=== PATIENT | female | born 1935 | race Caucasian/White ===

== ENCOUNTER 2017-07-23 15:52 | Outpatient (CLI) | payer MEDICARE, BC ==
--- NOTE | 2017-07-23 16:27 | XR ---
EXAMINATION TYPE: XR chest 2V DATE OF EXAM: 07/23/2017 COMPARISON: NONE HISTORY: Fever and cough TECHNIQUE: Frontal and lateral views of the chest are obtained. FINDINGS: The patient is rotated. Surgical clips are present in the right upper quadrant. Anterior w edge compression deformities present in the midthoracic spine with resulting kyphosis. There is no fo gaston air space opacity, pleural effusion, or pneumothorax seen. There are prominent lung volumes. The cardiac silhouette size is within normal limits. Bone mineralization is decreased. IMPRESSION: No acute cardiopulmonary process. Osteopenia, anterior wedge compression fractures, ifeanyi elate for COPD.
== END 2017-07-23 16:30 | disposition home or self-care (01) ==
LOC: PEDOP 15:52
PROVIDERS: ATTEND Physician Assistant
DX: B34.9 Viral infection, unspecified (principal)
CPT/HCPCS: 87502; 71046; G0463; 99212

== ENCOUNTER 2017-10-09 17:31 | Observation (INO) | payer MEDICARE, BC ==
--- NOTE | 2017-10-09 17:52 | ED ---
General Adult HPI - General Chief complaint: Chest Pain Stated complaint: CHest Pressure, Ligh headed Time Seen by Provider: 10/09/17 17:41 Source: patient, RN notes reviewed, old records reviewed Mode of arrival: wheelchair Limitations: no limitations - History of Present Illness Initial comments: This is an 82-year-old female to the ER for evaluation of chest pain patient has history of high blood pressure high cholesterol. No recent travel history no sick contacts no fevers, positive shortness of breath or cough or congestion. Symptoms began while patient was doing a workout which she normally does every other day this morning. No recent cardiac evaluation - Related Data Home Medications Medication Instructions Recorded Confirmed Valsartan/Hydrochlorothiazide 1 tab PO DAILY 04/05/16 10/09/17 [Valsartan-Hctz 320-25 mg Tab] amLODIPine BESYLATE [Norvasc] 5 mg PO DAILY 04/05/16 10/09/17 Vitamin C/Biotin [Hair, Skin and 1 tab PO DAILY 10/09/17 10/09/17 Nails] Allergies Allergy/AdvReac Type Severity Reaction Status Date / Time alcohol Allergy Unknown Verified 10/09/17 18:03 [From Bactine (with alcohol)] benzalkonium chloride Allergy Unknown Verified 10/09/17 18:03 [From Bactine (with alcohol)] codeine Allergy Unknown Verified 10/09/17 18:03 lidocaine Allergy Unknown Verified 10/09/17 18:03 [From Bactine (with alcohol)] metronidazole [From Flagyl] Allergy Unknown Verified 10/09/17 18:03 sulfamethoxazole Allergy Unknown Verified 10/09/17 18:03 [From Bactrim] trimethoprim [From Bactrim] Allergy Unknown Verified 10/09/17 18:03 Review of Systems ROS Statement: Those systems with pertinent positive or pertinent negative responses have been documented in the HPI. ROS Other: All systems not noted in ROS Statement are negative. Past Medical History Past Medical History: GERD/Reflux, Hypertension Additional Past Medical History / Comment(s): 2009 acute diverticulitis and Uti with sepsis, past back pain, current UTI-was on ABX-was told it was the wrong ABX but pt states new ABX script never called into her pharmacy. History of Any Multi-Drug Resistant Organisms: C-DIFF Date of last positivie culture/infection: 2005 MDRO Source:: stool Past Surgical History: Cholecystectomy, Hysterectomy, Tonsillectomy Additional Past Surgical History / Comment(s): colonoscopy Past Anesthesia/Blood Transfusion Reactions: Motion Sickness Past Psychological History: No Psychological Hx Reported Smoking Status: Never smoker Past Alcohol Use History: Occasional Past Drug Use History: None Reported - Past Family History Father Family Medical History: Hypertension Additional Family Medical History / Comment(s): Father at the age of 63 yrs. He was an alcoholic and a smoker. Mother Family Medical History: Hypertension Additional Family Medical History / Comment(s): Mother at the age of 88yrs. General Exam Limitations: no limitations General appearance: alert, in no apparent distress Head exam: Present: atraumatic, normocephalic, normal inspection Eye exam: Present: normal appearance, PERRL, EOMI. Absent: scleral icterus, conjunctival injection, periorbital swelling ENT exam: Present: normal exam, mucous membranes moist Neck exam: Present: normal inspection. Absent: tenderness, meningismus, lymphadenopathy Respiratory exam: Present: normal lung sounds bilaterally. Absent: respiratory distress, wheezes, rales, rhonchi, stridor Cardiovascular Exam: Present: regular rate, normal rhythm, normal heart sounds. Absent: systolic murmur, diastolic murmur, rubs, gallop, clicks GI/Abdominal exam: Present: soft, normal bowel sounds. Absent: distended, tenderness, guarding, rebound, rigid Extremities exam: Present: normal inspection, full ROM, normal capillary refill. Absent: tenderness, pedal edema, joint swelling, calf tenderness Back exam: Present: normal inspection Neurological exam: Present: alert, oriented X3, CN II-XII intact Psychiatric exam: Present: normal affect, normal mood Skin exam: Present: warm, dry, intact, normal color. Absent: rash Course Vital Signs 10/09/17 17:35 Temperature 98.0 F Pulse Rate 80 Respiratory 18 Rate Blood Pressure 180/77 O2 Sat by Pulse 97 Oximetry EKG Findings - EKG Comments: EKG Findings:: EKG shows normal sinus rhythm rate of 75, TX 182, QRS 106, QTc 462 Medical Decision Making - Medical Decision Making 82 female the ER history of high blood pressure history of high cholesterol coming in with chest pain chest pain left-sided rating to jaw. Sent in by family doctor, patient be admitted for cardiac observation, EKG troponin currently negative - Lab Data Result diagrams: 10/09/17 17:54 10/09/17 17:54 Lab Results 10/09/17 10/09/17 10/09/17 Range/Units 17:54 17:54 17:54 WBC 9.5 (3.8-10.6) k/uL RBC 4.28 (3.80-5.40) m/uL Hgb 12.8 (11.4-16.0) gm/dL Hct 38.1 (34.0-46.0) % MCV 88.9 (80.0-100.0) fL MCH 29.9 (25.0-35.0) pg MCHC 33.6 (31.0-37.0) g/dL RDW 13.1 (11.5-15.5) % Plt Count 322 (150-450) k/uL Neutrophils % 64 % Lymphocytes % 24 % Monocytes % 7 % Eosinophils % 3 % Basophils % 1 % Neutrophils # 6.1 (1.3-7.7) k/uL Lymphocytes # 2.3 (1.0-4.8) k/uL Monocytes # 0.7 (0-1.0) k/uL Eosinophils # 0.2 (0-0.7) k/uL Basophils # 0.1 (0-0.2) k/uL PT (9.0-12.0) sec INR (<1.2) APTT (22.0-30.0) sec Sodium 141 (137-145) mmol/L Potassium 4.2 (3.5-5.1) mmol/L Chloride 102 (98-107) mmol/L Carbon Dioxide 26 (22-30) mmol/L Anion Gap 13 mmol/L BUN 22 H (7-17) mg/dL Creatinine 0.86 (0.52-1.04) mg/dL Est GFR (CKD-EPI)AfAm 74 (>60 ml/min/1.73 sqM) Est GFR (CKD-EPI)NonAf 64 (>60 ml/min/1.73 sqM) Glucose 102 H (74-99) mg/dL Calcium 9.3 (8.4-10.2) mg/dL Magnesium 1.8 (1.6-2.3) mg/dL Total Bilirubin 0.3 (0.2-1.3) mg/dL AST 23 (14-36) U/L ALT 24 (9-52) U/L Alkaline Phosphatase 56 (38-126) U/L Total Creatine Kinase 76 (30-135) U/L Total Protein 6.8 (6.3-8.2) g/dL Albumin 4.1 (3.5-5.0) g/dL 10/09/17 Range/Units 17:54 WBC (3.8-10.6) k/uL RBC (3.80-5.40) m/uL Hgb (11.4-16.0) gm/dL Hct (34.0-46.0) % MCV (80.0-100.0) fL MCH (25.0-35.0) pg MCHC (31.0-37.0) g/dL RDW (11.5-15.5) % Plt Count (150-450) k/uL Neutrophils % % Lymphocytes % % Monocytes % % Eosinophils % % Basophils % % Neutrophils # (1.3-7.7) k/uL Lymphocytes # (1.0-4.8) k/uL Monocytes # (0-1.0) k/uL Eosinophils # (0-0.7) k/uL Basophils # (0-0.2) k/uL PT 9.7 (9.0-12.0) sec INR 1.0 (<1.2) APTT 22.7 (22.0-30.0) sec Sodium (137-145) mmol/L Potassium (3.5-5.1) mmol/L Chloride (98-107) mmol/L Carbon Dioxide (22-30) mmol/L Anion Gap mmol/L BUN (7-17) mg/dL Creatinine (0.52-1.04) mg/dL Est GFR (CKD-EPI)AfAm (>60 ml/min/1.73 sqM) Est GFR (CKD-EPI)NonAf (>60 ml/min/1.73 sqM) Glucose (74-99) mg/dL Calcium (8.4-10.2) mg/dL Magnesium (1.6-2.3) mg/dL Total Bilirubin (0.2-1.3) mg/dL AST (14-36) U/L ALT (9-52) U/L Alkaline Phosphatase (38-126) U/L Total Creatine Kinase (30-135) U/L Total Protein (6.3-8.2) g/dL Albumin (3.5-5.0) g/dL - Radiology Data Radiology results: report reviewed (Chest x-rays negative for acute disease), image reviewed Critical Care Time Critical Care Time: Yes Total Critical Care Time: 31 Disposition Clinical Impression: Dizziness, Hypertension, Hyperlipidemia, Chest pain Disposition: ADMITTED IP TO THIS [facility] Condition: Undetermined Instructions: Chest Pain (ED) Is patient prescribed a controlled substance at d/c from ED?: No Referrals: Oli Glover MD [Primary Care Provider] - 1-2 days
[2017-10-09 18:08] LABS: Basophils # (A) 0.1 k/uL (0-0.2); Basophils % (A) 1 %; Eosinophils # (A) 0.2 k/uL (0-0.7); Eosinophils % (A) 3 %; HCT 38.1 % (34.0-46.0); HGB 12.8 gm/dL (11.4-16.0); Lymphocytes # (A) 2.3 k/uL (1.0-4.8); Lymphocytes % (A) 24 %; MCH 29.9 pg (25.0-35.0); MCHC 33.6 g/dL (31.0-37.0); MCV 88.9 fL (80.0-100.0); Mean Platelet Volume 7.3; Monocytes # (A) 0.7 k/uL (0-1.0); Monocytes % (A) 7 %; Neutrophils # (A) 6.1 k/uL (1.3-7.7); Neutrophils % (A) 64 %; Platelet Count 322 k/uL (150-450); RBC 4.28 m/uL (3.80-5.40); RDW 13.1 % (11.5-15.5); WBC 9.5 k/uL (3.8-10.6)
[2017-10-09 18:13] LABS: Partial Thromboplastin Time 22.7 sec (22.0-30.0); Prothrombin Time 9.7 sec (9.0-12.0)
[2017-10-09 18:14] LABS: Albumin 4.1 g/dL (3.5-5.0); Calcium 9.3 mg/dL (8.4-10.2); Magnesium 1.8 mg/dL (1.6-2.3); Potassium 4.2 mmol/L (3.5-5.1); Total Bilirubin 0.3 mg/dL (0.2-1.3); Total Protein 6.8 g/dL (6.3-8.2)
[2017-10-09 18:28] LABS: Creatine Kinase 76 U/L (30-135)
--- NOTE | 2017-10-09 18:35 | XR ---
EXAMINATION TYPE: XR chest 2V DATE OF EXAM: 10/09/2017 COMPARISON: 07/23/2017 HISTORY: Chest pain TECHNIQUE: Frontal and lateral views of the chest are obtained. FINDINGS: There is no heart failure nor confluent pneumonic infiltrate. Thoracic aorta is atheromato us. Heart size is normal. There is no pleural effusion. There is slight anterior wedging of 2 or 3 mi d thoracic vertebra with mild kyphosis. IMPRESSION: No active cardiopulmonary disease. Normal heart. Old mild thoracic compression fractures .
[2017-10-09 18:41] LABS: Creatine Kinase MB 0.7 ng/mL (0.0-2.4); Troponin I <0.012 ng/mL (0.000-0.034)
[2017-10-09] MEDS ORDERED: HEPARIN SODIUM,PORCINE 5,000 UNIT/ML 1 ML VIAL IV ONE (18:41)
[2017-10-09] MEDS ORDERED: NITROGLYCERIN SL TABS 0.4 MG TAB SUBLINGUAL PRN (18:41)
[2017-10-09] MEDS ORDERED: ASPIRIN 81 MG PO STA (18:41)
[2017-10-09] MEDS ORDERED: HEPARIN SODIUM,PORCINE 5,000 UNIT/ML 1 ML VIAL IV PRN (18:41)
[2017-10-09] MEDS ORDERED: HEPARIN SODIUM,PORCINE/D5W PMX 25,000 UNIT in DEXTROSE/WATER 1 500ML.BAG IV SCH (18:45)
[2017-10-09 19:34] VITALS: RESP 16
[2017-10-09] MEDS ORDERED: METOPROLOL TARTRATE 25 MG TAB PO SCH (21:00)
[2017-10-10 01:36] LABS: Creatine Kinase 61 U/L (30-135)
[2017-10-10 01:50] LABS: Creatine Kinase MB 0.7 ng/mL (0.0-2.4); Troponin I <0.012 ng/mL (0.000-0.034)
--- NOTE | 2017-10-10 05:58 | HP ---
HISTORY AND PHYSICAL DATE OF SERVICE: 10/09/2017 CHIEF COMPLAINT: Chest pain. HISTORY OF PRESENT ILLNESS: This 82-year-old woman with a past medical history of multiple medical problems including GERD, hypertension, history of diverticulitis, being followed by Dr. Oli Glover in the outpatient setting was admitted with chest pain. The patient apparently working near a pool and the patient felt chest pressure in the anterior part of the chest. Patient had a brief period without any symptoms. Patient came to [facility] and admitted for further evaluation and treatment. The patient follows with Dr. Oli Glover in the outpatient setting. The patient apparently had a stress test in [place] about 10 years ago, which was negative. The results are not available. PAST MEDICAL HISTORY: GERD, hypertension, diverticulitis, UTI, sepsis. MEDICATIONS: Medications prior to admission include home medications are: 1. Norvasc 5 mg p.o. daily. 2. Vitamin C biotin 1 tablet p.o. daily. 3. Valsartan hydrochlorothiazide 320/25 p.o. daily. ALLERGIES: Allergies are BENZALKONIUM, CODEINE, LIDOCAINE, FLAGYL, BACTRIM. FAMILY HISTORY: History of hypertension in the family. SOCIAL HISTORY: No history of smoking, occasional alcohol intake. REVIEW OF SYSTEMS: ENT: No diminished vision and diminished hearing. CARDIOVASCULAR SYSTEM: As mentioned earlier. RESPIRATORY SYSTEM: As mentioned earlier. GI: No nausea. : No dysuria. NERVOUS SYSTEM: No numbness or weakness. ALLERGY/IMMUNOLOGY: No asthma or hayfever. MUSCULOSKELETAL: As mentioned earlier. HEMATOLOGY/ONCOLOGY: No history of anemia. ENDOCRINE: No history of diabetes mellitus or hypothyroidism. CONSTITUTIONAL: As mentioned earlier. DERMATOLOGY: Negative. RHEUMATOLOGY: Negative. PSYCHIATRY: As mentioned earlier. PHYSICAL EXAMINATION: The patient is alert and oriented x3. Pulse is 72, blood pressure 149/66, respirations 16, temperature 98.1, pulse ox 100% on 2 L HEENT: Conjunctivae normal. NECK: No jugular venous distention. CARDIOVASCULAR: S1 and S2 muffled. RESPIRATORY: Breath sounds diminished at the bases. No rhonchi, no crackles. ABDOMEN: Soft, nontender. No mass palpable. LEGS: No edema, no swelling. NERVOUS SYSTEM: Higher function as mentioned earlier. Moves all 4 limbs. No focal motor or sensory deficits. LYMPHATICS: No lymphadenopathy of the neck, axillae or groin. SKIN: No ulcer, rash or bleeding. JOINTS: No active deforming arthropathy. LABS: CBC within normal. Troponins are normal. Otherwise, chest x-ray shows no active cardiopulmonary lesion. EKG showed left anterior hemiblock. ASSESSMENT: 1. Chest pain for evaluation of possible coronary disease. 2. 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 3. Hypertension. 4. History of gastroesophageal reflux disease. 5. History of diverticulitis. RECOMMENDATION AND DISCUSSION: In this 82-year-old woman who presented with multiple medical issues, will monitor the patient closely. Continue the current medications, continue symptomatic treatment. Rule out myocardial infarction. protocol. Resume the home medications. Cardiology consultation, possible stress test. Guarded prognosis because of multiple complex medical issues. Further recommendations to follow. MMODL / IJN: [id number] / MTDD
[2017-10-10 08:24] LABS: Mean Platelet Volume 7.2; Platelet Count 296 k/uL (150-450)
[2017-10-10 08:33] LABS: Cholesterol 166 mg/dL (<200); HDL Cholesterol 44 mg/dL (40-60); LDL Cholesterol,Calculated 99 mg/dL (0-99); Triglycerides 116 mg/dL (<150)
[2017-10-10] MEDS ORDERED: AMINOPHYLLINE 500 MG/20 ML VIAL IV PRN (08:40)
[2017-10-10] MEDS ORDERED: REGADENOSON 0.4 MG/5 ML SYRINGE IV ONE (08:40)
[2017-10-10 08:50] LABS: Creatine Kinase 55 U/L (30-135)
[2017-10-10] MEDS ORDERED: VALSARTAN 160 MG TAB PO SCH (09:00)
[2017-10-10] MEDS ORDERED: ASPIRIN 325 MG TAB PO SCH (09:00)
[2017-10-10] MEDS ORDERED: HYDROCHLOROTHIAZIDE 25 MG TAB PO SCH (09:00)
[2017-10-10] MEDS ORDERED: NON-FORMULARY DRUG (Valsartan/Hydrochlorothiazide [Valsartan-Hctz 320-25 Mg Tab] 1 TAB) PO SCH (09:00)
[2017-10-10] MEDS ORDERED: ASPIRIN 81 MG PO SCH (09:00)
[2017-10-10] MEDS ORDERED: amLODIPine 5 MG TAB PO SCH (09:00)
[2017-10-10 09:02] LABS: Creatine Kinase MB 0.7 ng/mL (0.0-2.4); Troponin I <0.012 ng/mL (0.000-0.034)
--- NOTE | 2017-10-10 10:40 | ECHOF ---
Referral Reason:cp MEASUREMENTS -------- HEIGHT: 157.5 cm WEIGHT: 95.7 kg BP: IVSd: 1.5 cm (0.6 - 1.1) LVIDd: 4.2 cm (3.9 - 5.3) LVPWd: 1.5 cm (0.6 - 1.1) IVSs: 1.6 cm LVIDs: 3.8 cm LVPWs: 1.3 cm LA Diam: 4.3 cm (2.7 - 3.8) Ao Diam: 2.9 cm (2.0 - 3.7) AV Cusp: 1.7 cm (1.5 - 2.6) LA Diam: 4.9 cm (2.7 - 3.8) EPSS: 0.2 cm MV E Nasir: 0.27 m/s MV DecT: 281 ms MV A Nasir: 0.72 m/s MV E/A Ratio: 0.38 RAP: 5.00 mmHg RVSP: 21.16 mmHg MV EF SLOPE: 46.18 mm/s (70 - 150) MV EXCURSION: 1.16 cm (> 18.000) FINDINGS -------- Sinus rhythm. This was a technically adequate study. The left ventricular size is normal. There is moderate concentric left ventricular hypertrophy. O verall left ventricular systolic function is low-normal with, an EF between 50 - 55 %. The right ventricle is normal in size. The left atrium is mildly dilated. The right atrial size is normal. The aortic valve is trileaflet, and appears structurally normal. No aortic stenosis or regurgitation. Mild mitral regurgitation is present. No regurgitation noted There is no evidence of pulmonary hypertension. The right ventricular syst olic pressure, as measured by Doppler, is 21.16mmHg. There is no pulmonic regurgitation present. The aortic root size is normal. Echo free space indicative of a pericardial fat pad. CONCLUSIONS -------- 1. Sinus rhythm. 2. The left ventricular size is normal. 3. There is moderate concentric left ventricular hypertrophy. 4. Overall left ventricular systolic function is low-normal with, an EF between 50 - 55 %. 5. The right ventricle is normal in size. 6. The left atrium is mildly dilated. 7. The right atrial size is normal. 8. The aortic valve is trileaflet, and appears structurally normal. No aortic stenosis or regurgitati on. 9. Mild mitral regurgitation is present. 10. No regurgitation noted 11. There is no evidence of pulmonary hypertension. 12. The right ventricular systolic pressure, as measured by Doppler, is 21.16mmHg. 13. There is no pulmonic regurgitation present. 14. Echo free space indicative of a pericardial fat pad. ECONOMICS DEPARTMENT CHAIR: Olimpia Menjivar RDCS
--- NOTE | 2017-10-10 11:29 | EST ---
EXERCISE STRESS DATE OF SERVICE: 10/10/2017 AGE: 82 SEX: Female HT: 62" WT: 211 pounds PROTOCOL: Lexiscan Cardiolite STAGE: DURATION OF EXERCISE: HEART RATE REST: 76 BLOOD PRESSURE REST: 112/71 MAXIMUM HEART RATE ACHIEVED: 88 MAXIMUM BLOOD PRESSURE: 185/76 85% MPHR: 118 100% MPHR: 139 METS: INDICATION OF THE STUDY: Chest pain. CLINICAL INFORMATION: STRESS DATA: Pretesting physical examination showed a heart rate of 76, pressure 112/71 mmHg. Baseline EKG showed sinus mechanism. A 0.4 mg of Lexiscan was given over 15 seconds per protocol. The max heart rate was 88 beats per minute and maximum pressure was 185/76 mmHg. Clinically the patient did not have any symptoms of chest pain or discomfort and the EKG did not show any significant ST or T-wave abnormalities consistent with ischemia. CONCLUSION: 1. Nondiagnostic electrocardiogram stress testing in response to Lexiscan. 2. Please follow up on the Cardiolite portion on separate report from radiology department. MMODL / IJN: [id number] /
[2017-10-10] MEDS: ATORVASTATIN 80 MG TAB PO SCH ×2 (12:02→12:07)
--- NOTE | 2017-10-10 12:20 | P.CRDCN ---
History of Present Illness Consult date: 10/10/17 History of present illness: Mrs. Maldonado is a pleasant 82-year-old female past medical history significant for hypertension and gastroesophageal reflux disease. She denies history of coronary artery disease and has never seen a director of sports medicine for any reason. We have been asked to see her in consultation for chest pain. She states yesterday in the afternoon while at rest she developed a heavy sensation across her chest in the upper region from shoulder to shoulder. She has mild shortness of breath, dizziness and nausea. She had planted some garsia the day before and thought maybe she had pulled a muscle. However, the heaviness persisted so she went in to see her PCP and was sent here for evaluation. Since arriving in the hospital she has had no further symptoms of chest pain, shortness of breath, dizziness or nausea. She denies radiation of the pain to the back, neck, jaw or arm. She denies associated palpitations, vomiting or diaphoresis. No specific aggravating or alleviating factors. EKG sinus mechanism with poor R-wave progression, no acute ST or T-wave abnormalities noted. Chest xray negative for an acute cardiopulmonary process. Laboratory data reviewed, hgb 12.8, plt 296, sodium 141, potassium 4.2, magnesium 1.8, creatinine 0.86, cardiac enzymes negative x3, LDL 99, HDL 44. Current cardiac medications include amlodipine 5 mg daily and valsartan/hctz 320 /25 mg daily. She also takes vitamin C supplementation. Most recent echocardiogram from 2014 reveals preserved LV systolic function with EF 55%. Review of Systems At the time of my exam: CONSTITUTIONAL: Denies fever. Denies chills. EYES: Denies blurred vision. Denies vision changes. Denies eye pain. EARS, NOSE, MOUTH & THROAT: Denies headache. Denies sore throat. Denies ear pain. CARDIOVASCULAR: Denies chest pain. Denies shortness of breath. Denies orthopnea. Denies PND. Denies palpitations. RESPIRATORY: Denies cough. GASTROINTESTINAL: Denies abdominal pain. Denies diarrhea. Denies constipation. Denies nausea. Denies vomiting. MUSCULOSKELETAL: Denies myalgias. INTEGUMENTARY: Denies pruitis. Denies rash. NEUROLOGIC: Denies numbness. Denies tingling. Denies weakness. PSYCHIATRIC: Denies anxiety. Denies depression. ENDOCRINE: Denies fatigue. Denies weight change. Denies polydipsia. Denies polyurina. GENITOURINARY: Denies burning, hematuria or urgency with micturation. HEMATOLOGIC: Denies history of anemia. Denies bleeding. Past Medical History Past Medical History: GERD/Reflux, Hypertension Additional Past Medical History / Comment(s): 2009 acute diverticulitis and Uti with sepsis, past back pain, c-diff 2016, "told she has an anuerysm " History of Any Multi-Drug Resistant Organisms: None Reported Date of last positivie culture/infection: 2005 MDRO Source:: stool Past Surgical History: Cholecystectomy, Hysterectomy, Tonsillectomy Additional Past Surgical History / Comment(s): colonoscopy, eye sx(tear ducts) Past Anesthesia/Blood Transfusion Reactions: Motion Sickness Additional Past Anesthesia/Blood Transfusion Reaction / Comment(s): clausterphobia Smoking Status: Never smoker - Past Family History Father Family Medical History: Hypertension Additional Family Medical History / Comment(s): Father at the age of 63 yrs. He was an alcoholic and a smoker. Mother Family Medical History: Hypertension Additional Family Medical History / Comment(s): Mother at the age of 88yrs. Medications and Allergies Home Medications Medication Instructions Recorded Confirmed Type Valsartan/Hydrochlorothiazide 1 tab PO DAILY 04/05/16 10/09/17 History [Valsartan-Hctz 320-25 mg Tab] amLODIPine BESYLATE [Norvasc] 5 mg PO DAILY 04/05/16 10/09/17 History Vitamin C/Biotin [Hair, Skin and 1 tab PO DAILY 10/09/17 10/09/17 History Nails] Allergies Allergy/AdvReac Type Severity Reaction Status Date / Time benzalkonium chloride Allergy Unknown Verified 10/09/17 18:03 [From Bactine (with alcohol)] codeine Allergy Unknown Verified 10/09/17 18:03 lidocaine Allergy Unknown Verified 10/09/17 18:03 [From Bactine (with alcohol)] metronidazole [From Flagyl] Allergy Unknown Verified 10/09/17 18:03 sulfamethoxazole Allergy Unknown Verified 10/09/17 18:03 [From Bactrim] trimethoprim [From Bactrim] Allergy Unknown Verified 10/09/17 18:03 Physical Exam Vitals: Vital Signs Temp Pulse Pulse Resp BP BP Pulse Ox 10/10/17 07:39 97.9 F 67 16 120/57 93 L 10/10/17 03:51 63 16 10/10/17 03:40 98.0 F 64 16 140/70 94 L 10/09/17 23:42 61 16 10/09/17 23:37 98.7 F 64 16 95/51 98 10/09/17 20:00 76 16 10/09/17 19:33 98.1 F 72 16 149/66 100 10/09/17 19:12 97.8 F 69 18 143/68 99 10/09/17 18:57 74 147/66 95 10/09/17 17:35 98.0 F 80 18 180/77 97 Intake and Output 10/09/17 10/10/17 10/10/17 22:59 06:59 14:59 Intake Total 134.325 Balance 134.325 Intake: Intake, IV Titration 134.325 Amount Heparin Sodium,Porcine/ 134.325 D5w Pmx 25,000 unit In Dextrose/Water 1 500ml. bag @ 10.4 UNITS/KG/HR 19 .9 mls/hr IV .Q24H [facility] Rx #:[id number] Other: Voiding Method Toilet Toilet # Voids 3 # Bowel Movements 1 Weight 95.708 kg Blood pressure 120/57 with heart rate 67 afebrile maintaining oxygen saturation on room air GENERAL: This is a 82-year-old female in no apparent distress at the time of my examination. Obese. HEENT: Head is atraumatic, normocephalic. Pupils are equal, round. Sclerae anicteric. Conjunctivae are clear. Mucous membranes of the mouth are moist. Neck is supple. There is no jugular venous distention. No carotid bruit is heard. LUNGS: Clear to auscultation no wheezes, rales or rhonchi. No chest wall tenderness is noted on palpation or with deep breathing. HEART: Regular rate and rhythm without murmurs, rubs or gallops. S1 and S2 heard. ABDOMEN: Soft, nontender. Bowel sounds are heard. No organomegaly noted. EXTREMITIES: No evidence of peripheral edema and no calf tenderness noted. VASCULAR: Radial and dorsalis pedis pulses palpated, no evidence of clubbing. NEUROLOGIC: Patient is awake, alert and oriented x3. Results 10/10/17 08:04 10/09/17 17:54 Cardiac Enzymes 10/09/17 10/09/17 10/10/17 Range/Units 17:54 17:54 00:26 AST 23 (14-36) U/L CK-MB (CK-2) 0.7 0.7 (0.0-2.4) ng/mL Troponin I <0.012 <0.012 (0.000-0.034) ng/mL Coagulation 18 10/10/17 Range/Units 17:54 00:26 PT 9.7 (9.0-12.0) sec APTT 22.7 42.8 H (22.0-30.0) sec CBC 10/09/17 Range/Units 17:54 WBC 9.5 (3.8-10.6) k/uL RBC 4.28 (3.80-5.40) m/uL Hgb 12.8 (11.4-16.0) gm/dL Hct 38.1 (34.0-46.0) % Plt Count 322 (150-450) k/uL Comprehensive Metabolic Panel 10/09/17 Range/Units 17:54 Sodium 141 (137-145) mmol/L Potassium 4.2 (3.5-5.1) mmol/L Chloride 102 (98-107) mmol/L Carbon Dioxide 26 (22-30) mmol/L BUN 22 H (7-17) mg/dL Creatinine 0.86 (0.52-1.04) mg/dL Glucose 102 H (74-99) mg/dL Calcium 9.3 (8.4-10.2) mg/dL AST 23 (14-36) U/L ALT 24 (9-52) U/L Alkaline Phosphatase 56 (38-126) U/L Total Protein 6.8 (6.3-8.2) g/dL Albumin 4.1 (3.5-5.0) g/dL Current Medications Generic Name Dose Route Start Last Admin Trade Name Freq PRN Reason Stop Dose Admin Aspirin 81 mg 10/10/17 09:00 Aspirin PO DAILY [facility] Atorvastatin Calcium 80 mg 10/10/17 09:00 Lipitor PO DAILY [facility] Heparin Sodium (Porcine) 0 unit 10/09/17 18:41 Heparin IV Q6HR PRN Low PTT Protocol Heparin Sodium/Dextrose 25,000 500 mls @ 19.9 mls/hr 10/09/17 18:45 10/10/17 01:44 unit/ IV Solution IV 12.06 units/kg/hr .Q24H [facility] 23.1 mls/hr Protocol Titration 10.4 UNITS/KG/HR Nitroglycerin 0.4 mg 10/09/17 18:41 Nitrostat SUBLINGUAL Q5M PRN Chest Pain Intake and Output 10/09/17 10/10/17 10/10/17 22:59 06:59 14:59 Intake Total 134.325 Balance 134.325 Intake: Intake, IV Titration 134.325 Amount Heparin Sodium,Porcine/ 134.325 D5w Pmx 25,000 unit In Dextrose/Water 1 500ml. bag @ 10.4 UNITS/KG/HR 19 .9 mls/hr IV .Q24H [facility] Rx #:[id number] Other: Voiding Method Toilet Toilet # Voids 3 # Bowel Movements 1 Weight 95.708 kg 10/09/17 17:54 10/09/17 17:54 Assessment and Plan Assessment: ASSESSMENT 1. Chest pain, atypical. An acute coronary event has been ruled out. 2. Hypertension 3. Gastroesophageal reflux disease 4. Obesity PLAN Obtain 2-D echocardiogram and Doppler study to assess cardiac structure and function. Perform Lexiscan stress test with sestamibi reversible cardiac ischemia. Resume all medications amlodipine 5 mg daily, valsartan/HCTZ 320/25 mg daily. Further recommendations to follow based upon clinical diagnostic test findings. If stress test is normal she is stable from a cardiac perspective. Follow-up with Dr. Chen in 2 weeks. Thank you kindly for this consultation. Nurse Practitioner note has been reviewed, I agree with a documented findings and plan of care. Patient was seen and examined.
--- NOTE | 2017-10-10 12:23 | NM ---
EXAMINATION TYPE: NM stress lexiscan cardiolite DATE OF EXAM: 10/10/2017 COMPARISON: NONE HISTORY: Chest pain TECHNIQUE: After the intravenous administration of 9.8 mCi Tc 99m Sestamibi - Cardiolite resting SPE CT images acquired 45 minutes post injection. The patient received 0.4mg Lexiscan, 25.8 mCi Tc 99m Sestamibi - Stress images obtained [address] injection FINDINGS: Review of stress and rest SPECT images demonstrates no distinct perfusion abnormality. Gated analysi s shows small focal fixed defect involving the apex of the myocardium. An estimated left ventricular ejection fraction of 69 %. IMPRESSION: No scintigraphic evidence for reversible ischemia.
[2017-10-10 12:39] VITALS: BP 142/63; PULSE 79; TEMP 98.1
--- NOTE | 2017-10-10 23:20 | DS ---
DISCHARGE SUMMARY DATE OF SERVICE: 10/10/2017 FINAL DIAGNOSES: 1. Chest pain, possibly gastroesophageal reflux disease. Negative stress test. 2. 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 3. Hypertension. 4. History of gastroesophageal reflux disease. 5. History of diverticulitis. DISCHARGE DISPOSITION: The patient will be discharged in stable condition with guarded prognosis. Cardiology cleared the patient for discharge. HISTORY OF PRESENT ILLNESS: This 82-year-old woman with a past medical history of multiple medical problems was admitted with chest pain. Lexiscan stress test was negative. Cardiology recommend the patient be discharged. On exam, vital signs are stable. CARDIOVASCULAR SYSTEM: S1, S2 muffled. ABDOMEN: Soft. NERVOUS SYSTEM: No focal deficit. DISCHARGE ADVICE AND MEDICATIONS: 1. Diet is cardiac. 2. Activity limited until followup. 3. Follow up with Dr. Oli Glover in 1-2 days. 4. Follow up with Dr. Chen as advised. 5. Norvasc 5 mg p.o. daily. 6. Valsartan hydrochlorothiazide 1 tablet p.o. daily. 7. Vitamin C daily p.o. Once again, the patient will be discharged in a stable condition with guarded prognosis. MMODL / IJN: [id number] /
== END 2017-10-10 13:36 | disposition home or self-care (01) ==
LOC: EC 17:31 → 3OBS 18:42
PROVIDERS: ADMIT Hospitalist; ATTEND Hospitalist
DX: R07.89 Other chest pain (principal); R06.02 Shortness of breath; R42 Dizziness and giddiness; R11.0 Nausea; I10 Essential (primary) hypertension; E78.5 Hyperlipidemia, unspecified; K21.9 Gastro-esophageal reflux disease without esophagitis; E66.9 Obesity, unspecified; Z68.38 Body mass index [BMI] 38.0-38.9, adult; K57.92 Diverticulitis of intestine, part unspecified, without perforation or abscess without bleeding; Z87.440 Personal history of urinary (tract) infections; Z79.899 Other long term (current) drug therapy; Z88.1 Allergy status to other antibiotic agents; Z88.5 Allergy status to narcotic agent; Z88.2 Allergy status to sulfonamides; Z88.8 Allergy status to other drugs, medicaments and biological substances; Z91.048 Other nonmedicinal substance allergy status; Z81.1 Family history of alcohol abuse and dependence; Z81.2 Family history of tobacco abuse and dependence; Z16.35 Resistance to multiple antimicrobial drugs
CPT/HCPCS: 96376 ×2; 96365 ×2; 99291 ×2; 93005 ×2; 96366 ×2; 36415; 93017; 93306; 80061; 80053; 82550 ×2; 82553 ×2; 83735; 84484 ×2; 85025; 85049; 85610; 85730 ×2; 87324; 71046; 78452; G0378 ×2; A9500; J1644 ×2; J2785

== ENCOUNTER 2018-12-30 08:00 | Emergency (ER) | payer MEDICARE, BC ==
[2018-12-30] MEDS ORDERED: ASPIRIN 81 MG PO STA (08:22)
[2018-12-30] MEDS ORDERED: NITROGLYCERIN OINT 1 INCH/GM PACKET TOPICAL STA (08:22)
--- NOTE | 2018-12-30 08:25 | ED ---
General Adult HPI - General Stated complaint: Chest pain Time Seen by Provider: 12/30/18 08:14 Source: patient, RN notes reviewed Limitations: no limitations - History of Present Illness Initial comments: Patient is a pleasant 83-year-old female presenting to the emergency Department with complaints of chest discomfort. Onset of symptoms was this morning prior to arrival. Symptoms lasted around a half an hour and have resolved. Discomfort is described as an ache across her chest. There was some radiation towards the back as well. No associated dyspnea, nausea, or diaphoresis. No history of similar symptoms previously. - Related Data Home Medications Medication Instructions Recorded Confirmed Valsartan/Hydrochlorothiazide 1 tab PO DAILY 04/05/16 12/30/18 [Valsartan-Hctz 320-25 mg Tab] Cranberry Fruit Extract [Cranberry] 500 mg PO DAILY 12/30/18 12/30/18 Naproxen Sodium [Aleve] 220 mg PO Q12HR PRN 12/30/18 12/30/18 Ranitidine HCl [Zantac] 75 mg PO HS PRN 12/30/18 12/30/18 Allergies Allergy/AdvReac Type Severity Reaction Status Date / Time benzalkonium chloride Allergy Unknown Verified 12/30/18 08:27 [From Bactine (with alcohol)] codeine Allergy Unknown Verified 12/30/18 08:27 lidocaine Allergy Unknown Verified 12/30/18 08:27 [From Bactine (with alcohol)] metronidazole [From Flagyl] Allergy Unknown Verified 12/30/18 08:27 sulfamethoxazole Allergy Unknown Verified 12/30/18 08:27 [From Bactrim] trimethoprim [From Bactrim] Allergy Unknown Verified 12/30/18 08:27 Review of Systems ROS Statement: Those systems with pertinent positive or pertinent negative responses have been documented in the HPI. ROS Other: All systems not noted in ROS Statement are negative. Constitutional: Denies: fever Eyes: Denies: eye pain ENT: Denies: ear pain Respiratory: Denies: cough, dyspnea Cardiovascular: Reports: chest pain Endocrine: Denies: fatigue Gastrointestinal: Denies: abdominal pain Genitourinary: Denies: dysuria Musculoskeletal: Denies: back pain Skin: Denies: rash Neurological: Denies: weakness Past Medical History Past Medical History: GERD/Reflux, Hypertension Additional Past Medical History / Comment(s): 2009 acute diverticulitis and Uti with sepsis, past back pain, c-diff 2016, "told she has an anuerysm " History of Any Multi-Drug Resistant Organisms: None Reported Date of last positivie culture/infection: 2005 MDRO Source:: stool Past Surgical History: Cholecystectomy, Hysterectomy, Tonsillectomy Additional Past Surgical History / Comment(s): colonoscopy, eye sx(tear ducts) Past Anesthesia/Blood Transfusion Reactions: Motion Sickness Additional Past Anesthesia/Blood Transfusion Reaction / Comment(s): clausterphobia Smoking Status: Never smoker - Past Family History Father Family Medical History: Hypertension Additional Family Medical History / Comment(s): Father at the age of 63 yrs. He was an alcoholic and a smoker. Mother Family Medical History: Hypertension Additional Family Medical History / Comment(s): Mother at the age of 88yrs. General Exam General appearance: alert, in no apparent distress Head exam: Present: atraumatic Eye exam: Present: normal appearance, PERRL ENT exam: Present: normal oropharynx Neck exam: Present: normal inspection Respiratory exam: Present: normal lung sounds bilaterally. Absent: chest wall tenderness Cardiovascular Exam: Present: regular rate, normal rhythm Expanded Peripheral pulses: 2+: Radial (R), Radial (L), Dorsalis Pedis (R), Dorsalis Pedis (L) GI/Abdominal exam: Present: soft. Absent: distended, tenderness Extremities exam: Present: normal inspection. Absent: pedal edema, calf tenderness Neurological exam: Present: alert Psychiatric exam: Present: normal affect, normal mood Skin exam: Present: normal color Course Vital Signs 12/30/18 08:43 Temperature 98.4 F Pulse Rate 66 Respiratory 16 Rate Blood Pressure 128/72 O2 Sat by Pulse 96 Oximetry EKG Findings - EKG Comments: EKG Findings:: Normal sinus rhythm 70. OH 190. QRS 114. QT 410. QTc 422. Right superior axis. Normal QRS. No acute ST change. Medical Decision Making - Medical Decision Making Patient reevaluated and resting comfortably in bed. Patient updated on results and plan. Case discussed in detail with practitioner Amairani, covering with Dr. Glover, who will admit. Cardiology will be placed on consult. - Lab Data Result diagrams: 12/30/18 08:30 12/30/18 08:30 Lab Results 12/30/18 12/30/18 12/30/18 Range/Units 08:30 08:30 08:30 WBC 7.9 (3.8-10.6) k/uL RBC 4.13 (3.80-5.40) m/uL Hgb 12.6 (11.4-16.0) gm/dL Hct 38.4 (34.0-46.0) % MCV 93.0 (80.0-100.0) fL MCH 30.6 (25.0-35.0) pg MCHC 32.9 (31.0-37.0) g/dL RDW 14.3 (11.5-15.5) % Plt Count 280 (150-450) k/uL Neutrophils % 58 % Lymphocytes % 28 % Monocytes % 8 % Eosinophils % 3 % Basophils % 1 % Neutrophils # 4.6 (1.3-7.7) k/uL Lymphocytes # 2.2 (1.0-4.8) k/uL Monocytes # 0.6 (0-1.0) k/uL Eosinophils # 0.2 (0-0.7) k/uL Basophils # 0.1 (0-0.2) k/uL PT 9.8 (9.0-12.0) sec INR 0.9 (<1.2) APTT 23.2 (22.0-30.0) sec D-Dimer 1.30 H (<0.60) mg/L FEU Sodium 139 (137-145) mmol/L Potassium 4.0 (3.5-5.1) mmol/L Chloride 102 (98-107) mmol/L Carbon Dioxide 28 (22-30) mmol/L Anion Gap 9 mmol/L BUN 23 H (7-17) mg/dL Creatinine 1.08 H (0.52-1.04) mg/dL Est GFR (CKD-EPI)AfAm 55 (>60 ml/min/1.73 sqM) Est GFR (CKD-EPI)NonAf 48 (>60 ml/min/1.73 sqM) Glucose 104 H (74-99) mg/dL Calcium 9.2 (8.4-10.2) mg/dL Magnesium 1.7 (1.6-2.3) mg/dL Total Bilirubin 0.5 (0.2-1.3) mg/dL AST 17 (14-36) U/L ALT 18 (9-52) U/L Alkaline Phosphatase 53 (38-126) U/L Troponin I (0.000-0.034) ng/mL Total Protein 6.7 (6.3-8.2) g/dL Albumin 3.8 (3.5-5.0) g/dL 12/30/ Range/Units 08:30 WBC (3.8-10.6) k/uL RBC (3.80-5.40) m/uL Hgb (11.4-16.0) gm/dL Hct (34.0-46.0) % MCV (80.0-100.0) fL MCH (25.0-35.0) pg MCHC (31.0-37.0) g/dL RDW (11.5-15.5) % Plt Count (150-450) k/uL Neutrophils % % Lymphocytes % % Monocytes % % Eosinophils % % Basophils % % Neutrophils # (1.3-7.7) k/uL Lymphocytes # (1.0-4.8) k/uL Monocytes # (0-1.0) k/uL Eosinophils # (0-0.7) k/uL Basophils # (0-0.2) k/uL PT (9.0-12.0) sec INR (<1.2) APTT (22.0-30.0) sec D-Dimer (<0.60) mg/L FEU Sodium (137-145) mmol/L Potassium (3.5-5.1) mmol/L Chloride (98-107) mmol/L Carbon Dioxide (22-30) mmol/L Anion Gap mmol/L BUN (7-17) mg/dL Creatinine (0.52-1.04) mg/dL Est GFR (CKD-EPI)AfAm (>60 ml/min/1.73 sqM) Est GFR (CKD-EPI)NonAf (>60 ml/min/1.73 sqM) Glucose (74-99) mg/dL Calcium (8.4-10.2) mg/dL Magnesium (1.6-2.3) mg/dL Total Bilirubin (0.2-1.3) mg/dL AST (14-36) U/L ALT (9-52) U/L Alkaline Phosphatase (38-126) U/L Troponin I <0.012 (0.000-0.034) ng/mL Total Protein (6.3-8.2) g/dL Albumin (3.5-5.0) g/dL - Radiology Data Radiology results: report reviewed (Computed tomography scan of the chest is negative for pulmonary embolism. There is cardiomegaly and mild pericardial effusion.) Disposition Clinical Impression: Chest pain Disposition: ADMITTED IP TO THIS HOSP Is patient prescribed a controlled substance at d/c from ED?: No Referrals: Oli Glover MD [Primary Care Provider] - 1-2 days Decision Time: 10:29
[2018-12-30 08:43] LABS: Basophils # (A) 0.1 k/uL (0-0.2); Basophils % (A) 1 %; Eosinophils # (A) 0.2 k/uL (0-0.7); Eosinophils % (A) 3 %; HCT 38.4 % (34.0-46.0); HGB 12.6 gm/dL (11.4-16.0); Lymphocytes # (A) 2.2 k/uL (1.0-4.8); Lymphocytes % (A) 28 %; MCH 30.6 pg (25.0-35.0); MCHC 32.9 g/dL (31.0-37.0); Mean Platelet Volume 7.2; Monocytes # (A) 0.6 k/uL (0-1.0); Monocytes % (A) 8 %; Neutrophils # (A) 4.6 k/uL (1.3-7.7); Neutrophils % (A) 58 %; Platelet Count 280 k/uL (150-450); RBC 4.13 m/uL (3.80-5.40); RDW 14.3 % (11.5-15.5); WBC 7.9 k/uL (3.8-10.6)
[2018-12-30 08:49] VITALS: PULSE 66
[2018-12-30 08:55] LABS: Albumin 3.8 g/dL (3.5-5.0); Calcium 9.2 mg/dL (8.4-10.2); Magnesium 1.7 mg/dL (1.6-2.3); Total Bilirubin 0.5 mg/dL (0.2-1.3); Total Protein 6.7 g/dL (6.3-8.2)
[2018-12-30 09:01] LABS: INR 0.9 (<1.2); Partial Thromboplastin Time 23.2 sec (22.0-30.0); Prothrombin Time 9.8 sec (9.0-12.0)
[2018-12-30 09:14] LABS: D-Dimer 1.3 mg/L FEU (<0.60)
--- NOTE | 2018-12-30 09:54 | CT ---
EXAMINATION TYPE: CT angio chest DATE OF EXAM: 12/30/2018 COMPARISON: None HISTORY: Chest pain for 1/2 hour, Possible PE CT DLP: 425.2 mGycm Automated exposure control for dose reduction was used. CONTRAST: CTA scan of the thorax is performed without and with IV Contrast, patient injected with 80 ml mL of I sovue 370, pulmonary embolism protocol. MIP images are created and reviewed. 3D reconstructed image s are created on an independent workstation and reviewed. FINDINGS: LUNGS: The lungs are grossly clear, there is no concerning parenchymal mass or nodule identified. T here is no pleural effusion or pneumothorax seen. The tracheobronchial tree is patent. AORTA: No additional significant abnormality is seen. MEDIASTINUM: There is satisfactory enhancement of the pulmonary artery and its branches, there is no CT evidence for pulmonary embolism. There are no greater than 1 cm hilar or mediastinal lymph nodes. There is a small pericardial effusion. Heart is enlarged. Pulmonary artery appears prominent, correl ate for possible pulmonary artery hypertension OTHER: Thyroid gland appears prominently. There is a hiatal hernia present. Wedge compression fractures in the lower thoracic spine causes an underlying kyphosis, flowing anteri or osteophytes with relative preservation of the disc spaces may be indicative of diffuse idiopathic skeletal hyperostosis. IMPRESSION: NO EVIDENT PULMONARY EMBOLISM. Cardiomegaly. Small pericardial effusion. Hiatal hernia. Correlate for possible pulmonary artery hypertension.
[2018-12-30] MEDS ORDERED: NITROGLYCERIN SL TABS 0.4 MG TAB SUBLINGUAL PRN (10:29)
[2018-12-30] MEDS ORDERED: FAMOTIDINE 20 MG TAB PO PRN (12:06)
--- NOTE | 2018-12-30 12:09 | P.HPIM ---
History of Present Illness 83-year-old female presented emergency room with complaints of chest pain that radiated to back pain. Patient states she was shopping. Patient denies previous chest pain. Patient does have history of GERD and hypertension. Patie nt denies of radiation to neck or arm denies nausea denies diaphoresis Review of Systems Cardiovascular: Reports chest pain Past Medical History Past Medical History: GERD/Reflux, Hypertension Additional Past Medical History / Comment(s): 2009 acute diverticulitis and Uti with sepsis, past back pain, c-diff 2016, "told she has an anuerysm " History of Any Multi-Drug Resistant Organisms: None Reported Date of last positivie culture/infection: 2005 MDRO Source:: stool Past Surgical History: Cholecystectomy, Hysterectomy, Tonsillectomy Additional Past Surgical History / Comment(s): colonoscopy, eye sx(tear ducts) Past Anesthesia/Blood Transfusion Reactions: Motion Sickness Additional Past Anesthesia/Blood Transfusion Reaction / Comment(s): clausterphobia Smoking Status: Never smoker - Past Family History Father Family Medical History: Hypertension Additional Family Medical History / Comment(s): Father at the age of 63 yrs. He was an alcoholic and a smoker. Mother Family Medical History: Hypertension Additional Family Medical History / Comment(s): Mother at the age of 88yrs. Medications and Allergies Home Medications Medication Instructions Recorded Confirmed Type Valsartan/Hydrochlorothiazide 1 tab PO DAILY 04/05/16 12/30/18 History [Valsartan-Hctz 320-25 mg Tab] Cranberry Fruit Extract [Cranberry] 500 mg PO DAILY 12/30/18 12/30/18 History Naproxen Sodium [Aleve] 220 mg PO Q12HR PRN 12/30/18 12/30/18 History Ranitidine HCl [Zantac] 75 mg PO HS PRN 12/30/18 12/30/18 History Allergies Allergy/AdvReac Type Severity Reaction Status Date / Time benzalkonium chloride Allergy Unknown Verified 12/30/18 08:27 [From Bactine (with alcohol)] codeine Allergy Unknown Verified 12/30/18 08:27 lidocaine Allergy Unknown Verified 12/30/18 08:27 [From Bactine (with alcohol)] metronidazole [From Flagyl] Allergy Unknown Verified 12/30/18 08:27 sulfamethoxazole Allergy Unknown Verified 12/30/18 08:27 [From Bactrim] trimethoprim [From Bactrim] Allergy Unknown Verified 12/30/18 08:27 Physical Exam Vitals: Vital Signs Temp Pulse Resp BP Pulse Ox 12/30/18 08:43 98.4 F 66 16 128/72 96 Intake and Output 12/29/18 12/30/18 12/30/18 22:59 06:59 14:59 Other: Weight 90.718 kg - Constitutional General appearance: mild distress, obese - EENT Eyes: PERRLA Ears: bilateral: normal - Neck Neck: normal ROM - Respiratory Respiratory: negative: CTA - Cardiovascular Rhythm: regular - Gastrointestinal General gastrointestinal: soft - Integumentary Integumentary: normal - Neurologic Neurologic: CNII-XII intact - Psychiatric Psychiatric: A&O x's 3, appropriate affect, intact judgment & insight Results CBC & Chem 7: 12/30/18 08:30 12/30/18 08:30 Labs: Abnormal Lab Results - Last 24 Hours (Table) 12/30/18 12/30/18 Range/Units 08:30 08:30 D-Dimer 1.30 H (<0.60) mg/L FEU BUN 23 H (7-17) mg/dL Creatinine 1.08 H (0.52-1.04) mg/dL Glucose 104 H (74-99) mg/dL CT scan - chest: report reviewed Assessment and Plan Plan: Assessment Chest pain troponin negative 1 EKG sinus rhythm History of GERD History of hypertension Plan Cardiology consultation
[2018-12-30 15:29] VITALS: BP 132/56; RESP 20; TEMP 98.3
[2018-12-30] MEDS ORDERED: NITROGLYCERIN OINT 1 INCH/GM PACKET TOPICAL SCH (18:00)
[2018-12-31] MEDS ORDERED: VALSARTAN 160 MG TAB PO SCH (09:00)
[2018-12-31] MEDS ORDERED: ASPIRIN 325 MG TAB PO SCH (09:00)
[2018-12-31] MEDS ORDERED: HYDROCHLOROTHIAZIDE 25 MG TAB PO SCH (09:00)
== END 2018-12-30 15:20 | disposition left against medical advice (07) ==
LOC: EC 08:00 → UNDOADMOB 10:30 → 1SOBS 10:30 → EC 15:20
DX: R07.89 Other chest pain (principal); K21.9 Gastro-esophageal reflux disease without esophagitis; I10 Essential (primary) hypertension; Z79.899 Other long term (current) drug therapy; Z88.5 Allergy status to narcotic agent; Z88.8 Allergy status to other drugs, medicaments and biological substances; Z88.1 Allergy status to other antibiotic agents; Z88.2 Allergy status to sulfonamides; Z88.4 Allergy status to anesthetic agent
CPT/HCPCS: 99285; 36415; 93005; 85379; 80053; 83735; 84484; 85025; 85610; 85730; 71275; Q9967

== ENCOUNTER → 2019-03-02 | Outpatient (CLI) | payer MEDICARE, BC ==
--- NOTE | 2019-03-02 15:27 | XR ---
EXAMINATION TYPE: XR knee complete bilateral DATE OF EXAM: 03/02/2019 COMPARISON: NONE HISTORY: Pain TECHNIQUE: Four views are submitted. FINDINGS: The bilateral knee demonstrates hypertrophic spurring and severe narrowing of the medial compartment of the knee joint and patellofemoral joint most typical of osteoarthritis. No acute fracture or dislo cation. No erosive change. No dislocation. IMPRESSION: 1. Severe bilateral osteoarthritis.
== END | disposition home or self-care (01) ==
LOC: RADXRMAIN 14:42
PROVIDERS: ATTEND Midwife
DX: M17.0 Bilateral primary osteoarthritis of knee (principal)

== ENCOUNTER 2019-11-26 12:30 | Emergency (ER) | payer MEDICARE, BC ==
[2019-11-26 12:45] VITALS: TEMP 98.7
--- NOTE | 2019-11-26 13:28 | ED ---
General Adult HPI - General Chief complaint: Dizziness Stated complaint: Dizzy-sent by PCP Time Seen by Provider: 11/26/19 12:49 Source: patient Mode of arrival: wheelchair Limitations: no limitations - History of Present Illness Initial comments: Dictation was produced using [employer] dictation software. please excuse any grammatical, word or spelling errors. This patient was cared for during a federal and state declared state of emergency secondary to Covid 19 Chief Complaint: 84-year-old presents with dizziness and hypertension History of Present Illness: Patient is 84-year-old female she was told to come to the emergency department by her primary care physician. For the last 2-3 days patient has been feeling dizziness. She has been feeling dizzy especially when she walks. She spoke with her son about her symptoms. Her son suggested that it could be her blood pressure. She checked her blood pressure with her sons automated cuff showing extremely high blood pressures. She went to the store and had her blood pressure check and was extremely high. She went to her primary care physician's office and had her blood pressure checked there. She had 2 readings one measuring over 200 systolic and the other measuring 160 systolic. Patient has a history of hypertension. She states that she does not feel as if the room spinning. She just reports that she feels dizzy. She does have a history of vertigo. Denies any numbness or tingling to the extremities. No confusion. Patient does not report feeling like she stumbles to one side versus the other. The ROS documented in this emergency department record has been reviewed and confirmed by me. Those systems with pertinent positive or negative responses have been documented in the HPI. All other systems are other negative and/or noncontributory. PHYSICAL EXAM: General Impression: Alert and oriented x3, not in acute distress HEENT: Normocephalic atraumatic, extra-ocular movements intact, pupils equal and reactive to light bilaterally, mucous membranes moist. Cardiovascular: Heart regular rate and rhythm Chest: Able to complete full sentences, no retractions, no tachypnea Abdomen: abdomen soft, non-tender, non-distended, no organomegaly Musculoskeletal: Pulses present and equal in all extremities, no peripheral edema Motor: no focal deficits noted Neurological: CN II-XII grossly intact, no focal motor or sensory deficits noted Skin: Intact with no visualized rashes Psych: Normal affect and mood ED course: 84-year-old female presents with dizziness and hypertension. Blood pressure on arrival was 205/87, rest of vital signs within acceptable limits. Patient's medications were reviewed. Laboratory evaluation obtained. CBC, coag panel, metabolic panel is unremarkable. Urinalysis shows 66 white blood cells. Clinical presentation con sistent with urinary tract infection. Discussed patient that dizziness and elevated blood pressures concerning for strokelike symptoms. She does not want a CT. Discussed patient that we cannot complete her medical evaluation without imaging studies of the brain given that she has elevated blood pressure and neurologic symptoms. Patient adamantly refuses. She states she wants to be discharged. . Patient currently does take a combo medication for her blood pressure. Patient signing out AGAINST MEDICAL ADVICE. Patient 1 g ceftriaxone. She is also given prescription for urinary tract infection. She is advised to follow-up with her PCP for outpatient management of her blood pressure. Return Prevacid discussed. She is told to seek medical attention with worsening symptoms. Risk and benefits of various options were discussed patient. She still continues to be discharge. EKG interpretation: Ventricular rate 73, normal sinus rhythm, WA interval 92, QRS 104, QTC 447. No WA prolongation, no QTC prolongation, no ST or T-wave changes noted. EKG compared to 12/30/2018 showing no changes. Overall, this EKG is unremarkable - Related Data Home Medications Medication Instructions Recorded Confirmed Valsartan/Hydrochlorothiazide 1 tab PO DAILY 04/05/16 12/30/18 [Valsartan-Hctz 320-25 mg Tab] Cranberry Fruit Extract [Cranberry] 500 mg PO DAILY 12/30/18 12/30/18 Naproxen Sodium [Aleve] 220 mg PO Q12HR PRN 12/30/18 12/30/18 Ranitidine HCl [Zantac] 75 mg PO HS PRN 12/30/18 12/30/18 Previous Rx's Medication Instructions Recorded Cephalexin [Keflex] 500 mg PO Q6HR 5 Days #20 cap 11/26/19 Allergies Allergy/AdvReac Type Severity Reaction Status Date / Time benzalkonium chloride Allergy Unknown Verified 11/26/19 12:45 [From Bactine (with alcohol)] codeine Allergy Unknown Verified 11/26/19 12:45 lidocaine Allergy Unknown Verified 11/26/19 12:45 [From Bactine (with alcohol)] metronidazole [From Flagyl] Allergy Unknown Verified 11/26/19 12:45 sulfamethoxazole Allergy Unknown Verified 11/26/19 12:45 [From Bactrim] trimethoprim [From Bactrim] Allergy Unknown Verified 11/26/19 12:45 Review of Systems ROS Statement: Those systems with pertinent positive or pertinent negative responses have been documented in the HPI. ROS Other: All systems not noted in ROS Statement are negative. Past Medical History Past Medical History: GERD/Reflux, Hypertension Additional Past Medical History / Comment(s): 2009 acute diverticulitis and Uti with sepsis, past back pain, c-diff 2016, rt side brain anuerysm History of Any Multi-Drug Resistant Organisms: None Reported Date of last positivie culture/infection: 2005 MDRO Source:: stool Past Surgical History: Cholecystectomy, Hysterectomy, Tonsillectomy Additional Past Surgical History / Comment(s): colonoscopy, eye sx(tear ducts) Past Anesthesia/Blood Transfusion Reactions: Motion Sickness Additional Past Anesthesia/Blood Transfusion Reaction / Comment(s): eddie sterphobia Past Psychological History: No Psychological Hx Reported Smoking Status: Never smoker Past Alcohol Use History: Occasional Past Drug Use History: None Reported - Past Family History Father Family Medical History: Hypertension Additional Family Medical History / Comment(s): Father at the age of 63 yrs. He was an alcoholic and a smoker. Mother Family Medical History: Hypertension Additional Family Medical History / Comment(s): Mother at the age of 88yrs. General Exam Limitations: no limitations Course Vital Signs 11/26/19 11/26/19 12:40 13:22 Temperature 98.7 F Pulse Rate 70 75 Respiratory 18 16 Rate Blood Pressure 205/87 203/91 O2 Sat by Pulse 99 98 Oximetry Medical Decision Making - Lab Data Result diagrams: 11/26/19 13:53 11/26/19 13:53 Lab Results 11/26/19 11/26/19 11/26/19 Range/Units 13:53 13:53 13:53 WBC 9.4 (3.8-10.6) k/uL RBC 4.48 (3.80-5.40) m/uL Hgb 13.1 (11.4-16.0) gm/dL Hct 40.4 (34.0-46.0) % MCV 90.2 (80.0-100.0) fL MCH 29.3 (25.0-35.0) pg MCHC 32.5 (31.0-37.0) g/dL RDW 12.9 (11.5-15.5) % Plt Count 266 (150-450) k/uL Neutrophils % 65 % Lymphocytes % 24 % Monocytes % 7 % Eosinophils % 2 % Basophils % 0 % Neutrophils # 6.1 (1.3-7.7) k/uL Lymphocytes # 2.3 (1.0-4.8) k/uL Monocytes # 0.7 (0-1.0) k/uL Eosinophils # 0.1 (0-0.7) k/uL Basophils # 0.0 (0-0.2) k/uL PT 9.6 (9.0-12.0) sec INR 0.9 (<1.2) APTT 22.4 (22.0-30.0) sec Sodium 132 L (137-145) mmol/L Potassium 4.4 (3.5-5.1) mmol/L Chloride 96 L (98-107) mmol/L Carbon Dioxide 27 (22-30) mmol/L Anion Gap 9 mmol/L BUN 18 H (7-17) mg/dL Creatinine 0.87 (0.52-1.04) mg/dL Est GFR (CKD-EPI)AfAm 71 (>60 ml/min/1.73 sqM) Est GFR (CKD-EPI)NonAf 62 (>60 ml/min/1.73 sqM) Glucose 99 (74-99) mg/dL Calcium 9.2 (8.4-10.2) mg/dL Urine Color Urine Appearance (Clear) Urine pH (5.0-8.0) Ur Specific [place] (1.001-1.035) Urine Protein (Negative) Urine Glucose (UA) (Negative) Urine Ketones (Negative) Urine Blood (Negative) Urine Nitrite (Negative) Urine Bilirubin (Negative) Urine Urobilinogen (<2.0) mg/dL Ur Leukocyte Esterase (Negative) Urine RBC (0-5) /hpf Urine WBC (0-5) /hpf Urine WBC Clumps (None) /hpf Urine Bacteria (None) /hpf Urine Mucus (None) /hpf 11/26/19 Range/Units 14:17 WBC (3.8-10.6) k/uL RBC (3.80-5.40) m/uL Hgb (11.4-16.0) gm/dL Hct (34.0-46.0) % MCV (80.0-100.0) fL MCH (25.0-35.0) pg MCHC (31.0-37.0) g/dL RDW (11.5-15.5) % Plt Count (150-450) k/uL Neutrophils % % Lymphocytes % % Monocytes % % Eosinophils % % Basophils % % Neutrophils # (1.3-7.7) k/uL Lymphocytes # (1.0-4.8) k/uL Monocytes # (0-1.0) k/uL Eosinophils # (0-0.7) k/uL Basophils # (0-0.2) k/uL PT (9.0-12.0) sec INR (<1.2) APTT (22.0-30.0) sec Sodium (137-145) mmol/L Potassium (3.5-5.1) mmol/L Chloride (98-107) mmol/L Carbon Dioxide (22-30) mmol/L Anion Gap mmol/L BUN (7-17) mg/dL Creatinine (0.52-1.04) mg/dL Est GFR (CKD-EPI)AfAm (>60 ml/min/1.73 sqM) Est GFR (CKD-EPI)NonAf (>60 ml/min/1.73 sqM) Glucose (74-99) mg/dL Calcium (8.4-10.2) mg/dL Urine Color Light Yellow Urine Appearance Clear (Clear) Urine pH 5.0 (5.0-8.0) Ur Specific [place] 1.011 (1.001-1.035) Urine Protein Negative (Negative) Urine Glucose (UA) Negative (Negative) Urine Ketones Negative (Negative) Urine Blood Negative (Negative) Urine Nitrite Negative (Negative) Urine Bilirubin Negative (Negative) Urine Urobilinogen <2.0 (<2.0) mg/dL Ur Leukocyte Esterase Large H (Negative) Urine RBC 2 (0-5) /hpf Urine WBC 66 H (0-5) /hpf Urine WBC Clumps Few H (None) /hpf Urine Bacteria Rare H (None) /hpf Urine Mucus Rare H (None) /hpf Disposition Clinical Impression: UTI (urinary tract infection), Dizziness Disposition: Left Against Medical Advice Condition: Fair Instructions (If sedation given, give patient instructions): Dizziness (ED), Urinary Tract Infection in Women (ED) Prescriptions: Cephalexin [Keflex] 500 mg PO Q6HR 5 Days #20 cap Is patient prescribed a controlled substance at d/c from ED?: No Referrals: Oli Glover MD [Primary Care Provider] - 1-2 days Time of Disposition: 14:52
[2019-11-26 14:10] LABS: Basophils % (A) 0 %; Eosinophils # (A) 0.1 k/uL (0-0.7); Eosinophils % (A) 2 %; HCT 40.4 % (34.0-46.0); HGB 13.1 gm/dL (11.4-16.0); Lymphocytes # (A) 2.3 k/uL (1.0-4.8); Lymphocytes % (A) 24 %; MCH 29.3 pg (25.0-35.0); MCHC 32.5 g/dL (31.0-37.0); MCV 90.2 fL (80.0-100.0); Mean Platelet Volume 7.4; Monocytes # (A) 0.7 k/uL (0-1.0); Monocytes % (A) 7 %; Neutrophils # (A) 6.1 k/uL (1.3-7.7); Neutrophils % (A) 65 %; Platelet Count 266 k/uL (150-450); RBC 4.48 m/uL (3.80-5.40); RDW 12.9 % (11.5-15.5); WBC 9.4 k/uL (3.8-10.6)
[2019-11-26 14:17] LABS: Calcium 9.2 mg/dL (8.4-10.2); Potassium 4.4 mmol/L (3.5-5.1)
[2019-11-26 14:34] LABS: Appearance,Urine Clear (Clear); Bacteria,Urine Rare /hpf; Bilirubin,Urine Negative (Negative); Blood,Urine Negative (Negative); Color,Urine Light Yellow; Glucose,Urine (UA) Negative (Negative); Ketones,Urine Negative (Negative); Leukocyte Esterase,Urine Large (Negative); Mucus,Urine Rare /hpf; Nitrite,Urine Negative (Negative); Protein,Urine Negative (Negative); RBC,Urine 2 /hpf (0-5); Specific Gravity,Urine 1.011 (1.001-1.035); Urobilinogen,Urine <2.0 mg/dL (<2.0); WBC,Urine 66 /hpf (0-5)
[2019-11-26 14:41] LABS: INR 0.9 (<1.2); Partial Thromboplastin Time 22.4 sec (22.0-30.0); Prothrombin Time 9.6 sec (9.0-12.0)
[2019-11-26] MEDS ORDERED: LABETALOL 5 MG/ML VIAL MDV IVP STA (14:45)
[2019-11-26] MEDS ORDERED: cefTRIAXone IN SWFI 1,000 MG/10 ML SYRINGE IVP STA (14:45)
[2019-11-26 15:12] VITALS: BP 199/88; PULSE 72; RESP 18
== END 2019-11-26 15:22 | disposition left against medical advice (07) ==
LOC: EC 12:30
DX: R42 Dizziness and giddiness (principal); N39.0 Urinary tract infection, site not specified; I10 Essential (primary) hypertension; K21.9 Gastro-esophageal reflux disease without esophagitis; R29.90 Unspecified symptoms and signs involving the nervous system; Z79.899 Other long term (current) drug therapy; Z88.8 Allergy status to other drugs, medicaments and biological substances; Z88.5 Allergy status to narcotic agent; Z88.4 Allergy status to anesthetic agent; Z88.1 Allergy status to other antibiotic agents; Z88.2 Allergy status to sulfonamides; Z53.29 Procedure and treatment not carried out because of patient's decision for other reasons
CPT/HCPCS: 36415; 93005; 80048; 84484; 85025; 85610; 85730; 81001; 87086; 99284; 96374; 96375; J0696

== ENCOUNTER 2019-11-28 15:06 | Inpatient (IN) | payer MEDICARE, BC ==
[2019-11-28] MEDS ORDERED: ONDANSETRON 4 MG/2 ML VIAL IVP STA (15:49)
[2019-11-28] MEDS ORDERED: SODIUM CHLORIDE 0.9% 1,000 ML IV STA (15:49)
[2019-11-28] MEDS ORDERED: MECLIZINE 12.5 MG TAB PO STA (15:49)
--- NOTE | 2019-11-28 15:52 | ED ---
General Adult HPI - General Chief complaint: Nausea/Vomiting/Diarrhea Stated complaint: Med Reaction Time Seen by Provider: 11/28/19 15:30 Source: patient, RN notes reviewed, old records reviewed Mode of arrival: ambulatory Limitations: no limitations - History of Present Illness Initial comments: Patient is a pleasant 84-year-old female presenting to the emergency Department with not feeling well. Patient states she feels a little bit lightheaded and nauseated. Patient states symptoms started this morning. Patient did have similar symptoms in other day when she came here and was diagnosed with urinary tract infection. Patient states she has had similar symptoms multiple times previously every several times that she gets antibiotics. No confusion. No isolated area of weakness. No vomiting. No abdominal pain. Patient did have hematuria several days ago however none since that time. - Related Data Home Medications Medication Instructions Recorded Confirmed Cranberry Fruit Extract [Cranberry] 1,000 mg PO DAILY 12/30/18 11/26/19 Aspirin EC [Ecotrin Low Dose] 81 mg PO DAILY PRN 11/26/19 11/26/19 Losartan/Hydrochlorothiazide 1 tab PO DAILY 11/26/19 11/26/19 [Losartan-Hctz 100-25 mg Tab] Lamont-3 Fatty Acids [Lamont-3] 1,000 mg PO DAILY 11/26/19 11/26/19 Vitamin C/Biotin [Hair, Skin and 1 tab PO DAILY 11/26/19 11/26/19 Nails] Previous Rx's Medication Instructions Recorded Cephalexin [Keflex] 500 mg PO Q6HR 5 Days #20 cap 11/26/19 Allergies Allergy/AdvReac Type Severity Reaction Status Date / Time benzalkonium chloride Allergy Unknown Verified 11/28/19 15:33 [From Bactine (with alcohol)] cephalexin [From Keflex] Allergy Nausea & Verified 11/28/19 15:33 Vomiting codeine Allergy Unknown Verified 11/28/19 15:33 lidocaine Allergy Unknown Verified 11/28/19 15:33 [From Bactine (with alcohol)] metronidazole [From Flagyl] Allergy Unknown Verified 11/28/19 15:33 sulfamethoxazole Allergy Unknown Verified 11/28/19 15:33 [From Bactrim] trimethoprim [From Bactrim] Allergy Unknown Verified 11/28/19 15:33 Review of Systems ROS Statement: Those systems with pertinent positive or pertinent negative responses have been documented in the HPI. ROS Other: All systems not noted in ROS Statement are negative. Constitutional: Denies: fever Eyes: Denies: eye pain ENT: Denies: ear pain Respiratory: Denies: cough, dyspnea Cardiovascular: Denies: chest pain Gastrointestinal: Reports: nausea. Denies: abdominal pain, vomiting Genitourinary: Reports: as per HPI Musculoskeletal: Denies: back pain Skin: Denies: rash Neurological: Denies: confusion Past Medical History Past Medical History: CVA/TIA, GERD/Reflux, Hypertension Additional Past Medical History / Comment(s): past back pain, c-diff 2016, rt side brain anuerysm History of Any Multi-Drug Resistant Organisms: C-DIFF Date of last positivie culture/infection: 2005 MDRO Source:: stool Past Surgical History: Cholecystectomy, Hysterectomy, Tonsillectomy Additional Past Surgical History / Comment(s): colonoscopy, eye sx(tear ducts) Past Anesthesia/Blood Transfusion Reactions: Motion Sickness Additional Past Anesthesia/Blood Transfusion Reaction / Comment(s): clausterphobia Past Psychological History: No Psychological Hx Reported Smoking Status: Never smoker Past Alcohol Use History: Occasional Past Drug Use History: None Reported - Past Family History Father Family Medical History: Hypertension Additional Family Medical History / Comment(s): Father at the age of 63 yrs. He was an alcoholic and a smoker. Mother Family Medical History: Hypertension Additional Family Medical History / Comment(s): Mother at the age of 88yrs. General Exam Limitations: no limitations General appearance: alert, in no apparent distress Head exam: Present: normocephalic Eye exam: Present: normal appearance, PERRL, EOMI. Absent: nystagmus Neck exam: Present: normal inspection Respiratory exam: Present: normal lung sounds bilaterally Cardiovascular Exam: Present: regular rate, normal rhythm GI/Abdominal exam: Present: soft. Absent: tenderness Extremities exam: Present: normal inspection Neurological exam: Present: alert, CN II-XII intact. Absent: motor sensory deficit Expanded Neurological exam: Present: protecting the airway Speech: Present: fluid speech Cranial nerves: EOM's Intact: Normal Motor strength exam: RUE: 5, LUE: 5, RLE: 5, LLE: 5 Eye Response: (4) open spontaneously Motor Response: (6) obeys commands Verbal Response: (5) oriented Psychiatric exam: Present: normal affect, normal mood Skin exam: Present: normal color Course Vital Signs 11/28/19 15:25 Temperature 98.2 F Pulse Rate 70 Respiratory 18 Rate Blood Pressure 185/86 O2 Sat by Pulse 98 Oximetry Medical Decision Making - Medical Decision Making Patient reevaluated and resting comfortably at bedside. Patient questioned regarding fluid intake and states she has been drinking quite a bit of water over the past few days, much more than a gallon per day. Case was discussed in detail with Dr. johnson, who will admit covering for Dr. Glover. He did request discussing case with nephrology. Case was also discussed with Dr. Ramirez who recommends IV fluid at 75 mL per hour and recheck in the morning. - Lab Data Result diagrams: 11/28/19 16:03 11/28/19 15:58 Lab Results 11/28/19 11/28/19 11/28/19 Range/Units 15:58 16:03 16:17 WBC 10.0 (3.8-10.6) k/uL RBC 4.26 (3.80-5.40) m/uL Hgb 13.2 (11.4-16.0) gm/dL Hct 37.8 (34.0-46.0) % MCV 88.8 (80.0-100.0) fL MCH 31.0 (25.0-35.0) pg MCHC 34.8 (31.0-37.0) g/dL RDW 12.7 (11.5-15.5) % Plt Count 269 (150-450) k/uL Neutrophils % 69 % Lymphocytes % 20 % Monocytes % 7 % Eosinophils % 2 % Basophils % 0 % Neutrophils # 6.9 (1.3-7.7) k/uL Lymphocytes # 2.0 (1.0-4.8) k/uL Monocytes # 0.7 (0-1.0) k/uL Eosinophils # 0.2 (0-0.7) k/uL Basophils # 0.0 (0-0.2) k/uL Sodium 122 L (137-145) mmol/L Potassium 4.5 (3.5-5.1) mmol/L Chloride 87 L (98-107) mmol/L Carbon Dioxide 24 (22-30) mmol/L Anion Gap 11 mmol/L BUN 17 (7-17) mg/dL Creatinine 0.75 (0.52-1.04) mg/dL Est GFR (CKD-EPI)AfAm 85 (>60 ml/min/1.73 sqM) Est GFR (CKD-EPI)NonAf 74 (>60 ml/min/1.73 sqM) Glucose 106 H (74-99) mg/dL Calcium 9.1 (8.4-10.2) mg/dL Total Bilirubin 0.7 (0.2-1.3) mg/dL AST 26 (14-36) U/L ALT 16 (4-34) U/L Alkaline Phosphatase 59 (38-126) U/L Total Protein 7.0 (6.3-8.2) g/dL Albumin 3.9 (3.5-5.0) g/dL Urine Color Light Yellow Urine Appearance Turbid H (Clear) Urine pH 5.5 (5.0-8.0) Ur Specific [place] 1.011 (1.001-1.035) Urine Protein Trace H (Negative) Urine Glucose (UA) Negative (Negative) Urine Ketones Negative (Negative) Urine Blood Moderate H (Negative) Urine Nitrite Negative (Negative) Urine Bilirubin Negative (Negative) Urine Urobilinogen <2.0 (<2.0) mg/dL Ur Leukocyte Esterase Large H (Negative) Urine RBC 12 H (0-5) /hpf Urine WBC >182 H (0-5) /hpf Urine WBC Clumps Many H (None) /hpf Ur Squamous Epith Cells 4 (0-4) /hpf Urine Bacteria Occasional H (None) /hpf Urine Mucus Rare H (None) /hpf Disposition Clinical Impression: Hyponatremia, Urinary tract infection Disposition: ADMITTED IP TO THIS HOSP Is patient prescribed a controlled substance at d/c from ED?: No Referrals: Oli Glover MD [Primary Care Provider] - 1-2 days Decision Time: 17:26
[2019-11-28 16:11] LABS: Basophils % (A) 0 %; Eosinophils # (A) 0.2 k/uL (0-0.7); Eosinophils % (A) 2 %; HCT 37.8 % (34.0-46.0); HGB 13.2 gm/dL (11.4-16.0); Lymphocytes % (A) 20 %; MCHC 34.8 g/dL (31.0-37.0); MCV 88.8 fL (80.0-100.0); Mean Platelet Volume 7.1; Monocytes # (A) 0.7 k/uL (0-1.0); Monocytes % (A) 7 %; Neutrophils # (A) 6.9 k/uL (1.3-7.7); Neutrophils % (A) 69 %; Platelet Count 269 k/uL (150-450); RBC 4.26 m/uL (3.80-5.40); RDW 12.7 % (11.5-15.5)
[2019-11-28 16:22] LABS: Albumin 3.9 g/dL (3.5-5.0); Calcium 9.1 mg/dL (8.4-10.2); Potassium 4.5 mmol/L (3.5-5.1); Total Bilirubin 0.7 mg/dL (0.2-1.3)
[2019-11-28 16:49] LABS: Appearance,Urine Turbid (Clear); Bacteria,Urine Occasional /hpf; Bilirubin,Urine Negative (Negative); Blood,Urine Moderate (Negative); Color,Urine Light Yellow; Glucose,Urine (UA) Negative (Negative); Ketones,Urine Negative (Negative); Leukocyte Esterase,Urine Large (Negative); Mucus,Urine Rare /hpf; Nitrite,Urine Negative (Negative); PH, Urine 5.5 (5.0-8.0); Protein,Urine Trace (Negative); RBC,Urine 12 /hpf (0-5); Specific Gravity,Urine 1.011 (1.001-1.035); Squamous Epithelial Cell,Urine 4 /hpf (0-4); Urobilinogen,Urine <2.0 mg/dL (<2.0); WBC,Urine >182 /hpf (0-5)
[2019-11-28] MEDS ORDERED: NALOXONE 0.4 MG/ML 1 ML VIAL IV PRN (17:26)
[2019-11-28] MEDS ORDERED: LEVOFLOXACIN 500MG-D5W PMX 500 MG in DEXTROSE/WATER 1 100ML.BAG IVPB SCH (17:30)
[2019-11-28] MEDS ORDERED: hydrALAZINE HCL 25 MG TAB PO PRN (19:16)
[2019-11-28] MEDS ORDERED: ALPRAZolam 0.25 MG TAB PO PRN (20:13)
[2019-11-28] MEDS ORDERED: HYDROCHLOROTHIAZIDE 25 MG TAB PO SCH (20:15)
[2019-11-28] MEDS: PANTOPRAZOLE 40 MG/10 ML VIAL IVP SCH (22:03)
[2019-11-28] MEDS: ACETAMINOPHEN TAB 500 MG TAB PO PRN (22:09)
[2019-11-28] MEDS: HEPARIN SODIUM,PORCINE 5,000 UNIT/ML 1 ML VIAL SQ SCH (22:12)
--- NOTE | 2019-11-28 22:17 | HP ---
HISTORY AND PHYSICAL DATE OF SERVICE: 11/28/2019 CHIEF COMPLAINT: Nausea, vomiting and weakness. HISTORY OF PRESENT ILLNESS: This 84-year-old woman with a past medical history of multiple medical history including CVA, TIA, GERD, hypertension, back pain, history of C diff, history of cholecystectomy and hysterectomy, being followed by Dr. Oli Glover in the outpatient setting has apparently had recent episodes of UTI. The patient came to the ER and was given ciprofloxacin. Because the patient was unable to take the antibiotics and the patient was complaining of nausea, vomiting the patient came to came back to [facility] and was admitted for further evaluation and treatment. Sodium was found to be 122. There is no history of fever, rigors. No history of headache, loss of consciousness, seizures. PAST MEDICAL HISTORY: History of CVA, TIA, GERD, hypertension, history of back pain. HOME MEDICATIONS: 1. Nystatin topically b.i.d. p.r.n. 2. Ceftin 250 mg p.o. b.i.d. 3. Vitamin C. 4. Losartan. 5. Cranberry. 6. Aspirin. FAMILY HISTORY: History of hypertension. SOCIAL HISTORY: No history of smoking. Occasional alcohol intake. REVIEW OF SYSTEMS: ENT No history of diminished hearing or vision. CARDIOVASCULAR No angina or palpitations. RESPIRATORY No cough, no hemoptysis. GI No nausea, vomiting, or diarrhea. As mentioned earlier. NERVOUS No numbness or weakness. ALLERGY/IMMUNOLOGY No asthma or hayfever. MUSCULOSKELETAL As mentioned earlier. HEMATOLOGY/ONCOLOGY Negative. ENDOCRINE No history of diabetes or hypothyroidism. CONSTITUTIONAL As mentioned earlier. DERMATOLOGY Negative. RHEUMATOLOGY Negative, PSYCHIATRY As mentioned earlier. PHYSICAL EXAMINATION: Alert and oriented x3. Pulse 70, blood pressure 158/86, respiration 18, temperature 98.2, pulse ox 98% on room air. HEENT: Conjunctivae normal. Oral mucosa moist. NECK: No jugular venous distention. No lymph node enlargement. CARDIOVASCULAR: S1, S2, muffled. No S3, no S4, RESPIRATORY: Diminished breath sounds at the bases. No rhonchi, no crackles. ABDOMEN: Soft, nontender. No mass palpable. LEGS: No edema, no swelling. NERVOUS SYSTEM: Higher functions mentioned earlier. Moves all four limbs. No focal motor or sensory deficits. LYMPHATICS: No lymph node in neck or axilla. SKIN: No rash. JOINTS: No active deforming arthropathy. LABS: WBC 10, hemoglobin 13, sodium 122. UA noted. ASSESSMENT: 1. Acute urinary tract infection, for evaluation with failure of outpatient treatment. 2. Nausea and vomiting, acute gastritis. 3. Hyponatremia, severe. 4. Hypochloremia. 5. History of cerebrovascular accident, transient ischemic attack. 6. Gastroesophageal reflux disease. 7. Hypertension, accelerated and hypertensive urgency. 8. History of back pain. 9. History of Clostridium difficile. 10.History of right-sided brain aneurysm. 11.History of cholecystectomy. 12.History hysterectomy. 13.Obesity with body mass of 39.7. RECOMMENDATIONS AND DISCUSSION: In this 84-year-old woman who presented with multiple complex medical issues, we will monitor the patient closely. We will initiate broad-spectrum IV antibiotics. Otherwise, we will obtain cultures, urine culture and guarded prognosis because of multiple complex medical issues. Will resume the home medications as well. Further recommendations to follow. MMODL / IJN: [id number] /
[2019-11-28] MEDS: LOSARTAN 50 MG TAB PO SCH (22:20)
[2019-11-29] MEDS: ACETAMINOPHEN TAB 500 MG TAB PO PRN ×2 (04:32→23:14)
[2019-11-29 07:21] LABS: Calcium 8.6 mg/dL (8.4-10.2); Potassium 4.4 mmol/L (3.5-5.1)
[2019-11-29 07:32] LABS: Basophils % (A) 0 %; Eosinophils # (A) 0.2 k/uL (0-0.7); Eosinophils % (A) 2 %; HCT 34.9 % (34.0-46.0); HGB 12.1 gm/dL (11.4-16.0); Lymphocytes # (A) 1.8 k/uL (1.0-4.8); Lymphocytes % (A) 26 %; MCH 31.2 pg (25.0-35.0); MCHC 34.7 g/dL (31.0-37.0); MCV 89.9 fL (80.0-100.0); Mean Platelet Volume 6.9; Monocytes # (A) 0.5 k/uL (0-1.0); Monocytes % (A) 8 %; Neutrophils # (A) 4.1 k/uL (1.3-7.7); Neutrophils % (A) 61 %; Platelet Count 247 k/uL (150-450); RBC 3.88 m/uL (3.80-5.40); RDW 12.9 % (11.5-15.5); WBC 6.7 k/uL (3.8-10.6)
--- NOTE | 2019-11-29 08:30 | P.NPCON ---
History of Present Illness - Reason for Consult hyponatremia - History of Present Illness Reason for admission: Hyponatremia History of present illness: Patient is a 84-year-old female seen in renal consultation for hyponatremia. Patient presented to the hospital due to not feeling well. She felt lighth eaded. Patient was also seen in the ER 2 days prior to this admission for UTI. She was having similar complaints at that time. She denies any vomiting. No chest shortness of breath. No fever or chills. No cough. Denies any hematuria or dysuria. Patient's sodium levels 122 and she was started on normal saline at 75 mL an hour. It is up to 124 this morning. Patient states she's been drinki ng over a gallon of water the last couple of days to keep herself hydrated. No history of malignancy. Additionally she was taking hydrochlorothiazide as part of her blood pressure regimen outpatient. Hemodynamically stable. No edema. No history of diabetes. UA suggestive of UTI. She is maintained on antibiotics. Urine culture pending. Vital signs are stable. General: The patient appeared well nourished and normally developed. HEENT: Head exam is unremarkable. Neck is without jugular venous distension. LUNGS: Lungs are clear to auscultation and percussion. Breath sounds decreased. HEART: Rate and Rhythm are regular. ABDOMEN: Soft, nontender. EXTREMITITES: No clubbing, cyanosis, or edema. Past Medical History Past Medical History: CVA/TIA, GERD/Reflux, Hypertension Additional Past Medical History / Comment(s): past back pain, c-diff 2016, rt side brain anuerysm (TIA) History of Any Multi-Drug Resistant Organisms: C-DIFF Date of last positivie culture/infection: 2005 MDRO Source:: stool Past Surgical History: Cholecystectomy, Hysterectomy, Tonsillectomy Additional Past Surgical History / Comment(s): colonoscopy, eye sx(tear ducts) Past Anesthesia/Blood Transfusion Reactions: Motion Sickness Additional Past Anesthesia/Blood Transfusion Reaction / Comment(s): claustrophobia Past Psychological History: No Psychological Hx Reported Additional Psychological History / Comment(s): Pt resides with her spouse. She is independent. She uses no device and she drives. Smoking Status: Never smoker Past Alcohol Use History: Occasional Past Drug Use History: None Reported - Past Family History Father Family Medical History: Hypertension Additional Family Medical History / Comment(s): Father at the age of 63 yrs. He was an alcoholic and a smoker. Mother Family Medical History: Hypertension Additional Family Medical History / Comment(s): Mother at the age of 88yrs. Medications and Allergies Home Medications Medication Instructions Recorded Confirmed Type Cranberry Fruit Extract [Cranberry] 1,000 mg PO DAILY 12/30/18 11/28/19 History Aspirin EC [Ecotrin Low Dose] 81 mg PO DAILY PRN 11/26/19 11/28/19 History Losartan/Hydrochlorothiazide 1 tab PO DAILY 11/26/19 11/28/19 History [Losartan-Hctz 100-25 mg Tab] [place]-3 Fatty Acids [[place]-3] 1,000 mg PO DAILY 11/26/19 11/28/19 History Vitamin C/Biotin [Hair, Skin and 1 tab PO DAILY 11/26/19 11/28/19 History Nails] Cefuroxime [Ceftin] 250 mg PO BID 11/28/19 11/28/19 History Nystatin 100,000Unit/gm Cream 1 applic TOPICAL BID PRN 11/28/19 11/28/19 History [Mycostatin Cream] Allergies Allergy/AdvReac Type Severity Reaction Status Date / Time benzalkonium chloride Allergy Unknown Verified 11/28/19 17:50 [From Bactine (with alcohol)] cephalexin [From Keflex] Allergy Nausea & Verified 11/28/19 17:50 Vomiting codeine Allergy Unknown Verified 11/28/19 17:50 lidocaine Allergy Unknown Verified 11/28/19 17:50 [From Bactine (with alcohol)] metronidazole [From Flagyl] Allergy Unknown Verified 11/28/19 17:50 sulfamethoxazole Allergy Unknown Verified 11/28/19 17:50 [From Bactrim] trimethoprim [From Bactrim] Allergy Unknown Verified 11/28/19 17:50 Physical Exam Vitals: Vital Signs Temp Pulse Pulse Resp BP BP Pulse Ox 11/29/19 05:00 97.9 F 62 18 130/74 97 11/29/19 00:00 71 11/28/19 22:20 71 115/65 11/28/19 21:00 97.9 F 84 20 175/75 96 11/28/19 19:06 78 18 177/86 97 11/28/19 15:25 98.2 F 70 18 185/86 98 Intake and Output 11/28/19 11/29/19 11/29/19 22:59 06:59 14:59 Intake Total 300 250 Balance 300 250 Intake: Oral 300 250 Other: Voiding Method Toilet # Voids 1 2 Weight 98.43 kg Results - Lab Results Most recent lab results Calcium 8.6 mg/dL (8.4-10.2) 11/29/19 06:48 11/29/19 06:48 11/29/19 06:48 Assessment and Plan Plan: Assessment: 1. Hyponatremia secondary to excess fluid intake further worsened with the use of thiazide diuretic. Also component of hypovolemia. Sodium level 122 admission and is 124 today. 2. UTI maintained on antibiotics. 3. Benign hypertension. Controlled. Plan: Maintain normal saline. Check urine sodium and osmolality. Check TSH. Discontinue hydrochlorothiazide. Encouraged oral intake, particularly protein. 1200 mL fluid restriction. Repeat sodium level this evening. Thank you for the consultation. I will continue to follow the patient with you during her hospital stay.
[2019-11-29] MEDS: PANTOPRAZOLE 40 MG/10 ML VIAL IVP SCH ×2 (08:33→20:17)
[2019-11-29] MEDS: LOSARTAN 50 MG TAB PO SCH (08:33)
[2019-11-29] MEDS: HEPARIN SODIUM,PORCINE 5,000 UNIT/ML 1 ML VIAL SQ SCH ×2 (08:33→20:19)
[2019-11-29] MEDS: SODIUM CHLORIDE 0.9% 1,000 ML IV SCH (08:33)
[2019-11-29] MEDS ORDERED: LEVOFLOXACIN 250MG-D5W PMX 250 MG in DEXTROSE/WATER 1 50ML.BAG IVPB SCH (17:30)
--- NOTE | 2019-11-30 03:36 | PN ---
PROGRESS NOTE DATE OF SERVICE: 11/29/2019 This 84-year-old woman was admitted with nausea, vomiting, and weakness is being closely monitored. No chest pain. No palpitations. No fever. The patient had features of acute UTI and acute gastritis. PHYSICAL EXAMINATION: On exam, alert and oriented x3. Pulse 66, blood pressure 120/72, respiration 18, temperature 97.9, pulse ox 97% on room air. HEENT: Conjunctivae normal. NECK: No jugular venous distention. CARDIOVASCULAR: S1, S2 muffled. RESPIRATORY: Breath sounds diminished at the bases. No rhonchi, no crackles. ABDOMEN: Soft, obese, nontender. No mass palpable. LEGS: No edema, no swelling. NERVOUS SYSTEM: No focal deficits. LABS: Sodium 124. UA noted. The cultures are negative so far. ASSESSMENT: 1. Acute urinary tract infection for evaluation with failure of outpatient treatment. 2. Nausea and vomiting and acute gastritis. 3. Hyponatremia, severe, possibly hypovolemic. 4. Hypochloremia. 5. History of cerebrovascular accident, transient ischemic attack. 6. Gastroesophageal reflux disease. 7. Hypertension, accelerated and hypertensive urgency. 8. History of back pain. 9. History of Clostridium difficile. 10.History of right-sided brain aneurysm. 11.History of cholecystectomy. 12.History of hysterectomy. 13.Obesity with body mass index of 39.7. RECOMMENDATIONS AND DISCUSSION: Recommend to continue current medications, continue monitoring with symptomatic treatment. Otherwise closely follow with Dr. Ramirez. Continue with IV antibiotics. Await the final culture reports. Otherwise further recommendations to follow. Dr. Ramirez possibility of hyponatremia because of excess fluid intake and as well as thiazide diuretics and further recommendations to follow. MMODL / IJN: [id number] / GARRETT
[2019-11-30] MEDS: SODIUM CHLORIDE 0.9% 1,000 ML IV SCH (06:17)
[2019-11-30 06:47] LABS: Basophils % (A) 1 %; Eosinophils # (A) 0.1 k/uL (0-0.7); Eosinophils % (A) 2 %; HCT 37.6 % (34.0-46.0); HGB 12.5 gm/dL (11.4-16.0); Lymphocytes # (A) 1.9 k/uL (1.0-4.8); Lymphocytes % (A) 26 %; MCH 30.4 pg (25.0-35.0); MCHC 33.1 g/dL (31.0-37.0); MCV 91.9 fL (80.0-100.0); Mean Platelet Volume 7.1; Monocytes # (A) 0.5 k/uL (0-1.0); Monocytes % (A) 7 %; Neutrophils # (A) 4.5 k/uL (1.3-7.7); Neutrophils % (A) 62 %; Platelet Count 258 k/uL (150-450); WBC 7.3 k/uL (3.8-10.6)
[2019-11-30 06:57] LABS: Calcium 8.7 mg/dL (8.4-10.2); Magnesium 1.6 mg/dL (1.6-2.3); Potassium 4.6 mmol/L (3.5-5.1)
[2019-11-30 08:22] LABS: T4, Free (Free Thyroxine) 1.14 ng/dL (0.78-2.19)
[2019-11-30] MEDS: HEPARIN SODIUM,PORCINE 5,000 UNIT/ML 1 ML VIAL SQ SCH ×2 (08:40→20:10)
[2019-11-30] MEDS: PANTOPRAZOLE 40 MG/10 ML VIAL IVP SCH (08:40)
[2019-11-30] MEDS: LOSARTAN 50 MG TAB PO SCH (08:41)
[2019-11-30] MEDS ORDERED: TEMAZEPAM 15 MG CAP PO PRN (11:00)
--- NOTE | 2019-11-30 16:40 | PN ---
PROGRESS NOTE Patient is seen for followup for hyponatremia. Her serum sodium has improved to 127 today from 124 yesterday. It was 122 on initial admission. Patient is currently maintained on normal saline. She denies any nausea, vomiting, abdominal pain or diarrhea. Patient states she is eating fairly well. PHYSICAL EXAMINATION: On examination today, blood pressure was 126/74, heart rate 66 per minute. Patient is afebrile. EXAMINATION OF THE HEART: S1 and S2. EXAMINATION OF LUNGS: Bilateral breath sounds are heard. ABDOMEN: Soft, non-tender. Examination of lower extremities shows no significant edema. TOLL SERVICE OBSERVER exam is grossly intact. LABS: Labs show sodium 127, potassium 4.6, chloride 95, BUN 21, creatinine 0.86. ASSESSMENT: 1. Hyponatremia; appears to be hypovolemic and improving with normal saline, although TSH level was also elevated. 2. Hypertension, maintained on Cozaar. 3. Urine culture positive for group D Enterococcus. Not sure if this is an actual pathogen at this point. Her WBCs on the UA were more than 182. Patient is maintained on antibiotics. PLAN: Patient is encouraged to increase oral intake. She is currently off of saline. We will repeat labs in a.m. Possible discharge soon. Adjust the Synthroid. Continue to maintain patient off of thiazide diuretics. MMODL / IJN: [id number] /
[2019-11-30] MEDS ORDERED: LEVOFLOXACIN 250 MG TAB PO SCH (17:00)
[2019-11-30] MEDS: PANTOPRAZOLE 40 MG TABLET PO SCH (20:10)
[2019-12-01 01:24] VITALS: PULSE 72
[2019-12-01 05:52] VITALS: BP 139/74; RESP 16; TEMP 98.2
[2019-12-01] MEDS: PANTOPRAZOLE 40 MG TABLET PO SCH (08:30)
[2019-12-01] MEDS: HEPARIN SODIUM,PORCINE 5,000 UNIT/ML 1 ML VIAL SQ SCH (08:30)
[2019-12-01] MEDS: LOSARTAN 50 MG TAB PO SCH (08:30)
[2019-12-01 08:39] LABS: Basophils % (A) 1 %; Eosinophils # (A) 0.1 k/uL (0-0.7); Eosinophils % (A) 2 %; HCT 35.7 % (34.0-46.0); HGB 11.9 gm/dL (11.4-16.0); Lymphocytes # (A) 1.8 k/uL (1.0-4.8); Lymphocytes % (A) 28 %; MCH 30.4 pg (25.0-35.0); MCHC 33.5 g/dL (31.0-37.0); MCV 90.8 fL (80.0-100.0); Mean Platelet Volume 6.9; Monocytes # (A) 0.5 k/uL (0-1.0); Monocytes % (A) 8 %; Neutrophils % (A) 59 %; Platelet Count 264 k/uL (150-450); RBC 3.93 m/uL (3.80-5.40); RDW 13.1 % (11.5-15.5); WBC 6.7 k/uL (3.8-10.6)
--- NOTE | 2019-12-01 08:46 | P.PN ---
Subjective Progress Note Date: 11/30/19 Principal diagnosis: This is an 84-year-old female who was recently admitted with nausea, vomiting, weakness and is being closely monitored. Patient also displaying with acute fea tures of a urinary tract infection. Patient was initiated on IV Levaquin. Urine cultures finalizing showing Enterococcus faecalis which is sensitive to Levaquin. Will transition to oral antibiotics. Nephrology also following her hyponatremia and sodium today is 127. TSH was also found to be slightly elevated at 6.640 although free T4 is normal at 1.14. Will repeat a.m. labs to monitor kidney functions closely. Review of systems: Constitutional: No report of fatigue, fevers, or chills Cardiovascular: No reports of chest pain or palpitations Respiratory: No reports of shortness of breath or cough GI: Reports intermittent nausea, no reports of vomiting : No reports of dysuria or retention Neurovascular: No reports of weakness or numbness Active Medications Acetaminophen (Tylenol Tab) 500 mg PO Q6HR PRN PRN Reason: Fever and/ or Pain Last Admin: 11/29/19 23:14 Dose: 500 mg Documented by: Alprazolam (Xanax) 0.25 mg PO TID PRN PRN Reason: Anxiety Heparin Sodium (Porcine) (Heparin) 5,000 unit SQ Q12HR [facility] Last Admin: 12/01/19 08:30 Dose: 5,000 unit Documented by: Hydralazine HCl (Apresoline) 25 mg PO TID PRN PRN Reason: Blood Pressure - High Last Admin: 11/28/19 20:50 Dose: 25 mg Documented by: Levofloxacin (Levaquin) 250 mg PO 1700 [facility] Last Admin: 11/30/19 16:36 Dose: 250 mg Documented by: Losartan Potassium (Cozaar) 100 mg PO DAILY [facility] Last Admin: 12/01/19 08:30 Dose: 100 mg Documented by: Naloxone HCl (Narcan) 0.2 mg IV Q2M PRN PRN Reason: Opioid Reversal Pantoprazole Sodium (Protonix) 40 mg PO BID [facility] Last Admin: 12/01/19 08:30 Dose: 40 mg Documented by: Temazepam (Restoril) 15 mg PO HS PRN PRN Reason: Insomnia Objective - Vital Signs Vital signs: Vital Signs Temp 98.5 F 11/30/19 11:24 Pulse 66 11/30/19 11:24 Resp 18 11/30/19 11:24 BP 126/74 11/30/19 11:24 Pulse Ox 96 11/30/19 11:24 Intake & Output 11/29/19 11/30/19 11/30/19 18:59 06:59 18:59 Intake Total 450 1150 Balance 450 1150 Intake: Intake, IV Titration 300 50 Amount Levofloxacin 250Mg-D5w 50 50 Pmx 250 mg In Dextrose/ Water 1 50ml.bag @ 50 mls /hr IVPB Q24H [facility]USAN Rx#: [id number] Sodium Chloride 0.9% 1, 250 0 000 ml @ 50 mls/hr IV . Q20H SUSAN Rx#:[id number] Oral 150 1100 Other: Voiding Method Toilet Toilet Toilet # Voids 2 0 4 # Bowel Movements 0 - Exam Gen: This is a 84-year-old female sitting up in the chair, awake, alert and oriented 3, well-developed, well-nourished. Obese. Temp is 97.6F, pulse is 79, respirations are 16, blood pressure is 115/68, oxygen saturation is 99% on room air. HEENT: Head is atraumatic, normocephalic. Pupils equal, round. Sclerae is anicteric. NECK: Supple. No JVD. No lymphadenopathy. No thyromegaly. LUNGS: Breath sounds diminished at the bases with no wheezing or rhonchi noted. No intercostal retractions. HEART: S1, S2 are muffled ABDOMEN: Soft. Obese. Bowel sounds are present. No masses. No tenderness. EXTREMITIES: No pedal edema. No calf tenderness. NEUROLOGICAL: Patient is awake, alert and oriented x3. Cranial nerves 2 through 12 are grossly intact. - Labs CBC & Chem 7: 11/30/19 06:08 11/30/19 06:08 Labs: Abnormal Lab Results - Last 24 Hours (Table) 11/29/19 11/30/19 Range/Units 17:43 06:08 Sodium 124 L 127 L (137-145) mmol/L Chloride 95 L (98-107) mmol/L BUN 21 H (7-17) mg/dL Glucose 107 H (74-99) mg/dL TSH 6.640 H (0.465-4.680) mIU/L Microbiology - Last 24 Hours (Table) 11/28/19 21:06 Blood Culture - Preliminary Blood No Growth after 24 hours 11/28/19 16:17 Urine Culture - Preliminary Urine,Voided Group D Enterococcus Assessment and Plan Assessment: Acute urinary tract infection with culture showing enterococcus facaelis with failure of outpatient treatment Nausea and vomiting and acute gastritis Hyponatremia, severe, possibly hypovolemic Hypochloremia History of cerebrovascular accident, TIA Gastroesophageal reflux disease History of back pain Hypertension, accelerated and hypertensive urgency History of clostridium difficile History of right-sided brain aneurysm History of cholecystectomy History of hysterectomy Obesity with a body mass index of 39.7 Recommendations and discussion: Recommend to continue current medications, management, and symptomatic treatment. Patient was on IV Levaquin and will transition to oral Levaquin as patient states she feels she is having intermittent nausea when antibiotics are infusing. Urine culture finalized showing enterococcus facvickiis is sensitive to Levaquin. Sodium also continues to be low at 127 and will repeat a.m. labs. IV fluids have been discontinued and patient instructed to limit fluid intake. Further recommendations to follow. Will discharge in 24-48 hours.
[2019-12-01 08:47] LABS: Calcium 8.9 mg/dL (8.4-10.2); Potassium 4.5 mmol/L (3.5-5.1)
--- NOTE | 2019-12-01 14:40 | PN ---
PROGRESS NOTE The patient is seen for followup for hyponatremia. Her serum sodium level has improved. It is up to 131 this morning. Patient wants to go home. On examination today, blood pressure is 139/74, heart rate 72 per minute. She is afebrile. Examination of the heart S1, S2. Examination of the lungs, decreased breath sounds at bases. Abdomen is soft, nontender. Examination of lower extremities shows edema trace bilaterally. TAXATION AGENT exam grossly intact. Labs show sodium 131, potassium 4.5, chloride 96, BUN 21, creatinine 0.92. ASSESSMENT: 1. Hyponatremia which is hypovolemic, now improved with saline. 2. Hypertension, maintained on Cozaar. PLAN: Patient can be discharged from nephrology standpoint. She is advised to maintain adequate oral protein intake and avoid excessive amounts of free water. Repeat labs as outpatient in 4-5 days time. SANDYL / LIZBETH: [id number] /
--- NOTE | 2019-12-02 16:05 | P.DS ---
Providers Date of admission: 11/28/19 17:28 Expected date of discharge: 12/01/19 Attending physician: Todd Martinez MD Consults: 11/28/19 17:27 Consult Physician Urgent Consulting Provider: Ilan Ramirez Consult Reason/Comments: hyponatremia Do you want consulting provider notified?: Already Contacted Primary care physician: Oli Glover Hospital Course: Final diagnosis Acute urinary tract infection with culture showing enterococcus facaelis with failure of outpatient treatment Nausea and vomiting and acute gastritis Hyponatremia, severe, possibly hypovolemic Hypochloremia History of cerebrovascular accident, TIA Gastroesophageal reflux disease History of back pain Hypertension, accelerated and hypertensive urgency History of clostridium difficile History of right-sided brain aneurysm History of cholecystectomy History of hysterectomy Obesity with a body mass index of 39.7 Discharge disposition Patient is being discharged in a stable condition with guarded prognosis to home. Patient will follow-up with Dr. Glover upon discharge. Patient will will continue on a short course of oral antibiotics in the form of Levaquin 250 mg daily for next 3 days to complete the course. Total time taken is 35 minutes. History of present illness This is an 84-year-old female who was recently admitted with nausea, vomiting, weakness, and possible urinary tract infection and was being closely monitored. Patient was initiated on IV Levaquin and urine cultures finalized showing enterococcus faecilis which is sensitive to Levaquin. Patient was also found to be hyponatremic. Repeat sodium today is 131. Patient instructed to follow-up with primary care provider upon discharge in the monitor oral intake of fluids. During hospitalization TSH was elevated at 6.640 although free T4 was normal at 1.14. Patient states she feels much better and would like to go home. Currently no reports of chest pain, shortness of breath, or palpitations. Patient is afebrile. No reports of nausea or vomiting and patient is tolerating diet. Guarded prognosis. On exam vital signs are stable. Temp is 98.2F, pulse is 72, respirations are 16, blood pressure is 139/74, oxygen saturation is 96% on room air. Cardio S1, S2 are muffled. Respiratory shows diminished breath sounds at the bases with no wheezing or rhonchi noted. Abdomen is soft and nontender. Nervous system shows no focal deficits. Please refer to medication reconciliation sheet for a list of medications. Patient Condition at Discharge: Good Plan - Discharge Summary New Discharge Prescriptions: New Losartan [Cozaar] 100 mg PO DAILY 30 Days #60 tab Levofloxacin [Levaquin] 250 mg PO 1700 3 Days #3 tab Pantoprazole [Protonix] 40 mg PO DAILY 30 Days #30 tablet.dr Continue Cranberry Fruit Extract [Cranberry] 1,000 mg PO DAILY Vitamin C/Biotin [Hair, Skin and Nails] 1 tab PO DAILY Aspirin EC [Ecotrin Low Dose] 81 mg PO DAILY PRN PRN Reason: Pain [place]-3 Fatty Acids [[place]-3] 1,000 mg PO DAILY Nystatin 100,000Unit/gm Cream [Mycostatin Cream] 1 applic TOPICAL BID PRN PRN Reason: Rash Discontinued Losartan/Hydrochlorothiazide [Losartan-Hctz 100-25 mg Tab] 1 tab PO DAILY Cefuroxime [Ceftin] 250 mg PO BID Discharge Medication List Cranberry Fruit Extract [Cranberry] 1,000 mg PO DAILY 12/30/18 [History] Aspirin EC [Ecotrin Low Dose] 81 mg PO DAILY PRN 11/26/19 [History] [place]-3 Fatty Acids [[place]-3] 1,000 mg PO DAILY 11/26/19 [History] Vitamin C/Biotin [Hair, Skin and Nails] 1 tab PO DAILY 11/26/19 [History] Nystatin 100,000Unit/gm Cream [Mycostatin Cream] 1 applic TOPICAL BID PRN 11/28/19 [History] Levofloxacin [Levaquin] 250 mg PO 1700 3 Days #3 tab 12/01/19 [Rx] Losartan [Cozaar] 100 mg PO DAILY 30 Days #60 tab 12/01/19 [Rx] Pantoprazole [Protonix] 40 mg PO DAILY 30 Days #30 tablet. 12/01/19 [Rx] Follow up Appointment(s)/Referral(s): Oli Glover MD [Primary Care Provider] - 12/04/19 4:10 pm Ambulatory/Diagnostic Orders: Basic Metabolic Panel [LAB.AMB] Time Frame: 2 Days, Location: None Selected Patient Instructions/Handouts: Urinary Tract Infection in Women (DC), Hyponatremia (DC) Activity/Diet/Wound Care/Special Instructions: Activity Limited until follow-up Continue current diet Repeat labs in 2-3 days Monitor oral intake of water Follow-up with primary care provider upon discharge Discharge Disposition: HOME SELF-CARE
== END 2019-12-01 14:45 | disposition home or self-care (01) | DRG 690 ==
LOC: EC 15:06 → 5NMEDONC 17:28
PROVIDERS: ADMIT Internal Medicine; ATTEND Internal Medicine
DX: N39.0 Urinary tract infection, site not specified (principal); E87.1 Hypo-osmolality and hyponatremia; I67.1 Cerebral aneurysm, nonruptured; E87.8 Other disorders of electrolyte and fluid balance, not elsewhere classified; E66.9 Obesity, unspecified; E86.1 Hypovolemia; F40.240 Claustrophobia; I10 Essential (primary) hypertension; I16.0 Hypertensive urgency; K21.9 Gastro-esophageal reflux disease without esophagitis; K29.00 Acute gastritis without bleeding; B95.2 Enterococcus as the cause of diseases classified elsewhere; Z11.59 Encounter for screening for other viral diseases; T50.2X5A Adverse effect of carbonic-anhydrase inhibitors, benzothiadiazides and other diuretics, initial encounter; Z68.39 Body mass index [BMI] 39.0-39.9, adult; Z79.82 Long term (current) use of aspirin; Z79.899 Other long term (current) drug therapy; Z88.1 Allergy status to other antibiotic agents; Z88.5 Allergy status to narcotic agent; Z88.2 Allergy status to sulfonamides; Z88.8 Allergy status to other drugs, medicaments and biological substances; Z90.710 Acquired absence of both cervix and uterus; Z90.49 Acquired absence of other specified parts of digestive tract; Z86.73 Personal history of transient ischemic attack (TIA), and cerebral infarction without residual deficits; Z87.440 Personal history of urinary (tract) infections; Z86.19 Personal history of other infectious and parasitic diseases; Z82.49 Family history of ischemic heart disease and other diseases of the circulatory system
CPT/HCPCS: 36415; 80048; 80053; 81001; 83735; 83935; 84295; 84300; 84439; 84443; 84484; 85025; 85610; 85730; 87040; 87077; 87086; 87186; 93005; 96361; 96365; 96374; 96375; 99284; 99285

== ENCOUNTER → 2020-05-11 | Outpatient (CLI) | payer MEDICARE, BC ==
--- NOTE | 2020-05-11 15:29 | US ---
EXAMINATION TYPE: US kidneys/renal and bladder DATE OF EXAM: 05/11/2020 COMPARISON: NONE CLINICAL HISTORY: N39.0 urinary tract infection. UTI, hematuria EXAM MEASUREMENTS: Right Kidney: 8.4 x 4.4 x 5.1 cm Left Kidney: 9.4 x 5.1 x 5.2 cm Difficult and limited study due to patient body habitus Right Kidney: no hydronephrosis or masses seen Left Kidney: no hydronephrosis or masses seen Bladder: not fully distended, appears wnl as seen Bilateral Jets seen: no There is no evidence for hydronephrosis at this point in time. No nephrolithiasis is seen. No shakira s are identified. Cortical medullary differentiation is maintained IMPRESSION: No hydronephrosis.
== END | disposition home or self-care (01) ==
LOC: RADUSWWP 14:44
PROVIDERS: ATTEND Family Medicine
DX: N39.0 Urinary tract infection, site not specified (principal)
CPT/HCPCS: 76770

== ENCOUNTER → 2020-06-08 | Outpatient (CLI) | payer MEDICARE, BC ==
[2020-06-08 12:11] LABS: Basophils # (A) 0.1 k/uL (0-0.2); Basophils % (A) 1 %; Eosinophils # (A) 0.1 k/uL (0-0.7); Eosinophils % (A) 1 %; HCT 38.3 % (34.0-46.0); HGB 13.2 gm/dL (11.4-16.0); Lymphocytes # (A) 1.7 k/uL (1.0-4.8); Lymphocytes % (A) 17 %; MCH 31.5 pg (25.0-35.0); MCHC 34.5 g/dL (31.0-37.0); MCV 91.2 fL (80.0-100.0); Mean Platelet Volume 6.8; Monocytes # (A) 0.8 k/uL (0-1.0); Monocytes % (A) 8 %; Neutrophils # (A) 7.1 k/uL (1.3-7.7); Neutrophils % (A) 72 %; Platelet Count 340 k/uL (150-450); RDW 12.8 % (11.5-15.5); WBC 9.9 k/uL (3.8-10.6)
[2020-06-08 12:21] LABS: Albumin 4.1 g/dL (3.5-5.0); Calcium 9.4 mg/dL (8.4-10.2); Magnesium 1.8 mg/dL (1.6-2.3); Phosphorus 3.5 mg/dL (2.5-4.5); Potassium 4.5 mmol/L (3.5-5.1); Total Bilirubin 0.5 mg/dL (0.2-1.3); Total Protein 7.2 g/dL (6.3-8.2)
--- NOTE | 2020-06-08 14:42 | CT ---
EXAMINATION TYPE: CT angio head neck DATE OF EXAM: 06/08/2020 HISTORY: dizziness, high blood pressure COMPARISON: 04/05/2016 CT DLP: 1391.1 mGycm. Automated Exposure Control for Dose Reduction was Utilized. TECHNIQUE: CTA scan of the neck is performed with IV Contrast, patient injected with 65 mL of Isovue 370, axial images are obtained, coronal and sagittal reformatted images are reviewed. Three-D recons tructed images are created on an independent workstation and reviewed. FINDINGS: Mild generalized degenerative change. Tiny hypodensity near the heart head of the caudate n ucleus suggestive of remote lacunar infarct. Faint low-attenuation the white matter is nonspecific bu t most typical remote white matter ischemia. Carotid bifurcations appear to be widely patent bilaterally. Brachiocephalic artery, bilateral common carotid artery and bilateral subclavian arteries appear to be patent bilaterally. 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 This may represent bilobed aneurysm measuring approximately 1 cm or 2 small contiguous aneurysms. This may be slightly increased in size from the prior exam but overa ll is similar in appearance.. Report called to the referring clinician by telephone 1430 p.m. on 2020. Hypertrophic degenerative change of the spine. IMPRESSION: 1. 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 It measures approximately 10 mm on today's exam. Retrospectively the aneurysm measures 9.7 mm on the prior MRA [place].
== END | disposition home or self-care (01) ==
LOC: RADCTMAIN 11:03
PROVIDERS: ATTEND Family Medicine
DX: I67.1 Cerebral aneurysm, nonruptured (principal); I10 Essential (primary) hypertension
CPT/HCPCS: 80053; 83735; 84100; 85025; 70496; 70498; 36415; Q9967

== ENCOUNTER 2020-06-16 17:51 | Emergency (ER) | payer MEDICARE, BC ==
[2020-06-16] MEDS ORDERED: SODIUM CHLORIDE 0.9% 500 ML 500 ML IV STA (19:29)
--- NOTE | 2020-06-16 20:20 | ED ---
General Adult HPI - General Chief complaint: Recheck/Abnormal Lab/Rx Stated complaint: Nausea Time Seen by Provider: 06/16/20 19:03 Source: patient Mode of arrival: wheelchair Limitations: no limitations - History of Present Illness Initial comments: 84 year-old female patient presents to the emergency department today for evaluation of not feeling well. Patient states that she has been feeling unwell since starting a new blood pressure medication. States that she is having bilateral arm pain intermittently that worsens when she becomes upset. This has been going on for the last year. She has discussed this with her primary care physician. Denies any chest pain or upper back pain. She is also reporting shortness of breath for the last year. Denies any cough or congestion. Denies leg swelling. Denies any abnormal weight gain. She uses one pillow at night. She denies any recent fever or chills. States that she has had a urinary tract infection that was treated successfully. She states her biggest concern is that she has been unable to sleep and it is making her feel unwell. Patient denies any recent rash, cough, abdominal pain, nausea, vomiting, diarrhea, constipation, back pain, numbness, tingling, dizziness, weakness, hematuria, dysuria, urinary urgency, urinary frequency, headache, visual changes, or any other complaints. - Related Data Home Medications Medication Instructions Recorded Confirmed Dalton-3 Fatty Acids [Dalton-3] 1,000 mg PO DAILY 11/26/19 06/16/20 Vitamin C/Biotin [Hair, Skin and 1 tab PO DAILY 11/26/19 06/16/20 Nails] Nystatin 100,000Unit/gm Cream 1 applic TOPICAL BID PRN 11/28/19 06/16/20 [Mycostatin Cream] Lisinopril [Zestril] 10 mg PO DAILY 06/16/20 06/16/20 Multivitamins, Thera [Multivitamin 1 tab PO DAILY 06/16/20 06/16/20 (formulary)] Nystatin 100,000 Unit/gm Powd 1 applic TOPICAL BID PRN 06/16/20 06/16/20 [Mycostatin Powder] Previous Rx's Medication Instructions Recorded Nitrofurantoin Monohyd/M-Cryst 100 mg PO Q12HR #14 cap 06/16/20 [Macrobid] Allergies Allergy/AdvReac Type Severity Reaction Status Date / Time benzalkonium chloride Allergy Unknown Verified 06/16/20 23:36 [From Bactine (with alcohol)] cephalexin [From Keflex] Allergy Nausea & Verified 06/16/20 23:36 Vomiting codeine Allergy Unknown Verified 06/16/20 23:36 lidocaine Allergy Unknown Verified 06/16/20 23:36 [From Bactine (with alcohol)] metronidazole [From Flagyl] Allergy Unknown Verified 06/16/20 23:36 sulfamethoxazole Allergy Unknown Verified 06/16/20 23:36 [From Bactrim] trimethoprim [From Bactrim] Allergy Unknown Verified 06/16/20 23:36 Review of Systems ROS Statement: Those systems with pertinent positive or pertinent negative responses have been documented in the HPI. ROS Other: All systems not noted in ROS Statement are negative. Past Medical History Past Medical History: CVA/TIA, GERD/Reflux, Hypertension Additional Past Medical History / Comment(s): past back pain, c-diff 2015, rt side brain anuerysm (TIA) History of Any Multi-Drug Resistant Organisms: C-DIFF Date of last positivie culture/infection: 2005 MDRO Source:: stool Past Surgical History: Cholecystectomy, Hysterectomy, Tonsillectomy Additional Past Surgical History / Comment(s): colonoscopy, eye sx(tear ducts) Past Anesthesia/Blood Transfusion Reactions: Motion Sickness Additional Past Anesthesia/Blood Transfusion Reaction / Comment(s): claustrophobia Past Psychological History: No Psychological Hx Reported Smoking Status: Never smoker Past Alcohol Use History: Occasional Past Drug Use History: None Reported - Past Family History Father Family Medical History: Hypertension Additional Family Medical History / Comment(s): Father at the age of 63 yrs. He was an alcoholic and a smoker. Mother Family Medical History: Hypertension Additional Family Medical History / Comment(s): Mother at the age of 88yrs. General Exam Limitations: no limitations General appearance: alert, in no apparent distress, other (This is a well- developed, well-nourished adult female patient in no acute distress. Vital signs upon presentation are temperature 99.4F, pulse 91, respirations 17, blood pressure 190/82, pulse ox 96% on room air.) Eye exam: Present: normal appearance, PERRL, EOMI. Absent: scleral icterus, conjunctival injection, periorbital swelling ENT exam: Present: normal exam, normal oropharynx, mucous membranes moist Respiratory exam: Present: normal lung sounds bilaterally. Absent: respiratory distress, wheezes, rales, rhonchi, stridor Cardiovascular Exam: Present: regular rate, normal rhythm, normal heart sounds. Absent: systolic murmur, diastolic murmur, rubs, gallop, clicks GI/Abdominal exam: Present: soft, normal bowel sounds. Absent: distended, tenderness, guarding, rebound, rigid Neurological exam: Present: alert, oriented X3, CN II-XII intact Psychiatric exam: Present: normal affect, normal mood Skin exam: Present: warm, dry, intact, normal color. Absent: rash Course Vital Signs 06/16/20 06/16/20 06/16/20 18:22 21:05 22:43 Temperature 99.4 F 98.2 F Pulse Rate 91 78 76 Respiratory 17 18 18 Rate Blood Pressure 190/82 174/83 168/83 O2 Sat by Pulse 96 96 98 Oximetry 06/17/20 00:25 Temperature 98.0 F Pulse Rate 74 Respiratory 18 Rate Blood Pressure 158/87 O2 Sat by Pulse 97 Oximetry EKG Findings - EKG Comments: EKG Findings:: EKG obtained at 2003 shows normal sinus rhythm with a left anterior fascicular block. Ventricular rate is 82, WA interval 176, QRS duration 100, QT 376, QTc 439. No evidence of ST elevation or depression. Medical Decision Making - Medical Decision Making 84-year-old female patient presents to the emergency department today for evaluation of "not feeling well". Patient states she is having discharge issues with her blood pressure and started feeling worse when she started taking her new blood pressure medication. She did report that she has tried four blood pressure medications and they all make her feel ill. She reports symptoms of arm pain and shortness of breath that have been going on for the last year. She states her most concerning symptom is that she is unable to sleep at night and it is making her feel fatigued and "sick". Physical examination was unremarkable. Labs unremarkable. Chest xray negative. There was evidence for a UTI. BPs were moderately elevated while here. I did discuss findings with the patient. We will try benadryl at night to help her sleep. She is instructed to follow up with the pcp for further evaluation as soon as possible. Return parameters are discussed in detail. She verbalizes understanding and agrees with this plan. - Lab Data Result diagrams: 06/16/20 20:45 06/16/20 20:45 Lab Results 06/16/20 06/16/20 06/16/20 Range/Units 20:45 20:45 20:45 WBC 10.8 H (3.8-10.6) k/uL RBC 4.07 (3.80-5.40) m/uL Hgb 12.3 (11.4-16.0) gm/dL Hct 37.0 (34.0-46.0) % MCV 90.8 (80.0-100.0) fL MCH 30.2 (25.0-35.0) pg MCHC 33.3 (31.0-37.0) g/dL RDW 13.2 (11.5-15.5) % Plt Count 348 (150-450) k/uL MPV 7.1 Neutrophils % 69 % Lymphocytes % 19 % Monocytes % 8 % Eosinophils % 2 % Basophils % 1 % Neutrophils # 7.5 (1.3-7.7) k/uL Lymphocytes # 2.1 (1.0-4.8) k/uL Monocytes # 0.8 (0-1.0) k/uL Eosinophils # 0.2 (0-0.7) k/uL Basophils # 0.1 (0-0.2) k/uL PT 10.1 (9.0-12.0) sec INR 0.9 (<1.2) APTT 22.2 (22.0-30.0) sec Sodium 133 L (137-145) mmol/L Potassium 4.5 (3.5-5.1) mmol/L Chloride 102 (98-107) mmol/L Carbon Dioxide 25 (22-30) mmol/L Anion Gap 6 mmol/L BUN 20 H (7-17) mg/dL Creatinine 0.80 (0.52-1.04) mg/dL Est GFR (CKD-EPI)AfAm 79 (>60 ml/min/1.73 sqM) Est GFR (CKD-EPI)NonAf 69 (>60 ml/min/1.73 sqM) Glucose 97 (74-99) mg/dL Calcium 9.4 (8.4-10.2) mg/dL Magnesium 1.6 (1.6-2.3) mg/dL Total Bilirubin 0.4 (0.2-1.3) mg/dL AST 26 (14-36) U/L ALT 17 (4-34) U/L Alkaline Phosphatase 47 (38-126) U/L Troponin I (0.000-0.034) ng/mL Total Protein 6.8 (6.3-8.2) g/dL Albumin 3.8 (3.5-5.0) g/dL Lipase 212 (23-300) U/L Urine Color Urine Appearance (Clear) Urine pH (5.0-8.0) Ur Specific [place] (1.001-1.035) Urine Protein (Negative) Urine Glucose (UA) (Negative) Urine Ketones (Negative) Urine Blood (Negative) Urine Nitrite (Negative) Urine Bilirubin (Negative) Urine Urobilinogen (<2.0) mg/dL Ur Leukocyte Esterase (Negative) Urine RBC (0-5) /hpf Urine WBC (0-5) /hpf Ur Squamous Epith Cells (0-4) /hpf 06/16/20 06/16/20 Range/Units 20:45 22:06 WBC (3.8-10.6) k/uL RBC (3.80-5.40) m/uL Hgb (11.4-16.0) gm/dL Hct (34.0-46.0) % MCV (80.0-100.0) fL MCH (25.0-35.0) pg MCHC (31.0-37.0) g/dL RDW (11.5-15.5) % Plt Count (150-450) k/uL MPV Neutrophils % % Lymphocytes % % Monocytes % % Eosinophils % % Basophils % % Neutrophils # (1.3-7.7) k/uL Lymphocytes # (1.0-4.8) k/uL Monocytes # (0-1.0) k/uL Eosinophils # (0-0.7) k/uL Basophils # (0-0.2) k/uL PT (9.0-12.0) sec INR (<1.2) APTT (22.0-30.0) sec Sodium (137-145) mmol/L Potassium (3.5-5.1) mmol/L Chloride (98-107) mmol/L Carbon Dioxide (22-30) mmol/L Anion Gap mmol/L BUN (7-17) mg/dL Creatinine (0.52-1.04) mg/dL Est GFR (CKD-EPI)AfAm (>60 ml/min/1.73 sqM) Est GFR (CKD-EPI)NonAf (>60 ml/min/1.73 sqM) Glucose (74-99) mg/dL Calcium (8.4-10.2) mg/dL Magnesium (1.6-2.3) mg/dL Total Bilirubin (0.2-1.3) mg/dL AST (14-36) U/L ALT (4-34) U/L Alkaline Phosphatase (38-126) U/L Troponin I <0.012 (0.000-0.034) ng/mL Total Protein (6.3-8.2) g/dL Albumin (3.5-5.0) g/dL Lipase (23-300) U/L Urine Color Light Yellow Urine Appearance Clear (Clear) Urine pH 5.5 (5.0-8.0) Ur Specific [place] 1.010 (1.001-1.035) Urine Protein Negative (Negative) Urine Glucose (UA) Negative (Negative) Urine Ketones Negative (Negative) Urine Blood Small H (Negative) Urine Nitrite Negative (Negative) Urine Bilirubin Negative (Negative) Urine Urobilinogen <2.0 (<2.0) mg/dL Ur Leukocyte Esterase Large H (Negative) Urine RBC 2 (0-5) /hpf Urine WBC 24 H (0-5) /hpf Ur Squamous Epith Cells <1 (0-4) /hpf - Radiology Data Radiology results: report reviewed, image reviewed Two-view x-ray of the chest is obtained. Report was reviewed in its entirety. Impression by Dr. Saeed shows no acute cardio pulmonary process. Cardiomegaly. Disposition Clinical Impression: Insomnia, Hypertension, Urinary tract infection Disposition: HOME SELF-CARE Condition: Good Instructions (If sedation given, give patient instructions): Urinary Tract Infection in Women (ED), Hypertension (ED), Insomnia (ED) Additional Instructions: Follow with her primary care physician for recheck tomorrow. Take medications as directed. Return to the emergency department for any new, worsening, or concerning symptoms. Prescriptions: Nitrofurantoin Monohyd/M-Cryst [Macrobid] 100 mg PO Q12HR #14 cap Is patient prescribed a controlled substance at d/c from ED?: No Referrals: Oli Glover MD [Primary Care Provider] - 1-2 days Time of Disposition: 23:41
--- NOTE | 2020-06-16 20:45 | XR ---
EXAMINATION TYPE: XR chest 2V DATE OF EXAM: 06/16/2020 COMPARISON: 10/09/2017. HISTORY: Chest pain. TECHNIQUE: Frontal and lateral views of the chest are obtained. FINDINGS: There is no focal air space opacity, pleural effusion, or pneumothorax seen. The cardiac silhouette size is enlarged. The osseous structures are intact. IMPRESSION: No acute cardiopulmonary process. Cardiomegaly.
[2020-06-16 20:52] LABS: Basophils # (A) 0.1 k/uL (0-0.2); Basophils % (A) 1 %; Eosinophils # (A) 0.2 k/uL (0-0.7); Eosinophils % (A) 2 %; HGB 12.3 gm/dL (11.4-16.0); Lymphocytes # (A) 2.1 k/uL (1.0-4.8); Lymphocytes % (A) 19 %; MCH 30.2 pg (25.0-35.0); MCHC 33.3 g/dL (31.0-37.0); MCV 90.8 fL (80.0-100.0); Mean Platelet Volume 7.1; Monocytes # (A) 0.8 k/uL (0-1.0); Monocytes % (A) 8 %; Neutrophils # (A) 7.5 k/uL (1.3-7.7); Neutrophils % (A) 69 %; Platelet Count 348 k/uL (150-450); RBC 4.07 m/uL (3.80-5.40); RDW 13.2 % (11.5-15.5); WBC 10.8 k/uL (3.8-10.6)
[2020-06-16 21:08] VITALS: RESP 18
[2020-06-16 21:14] LABS: Albumin 3.8 g/dL (3.5-5.0); Calcium 9.4 mg/dL (8.4-10.2); Magnesium 1.6 mg/dL (1.6-2.3); Potassium 4.5 mmol/L (3.5-5.1); Total Bilirubin 0.4 mg/dL (0.2-1.3); Total Protein 6.8 g/dL (6.3-8.2)
[2020-06-16 21:21] LABS: INR 0.9 (<1.2); Prothrombin Time 10.1 sec (9.0-12.0)
[2020-06-16 21:22] LABS: Partial Thromboplastin Time 22.2 sec (22.0-30.0)
[2020-06-16 22:18] LABS: Appearance,Urine Clear (Clear); Bilirubin,Urine Negative (Negative); Blood,Urine Small (Negative); Color,Urine Light Yellow; Glucose,Urine (UA) Negative (Negative); Ketones,Urine Negative (Negative); Leukocyte Esterase,Urine Large (Negative); Nitrite,Urine Negative (Negative); PH, Urine 5.5 (5.0-8.0); Protein,Urine Negative (Negative); RBC,Urine 2 /hpf (0-5); Squamous Epithelial Cell,Urine <1 /hpf (0-4); Urobilinogen,Urine <2.0 mg/dL (<2.0); WBC,Urine 24 /hpf (0-5)
[2020-06-16] MEDS ORDERED: NITROFURANTOIN MONOHYD/M-CRYST 100 MG CAP PO STA (23:41)
[2020-06-16] MEDS ORDERED: diphenhydrAMINE 50 MG CAP PO STA (23:41)
[2020-06-17 00:27] VITALS: BP 158/87; PULSE 74; TEMP 98
== END 2020-06-17 00:27 | disposition home or self-care (01) ==
LOC: EC 17:51
DX: I10 Essential (primary) hypertension (principal); N39.0 Urinary tract infection, site not specified; G47.00 Insomnia, unspecified; K21.9 Gastro-esophageal reflux disease without esophagitis; Z79.899 Other long term (current) drug therapy; Z88.1 Allergy status to other antibiotic agents; Z88.2 Allergy status to sulfonamides; Z88.5 Allergy status to narcotic agent; Z88.8 Allergy status to other drugs, medicaments and biological substances; Z90.49 Acquired absence of other specified parts of digestive tract; Z90.710 Acquired absence of both cervix and uterus; Z86.73 Personal history of transient ischemic attack (TIA), and cerebral infarction without residual deficits
CPT/HCPCS: 36415; 71046; 80053; 81001; 83690; 83735; 84484; 85025; 85610; 85730; 87086; 93005; 96360; 96361; 99284

== ENCOUNTER 2020-06-22 15:50 | Inpatient (IN) | payer MEDICARE, BC ==
[2020-06-22] MEDS ORDERED: SODIUM CHLORIDE 0.9% 500 ML 500 ML IV STA (16:17)
[2020-06-22 16:30] LABS: Basophils % (A) 0 %; Eosinophils # (A) 0.1 k/uL (0-0.7); Eosinophils % (A) 1 %; HCT 38.5 % (34.0-46.0); HGB 12.9 gm/dL (11.4-16.0); Lymphocytes # (A) 1.7 k/uL (1.0-4.8); Lymphocytes % (A) 13 %; MCH 29.9 pg (25.0-35.0); MCHC 33.4 g/dL (31.0-37.0); MCV 89.3 fL (80.0-100.0); Monocytes # (A) 0.8 k/uL (0-1.0); Monocytes % (A) 7 %; Neutrophils % (A) 77 %; Platelet Count 339 k/uL (150-450); RBC 4.31 m/uL (3.80-5.40); RDW 13.4 % (11.5-15.5); WBC 12.9 k/uL (3.8-10.6)
[2020-06-22 16:42] LABS: Calcium 9.3 mg/dL (8.4-10.2); Magnesium 1.5 mg/dL (1.6-2.3); Total Bilirubin 0.5 mg/dL (0.2-1.3)
[2020-06-22 16:54] LABS: INR 0.9 (<1.2); Prothrombin Time 10.2 sec (9.0-12.0)
--- NOTE | 2020-06-22 16:56 | XR ---
EXAMINATION TYPE: XR chest 2V DATE OF EXAM: 06/22/2020 COMPARISON: 06/16/2020 HISTORY: Hypertension. Chest pain. TECHNIQUE: FINDINGS: There is no heart failure nor confluent pneumonic infiltrate. Costophrenic angles are fairl y clear. There are no hilar masses. Thoracic aorta is atheromatous. There are chest leads. There is m ild thoracic kyphosis and anterior wedging of mid thoracic vertebra up to 50%. IMPRESSION: Mild cardiomegaly. No acute lung disease. No change compared to old exam.
[2020-06-22 17:00] LABS: Appearance,Urine Cloudy (Clear); Bacteria,Urine Rare /hpf; Bilirubin,Urine Negative (Negative); Blood,Urine Small (Negative); Budding Yeast,Urine Occasional /hpf; Color,Urine Yellow; Glucose,Urine (UA) Negative (Negative); Ketones,Urine Negative (Negative); Leukocyte Esterase,Urine Large (Negative); Nitrite,Urine Negative (Negative); Protein,Urine Negative (Negative); RBC,Urine 5 /hpf (0-5); Specific Gravity,Urine 1.013 (1.001-1.035); Urobilinogen,Urine <2.0 mg/dL (<2.0); WBC,Urine 156 /hpf (0-5)
--- NOTE | 2020-06-22 17:04 | ED ---
General Adult HPI - General Chief complaint: Recheck/Abnormal Lab/Rx Stated complaint: Weakness Time Seen by Provider: 06/22/20 15:50 Source: patient, RN notes reviewed, old records reviewed Mode of arrival: wheelchair Limitations: no limitations - History of Present Illness Initial comments: This is an 84-year-old female who was sent in by her primary medical care doctor because it stress test was done today and it showed some areas of global ischemi a. Patient states she short of breath but she has not had any chest pain per patient denies any palpation. Patient denies any fever chills or cough. Patient denies any abdominal pain patient denies any nausea vomiting she states she has had some diarrhea per patient denies headache patient denies any syncopal episode. Patient states she does have episodes of vertigo she had one this morning but it was nothing abnormal for her. Patient states she does overall feel extremely fatigued as well. Care doctor called ahead and did want the patient admitted. - Related Data Home Medications Medication Instructions Recorded Confirmed Nystatin 100,000Unit/gm Cream 1 applic TOPICAL BID PRN 11/28/19 06/22/20 [Mycostatin Cream] Nystatin 100,000 Unit/gm Powd 1 applic TOPICAL BID PRN 06/16/20 06/22/20 [Mycostatin Powder] Losartan/Hydrochlorothiazide 1 tab PO DAILY 06/22/20 06/22/20 [Hyzaar 100-25 Tablet] Nebivolol HCl [Bystolic] 10 mg PO DAILY 06/22/20 06/22/20 Allergies Allergy/AdvReac Type Severity Reaction Status Date / Time benzalkonium chloride Allergy Unknown Verified 06/22/20 18:04 [From Bactine (with alcohol)] cephalexin [From Keflex] Allergy Nausea & Verified 06/22/20 18:04 Vomiting codeine Allergy Unknown Verified 06/22/20 18:04 lidocaine Allergy Unknown Verified 06/22/20 18:04 [From Bactine (with alcohol)] metronidazole [From Flagyl] Allergy Unknown Verified 06/22/20 18:04 sulfamethoxazole Allergy Unknown Verified 06/22/20 18:04 [From Bactrim] trimethoprim [From Bactrim] Allergy Unknown Verified 06/22/20 18:04 amlodipine AdvReac Nausea & Verified 06/22/20 18:04 Vomiting chlorthalidone AdvReac Nausea & Verified 06/22/20 18:04 Vomiting lisinopril AdvReac Nausea & Verified 06/22/20 18:04 Vomiting Review of Systems ROS Statement: Those systems with pertinent positive or pertinent negative responses have been documented in the HPI. ROS Other: All systems not noted in ROS Statement are negative. Past Medical History Past Medical History: CVA/TIA, GERD/Reflux, Hypertension Additional Past Medical History / Comment(s): past back pain, c-diff 2016, rt side brain anuerysm (TIA) History of Any Multi-Drug Resistant Organisms: C-DIFF Date of last positivie culture/infection: 2005 MDRO Source:: stool Past Surgical History: Cholecystectomy, Hysterectomy, Tonsillectomy Additional Past Surgical History / Comment(s): colonoscopy, eye sx(tear ducts) Past Anesthesia/Blood Transfusion Reactions: Motion Sickness Additional Past Anesthesia/Blood Transfusion Reaction / Comment(s): claustrophobia Past Psychological History: No Psychological Hx Reported Smoking Status: Never smoker Past Alcohol Use History: Occasional Past Drug Use History: None Reported - Past Family History Father Family Medical History: Hypertension Additional Family Medical History / Comment(s): Father at the age of 63 yrs. He was an alcoholic and a smoker. Mother Family Medical History: Hypertension Additional Family Medical History / Comment(s): Mother at the age of 88yrs. General Exam - General Exam Comments Initial Comments: GENERAL: Patient is well-developed and well-nourished. Patient is nontoxic and well-hy drated and is in mild distress. ENT: Neck is soft and supple. No significant lymphadenopathy is noted. Oropharynx is clear. Moist mucous membranes. Neck has full range of motion without eliciting any pain. EYES: The sclera were anicteric and conjunctiva were pink and moist. Extraocular move ments were intact and pupils were equal round and reactive to light. Eyelids were unremarkable. PULMONARY: Unlabored respirations. Good breath sounds bilaterally. No audible rales rhonchi or wheezing was noted. CARDIOVASCULAR: There is a regular rate and rhythm without any murmurs gallops or rubs. ABDOMEN: Soft and nontender with normal bowel sounds. SKIN: Skin is clear with no lesions or rashes and otherwise unremarkable. NEUROLOGIC: Patient is alert and oriented x3. Cranial nerves II through XII are grossly intact. Motor and sensory are also intact. Normal speech, volume and content. Symmetrical smile. MUSCULOSKELETAL: Normal extremities with adequate strength and full range of motion. No lower extremity swelling or edema. No calf tenderness. LYMPHATICS: No significant lymphadenopathy is noted PSYCHIATRIC: Normal psychiatric evaluation. Limitations: no limitations Course Vital Signs 06/22/20 15:51 Temperature 97.6 F Pulse Rate 66 Respiratory 18 Rate Blood Pressure 154/65 O2 Sat by Pulse 97 Oximetry Medical Decision Making - Medical Decision Making EKG shows normal sinus rhythm at 65 bpm MI interval 192 QRS is 104 QT interval is 408 QTC is 424. Patient's EKG shows no ST segment elevation or depression. - Lab Data Result diagrams: 06/22/20 16:22 06/22/20 16:22 Lab Results 06/22/20 06/22/20 06/22/20 Range/Units 16:17 16:22 16:22 WBC 12.9 H (3.8-10.6) k/uL RBC 4.31 (3.80-5.40) m/uL Hgb 12.9 (11.4-16.0) gm/dL Hct 38.5 (34.0-46.0) % MCV 89.3 (80.0-100.0) fL MCH 29.9 (25.0-35.0) pg MCHC 33.4 (31.0-37.0) g/dL RDW 13.4 (11.5-15.5) % Plt Count 339 (150-450) k/uL MPV 7.0 Neutrophils % 77 % Lymphocytes % 13 % Monocytes % 7 % Eosinophils % 1 % Basophils % 0 % Neutrophils # 10.0 H (1.3-7.7) k/uL Lymphocytes # 1.7 (1.0-4.8) k/uL Monocytes # 0.8 (0-1.0) k/uL Eosinophils # 0.1 (0-0.7) k/uL Basophils # 0.0 (0-0.2) k/uL PT 10.2 (9.0-12.0) sec INR 0.9 (<1.2) APTT 21.6 L (22.0-30.0) sec Sodium (137-145) mmol/L Potassium (3.5-5.1) mmol/L Chloride (98-107) mmol/L Carbon Dioxide (22-30) mmol/L Anion Gap mmol/L BUN (7-17) mg/dL Creatinine (0.52-1.04) mg/dL Est GFR (CKD-EPI)AfAm (>60 ml/min/1.73 sqM) Est GFR (CKD-EPI)NonAf (>60 ml/min/1.73 sqM) Glucose (74-99) mg/dL Plasma Lactic Acid Ryan (0.7-2.0) mmol/L Calcium (8.4-10.2) mg/dL Magnesium (1.6-2.3) mg/dL Total Bilirubin (0.2-1.3) mg/dL AST (14-36) U/L ALT (4-34) U/L Alkaline Phosphatase (38-126) U/L Troponin I (0.000-0.034) ng/mL NT-Pro-B Natriuret Pep pg/mL Total Protein (6.3-8.2) g/dL Albumin (3.5-5.0) g/dL TSH (0.465-4.680) mIU/L Urine Color Yellow Urine Appearance Cloudy H (Clear) Urine pH 7.0 (5.0-8.0) Ur Specific [place] 1.013 (1.001-1.035) Urine Protein Negative (Negative) Urine Glucose (UA) Negative (Negative) Urine Ketones Negative (Negative) Urine Blood Small H (Negative) Urine Nitrite Negative (Negative) Urine Bilirubin Negative (Negative) Urine Urobilinogen <2.0 (<2.0) mg/dL Ur Leukocyte Esterase Large H (Negative) Urine RBC 5 (0-5) /hpf Urine WBC 156 H (0-5) /hpf Urine WBC Clumps Few H (None) /hpf Urine Bacteria Rare H (None) /hpf Urine Yeast (Budding) Occasional H (None) /hpf 06/22/20 06/22/20 06/22/20 Range/Units 16:22 16:22 16:22 WBC (3.8-10.6) k/uL RBC (3.80-5.40) m/uL Hgb (11.4-16.0) gm/dL Hct (34.0-46.0) % MCV (80.0-100.0) fL MCH (25.0-35.0) pg MCHC (31.0-37.0) g/dL RDW (11.5-15.5) % Plt Count (150-450) k/uL MPV Neutrophils % % Lymphocytes % % Monocytes % % Eosinophils % % Basophils % % Neutrophils # (1.3-7.7) k/uL Lymphocytes # (1.0-4.8) k/uL Monocytes # (0-1.0) k/uL Eosinophils # (0-0.7) k/uL Basophils # (0-0.2) k/uL PT (9.0-12.0) sec INR (<1.2) APTT (22.0-30.0) sec Sodium 127 L (137-145) mmol/L Potassium 4.0 (3.5-5.1) mmol/L Chloride 94 L (98-107) mmol/L Carbon Dioxide 25 (22-30) mmol/L Anion Gap 8 mmol/L BUN 20 H (7-17) mg/dL Creatinine 0.91 (0.52-1.04) mg/dL Est GFR (CKD-EPI)AfAm 67 (>60 ml/min/1.73 sqM) Est GFR (CKD-EPI)NonAf 59 (>60 ml/min/1.73 sqM) Glucose 106 H (74-99) mg/dL Plasma Lactic Acid Ryan 1.4 (0.7-2.0) mmol/L Calcium 9.3 (8.4-10.2) mg/dL Magnesium 1.5 L (1.6-2.3) mg/dL Total Bilirubin 0.5 (0.2-1.3) mg/dL AST 26 (14-36) U/L ALT 20 (4-34) U/L Alkaline Phosphatase 50 (38-126) U/L Troponin I <0.012 (0.000-0.034) ng/mL NT-Pro-B Natriuret Pep pg/mL Total Protein 7.0 (6.3-8.2) g/dL Albumin 4.0 (3.5-5.0) g/dL TSH 4.260 (0.465-4.680) mIU/L Urine Color Urine Appearance (Clear) Urine pH (5.0-8.0) Ur Specific [place] (1.001-1.035) Urine Protein (Negative) Urine Glucose (UA) (Negative) Urine Ketones (Negative) Urine Blood (Negative) Urine Nitrite (Negative) Urine Bilirubin (Negative) Urine Urobilinogen (<2.0) mg/dL Ur Leukocyte Esterase (Negative) Urine RBC (0-5) /hpf Urine WBC (0-5) /hpf Urine WBC Clumps (None) /hpf Urine Bacteria (None) /hpf Urine Yeast (Budding) (None) /hpf 06/22/20 Range/Units 16:22 WBC (3.8-10.6) k/uL RBC (3.80-5.40) m/uL Hgb (11.4-16.0) gm/dL Hct (34.0-46.0) % MCV (80.0-100.0) fL MCH (25.0-35.0) pg MCHC (31.0-37.0) g/dL RDW (11.5-15.5) % Plt Count (150-450) k/uL MPV Neutrophils % % Lymphocytes % % Monocytes % % Eosinophils % % Basophils % % Neutrophils # (1.3-7.7) k/uL Lymphocytes # (1.0-4.8) k/uL Monocytes # (0-1.0) k/uL Eosinophils # (0-0.7) k/uL Basophils # (0-0.2) k/uL PT (9.0-12.0) sec INR (<1.2) APTT (22.0-30.0) sec Sodium (137-145) mmol/L Potassium (3.5-5.1) mmol/L Chloride (98-107) mmol/L Carbon Dioxide (22-30) mmol/L Anion Gap mmol/L BUN (7-17) mg/dL Creatinine (0.52-1.04) mg/dL Est GFR (CKD-EPI)AfAm (>60 ml/min/1.73 sqM) Est GFR (CKD-EPI)NonAf (>60 ml/min/1.73 sqM) Glucose (74-99) mg/dL Plasma Lactic Acid Ryan (0.7-2.0) mmol/L Calcium (8.4-10.2) mg/dL Magnesium (1.6-2.3) mg/dL Total Bilirubin (0.2-1.3) mg/dL AST (14-36) U/L ALT (4-34) U/L Alkaline Phosphatase (38-126) U/L Troponin I (0.000-0.034) ng/mL NT-Pro-B Natriuret Pep 903 pg/mL Total Protein (6.3-8.2) g/dL Albumin (3.5-5.0) g/dL TSH (0.465-4.680) mIU/L Urine Color Urine Appearance (Clear) Urine pH (5.0-8.0) Ur Specific [place] (1.001-1.035) Urine Protein (Negative) Urine Glucose (UA) (Negative) Urine Ketones (Negative) Urine Blood (Negative) Urine Nitrite (Negative) Urine Bilirubin (Negative) Urine Urobilinogen (<2.0) mg/dL Ur Leukocyte Esterase (Negative) Urine RBC (0-5) /hpf Urine WBC (0-5) /hpf Urine WBC Clumps (None) /hpf Urine Bacteria (None) /hpf Urine Yeast (Budding) (None) /hpf Disposition Clinical Impression: Abnormal stress test, Urinary tract infection, Hyponatremia Disposition: ADMITTED IP TO THIS HOSP Referrals: Oli Glover MD [Primary Care Provider] - 1-2 days Time of Disposition: 18:24
[2020-06-22 17:24] LABS: Partial Thromboplastin Time 21.6 sec (22.0-30.0)
[2020-06-22] MEDS ORDERED: LEVOFLOXACIN 750MG-D5W PMX 750 MG in DEXTROSE/WATER 1 150ML.BAG IVPB STA (17:38)
[2020-06-22] MEDS ORDERED: NITROGLYCERIN SL TABS 0.4 MG TAB SUBLINGUAL PRN (18:25)
[2020-06-22] MEDS ORDERED: SODIUM CHLORIDE 0.9% 1,000 ML IV STA (18:29)
[2020-06-22 19:09] LABS: Glucose,Whole Blood 123 mg/dL (75-99)
[2020-06-22] MEDS ORDERED: NYSTATIN 100,000 UNIT/GM POWD 15 GM TOPICAL PRN (19:19)
[2020-06-22] MEDS ORDERED: NYSTATIN 100,000UNIT/GM CREAM 30 GM TUBE TOPICAL PRN (19:19)
[2020-06-22 20:52] LABS: Glucose,Whole Blood 118 mg/dL (75-99)
--- NOTE | 2020-06-22 21:49 | P.HPIM ---
History of Present Illness H&P Date: 06/22/20 Chief Complaint: Dizziness/near syncopal episodes 84-year-old female had outpatient stress test and echocardiogram performed today, stress test indicated global ischemia, echocardiogram ejection fraction greater than 55% patient had diagnostic testing done outpatient due to repeated episodes of dizziness, near syncopal episodes, and uneasy feeling. Patient was sent to the emergency department for further diagnostic workup and admissionpatient found to have hyponatremia, and possible urinary tract infectionculture to followpatient started on levofloxacin 750 mg IV. Outpatient patient had a CT angiogram of head and neck performed due to history of prior aneurysm increasing in sizeneurology consulted. Patient having difficulty maintaining blood pressure of 140/90tried multiple medications outpatientattempting to use losartan/hydrochlorothiazide 100 mg/25 mgdiscontinued hydrochlorothiazide due to hyponatremia. Continuing bystolic 10 mg by mouth. Consulted cardiology regarding abnormal stress tests with episodes of dizziness/and near syncopal episodes. Patient denies chest pain, palpitations, or nausea at this time. Review of Systems Constitutional: Reports fatigue, Reports weakness Eyes: bilateral as per HPI Ears: bilateral: decreased hearing Cardiovascular: Reports decreased exercise tolerance, Reports dyspnea on exert ion, Reports high blood pressure Genitourinary: Reports dysuria, Reports urinary frequency Musculoskeletal: Reports muscle weakness Integumentary: Reports dryness Neurological: Reports balance difficulties, Reports hearing difficulties, Reports lack of coordination, Reports weakness Psychiatric: Reports anxiety Past Medical History Past Medical History: CVA/TIA, GERD/Reflux, Hypertension Additional Past Medical History / Comment(s): past back pain, c-diff 2016, rt side brain anuerysm (TIA) History of Any Multi-Drug Resistant Organisms: C-DIFF Date of last positivie culture/infection: 2005 MDRO Source:: stool Past Surgical History: Cholecystectomy, Hysterectomy, Tonsillectomy Additional Past Surgical History / Comment(s): colonoscopy, eye sx(tear ducts) Past Anesthesia/Blood Transfusion Reactions: Motion Sickness Additional Past Anesthesia/Blood Transfusion Reaction / Comment(s): claustrophobia Past Psychological History: No Psychological Hx Reported Smoking Status: Never smoker Past Alcohol Use History: Occasional Past Drug Use History: None Reported - Past Family History Father Family Medical History: Hypertension Additional Family Medical History / Comment(s): Father at the age of 63 yrs. He was an alcoholic and a smoker. Mother Family Medical History: Hypertension Additional Family Medical History / Comment(s): Mother at the age of 88yrs. Medications and Allergies Home Medications Medication Instructions Recorded Confirmed Type Nystatin 100,000Unit/gm Cream 1 applic TOPICAL BID PRN 11/28/19 06/22/20 History [Mycostatin Cream] Nystatin 100,000 Unit/gm Powd 1 applic TOPICAL BID PRN 06/16/20 06/22/20 History [Mycostatin Powder] Losartan/Hydrochlorothiazide 1 tab PO DAILY 06/22/20 06/22/20 History [Hyzaar 100-25 Tablet] Nebivolol HCl [Bystolic] 10 mg PO DAILY 06/22/20 06/22/20 History Allergies Allergy/AdvReac Type Severity Reaction Status Date / Time benzalkonium chloride Allergy Unknown Verified 06/22/20 18:04 [From Bactine (with alcohol)] cephalexin [From Keflex] Allergy Nausea & Verified 06/22/20 18:04 Vomiting codeine Allergy Unknown Verified 06/22/20 18:04 lidocaine Allergy Unknown Verified 06/22/20 18:04 [From Bactine (with alcohol)] metronidazole [From Flagyl] Allergy Unknown Verified 06/22/20 18:04 sulfamethoxazole Allergy Unknown Verified 06/22/20 18:04 [From Bactrim] trimethoprim [From Bactrim] Allergy Unknown Verified 06/22/20 18:04 amlodipine AdvReac Nausea & Verified 06/22/20 18:04 Vomiting chlorthalidone AdvReac Nausea & Verified 06/22/20 18:04 Vomiting levofloxacin [From Levaquin] AdvReac Nausea & Verified 06/22/20 20:10 Vomiting lisinopril AdvReac Nausea & Verified 06/22/20 18:04 Vomiting Physical Exam Vitals: Vital Signs Temp Pulse Resp BP Pulse Ox 06/22/20 19:09 63 18 155/83 98 06/22/20 15:51 97.6 F 66 18 154/65 97 Intake and Output 06/22/20 06/22/20 06/22/20 06:59 14:59 22:59 Other: Weight 104.326 kg - Constitutional General appearance: mild distress - EENT Eyes: EOMI, PERRLA ENT: hard of hearing Ears: bilateral: normal - Neck Thyroid: bilateral: normal size - Respiratory Respiratory: bilateral: CTA (Lung smith) - Cardiovascular Normal sinus rhythm Heart rate: 67 Rhythm: regular dorsalis pedis Peripheral Pulses: bilateral: Normal radial pulse Peripheral Pulses: bilateral: Normal - Gastrointestinal General gastrointestinal: normal bowel sounds - Integumentary Integumentary: decreased turgor - Neurologic Neurologic: CNII-XII intact - Musculoskeletal Musculoskeletal: generalized weakness - Psychiatric Psychiatric: A&O x's 3, appropriate affect, intact judgment & insight Results CBC & Chem 7: 06/22/20 16:22 06/22/20 16:22 Labs: Abnormal Lab Results - Last 24 Hours (Table) 06/22/20 06/22/20 06/22/20 Range/Units 16:17 16:22 16:22 WBC 12.9 H (3.8-10.6) k/uL Neutrophils # 10.0 H (1.3-7.7) k/uL APTT 21.6 L (22.0-30.0) sec Sodium (137-145) mmol/L Chloride (98-107) mmol/L BUN (7-17) mg/dL Glucose (74-99) mg/dL POC Glucose (mg/dL) (75-99) mg/dL Magnesium (1.6-2.3) mg/dL Urine Appearance Cloudy H (Clear) Urine Blood Small H (Negative) Ur Leukocyte Esterase Large H (Negative) Urine WBC 156 H (0-5) /hpf Urine WBC Clumps Few H (None) /hpf Urine Bacteria Rare H (None) /hpf Urine Yeast (Budding) Occasional H (None) /hpf 06/22/20 06/22/20 06/22/20 Range/Units 16:22 19:08 20:50 WBC (3.8-10.6) k/uL Neutrophils # (1.3-7.7) k/uL APTT (22.0-30.0) sec Sodium 127 L (137-145) mmol/L Chloride 94 L (98-107) mmol/L BUN 20 H (7-17) mg/dL Glucose 106 H (74-99) mg/dL POC Glucose (mg/dL) 123 H 118 H (75-99) mg/dL Magnesium 1.5 L (1.6-2.3) mg/dL Urine Appearance (Clear) Urine Blood (Negative) Ur Leukocyte Esterase (Negative) Urine WBC (0-5) /hpf Urine WBC Clumps (None) /hpf Urine Bacteria (None) /hpf Urine Yeast (Budding) (None) /hpf Chest x-ray: report reviewed Thrombosis Risk Factor Assmnt - DVT/VTE Prophylaxis DVT/VTE Prophylaxis: Mechanical Prophylaxis ordered - Choose All That Apply Each Factor Represents 1 point: Obesity (BMI >25) Each Risk Factor Represents 3 Points: Age 75 years or older Thrombosis Risk Factor Assessment Total Risk Factor Score: 4 Thrombosis Risk Factor Assessment Level: Moderate Risk Assessment and Plan Assessment: Generalized weakness Hyponatremiadiscontinued and hydrochlorothiazide, normal saline 75 ML's an hour Abnormal stress testsglobal ischemiaconsulted cardiology for recommendations and treatment plan Urinary tract infection/versus cystitiscontinue broad-spectrum IV antibiotics Hypertension History of CVA/TIA History of GERD Plan: Abnormal stress testconsultation with cardiology for commendations and treatment plan Hyponatremiadiscontinue hydrochlorothiazidegentle hydration Urinary tract infection/cystitisbroad-spectrum IV antibioticsawaiting urinary culture Hypertensioncontinue home medicationsconsultation with cardiology for recommendation and treatment plan Cerebral aneurysmconsult to neurologyfor recommendations and treatment planattempting patient to follow-upoutpatient with neurosurgeon Continue to monitor labs/vital signs Continue medical management Time with Patient: Greater than 30
[2020-06-22] MEDS ORDERED: ACETAMINOPHEN TAB 500 MG TAB PO PRN (22:14)
[2020-06-22] MEDS: TEMAZEPAM 7.5 MG CAP PO PRN (23:05)
[2020-06-23 05:52] LABS: Glucose,Whole Blood 113 mg/dL (75-99)
[2020-06-23 07:31] LABS: Albumin 3.4 g/dL (3.5-5.0); Calcium 8.7 mg/dL (8.4-10.2); Magnesium 1.6 mg/dL (1.6-2.3); Total Bilirubin 0.5 mg/dL (0.2-1.3); Total Protein 6.2 g/dL (6.3-8.2)
[2020-06-23 07:46] LABS: Basophils % (A) 0 %; Eosinophils # (A) 0.1 k/uL (0-0.7); Eosinophils % (A) 2 %; HCT 36.1 % (34.0-46.0); HGB 12.1 gm/dL (11.4-16.0); Lymphocytes # (A) 1.7 k/uL (1.0-4.8); Lymphocytes % (A) 20 %; MCH 30.1 pg (25.0-35.0); MCHC 33.5 g/dL (31.0-37.0); Mean Platelet Volume 8.2; Monocytes # (A) 0.8 k/uL (0-1.0); Monocytes % (A) 9 %; Neutrophils # (A) 5.6 k/uL (1.3-7.7); Neutrophils % (A) 67 %; Platelet Count 308 k/uL (150-450); RBC 4.01 m/uL (3.80-5.40); RDW 13.4 % (11.5-15.5); WBC 8.4 k/uL (3.8-10.6)
[2020-06-23] MEDS ORDERED: LOSARTAN 50 MG TAB PO SCH (09:00)
[2020-06-23] MEDS ORDERED: NEBIVOLOL 5 MG TAB PO SCH (09:00)
[2020-06-23] MEDS ORDERED: LOSARTAN-HCTZ 50-12.5 MG 1 EACH TAB PO SCH (09:00)
[2020-06-23] MEDS ORDERED: DOBUTamine DRIP for NUC MED 500 MG in DEXTROSE/WATER 1 250ML.BAG IV PRN (10:00)
--- NOTE | 2020-06-23 11:51 | P.CRDCN ---
History of Present Illness Consult date: 06/23/20 History of present illness: CHIEF COMPLAINT: Abnormal stress test HISTORY OF PRESENT ILLNESS: This is a 84-year-old female with a past medical history significant for hypertension, GERD, and TIA. Patient does not follow with a life sciences instructor. We have been asked to see the patient in consultation for abnormal stress test. Patient examined this morning at bedside. Patient states she has been short of breath since May 2020. She states her shortness of breath is mostly with exertion. She states she is able to lie flat without feeling dyspneic. She denies any shortness of breath at rest. She also reports feeling dizzy for the past month. 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 Patient also had an echocardiogram completed revealing ejection fraction 55-60% and trace to mild mitral regurgitation. Patient denies having any chest pain or pressure. She currently denies any dizziness or lightheadedness. She denies any shortness of breath at the time of examination. Patient was prescribed hydrochlorothiazide on an outpatient basis. This has since been discontinued secondary to hyponatremia. DIAGNOSTICS: EKG reveals sinus mechanism. Heart rate 65. Chest xray mild cardiomegaly. No acute lung disease. Laboratory data: WBC 8.4. Hemoglobin 12.1. Platelet count 308. Sodium 128. Potassium 4.0. BUN 20. Creatinine 0.87. Troponin negative 3. Current home cardiac medications include Nebivolol 10 mg daily and losartan/hydrochlorothiazide 100-25mg daily REVIEW OF SYSTEMS: At the time of my exam: CONSTITUTIONAL: Denies fever or chills. HEENT: Denies blurred vision, vision changes, or eye pain. Denies hemoptysis CARDIOVASCULAR: Denies chest pain, orthopnea, PND or palpitations RESPIRATORY: No shortness of breath. GASTROINTESTINAL: Denies abdominal pain. Denies nausea or vomiting. HEMATOLOGIC: Denies bleeding disorders. GENITOURINARY: Denies any blood in urine. SKIN: Denies pruitis. Denies rash. PHYSICAL EXAM: VITAL SIGNS: Reviewed. GENERAL: Well-developed in no acute distress. HEENT: Head is normocephalic. Pupils are equal, round. Sclerae anicteric. Mucous membranes of the mouth are moist. Neck supple. No JVD or thyromegaly LUNGS: Respirations even and unlabored. Lungs diminished bilaterally. HEART: Regular rate and rhythm. S1 and S2 heard. ABDOMEN: Soft. Nondistended. Nontender. EXTREMITIES: Normal range of motion. No clubbing or cyanosis. Peripheral pulses intact. No lower extremity edema NEUROLOGIC: Awake and alert. Oriented x 3. 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 If dobutamine stress test is abnormal, patient will require cardiac catheterization Further recommendations pending patient's course Nurse practitioner note has been reviewed by physician. Signing provider agrees with the documented findings, assessment, and plan of care. Past Medical History Past Medical History: CVA/TIA, GERD/Reflux, Hypertension Additional Past Medical History / Comment(s): past back pain, c-diff 2015, rt side brain anuerysm (TIA) History of Any Multi-Drug Resistant Organisms: C-DIFF Date of last positivie culture/infection: 2005 MDRO Source:: stool Past Surgical History: Cholecystectomy, Hysterectomy, Tonsillectomy Additional Past Surgical History / Comment(s): colonoscopy, eye sx(tear ducts) Past Anesthesia/Blood Transfusion Reactions: Motion Sickness Additional Past Anesthesia/Blood Transfusion Reaction / Comment(s): claustrophobia Past Psychological History: No Psychological Hx Reported Smoking Status: Never smoker Past Alcohol Use History: Occasional Past Drug Use History: None Reported - Past Family History Father Family Medical History: Hypertension Additional Family Medical History / Comment(s): Father at the age of 63 yrs. He was an alcoholic and a smoker. Mother Family Medical History: Hypertension Additional Family Medical History / Comment(s): Mother at the age of 88yrs. Medications and Allergies Home Medications Medication Instructions Recorded Confirmed Type Nystatin 100,000Unit/gm Cream 1 applic TOPICAL BID PRN 11/28/19 06/22/20 History [Mycostatin Cream] Nystatin 100,000 Unit/gm Powd 1 applic TOPICAL BID PRN 06/16/20 06/22/20 History [Mycostatin Powder] Losartan/Hydrochlorothiazide 1 tab PO DAILY 06/22/20 06/22/20 History [Hyzaar 100-25 Tablet] Nebivolol HCl [Bystolic] 10 mg PO DAILY 06/22/20 06/22/20 History Allergies Allergy/AdvReac Type Severity Reaction Status Date / Time benzalkonium chloride Allergy Unknown Verified 06/22/20 18:04 [From Bactine (with alcohol)] cephalexin [From Keflex] Allergy Nausea & Verified 06/22/20 18:04 Vomiting codeine Allergy Unknown Verified 06/22/20 18:04 lidocaine Allergy Unknown Verified 06/22/20 18:04 [From Bactine (with alcohol)] metronidazole [From Flagyl] Allergy Unknown Verified 06/22/20 18:04 sulfamethoxazole Allergy Unknown Verified 06/22/20 18:04 [From Bactrim] trimethoprim [From Bactrim] Allergy Unknown Verified 06/22/20 18:04 amlodipine AdvReac Nausea & Verified 06/22/20 18:04 Vomiting chlorthalidone AdvReac Nausea & Verified 06/22/20 18:04 Vomiting levofloxacin [From Levaquin] AdvReac Nausea & Verified 06/22/20 20:10 Vomiting lisinopril AdvReac Nausea & Verified 06/22/20 18:04 Vomiting Physical Exam Vitals: Vital Signs Temp Pulse Pulse Resp BP BP Pulse Ox 06/23/20 08:00 97.7 F 62 20 130/68 98 06/23/20 04:00 98 F 70 18 124/68 95 06/23/20 02:00 62 20 06/23/20 00:00 62 20 120/60 95 06/22/20 20:00 67 18 06/22/20 19:09 63 18 155/83 98 06/22/20 19:02 98.7 F 67 18 118/59 93 L 06/22/20 15:51 97.6 F 66 18 154/65 97 Intake and Output 06/22/20 06/23/20 06/23/20 22:59 06:59 14:59 Intake Total 240 Balance 240 Intake: Oral 240 Other: # Voids 1 1 # Bowel Movements 1 Weight 104.326 kg 95.5 kg 95.5 kg Results 06/23/20 06:26 06/23/20 06:26 Cardiac Enzymes 06/22/20 06/22/20 06/22/20 Range/Units 16:22 16:22 19:30 AST 26 (14-36) U/L Troponin I <0.012 <0.012 (0.000-0.034) ng/mL 06/22/20 06/23/20 Range/Units 22:22 06:26 AST 22 (14-36) U/L Troponin I <0.012 (0.000-0.034) ng/mL Coagulation 06/22/20 Range/Units 16:22 PT 10.2 (9.0-12.0) sec APTT 21.6 L (22.0-30.0) sec Lipids 06/23/20 Range/Units 06:26 Triglycerides 141 (<150) mg/dL Cholesterol 145 (<200) mg/dL HDL Cholesterol 41 (40-60) mg/dL CBC 06/22/20 06/23/20 Range/Units 16:22 06:26 WBC 12.9 H 8.4 (3.8-10.6) k/uL RBC 4.31 4.01 (3.80-5.40) m/uL Hgb 12.9 12.1 (11.4-16.0) gm/dL Hct 38.5 36.1 (34.0-46.0) % Plt Count 339 308 (150-450) k/uL Comprehensive Metabolic Panel 06/22/20 06/23/20 Range/Units 16:22 06:26 Sodium 127 L 128 L (137-145) mmol/L Potassium 4.0 4.0 (3.5-5.1) mmol/L Chloride 94 L 96 L (98-107) mmol/L Carbon Dioxide 25 25 (22-30) mmol/L BUN 20 H 20 H (7-17) mg/dL Creatinine 0.91 0.87 (0.52-1.04) mg/dL Glucose 106 H 107 H (74-99) mg/dL Calcium 9.3 8.7 (8.4-10.2) mg/dL AST 26 22 (14-36) U/L ALT 20 17 (4-34) U/L Alkaline Phosphatase 50 47 (38-126) U/L Total Protein 7.0 6.2 L (6.3-8.2) g/dL Albumin 4.0 3.4 L (3.5-5.0) g/dL Current Medications Generic Name Dose Route Start Last Admin Trade Name Freq PRN Reason Stop Dose Admin Acetaminophen 500 mg 06/22/20 22:14 Acetaminophen Tab 500 Mg Tab PO Q4HR PRN Fever and/ or Pain Levofloxacin 750 mg/ IV 150 mls @ 100 mls/hr 06/24/20 18:00 Solution IVPB Q48H SUSAN Losartan Potassium 100 mg 06/23/20 09:00 06/23/20 08:38 Losartan 50 Mg Tab PO 100 mg DAILY SUSAN Administration Nebivolol 10 mg 06/23/20 09:00 06/23/20 08:38 Nebivolol 5 Mg Tab PO Not Given DAILY SUSAN Nitroglycerin 0.4 mg 06/22/20 18:25 Nitroglycerin Sl Tabs 0.4 Mg Tab SUBLINGUAL Q5M PRN Chest Pain Nystatin 1 applic 06/22/20 19:19 Nystatin 100,000 Unit/Gm Powd 15 Gm TOPICAL BID PRN Rash Nystatin 1 applic 06/22/20 19:19 Nystatin 100,000unit/Gm Cream 30 Gm Tube TOPICAL BID PRN Rash Temazepam 7.5 mg 06/22/20 22:30 06/22/20 23:05 Temazepam 7.5 Mg Cap PO 7.5 mg HS PRN Administration Insomnia Intake and Output 06/22/20 06/23/20 06/23/20 22:59 06:59 14:59 Intake Total 240 Balance 240 Intake: Oral 240 Other: # Voids 1 1 # Bowel Movements 1 Weight 104.326 kg 95.5 kg 95.5 kg Patient Weight 06/24/20 06:59 Weight 95.5 kg 06/23/20 06:26 06/23/20 06:26
--- NOTE | 2020-06-23 12:24 | P.CNNES ---
History of Present Illness Consult date: 06/23/20 Requesting physician: David Holland Reason for Consult: dizziness with history of aneurysm History of Present Illness: This is an 84-year-old woman with history of right MCA aneurysm, hypertension, chronic back pain who was sent to her primary care doctor to the emergency department on 06/22/2020 because the stress test that showed global ischemia. Patient denies of any chest pain. She has a chronic vertigo and has not worsened per ED note. According to patient he denies of any dizziness and she said she get somewhat jittery with blood pressure medication. She said that she had this right MCA aneurysm for at least 6 years and has not followed up with anybody and I could not get a good explanation but she stated that that she is about to see somebody this coming up Saturday and it's a tele-visit and it's with neurosurgery. She denies off any headaches, any focal weakness, numbness, any visual disturbance, any hearing loss, any ringing in the ears. She denies that getting her words out or difficulty swallowing. Of note the patient had: CTA of the head and neck on 06/08/2020 and was performed for dizziness reported as there is bilateral right MCA trifurcation aneurysm slightly increased in size from the prior exam. It measures approximately 10 mm on today's exam. Retrospectively the aneurysm measured 9.7 mm on the prior MCA [place] (Prior CTA is 04/05/2016). During this hospital visit the patient the workup consisted of: Initial vital signs blood pressure 154/65, heart rate of 66, rest. 18, temperature of 97.6 Fahrenheit oral and the pulse ox of 97% at room air. EKG is reported as normal sinus rhythm. Left anterior fascicular block. Minimal voltage criteria for left ventricular hypertrophy may be normal variant. Abnormal EKG. She'll sodium level on presentation is 127 and the repeat it was 128. Upon reviewing the patient's record is seems that the patient has hyponatremia and it ranges between the got as low as 122 and the a got as high as 135 and the last 1 year. TSH is 4.260 (normal). Review of Systems Review of system: The 12 point system was reviewed and apparent positive and negative per HPI. Past Medical History Past Medical History: CVA/TIA, GERD/Reflux, Hypertension Additional Past Medical History / Comment(s): past back pain, c-diff 2016, rt side brain anuerysm (TIA) History of Any Multi-Drug Resistant Organisms: C-DIFF Date of last positivie culture/infection: 2005 MDRO Source:: stool Past Surgical History: Cholecystectomy, Hysterectomy, Tonsillectomy Additional Past Surgical History / Comment(s): colonoscopy, eye sx(tear ducts) Past Anesthesia/Blood Transfusion Reactions: Motion Sickness Additional Past Anesthesia/Blood Transfusion Reaction / Comment(s): claustrophobia Past Psychological History: No Psychological Hx Reported Smoking Status: Never smoker Past Alcohol Use History: Occasional Past Drug Use History: None Reported - Past Family History Father Family Medical History: Hypertension Additional Family Medical History / Comment(s): Father at the age of 63 y rs. He was an alcoholic and a smoker. Mother Family Medical History: Hypertension Additional Family Medical History / Comment(s): Mother at the age of 88yrs. Medications and Allergies Home Medications Medication Instructions Recorded Confirmed Type Nystatin 100,000Unit/gm Cream 1 applic TOPICAL BID PRN 11/28/19 06/22/20 History [Mycostatin Cream] Nystatin 100,000 Unit/gm Powd 1 applic TOPICAL BID PRN 06/16/20 06/22/20 History [Mycostatin Powder] Losartan/Hydrochlorothiazide 1 tab PO DAILY 06/22/20 06/22/20 History [Hyzaar 100-25 Tablet] Nebivolol HCl [Bystolic] 10 mg PO DAILY 06/22/20 06/22/20 History Allergies Allergy/AdvReac Type Severity Reaction Status Date / Time benzalkonium chloride Allergy Unknown Verified 06/22/20 18:04 [From Bactine (with alcohol)] cephalexin [From Keflex] Allergy Nausea & Verified 06/22/20 18:04 Vomiting codeine Allergy Unknown Verified 06/22/20 18:04 lidocaine Allergy Unknown Verified 06/22/20 18:04 [From Bactine (with alcohol)] metronidazole [From Flagyl] Allergy Unknown Verified 06/22/20 18:04 sulfamethoxazole Allergy Unknown Verified 06/22/20 18:04 [From Bactrim] trimethoprim [From Bactrim] Allergy Unknown Verified 06/22/20 18:04 amlodipine AdvReac Nausea & Verified 06/22/20 18:04 Vomiting chlorthalidone AdvReac Nausea & Verified 06/22/20 18:04 Vomiting levofloxacin [From Levaquin] AdvReac Nausea & Verified 06/22/20 20:10 Vomiting lisinopril AdvReac Nausea & Verified 06/22/20 18:04 Vomiting Physical Examination - Vital Signs Vital Signs: Vital Signs Temp Pulse Pulse Resp BP BP Pulse Ox 06/23/20 04:00 98 F 70 18 124/68 95 06/23/20 02:00 62 20 06/23/20 00:00 62 20 120/60 95 06/22/20 20:00 67 18 06/22/20 19:09 63 18 155/83 98 06/22/20 19:02 98.7 F 67 18 118/59 93 L 06/22/20 15:51 97.6 F 66 18 154/65 97 Intake and Output 06/22/20 06/23/20 06/23/20 22:59 06:59 14:59 Intake Total 240 Balance 240 Intake: Oral 240 Other: # Voids 1 1 # Bowel Movements 1 Weight 104.326 kg 95.5 kg GENERAL: The patient is lying in bed and is not in acute distress. CHEST: The heart rate is regular rate rhythm. No murmurs to auscultation. LUNG: Clear to auscultation bilaterally no wheezing noted throughout. Not labored breathing. ABDOMEN/GI: Bowel sounds present in all 4 quadrants. No tenderness to palpation throughout. NEUROLOGICAL: Higher mental function: The patient is awake, alert, oriented to self, place and time. Patient is following commands. No aphasia and no neglect. Cranial nerves: The pupils are round, equal and reactive to light and accommodation. Visual smith are full to confrontation throughout. Extraocular movement is intact no nystagmus is noted. Facial sensation is normal to touch throughout. The facial strength is normal throughout. Hearing is normal bilaterally to hand rub. Tongue is midline and moved [id number] without any difficulty. No dysarthria is noted. Shoulder shrug is normal bilaterally. Motor: The strength is 5 over 5 throughout. Normal tone and bulk. Cerebellum: Normal finger to nose heel to chin bilaterally. Sensation: Sensation is normal to touch throughout. Reflexes (right/left): 2+ throughout. Plantars are downgoing bilaterally. Results Coagulation study: The PT is 10.2, INR is 0.9 and a PTT is 21.6. Lipid panel triglycerides 141, cholesterol is 145, LDL 76 and HDL 41 Urine analysis the urine appears cloudy, urine leukocyte esterase was large and white blood cell is 156, urine the white blood cell comp is few and urine bacteria is rare. - Laboratory Findings CBC and BMP: 06/23/20 06:26 06/23/20 06:26 Abnormal Lab Findings: Abnormal Labs 06/22/20 06/22/20 06/22/20 16:17 16:22 16:22 WBC 12.9 H Neutrophils # 10.0 H APTT 21.6 L Sodium Chloride BUN Glucose POC Glucose (mg/dL) Magnesium Total Protein Albumin Urine Appearance Cloudy H Urine Blood Small H Ur Leukocyte Esterase Large H Urine WBC 156 H Urine WBC Clumps Few H Urine Bacteria Rare H Urine Yeast (Budding) Occasional H 06/22/20 06/22/20 06/22/20 16:22 19:08 20:50 WBC Neutrophils # APTT Sodium 127 L Chloride 94 L BUN 20 H Glucose 106 H POC Glucose (mg/dL) 123 H 118 H Magnesium 1.5 L Total Protein Albumin Urine Appearance Urine Blood Ur Leukocyte Esterase Urine WBC Urine WBC Clumps Urine Bacteria Urine Yeast (Budding) 06/23/20 06/23/20 05:50 06:26 WBC Neutrophils # APTT Sodium 128 L Chloride 96 L BUN 20 H Glucose 107 H POC Glucose (mg/dL) 113 H Magnesium Total Protein 6.2 L Albumin 3.4 L Urine Appearance Urine Blood Ur Leukocyte Esterase Urine WBC Urine WBC Clumps Urine Bacteria Urine Yeast (Budding) Assessment and Plan Assessment: This is an 84-year-old woman who was sent to her primary care doctor to the emergency department on 06/22/2020 because the stress test that showed global is chemia. Chronic right MCA brain aneurysm that increased slightly in size on the CTA of 06/08/2020 compared to the 2016 CTA (according to patient had it for at least 6 years) Chronic vertigo --Denies any dizziness recently Chronic mild to moderate hyponatremia (likely due to medication use on [place] chlorthiazide) Hypertension Chronic back pain Plan: The patient has a an aneurysm which is chronic but increased in size on the most recent image in the 06/08/2020 compared to the 2016. The patient then needs to have that this be evaluated by endovascular team and possibly consider transferring the patient to the clinical hospital. I spoke with the primary team regarding my concern of the enlarged aneurysm and I notified him that I would like to transfer the patient to a different facility. They stated that they've been trying to schedule the patient to see a neurosurgeon. Patient refused to be transferred to a different facility and she stated that she would like to follow-up with her tele-visit with neurosurgery team this coming-up saturday. I told her of my concern of aneurysm rupturing but she refused to be transferred. Please keep the systolic blood pressure normotensive and avoid hypertension episodes because of aneurysm. We'll defer the management to the primary team as well as the cardiology team. Cardiology is consulted and we'll defer the cardiac management to them Guard the rest of the medical management will defer the management to the primary team. The plan is discussed with the patient's nurse. Thank you for the consultation. Froilan Santos MD Neuro-Hospitalist Time with Patient: Greater than 30
--- NOTE | 2020-06-23 13:21 | ECHOS ---
STRESS ECHOCARDIOGRAM DOBUTAMINE STRESS ECHO LUMASON: 3 vial INDICATIONS: Abnormal stress test MEDICATIONS: BASELINE HEART RATE: 71 BASELINE BLOOD PRESSURE: 148/68 MAXIMUM HEART RATE: 119 MAXIMUM BLOOD PRESSURE: 136/45 85% MPHR: 116 100% MPHR: 137 METS: MAXIMUM STAGE REACHED: TOTAL EXERCISE TIME: CLINICAL INFORMATION: Baseline rhythm is sinus mechanism, rate of 71, borderline intraventricular conduction delay, poor R progression. Baseline blood pressure 148/68 mmHg. Patient received infusion of dobutamine. Peak rate 119 beats per minute which is equal to 87% maximum predicted heart rate. Blood pressure 136/45 mmHg. Electrocardiograph monitoring revealed rare PVCs. There was no evidence of diagnostic ischemic ST deviation. Baseline echocardiogram revealed normal wall motion. At peak infusion, there was normal wall motion augmentation with no hypokinesis or dyskinesis. CONCLUSION: 1. Normal electrocardiographic response to dobutamine infusion with occasional PVCs. 2. Normal stress echocardiogram with no evidence of stress-induced ischemia. MMODL / IJN: [id number] /
--- NOTE | 2020-06-23 15:34 | P.TRANS ---
Providers Date of admission: 06/22/20 18:29 Attending physician: Oli Glover Consults: 06/22/20 18:25 Consult Physician Urgent Consulting Provider: [facility] Consult Reason/Comments: Abnormal stress test Do you want consulting provider notified?: Yes 06/22/20 20:34 Consult Physician Routine Consulting Provider: Froilan Santos Consult Reason/Comments: Aneurysm with dizziness. Do you want consulting provider notified?: Yes, Notify in am Primary care physician: Oli Glover Hospital Course: 84-year-old female was sent to the emergency department due to abnormal Jennifer scan stress tests, CTA head and neck increase in size of right MCA aneurysm with associated symptoms of dizziness, two episodes of syncope, and intermittent vertigo. Patient found to have mild hyponatremia discontinue hydrochlorothiazide. Blood pressure management with will Cozaar, and BYSOTLIC. Patient found also have acute on chronic urinary track infection Levaquin 750 IV piggyback Q 48 hours- pending cultures. Due to the increase in size of right MCA aneurysm with associated symptoms patient necessitates higher level of care for management of aneurysm. Continue consultation with cardiology at [facility] due to global ischemia noted on Jennifer scan stress test. Assessment: Right MCA aneurysm increasing in size from 8 mm to 10 mm hypertension controlled with antihypertensives dyspnea continue cardiology consult at [facility] abnormal stress tests Jnenifer scan continue cardiology consult at [facility] hyponatremia stop hydrochlorothiazide gentle hydration urinary tract infection continue broad-spectrum antibiotics pending cultures and sensitivity Gerd/reflux history of CVA/TIA full code Health Concerns: Memory impairment Pertinent Studies: Dobutamine stress echo Procedures: None noted Patient Condition at Discharge: Fair Plan - Transfer Summary Transfer Medications: Active Medications Generic Name Dose Route Start Last Admin Trade Name Freq PRN Reason Stop Dose Admin Acetaminophen 500 mg 06/22/20 22:14 Acetaminophen Tab 500 Mg Tab PO Q4HR PRN Fever and/ or Pain Levofloxacin 750 mg/ IV 150 mls @ 100 mls/hr 06/24/20 18:00 Solution IVPB Q48H SUSAN Losartan Potassium 100 mg 06/23/20 09:00 06/23/20 08:38 Losartan 50 Mg Tab PO 100 mg DAILY SUSAN Administration Nebivolol 10 mg 06/23/20 09:00 06/23/20 08:38 Nebivolol 5 Mg Tab PO Not Given DAILY SUSAN Nitroglycerin 0.4 mg 06/22/20 18:25 Nitroglycerin Sl Tabs 0.4 Mg Tab SUBLINGUAL Q5M PRN Chest Pain Nystatin 1 applic 06/22/20 19:19 Nystatin 100,000 Unit/Gm Powd 15 Gm TOPICAL BID PRN Rash Nystatin 1 applic 06/22/20 19:19 Nystatin 100,000unit/Gm Cream 30 Gm Tube TOPICAL BID PRN Rash Temazepam 7.5 mg 06/22/20 22:30 06/22/20 23:05 Temazepam 7.5 Mg Cap PO 7.5 mg HS PRN Administration Insomnia Follow up Appointment(s)/Referral(s): Oli Glover MD [Primary Care Provider] - 1-2 days - Out of Hospital Transfer - Req. Specs Out of Hospital Transfer - Requested Specifics: Telemetry Unit ([facility])
[2020-06-23] MEDS: TEMAZEPAM 7.5 MG CAP PO PRN (21:34)
[2020-06-23 21:49] VITALS: BP 138/74; PULSE 78; RESP 16; TEMP 98.4
[2020-06-24] MEDS ORDERED: LEVOFLOXACIN 750MG-D5W PMX 750 MG in DEXTROSE/WATER 1 150ML.BAG IVPB SCH (18:00)
== END 2020-06-23 23:26 | disposition short-term general hospital (02) | DRG 92 ==
LOC: EC 15:50 → 3SCARD 18:29
PROVIDERS: ADMIT Family Medicine; ATTEND Family Medicine
DX: I67.1 Cerebral aneurysm, nonruptured (principal); N39.0 Urinary tract infection, site not specified; E87.1 Hypo-osmolality and hyponatremia; I10 Essential (primary) hypertension; K21.9 Gastro-esophageal reflux disease without esophagitis; I44.4 Left anterior fascicular block; G89.29 Other chronic pain; M54.9 Dorsalgia, unspecified; R42 Dizziness and giddiness; R41.3 Other amnesia; F40.240 Claustrophobia; I25.89 Other forms of chronic ischemic heart disease; I25.2 Old myocardial infarction; Z79.899 Other long term (current) drug therapy; Z90.49 Acquired absence of other specified parts of digestive tract; Z90.710 Acquired absence of both cervix and uterus; Z86.73 Personal history of transient ischemic attack (TIA), and cerebral infarction without residual deficits; Z98.890 Other specified postprocedural states; Z86.79 Personal history of other diseases of the circulatory system; Z88.1 Allergy status to other antibiotic agents; Z88.5 Allergy status to narcotic agent; Z88.2 Allergy status to sulfonamides; Z88.8 Allergy status to other drugs, medicaments and biological substances; Z81.1 Family history of alcohol abuse and dependence; Z82.49 Family history of ischemic heart disease and other diseases of the circulatory system
CPT/HCPCS: 36415; 71046; 78452; 80053; 80061; 81001; 83605; 83735; 83880; 84443; 84484; 85025; 85610; 85730; 87086; 93005; 93017; 93306; 93351; 96365; 99285

== ENCOUNTER → 2020-06-22 | Outpatient (CLI) | payer MEDICARE, BC ==
[~2020-06-22] MED LIST: REGADENOSON 0.4 MG/5 ML SYRINGE IV PRN
--- NOTE | 2020-06-22 10:57 | ECHOF ---
Referral Reason:I10 hypertention MEASUREMENTS -------- HEIGHT: 157.5 cm WEIGHT: 92.1 kg BP: RVIDd: 3.1 cm (< 3.3) IVSd: 1.5 cm (0.6 - 1.1) LVIDd: 3.7 cm (3.9 - 5.3) LVPWd: 1.5 cm (0.6 - 1.1) IVSs: 1.9 cm LVIDs: 2.5 cm LVPWs: 1.6 cm LA Diam: 3.7 cm (2.7 - 3.8) LAESV Index (A-L): 25.75 ml/m Ao Diam: 2.8 cm (2.0 - 3.7) AV Cusp: 2.1 cm (1.5 - 2.6) MV EXCURSION: 11.453 mm (> 18.000) MV EF SLOPE: 15 mm/s (70 - 150) EPSS: 0.7 cm MV E Nasir: 0.67 m/s MV DecT: 294 ms MV A Nasir: 1.08 m/s MV E/A Ratio: 0.62 FINDINGS -------- Sinus rhythm. This was a technically adequate study. The left ventricular size is normal. There is moderate concentric left ventricular hypertrophy. O verall left ventricular systolic function is normal with, an EF between 55 - 60 %. The right ventricle is normal in size. Normal LA size by volume 22+/-6 ml/m2. The right atrial size is normal. Interatrial and interventricular septum intact. There is mild aortic valve sclerosis. Mild mitral annular calcification present. There is trace to mild mitral regurgitation. The tricuspid valve appears structurally normal. No regurgitation noted There is no pulmonic regurgitation present. The aortic root size is normal. Normal inferior vena cava with normal inspiratory collapse consistent with estimated right atrial pre ssure of 5 mmHg. There is no pericardial effusion. CONCLUSIONS -------- 1. There is moderate concentric left ventricular hypertrophy. 2. Overall left ventricular systolic function is normal with, an EF between 55 - 60 %. 3. Normal LA size by volume 22+/-6 ml/m2. 4. There is mild aortic valve sclerosis. 5. Mild mitral annular calcification present. 6. There is trace to mild mitral regurgitation. 7. There is no pericardial effusion. HEATING AND [employer] CONDITIONING MECHANIC: Helen Lo RDCS
--- NOTE | 2020-06-22 12:27 | EST ---
EXERCISE STRESS AGE: 84 SEX: Female HT: 63" WT: 203 pounds PROTOCOL: Lexiscan Cardiolite STAGE: DURATION OF EXERCISE: HEART RATE REST: 60 BLOOD PRESSURE REST: 155/80 MAXIMUM HEART RATE ACHIEVED: 73 MAXIMUM BLOOD PRESSURE: 155/80 85% MPHR: 116 100% MPHR: 137 METS: INDICATIONS: Dyspnea. CLINICAL INFORMATION: Baseline rhythm is sinus mechanism, rate of 60, left axis deviation, poor R progression, borderline first-degree AV block. Baseline blood pressure 155/80 mmHg. Patient received injection of Lexiscan. Electrocardiograph monitoring revealed no evidence of diagnostic ischemic ST deviation. Cardiolite was injected per protocol. CONCLUSION: 1. Nondiagnostic electrocardiograph stress testing. 2. Occasional PVCs. 3. Nuclear images will be reported separately. MMODL / IJN: [id number] /
--- NOTE | 2020-06-22 14:57 | NM ---
"EXAMINATION TYPE: NM stress lexiscan cardiolite DATE OF EXAM: 06/22/2020 COMPARISON: Previous myocardial SPECT 10/10/2017 HISTORY: Dyspnea, R06.09 TECHNIQUE: After the intravenous administration of 9.68 mCi Tc 99m Sestamibi - Cardiolite resting SP ECT images acquired 45 minutes post injection. The patient received 0.4mg Lexiscan, 23.9 mCi Tc 99m Sestamibi - Stress images obtained [address] injection FINDINGS: Review of stress and rest SPECT images demonstrates decreased uptake at the cardiac apex on stress an d rest images, there is decreased uptake along the lateral apical region radiograph stress images hermes n on rest images towards the inferior aspect of the apex. Gated analysis shows normal wall motion wi th an estimated left ventricular ejection fraction of 53 %. 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 A Yellow level critical message alert has been initiated for Oli Glover MD via the [employer] 36 0 | Critical Results System on 06/22/2020 2:54 PM. This message alert has been sent to Oli Glover MD via the preferences provided by the clinician for the receipt of Radiology Critical Findings. [facility], [place] [id number]."
== END | disposition home or self-care (01) ==
LOC: RADNMMAIN 07:26
PROVIDERS: ATTEND Family Medicine
DX: I08.0 Rheumatic disorders of both mitral and aortic valves (principal); R06.09 Other forms of dyspnea
CPT/HCPCS: 93017; 93306; 78452; A9500; J2785

== ENCOUNTER 2020-07-11 10:58 | Inpatient (IN) | payer MEDICARE, BC ==
[2020-07-11] MEDS ORDERED: RX INFO: IV CONTRAST WAS GIVEN 1 EACH MISC MISCELLANE PRN (11:56)
[2020-07-11 12:12] LABS: Basophils % (A) 0 %; Eosinophils # (A) 0.1 k/uL (0-0.7); Eosinophils % (A) 1 %; HCT 36.9 % (34.0-46.0); HGB 12.9 gm/dL (11.4-16.0); Lymphocytes # (A) 1.4 k/uL (1.0-4.8); Lymphocytes % (A) 13 %; MCH 31.3 pg (25.0-35.0); MCHC 34.9 g/dL (31.0-37.0); MCV 89.5 fL (80.0-100.0); Mean Platelet Volume 6.7; Monocytes # (A) 0.7 k/uL (0-1.0); Monocytes % (A) 7 %; Neutrophils # (A) 8.3 k/uL (1.3-7.7); Neutrophils % (A) 78 %; Platelet Count 332 k/uL (150-450); RBC 4.13 m/uL (3.80-5.40); RDW 12.9 % (11.5-15.5); WBC 10.7 k/uL (3.8-10.6)
[2020-07-11 12:22] LABS: Calcium 9.1 mg/dL (8.4-10.2)
[2020-07-11 12:23] LABS: Potassium 4.1 mmol/L (3.5-5.1)
[2020-07-11] MEDS ORDERED: ONDANSETRON 4 MG/2 ML VIAL IVP STA (12:30)
--- NOTE | 2020-07-11 12:42 | ED ---
General Adult HPI - General Source: patient, family, RN notes reviewed Mode of arrival: wheelchair Limitations: no limitations <Yobany Denny - Last Filed: 07/11/20 14:06> <Tj Burden - Last Filed: 07/11/20 14:56> - General Chief complaint: Headache Stated complaint: headaches since brain surgery 07/01 Time Seen by Provider: 07/11/20 11:29 - History of Present Illness Initial comments: Patient's an 84-year-old female status post endovascular coiling of brain aneurysm 9 Days, presents to the ER with chief complaint of headache. Patient states had a headache since procedure. Patient states that does come and go. Patient does admit that she followed the family doctor's office today was directed here to the emergency room for further evaluation. Patient denies any other complaints or symptoms currently. (Yobany Denny) - Related Data Home Medications Medication Instructions Recorded Confirmed Losartan/Hydrochlorothiazide 1 tab PO DAILY 06/22/20 07/11/20 [Hyzaar 100-25 Tablet] Acetaminophen Tab [Tylenol] 325 mg PO Q4H PRN 07/11/20 07/11/20 Aspirin 81 mg PO DAILY 07/11/20 07/11/20 Ticagrelor [Brilinta] 90 mg PO BID 07/11/20 07/11/20 atenoloL [Tenormin] 25 mg PO DAILY 07/11/20 07/11/20 Allergies Allergy/AdvReac Type Severity Reaction Status Date / Time benzalkonium chloride Allergy Unknown Verified 07/11/20 12:22 [From Bactine (with alcohol)] codeine Allergy Unknown Verified 07/11/20 12:22 lidocaine Allergy Unknown Verified 07/11/20 12:22 [From Bactine (with alcohol)] metronidazole [From Flagyl] Allergy Unknown Verified 07/11/20 12:22 sulfamethoxazole Allergy Unknown Verified 07/11/20 12:22 [From Bactrim] trimethoprim [From Bactrim] Allergy Unknown Verified 07/11/20 12:22 amlodipine AdvReac Nausea & Verified 07/11/20 12:22 Vomiting cephalexin [From Keflex] AdvReac Nausea & Verified 07/11/20 12:22 Vomiting chlorthalidone AdvReac Nausea & Verified 07/11/20 12:22 Vomiting Iodinated Contrast Media AdvReac Nausea & Verified 07/11/20 13:42 Vomiting levofloxacin [From Levaquin] AdvReac Nausea & Verified 07/11/20 12:22 Vomiting lisinopril AdvReac Nausea & Verified 07/11/20 12:22 Vomiting Review of Systems ROS Other: All systems not noted in ROS Statement are negative. <DennyYobany - Last Filed: 07/11/20 14:06> ROS Other: All systems not noted in ROS Statement are negative. <Tj Burden - Last Filed: 07/11/20 14:56> ROS Statement: Those systems with pertinent positive or pertinent negative responses have been documented in the HPI. Past Medical History Past Medical History: CVA/TIA, GERD/Reflux, Hypertension Additional Past Medical History / Comment(s): past back pain, c-diff 2015, rt side brain anuerysm (TIA) History of Any Multi-Drug Resistant Organisms: C-DIFF Date of last positivie culture/infection: 2005 MDRO Source:: stool Past Surgical History: Cholecystectomy, Hysterectomy, Tonsillectomy Additional Past Surgical History / Comment(s): colonoscopy, eye sx(tear ducts) brain surgery aneursym repair Past Anesthesia/Blood Transfusion Reactions: Motion Sickness Additional Past Anesthesia/Blood Transfusion Reaction / Comment(s): claustrophobia Past Psychological History: No Psychological Hx Reported Smoking Status: Never smoker Past Alcohol Use History: Occasional Past Drug Use History: None Reported - Past Family History Father Family Medical History: Hypertension Additional Family Medical History / Comment(s): Father at the age of 63 yrs. He was an alcoholic and a smoker. Mother Family Medical History: Hypertension Additional Family Medical History / Comment(s): Mother at the age of 88yrs. <Yobany Denny - Last Filed: 07/11/20 14:06> General Exam Limitations: no limitations <Yobany Denny - Last Filed: 07/11/20 14:06> - General Exam Comments Initial Comments: General: The patient is awake and alert, in no distress, and does not appear acutely ill. Eye: Pupils are equal, round and reactive to light, extra-ocular movements are intact. No nystagmus. There is normal conjunctiva bilaterally. No signs of icterus. Ears, nose, mouth and throat: There are moist mucous membranes and no oral lesions. Neck: The neck is supple. Cardiovascular: There is a regular rate and rhythm. No murmur, rub or gallop is appreciated. Respiratory: Lungs are clear to auscultation, respirations are non-labored, breath sounds are equal. No wheezes, stridor, rales, or rhonchi. Musculoskeletal: Normal ROM, no tenderness. Strength 5/5. Sensation intact. Neurological: A&O x 3. CN II-XII intact, There are no obvious motor or sensory deficits. Coordination appears grossly intact. Speech is normal. Skin: Skin is warm and dry and no rashes or lesions are noted. Psychiatric: Cooperative, appropriate mood & affect, normal judgment. (Yobany Denny) Course Vital Signs 07/11/20 11:10 Temperature 98.0 F Pulse Rate 58 L Respiratory 18 Rate Blood Pressure 168/78 O2 Sat by Pulse 99 Oximetry Medical Decision Making - Lab Data Result diagrams: 07/11/20 12:04 07/11/20 12:04 <Yobany Denny - Last Filed: 07/11/20 14:06> - Lab Data Result diagrams: 07/11/20 12:04 07/11/20 12:04 - Radiology Data Radiology results: image reviewed (Computed tomography scan of the brain without contrast shows atrophy and chronic small vessel changes without acute process. With contrast shows no enhancing lesions. CT angios shows no sizable aneurysm or vascular malformation.) <Tj Burden - Last Filed: 07/11/20 14:56> - Medical Decision Making 1405: Case discussed and signed out to attending physician Dr. Burden. (Yobany Denny) Patient reevaluated and reexamined by myself, Dr. Burden. Patient resting comfortably iIn chair at bedside. Patient and family updated on results and plan. Case was discussed with practitioner David, covering for Dr. Glover, who will admit. I do agree with PA findings. This includes diagnostic inte rpretation and treatment plan. (Tj Burden) - Lab Data Lab Results 07/11/20 07/11/20 07/11/20 Range/Units 12:04 12:04 12:04 WBC 10.7 H (3.8-10.6) k/uL RBC 4.13 (3.80-5.40) m/uL Hgb 12.9 (11.4-16.0) gm/dL Hct 36.9 (34.0-46.0) % MCV 89.5 (80.0-100.0) fL MCH 31.3 (25.0-35.0) pg MCHC 34.9 (31.0-37.0) g/dL RDW 12.9 (11.5-15.5) % Plt Count 332 (150-450) k/uL MPV 6.7 Neutrophils % 78 % Lymphocytes % 13 % Monocytes % 7 % Eosinophils % 1 % Basophils % 0 % Neutrophils # 8.3 H (1.3-7.7) k/uL Lymphocytes # 1.4 (1.0-4.8) k/uL Monocytes # 0.7 (0-1.0) k/uL Eosinophils # 0.1 (0-0.7) k/uL Basophils # 0.0 (0-0.2) k/uL PT 10.1 (9.0-12.0) sec INR 0.9 (<1.2) APTT 20.7 L (22.0-30.0) sec Sodium 123 L (137-145) mmol/L Potassium 4.1 (3.5-5.1) mmol/L Chloride 88 L (98-107) mmol/L Carbon Dioxide 23 (22-30) mmol/L Anion Gap 12 mmol/L BUN 26 H (7-17) mg/dL Creatinine 0.90 (0.52-1.04) mg/dL Est GFR (CKD-EPI)AfAm 69 (>60 ml/min/1.73 sqM) Est GFR (CKD-EPI)NonAf 60 (>60 ml/min/1.73 sqM) Glucose 115 H (74-99) mg/dL Calcium 9.1 (8.4-10.2) mg/dL Disposition <Yobany Denny - Last Filed: 07/11/20 14:06> Is patient prescribed a controlled substance at d/c from ED?: No Decision Time: 14:56 <Tj Burden - Last Filed: 07/11/20 14:56> Clinical Impression: Hyponatremia, Cephalgia Disposition: ADMITTED IP TO THIS HOSP Referrals: Oli Glover MD [Primary Care Provider] - 1-2 days
[2020-07-11 12:48] LABS: INR 0.9 (<1.2); Prothrombin Time 10.1 sec (9.0-12.0)
[2020-07-11] MEDS ORDERED: FAMOTIDINE 20 MG/2 ML VIAL IV STA (12:50)
[2020-07-11] MEDS ORDERED: methylPREDNISolone SOD SUCCI 125 MG/2 ML VIAL IV STA (12:50)
[2020-07-11] MEDS ORDERED: diphenhydrAMINE 50 MG/ML 1 ML VIAL IVP STA (12:50)
[2020-07-11 12:58] LABS: Partial Thromboplastin Time 20.7 sec (22.0-30.0)
--- NOTE | 2020-07-11 14:05 | CT ---
EXAMINATION TYPE: CT brain w con DATE OF EXAM: 07/11/2020 COMPARISON: 04/15/2016 HISTORY: Headache, post surgery (07/01) CT DLP: 1072 mGycm Automated exposure control for dose reduction was used. CONTRAST: CT scan of the head is performed with IV Contrast, patient injected with mL of Isovue 370. FINDINGS: There is no abnormal enhancing mass or midline shift identified. The ventricles and sulci are within normal limits in size. The globes are intact and the visualized sinuses are clear. IMPRESSION: No enhancing lesions seen.
--- NOTE | 2020-07-11 14:06 | CT ---
EXAMINATION TYPE: CT brain wo con DATE OF EXAM: 07/11/2020 COMPARISON: 04/05/2016. HISTORY: Headache, post surgery (07/01) CT DLP: 1143.[address] of the brain was performed. The ventricles, basal cisterns and sulci overlying the cerebral convexities demonstrate mild enlargem ent. There is no evidence for intracranial hemorrhage or sulcal effacement. There is decreased attenuation about the periventricular white matter and deep white matter of both c erebral hemispheres, compatible with chronic small vessel ischemia. Differential diagnosis does inclu de demyelination. No mass effects are seen.No midline shift. Osseous calvarium is intact. If symptoms persist consider MRI. IMPRESSION: 1. Age related atrophic and chronic small vessel ischemic change without acute intracranial process s een at this time.
--- NOTE | 2020-07-11 14:09 | CT ---
EXAMINATION TYPE: CT angio COW [place] DATE OF EXAM: 07/11/2020 COMPARISON: HISTORY: Headache, post surgery (07/01) CT DLP: 1096.8 mGycm CONTRAST: CTA [place] with 3-D reconstruction is performed and with IV Contrast, patient injected with 100 ml mL of Isovue 370. Contrast CTA of the [place] was performed 3-D reconstruction imaging obtained at a separate workstation. Vertebrobasilar system as well as intracranial portions of the internal carotid arterie s and their major tributaries are patent. I do not see evidence for sizable aneurysm or vascular mal formation. Please note MRI provides greater sensitivity and specificity. Visualized brain appears g rossly unremarkable. IMPRESSION: No evidence for sizable aneurysm or vascular malformation.
[2020-07-11] MEDS ORDERED: SODIUM CHLORIDE 0.9% 1,000 ML IV STA (14:56)
[2020-07-11] MEDS ORDERED: ACETAMINOPHEN TAB 325 MG TAB PO PRN (14:57)
[2020-07-11] MEDS ORDERED: traMADol 50 MG TAB PO PRN (14:57)
[2020-07-11] MEDS ORDERED: NALOXONE 0.4 MG/ML 1 ML VIAL IV PRN (14:57)
[2020-07-11] MEDS: TICAGRELOR 90 MG TAB PO SCH ×2 (21:48→23:00)
[2020-07-11] MEDS: ALPRAZolam 0.25 MG TAB PO PRN (23:30)
[2020-07-12 04:44] LABS: ALT 15 U/L (4-34); AST 18 U/L (14-36); African American GFR (CKD) 67 (>60 ml/min/1.73 sqM); Albumin 3.4 g/dL (3.5-5.0); Albumin/Globulin Ratio 1.3; Alkaline Phosphatase 53 U/L (38-126); Anion Gap 8 mmol/L; Blood Urea Nitrogen 27 mg/dL (7-17); Calcium 8.7 mg/dL (8.4-10.2); Carbon Dioxide 24 mmol/L (22-30); Chloride 93 mmol/L (98-107); Globulin 2.7 g/dL; Glucose 159 mg/dL (74-99); Magnesium 1.7 mg/dL (1.6-2.3); Non-African American GFR(CKD) 58 (>60 ml/min/1.73 sqM); Potassium 4.3 mmol/L (3.5-5.1); Sodium 125 mmol/L (137-145); Total Bilirubin 0.4 mg/dL (0.2-1.3); Total Protein 6.1 g/dL (6.3-8.2)
[2020-07-12] MEDS: atenoloL 25 MG TAB PO SCH (05:13)
[2020-07-12] MEDS: ASPIRIN 81 MG PO SCH (08:07)
[2020-07-12] MEDS: LOSARTAN 50 MG TAB PO SCH (08:08)
[2020-07-12] MEDS: TICAGRELOR 90 MG TAB PO SCH ×2 (08:09→20:51)
--- NOTE | 2020-07-12 08:18 | P.HPIM ---
History of Present Illness H&P Date: 07/12/20 Chief Complaint: Cephalgia/dizziness 84-year-old female, presented to the emergency room with the complaint of cephalgia with associated dizziness with ambulation. Patient recently underwent endovascular coiling of a brain aneurysm 10 days ago. Patient had extensive diagnostic workup during emergency room visit, revealing hyponatremia, CT of the brain with and without contrast no changes from previous studies post endovascular coiling of brain aneurysm. Patient mentioned to the hospital for IV hydration and monitoring of electrolytes. During evaluation this a.m. patient complaint of intermittent headache, and mild dizziness with ambulation. Patient in no acute signs of distress Review of Systems Constitutional: Reports weakness Cardiovascular: Reports high blood pressure Musculoskeletal: Reports muscle weakness (Generalized) Neurological: Reports headaches, Reports weakness Psychiatric: Reports anxiety Past Medical History Past Medical History: CVA/TIA, GERD/Reflux, Hypertension Additional Past Medical History / Comment(s): past back pain, c-diff 2016, rt side brain anuerysm (TIA) History of Any Multi-Drug Resistant Organisms: C-DIFF Date of last positivie culture/infection: 2005 MDRO Source:: stool Past Surgical History: Cholecystectomy, Hysterectomy, Tonsillectomy Additional Past Surgical History / Comment(s): colonoscopy, eye sx(tear ducts) brain surgery aneursym repair Past Anesthesia/Blood Transfusion Reactions: Motion Sickness Additional Past Anesthesia/Blood Transfusion Reaction / Comment(s): claustrophobia Past Psychological History: No Psychological Hx Reported Additional Psychological History / Comment(s): Pt resides with her spouse. She is independent. uses a walker at home. Smoking Status: Never smoker Past Alcohol Use History: Occasional Past Drug Use History: None Reported - Past Family History Father Family Medical History: Hypertension Additional Family Medical History / Comment(s): Father at the age of 63 yrs. He was an alcoholic and a smoker. Mother Family Medical History: Hypertension Additional Family Medical History / Comment(s): Mother at the age of 88yrs. Medications and Allergies Home Medications and Allergies Comment(s): Medications and ALLERGIES reviewed Home Medications Medication Instructions Recorded Confirmed Type Losartan/Hydrochlorothiazide 1 tab PO DAILY 06/22/20 07/11/20 History [Hyzaar 100-25 Tablet] Acetaminophen Tab [Tylenol] 325 mg PO Q4H PRN 07/11/20 07/11/20 History Aspirin 81 mg PO DAILY 07/11/20 07/11/20 History Ticagrelor [Brilinta] 90 mg PO BID 07/11/20 07/11/20 History atenoloL [Tenormin] 25 mg PO DAILY 07/11/20 07/11/20 History Allergies Allergy/AdvReac Type Severity Reaction Status Date / Time benzalkonium chloride Allergy Unknown Verified 07/11/20 12:22 [From Bactine (with alcohol)] codeine Allergy Unknown Verified 07/11/20 12:22 lidocaine Allergy Unknown Verified 07/11/20 12:22 [From Bactine (with alcohol)] metronidazole [From Flagyl] Allergy Unknown Verified 07/11/20 12:22 sulfamethoxazole Allergy Unknown Verified 07/11/20 12:22 [From Bactrim] trimethoprim [From Bactrim] Allergy Unknown Verified 07/11/20 12:22 amlodipine AdvReac Nausea & Verified 07/11/20 12:22 Vomiting cephalexin [From Keflex] AdvReac Nausea & Verified 07/11/20 12:22 Vomiting chlorthalidone AdvReac Nausea & Verified 07/11/20 12:22 Vomiting Iodinated Contrast Media AdvReac Nausea & Verified 07/11/20 13:42 Vomiting levofloxacin [From Levaquin] AdvReac Nausea & Verified 07/11/20 12:22 Vomiting lisinopril AdvReac Nausea & Verified 07/11/20 12:22 Vomiting Physical Exam Vitals: Vital Signs Temp Pulse Pulse Resp BP BP Pulse Ox 07/12/20 04:26 97.5 F L 72 16 160/72 95 07/11/20 21:00 98.3 F 66 18 112/55 100 07/11/20 20:00 18 07/11/20 17:25 98.0 F 63 18 150/63 98 07/11/20 17:10 97.3 F L 72 18 145/88 98 07/11/20 15:45 97.9 F 62 16 159/68 99 07/11/20 11:10 98.0 F 58 L 18 168/78 99 Intake and Output 07/11/20 07/12/20 07/12/20 22:59 06:59 14:59 Intake Total 75 Balance 75 Intake: Intake, IV Titration 75 Amount Sodium Chloride 0.9% 1, 75 000 ml @ 75 mls/hr IV . [id number] STA Rx#:[id number] Other: # Voids 0 2 # Bowel Movements 0 Weight 90.718 kg - Constitutional General appearance: cooperative - EENT Eyes: EOMI, PERRLA Ears: bilateral: normal - Neck Neck: lymphadenopathy Carotids: bilateral: upstroke normal - Respiratory Respiratory: bilateral: CTA - Cardiovascular Heart rate: 64 Rhythm: regular Heart sounds: normal: S1, S2 dorsalis pedis Peripheral Pulses: bilateral: Normal radial pulse Peripheral Pulses: bilateral: Normal - Gastrointestinal General gastrointestinal: normal bowel sounds - Integumentary Integumentary: decreased turgor - Neurologic Neurologic: CNII-XII intact - Musculoskeletal Musculoskeletal: generalized weakness - Psychiatric Psychiatric: A&O x's 3, appropriate affect, intact judgment & insight Results CBC & Chem 7: 07/11/20 12:04 07/12/20 04:16 Labs: Abnormal Lab Results - Last 24 Hours (Table) 07/11/20 07/11/20 07/11/20 Range/Units 12:04 12:04 12:04 WBC 10.7 H (3.8-10.6) k/uL Neutrophils # 8.3 H (1.3-7.7) k/uL APTT 20.7 L (22.0-30.0) sec Sodium 123 L (137-145) mmol/L Chloride 88 L (98-107) mmol/L BUN 26 H (7-17) mg/dL Glucose 115 H (74-99) mg/dL Osmolality (280-301) mosm/kg Total Protein (6.3-8.2) g/dL Albumin (3.5-5.0) g/dL 07/11/20 07/12/20 Range/Units 20:34 04:16 WBC (3.8-10.6) k/uL Neutrophils # (1.3-7.7) k/uL APTT (22.0-30.0) sec Sodium 125 L (137-145) mmol/L Chloride 93 L (98-107) mmol/L BUN 27 H (7-17) mg/dL Glucose 159 H (74-99) mg/dL Osmolality 275 L (280-301) mosm/kg Total Protein 6.1 L (6.3-8.2) g/dL Albumin 3.4 L (3.5-5.0) g/dL CT Scan - head: report reviewed (CT angiogram reviewed) Thrombosis Risk Factor Assmnt - Choose All That Apply Any of the Below Risk Factors Present?: Yes Each Factor Represents 1 point: Obesity (BMI >25) Other Risk Factors: Yes Each Risk Factor Represents 3 Points: Age 75 years or older Thrombosis Risk Factor Assessment Total Risk Factor Score: 4 Thrombosis Risk Factor Assessment Level: Moderate Risk Assessment and Plan Assessment: Cephalgia Weakness Hyponatremia Hypertension Post endovascular aneurysm [id number] days CVA/TIA GERD Plan: Cephalgiacontinue analgesic therapy as needed, IV hydration Hyponatremianormal saline 75 ML's an hour, continue to monitor electrolytes; Discontinue hydrochlorothiazide Hypertensioncontinue home medications losartan 100 mg by mouth daily and atenolol 25 mg by mouth dailygoal of therapy to keep blood pressure 140/90 Weaknesscontinue physical therapy and occupational therapy Anxietycontinue home medications We'll continue to monitor diagnostics and vital signs Continue medical management Repeat a.m. labs Time with Patient: Greater than 30
[2020-07-12] MEDS: SODIUM CHLORIDE 0.9% 1,000 ML IV SCH (19:11)
[2020-07-12] MEDS: ALPRAZolam 0.25 MG TAB PO PRN (21:02)
[2020-07-12] MEDS: DOCUSATE 100 MG CAP PO SCH (21:35)
[2020-07-13 07:54] LABS: Basophils % (A) 0 %; Eosinophils # (A) 0.1 k/uL (0-0.7); Eosinophils % (A) 1 %; HCT 32.6 % (34.0-46.0); HGB 10.8 gm/dL (11.4-16.0); Lymphocytes # (A) 1.6 k/uL (1.0-4.8); Lymphocytes % (A) 18 %; MCH 30.5 pg (25.0-35.0); MCV 92.5 fL (80.0-100.0); Mean Platelet Volume 7.1; Monocytes # (A) 0.9 k/uL (0-1.0); Monocytes % (A) 10 %; Neutrophils # (A) 6.4 k/uL (1.3-7.7); Neutrophils % (A) 70 %; Platelet Count 297 k/uL (150-450); RBC 3.52 m/uL (3.80-5.40); RDW 13.2 % (11.5-15.5); WBC 9.2 k/uL (3.8-10.6)
--- NOTE | 2020-07-13 08:04 | XR ---
EXAMINATION TYPE: XR chest 2V DATE OF EXAM: 07/13/2020 COMPARISON: Prior chest 06/22/2020 HISTORY: Shortness of breath TECHNIQUE: Frontal and lateral views of the chest are obtained. FINDINGS: There is not a significant interval change. Cardiac mediastinal silhouette is stable, bord ray enlarged. Aorta is dense. No evident airspace disease, pneumothorax, or pleural effusion. Even tration of the right hemidiaphragm is again noted. There are prominent lung volume suggesting underly ing COPD. Mid thoracic vertebral body compression deformities are again noted. IMPRESSION: No acute cardiopulmonary process. Cardiomegaly.
[2020-07-13 08:16] LABS: ALT 15 U/L (4-34); AST 17 U/L (14-36); African American GFR (CKD) 64 (>60 ml/min/1.73 sqM); Albumin 3.1 g/dL (3.5-5.0); Albumin/Globulin Ratio 1.2; Alkaline Phosphatase 46 U/L (38-126); Anion Gap 8 mmol/L; Blood Urea Nitrogen 25 mg/dL (7-17); Calcium 8.3 mg/dL (8.4-10.2); Carbon Dioxide 25 mmol/L (22-30); Chloride 98 mmol/L (98-107); Globulin 2.5 g/dL; Glucose 97 mg/dL (74-99); Magnesium 1.8 mg/dL (1.6-2.3); Non-African American GFR(CKD) 56 (>60 ml/min/1.73 sqM); Sodium 131 mmol/L (137-145); Total Bilirubin 0.5 mg/dL (0.2-1.3); Total Protein 5.6 g/dL (6.3-8.2)
[2020-07-13] MEDS: ASPIRIN 81 MG PO SCH (09:21)
[2020-07-13] MEDS: LOSARTAN 50 MG TAB PO SCH (09:22)
[2020-07-13] MEDS: atenoloL 25 MG TAB PO SCH (09:23)
[2020-07-13] MEDS: DOCUSATE 100 MG CAP PO SCH ×2 (09:24→09:33)
[2020-07-13] MEDS: TICAGRELOR 90 MG TAB PO SCH (09:24)
[2020-07-13 10:51] VITALS: RESP 16
[2020-07-13 13:30] VITALS: BP 146/66; PULSE 55; TEMP 98
[2020-07-13] MEDS: SODIUM CHLORIDE 0.9% 1,000 ML IV SCH (16:37)
--- NOTE | 2020-07-13 19:13 | P.DS ---
Providers Date of admission: 07/11/20 14:51 Expected date of discharge: 07/13/20 Attending physician: Oli Glover Primary care physician: Oli Glover Hospital Course: Patient admitted to the hospital for cephalgia, generalized weakness, gait dysfunction. Patient found to be hyponatremicIV hydration with discontinuation of hydrochlorothiazidenormalized sodium and chloride and serum osmolality.patient tolerated losartan and atenolol for blood pressure control to keep blood pressure less than 140/90. Patient to follow-up in office within 1-2 days for close monitoring of electrolytes patient discharge with a guarded prognosis due to multiple core morbidities Assessment: Hyponatremia Cephalgia Generalized weakness Postoperative endovascular coiling of brain aneurysm 11 days ago Hypertension History of CVA/TIA Mixed anxiety and depression History of cholecystectomy History of tonsillectomy Health Concerns: Memory impairment Pertinent Studies: Chest x-raycardiomegaly Procedures: None performed Patient Condition at Discharge: Good Plan - Discharge Summary Discharge Rx Participant: No New Discharge Prescriptions: New Docusate [Colace] 100 mg PO DAILY #10 cap Losartan Potassium [Cozaar] 100 mg PO DAILY 30 Days #30 tab Continue atenoloL [Tenormin] 25 mg PO DAILY Aspirin 81 mg PO DAILY Acetaminophen Tab [Tylenol] 325 mg PO Q4H PRN PRN Reason: Pain Or Fever > 100.5 Ticagrelor [Brilinta] 90 mg PO BID Discontinued Losartan/Hydrochlorothiazide [Hyzaar 100-25 Tablet] 1 tab PO DAILY Discharge Medication List Acetaminophen Tab [Tylenol] 325 mg PO Q4H PRN 07/11/20 [History] Aspirin 81 mg PO DAILY 07/11/20 [History] Ticagrelor [Brilinta] 90 mg PO BID 07/11/20 [History] atenoloL [Tenormin] 25 mg PO DAILY 07/11/20 [History] Docusate [Colace] 100 mg PO DAILY #10 cap 07/13/20 [Rx] Losartan Potassium [Cozaar] 100 mg PO DAILY 30 Days #30 tab 07/13/20 [Rx] Follow up Appointment(s)/Referral(s): Oli Glover MD [Primary Care Provider] - 07/20/20 8:30 am Patient Instructions/Handouts: Hyponatremia (DC), Acute Headache (DC) Discharge Disposition: HOME SELF-CARE
== END 2020-07-13 17:39 | disposition home or self-care (01) | DRG 103 ==
LOC: EC 10:58 → 5NMEDONC 14:51
PROVIDERS: ADMIT Family Medicine; ATTEND Family Medicine
DX: R51.9 Headache, unspecified (principal); E87.1 Hypo-osmolality and hyponatremia; F41.8 Other specified anxiety disorders; I10 Essential (primary) hypertension; I67.1 Cerebral aneurysm, nonruptured; Z20.822 Contact with and (suspected) exposure to COVID-19; K21.9 Gastro-esophageal reflux disease without esophagitis; Z79.02 Long term (current) use of antithrombotics/antiplatelets; Z79.82 Long term (current) use of aspirin; Z79.899 Other long term (current) drug therapy; Z82.49 Family history of ischemic heart disease and other diseases of the circulatory system; Z86.73 Personal history of transient ischemic attack (TIA), and cerebral infarction without residual deficits; Z90.49 Acquired absence of other specified parts of digestive tract; Z90.710 Acquired absence of both cervix and uterus
CPT/HCPCS: 36415; 70450; 70460; 70496; 71046; 80048; 80053; 83735; 83930; 83935; 85025; 85610; 85730; 87635; 96361; 96374; 96375; 99285

== ENCOUNTER 2020-12-03 10:30 | Emergency (ER) | payer MEDICARE, BC ==
[2020-12-03 10:35] VITALS: TEMP 97.9
--- NOTE | 2020-12-03 10:58 | ED ---
General Adult HPI - General Chief complaint: Extremity Problem,Nontraumatic Stated complaint: pain in both arms Time Seen by Provider: 12/03/20 10:39 Source: patient Mode of arrival: wheelchair - History of Present Illness Initial comments: Patient is an 85-year-old female with history of TIA, hypertension, presenting to the emergency Department with complaints of bilateral arm pain that started yesterday. She denies any injuries or trauma. She states she woke up in the morning yesterday and noticed some achiness in both her arms. She states she tried to rub some "pain cream" on her arms but it did not help so she decided to come in to the ER today for evaluation. She denies any chest pain or shortness of breath, no abdominal pain, no nausea or vomiting. She is currently on antibiotic for UTI, she's been on this for 1 week. She states she did have some achiness of her neck as well however the cream seemed to help that. She denies any neck pain, she admits to having a mild headache, no changes in her vision. She states she takes blood pressure medication the morning, she did take this already, she normally feels a little lightheaded after her medications. He denies any room spinning, no recent fevers or chills. She has no further complaints at this time. Upon arrival to the ER, she is slightly hypertensive at 192/77, rest of vitals are normal. - Related Data Home Medications Medication Instructions Recorded Confirmed Aspirin 81 mg PO DAILY 07/11/20 12/03/20 Ticagrelor [Brilinta] 90 mg PO BID 07/11/20 12/03/20 atenoloL [Tenormin] 25 mg PO DAILY 07/11/20 12/03/20 ALPRAZolam [Xanax] 0.125 mg PO HS PRN 12/03/20 12/03/20 Acetaminophen Tab [Tylenol Tab] 500 mg PO Q6HR PRN 12/03/20 12/03/20 Cefdinir [Omnicef] 300 mg PO Q12HR 12/03/20 12/03/20 Nystatin 100,000 Unit/gm Powd 1 applic TOPICAL BID 12/03/20 12/03/20 [Mycostatin Powder] Previous Rx's Medication Instructions Recorded Losartan Potassium [Cozaar] 100 mg PO DAILY 30 Days #30 tab 07/13/20 Allergies Allergy/AdvReac Type Severity Reaction Status Date / Time benzalkonium chloride Allergy Unknown Verified 12/03/20 12:07 [From Bactine (with alcohol)] codeine Allergy Unknown Verified 12/03/20 12:07 lidocaine Allergy Unknown Verified 12/03/20 12:07 [From Bactine (with alcohol)] metronidazole [From Flagyl] Allergy Unknown Verified 12/03/20 12:07 sulfamethoxazole Allergy Unknown Verified 12/03/20 12:07 [From Bactrim] trimethoprim [From Bactrim] Allergy Unknown Verified 12/03/20 12:07 amlodipine AdvReac Nausea & Verified 12/03/20 12:07 Vomiting cephalexin [From Keflex] AdvReac Nausea & Verified 12/03/20 12:07 Vomiting chlorthalidone AdvReac Nausea & Verified 12/03/20 12:07 Vomiting Iodinated Contrast Media AdvReac Nausea & Verified 12/03/20 12:07 Vomiting levofloxacin [From Levaquin] AdvReac Nausea & Verified 12/03/20 12:07 Vomiting lisinopril AdvReac Nausea & Verified 12/03/20 12:07 Vomiting Review of Systems ROS Statement: Those systems with pertinent positive or pertinent negative responses have been documented in the HPI. ROS Other: All systems not noted in ROS Statement are negative. Past Medical History Past Medical History: CVA/TIA, GERD/Reflux, Hypertension Additional Past Medical History / Comment(s): past back pain, c-diff 2015, rt side brain anuerysm (TIA) History of Any Multi-Drug Resistant Organisms: C-DIFF Date of last positivie culture/infection: 2005 MDRO Source:: stool Past Surgical History: Cholecystectomy, Hysterectomy, Tonsillectomy Additional Past Surgical History / Comment(s): colonoscopy, eye sx(tear ducts) brain surgery aneursym repair Past Anesthesia/Blood Transfusion Reactions: Motion Sickness Additional Past Anesthesia/Blood Transfusion Reaction / Comment(s): claustrophobia Past Psychological History: No Psychological Hx Reported Smoking Status: Never smoker Past Alcohol Use History: Occasional Past Drug Use History: None Reported - Past Family History Father Family Medical History: Hypertension Additional Family Medical History / Comment(s): Father at the age of 63 yrs. He was an alcoholic and a smoker. Mother Family Medical History: Hypertension Additional Family Medical History / Comment(s): Mother at the age of 88yrs. General Exam - General Exam Comments Initial Comments: GENERAL: Patient is well-developed and well-nourished. Patient is nontoxic and in no acute distress. HEAD: Atraumatic, normocephalic. EYES: Pupils equal round and reactive to light, extraocular movements intact, sclera anicteric, conjunctiva are normal. Eyelids were unremarkable. ENT: TMs normal, nares patent, oropharynx clear without exudates. Moist mucous membranes. NECK: Normal range of motion, supple without lymphadenopathy or JVD. No midline tenderness. LUNGS: Unlabored respirations. Breath sounds clear to auscultation bilaterally and equal. No wheezes rales or rhonchi. HEART: Regular rate and rhythm without murmurs, rubs or gallops. ABDOMEN: Soft, nontender, normoactive bowel sounds. No guarding, no rebound. No masses appreciated. : Deferred MUSCULOSKELETAL: Normal extremities with adequate strength and normal range of motion, no pitting or edema. No clubbing or cyanosis. Bellows Filler strength equal and bilateral NEUROLOGICAL: Patient is alert and oriented x 3. Motor and sensory are also intact. Cranial nerves II through XII grossly intact. Symmetrical smile. Normal speech, normal gait. PSYCH: Normal mood, normal affect. SKIN: Warm, Dry, normal turgor, no rashes or lesions noted. Course Vital Signs 12/03/20 10:31 Temperature 97.9 F Pulse Rate 63 Respiratory 18 Rate Blood Pressure 192/77 O2 Sat by Pulse 99 Oximetry EKG Findings - EKG Comments: EKG Findings:: Sinus bradycardia, left anterior fascicular block, no signs of acute process. Similar to previous on 06/22/2020. Ventricular rate 54, PA interval 190, QTC 458. Medical Decision Making - Medical Decision Making Patient is a 85-year-old female history hypertension, TIA, presenting with bilateral arm pain that started yesterday. She is hypertensive upon arrival, rest of vitals are normal. Her exam is revealing no acute findings, no pain in her arms on palpation. No recent falls or trauma. Mild discomfort in bilateral upper traps. She is currently on Keflex for UTI. Lab work is all unremarkable, including normal troponin. Upon reexamination, patient is symptom-free, she feels like the pain cream started working. I discussed these findings with her, I do think she can be discharged home, this might be from some muscle tightness of her upper trapezius. I do recommend following up with her primary care physician. She is in agreement with this plan of care and is stable for discharge. Return parameters were discussed with her and she verbalized understanding. Case discussed with Dr. Burden. - Lab Data Result diagrams: 12/03/20 11:05 12/03/20 11:05 Lab Results 12/03/20 12/03/20 12/03/20 Range/Units 11:05 11:05 11:05 WBC 8.1 (3.8-10.6) k/uL RBC 4.21 (3.80-5.40) m/uL Hgb 12.3 (11.4-16.0) gm/dL Hct 37.7 (34.0-46.0) % MCV 89.6 (80.0-100.0) fL MCH 29.2 (25.0-35.0) pg MCHC 32.6 (31.0-37.0) g/dL RDW 14.0 (11.5-15.5) % Plt Count 306 (150-450) k/uL MPV 6.8 Neutrophils % 69 % Lymphocytes % 21 % Monocytes % 6 % Eosinophils % 1 % Basophils % 1 % Neutrophils # 5.6 (1.3-7.7) k/uL Lymphocytes # 1.7 (1.0-4.8) k/uL Monocytes # 0.5 (0-1.0) k/uL Eosinophils # 0.1 (0-0.7) k/uL Basophils # 0.1 (0-0.2) k/uL PT 10.1 (9.0-12.0) sec INR 0.9 (<1.2) APTT 22.1 (22.0-30.0) sec Sodium 134 L (137-145) mmol/L Potassium 4.1 (3.5-5.1) mmol/L Chloride 100 (98-107) mmol/L Carbon Dioxide 26 (22-30) mmol/L Anion Gap 8 mmol/L BUN 16 (7-17) mg/dL Creatinine 0.88 (0.52-1.04) mg/dL Est GFR (CKD-EPI)AfAm 70 (>60 ml/min/1.73 sqM) Est GFR (CKD-EPI)NonAf 61 (>60 ml/min/1.73 sqM) Glucose 108 H (74-99) mg/dL Calcium 9.2 (8.4-10.2) mg/dL Magnesium 1.8 (1.6-2.3) mg/dL Total Bilirubin 0.5 (0.2-1.3) mg/dL AST 22 (14-36) U/L ALT 14 (4-34) U/L Alkaline Phosphatase 65 (38-126) U/L Troponin I (0.000-0.034) ng/mL Total Protein 6.6 (6.3-8.2) g/dL Albumin 3.9 (3.5-5.0) g/dL 12/03/20 Range/Units 11:05 WBC (3.8-10.6) k/uL RBC (3.80-5.40) m/uL Hgb (11.4-16.0) gm/dL Hct (34.0-46.0) % MCV (80.0-100.0) fL MCH (25.0-35.0) pg MCHC (31.0-37.0) g/dL RDW (11.5-15.5) % Plt Count (150-450) k/uL MPV Neutrophils % % Lymphocytes % % Monocytes % % Eosinophils % % Basophils % % Neutrophils # (1.3-7.7) k/uL Lymphocytes # (1.0-4.8) k/uL Monocytes # (0-1.0) k/uL Eosinophils # (0-0.7) k/uL Basophils # (0-0.2) k/uL PT (9.0-12.0) sec INR (<1.2) APTT (22.0-30.0) sec Sodium (137-145) mmol/L Potassium (3.5-5.1) mmol/L Chloride (98-107) mmol/L Carbon Dioxide (22-30) mmol/L Anion Gap mmol/L BUN (7-17) mg/dL Creatinine (0.52-1.04) mg/dL Est GFR (CKD-EPI)AfAm (>60 ml/min/1.73 sqM) Est GFR (CKD-EPI)NonAf (>60 ml/min/1.73 sqM) Glucose (74-99) mg/dL Calcium (8.4-10.2) mg/dL Magnesium (1.6-2.3) mg/dL Total Bilirubin (0.2-1.3) mg/dL AST (14-36) U/L ALT (4-34) U/L Alkaline Phosphatase (38-126) U/L Troponin I <0.012 (0.000-0.034) ng/mL Total Protein (6.3-8.2) g/dL Albumin (3.5-5.0) g/dL Disposition Clinical Impression: Bilateral arm pain Disposition: HOME SELF-CARE Condition: Stable Instructions (If sedation given, give patient instructions): Arm Pain (ED) Additional Instructions: Please return to the Emergency Department if symptoms worsen or any other concerns. Trial of heat to your Neck for any sort of muscle spasm. Follow-up with your PCP if symptoms persist. Is patient prescribed a controlled substance at d/c from ED?: No Referrals: Oli Glover MD [Primary Care Provider] - 1-2 days Time of Disposition: 13:11
[2020-12-03] MEDS: SODIUM CHLORIDE 0.9% 500 ML 500 ML IV STA (11:09)
[2020-12-03 11:18] LABS: Basophils # (A) 0.1 k/uL (0-0.2); Basophils % (A) 1 %; Eosinophils # (A) 0.1 k/uL (0-0.7); Eosinophils % (A) 1 %; HCT 37.7 % (34.0-46.0); HGB 12.3 gm/dL (11.4-16.0); Lymphocytes # (A) 1.7 k/uL (1.0-4.8); Lymphocytes % (A) 21 %; MCH 29.2 pg (25.0-35.0); MCHC 32.6 g/dL (31.0-37.0); MCV 89.6 fL (80.0-100.0); Mean Platelet Volume 6.8; Monocytes # (A) 0.5 k/uL (0-1.0); Monocytes % (A) 6 %; Neutrophils # (A) 5.6 k/uL (1.3-7.7); Neutrophils % (A) 69 %; Platelet Count 306 k/uL (150-450); RBC 4.21 m/uL (3.80-5.40); WBC 8.1 k/uL (3.8-10.6)
[2020-12-03 11:28] LABS: Albumin 3.9 g/dL (3.5-5.0); Calcium 9.2 mg/dL (8.4-10.2); Magnesium 1.8 mg/dL (1.6-2.3); Potassium 4.1 mmol/L (3.5-5.1); Total Bilirubin 0.5 mg/dL (0.2-1.3); Total Protein 6.6 g/dL (6.3-8.2)
[2020-12-03 11:49] LABS: INR 0.9 (<1.2); Partial Thromboplastin Time 22.1 sec (22.0-30.0); Prothrombin Time 10.1 sec (9.0-12.0)
[2020-12-03 13:39] VITALS: BP 162/72; PULSE 89; RESP 16
== END 2020-12-03 13:38 | disposition home or self-care (01) ==
LOC: EC 10:30
DX: M79.602 Pain in left arm (principal); M79.601 Pain in right arm; I10 Essential (primary) hypertension; K21.9 Gastro-esophageal reflux disease without esophagitis; Z86.73 Personal history of transient ischemic attack (TIA), and cerebral infarction without residual deficits; Z79.82 Long term (current) use of aspirin; Z79.899 Other long term (current) drug therapy; Z88.1 Allergy status to other antibiotic agents; Z88.2 Allergy status to sulfonamides; Z88.8 Allergy status to other drugs, medicaments and biological substances
CPT/HCPCS: 36415; 80053; 83735; 84484; 85025; 85610; 85730; 93005; 99283

== ENCOUNTER → 2021-01-04 | Outpatient (CLI) | payer MEDICARE, BC ==
--- NOTE | 2021-01-05 19:36 | CT ---
EXAMINATION TYPE: CT angio head neck DATE OF EXAM: 01/04/2021 COMPARISON: 06/08/2020, 07/11/2020 HISTORY: 85-year-old female I 67.1, Follow up for nonruptured cerebral aneurysm. TECHNIQUE: Contiguous axial scanning of the brain performed without and with IV Contrast, patient inj ected with 65ml mL of Isovue 370. Additional postcontrast scanning of the neck. Coronal/sagittal MIP reconstructions performed. 3-D reconstructions generated on a dedicated independent workstation. CT DLP: 1493.3 mGycm Automated exposure control for dose reduction was used. FINDINGS: CT HEAD: Mild patchy white matter hypodensities in both cervical hemispheres. A vascular stent within the distal M1 segment right MCA was present on 07/11/2020 but is new from 2020. New from 07/11/2020 is the interval development of encephalomalacia right parietal lobe and posterior r ight temporal lobe. No evidence for acute intracranial hemorrhage, acute ischemic change, mass, mass effect, midline shif t, or extra-axial fluid collection. No hydrocephalus. No effacement of cerebral sulci or basal subara chnoid cisterns. Patrick-white matter differentiation is maintained. Paranasal sinuses and mastoid air cells are well pneumatized. Rightward nasal septal deviation. Incid ental left-sided bushra bullosa. CTA NECK: Conventional arch vessel branching anatomy. The vertebral arteries are codominant and patent throughout their course. The right common and internal carotid artery is patent. The left common and internal carotid arteries patent. NASCET criteria was utilized. CTA HEAD: The previous 9 mm bilobed saccular aneurysm at the right MCA bifurcation now has a stent in place wit h residual 5 mm wide and 6 mm AP saccular aneurysm projecting inferiorly, refer to coronal series 19 image 10 and sagittal series 20 image 11. This is unchanged compared to the 07/11/2020 CTA MIP reconstr uctions exam (coronal image 15 and sagittal image 14). Vertebral and basilar arteries as well as the bilateral internal carotid arteries and remainder of th e anterior and posterior circulations are patent. No additional aneurysmal changes seen. IMPRESSION: 1. 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 Mild to moderate patchy burn of chronic small vessel ischemic dis ease. No acute intracranial abnormality seen. 2. CTA NECK: Widely patent vertebral and carotid arteries of the neck. 3. CTA HEAD: Previous stenting distal M1 segment right MCA. The adjacent saccular aneurysm at the rig ht MCA bifurcation projects inferiorly, measuring 6 x 5 mm, unchanged from 07/11/2020. Back on 06/08/2020 , prior to stenting, the aneurysm had a bilobed configuration measuring up to 9 mm. No additional ane urysmal change identified.
== END | disposition home or self-care (01) ==
LOC: RADCTMAIN 12:32
PROVIDERS: ATTEND Psychiatry & Neurology Neurology
DX: G93.89 Other specified disorders of brain (principal); I67.1 Cerebral aneurysm, nonruptured
CPT/HCPCS: 82565; 84520; 70496; 70498; 36415; Q9967

== ENCOUNTER 2021-01-05 22:56 | Emergency (ER) | payer MEDICARE, BC ==
[2021-01-05 23:17] VITALS: BP 169/64; PULSE 56; RESP 19; TEMP 97.5
[2021-01-06] MEDS ORDERED: SODIUM CHLORIDE 0.9% 500 ML 500 ML IV ONE (00:16)
--- NOTE | 2021-01-06 01:03 | ED ---
General Adult HPI - General Chief complaint: Recheck/Abnormal Lab/Rx Stated complaint: Possible Allergic Reaction Time Seen by Provider: 01/06/21 00:06 Source: patient Mode of arrival: ambulatory - History of Present Illness Initial comments: 85 year-old female patient presents to the emergency department for possible reaction to iodine contrast from computed tomography scan. Patient states she had a head CT scan yesterday. States she has not been able to sleep for the last 2 nights. States she can "smell iodine in her urine and taste it in her mouth". States this happened last time she had contrast in July. States that she felt better after receiving fluids. She denies any headache, chest pain, shortness of breath, rash, lip swelling, tongue swelling, or throat swelling. Denies any hematuria, dysuria, urinary frequency, or urinary urgency. Denies any diarrhea. - Related Data Home Medications Medication Instructions Recorded Confirmed Aspirin 81 mg PO DAILY 07/11/20 12/03/20 Ticagrelor [Brilinta] 90 mg PO BID 07/11/20 12/03/20 atenoloL [Tenormin] 25 mg PO DAILY 07/11/20 12/03/20 ALPRAZolam [Xanax] 0.125 mg PO HS PRN 12/03/20 12/03/20 Acetaminophen Tab [Tylenol Tab] 500 mg PO Q6HR PRN 12/03/20 12/03/20 Cefdinir [Omnicef] 300 mg PO Q12HR 12/03/20 12/03/20 Nystatin 100,000 Unit/gm Powd 1 applic TOPICAL BID 12/03/20 12/03/20 [Mycostatin Powder] Previous Rx's Medication Instructions Recorded Losartan Potassium [Cozaar] 100 mg PO DAILY 30 Days #30 tab 07/13/20 Allergies Allergy/AdvReac Type Severity Reaction Status Date / Time benzalkonium chloride Allergy Unknown Verified 01/05/21 23:16 [From Bactine (with alcohol)] codeine Allergy Unknown Verified 01/05/21 23:16 lidocaine Allergy Unknown Verified 01/05/21 23:16 [From Bactine (with alcohol)] metronidazole [From Flagyl] Allergy Unknown Verified 01/05/21 23:16 sulfamethoxazole Allergy Unknown Verified 01/05/21 23:16 [From Bactrim] trimethoprim [From Bactrim] Allergy Unknown Verified 01/05/21 23:16 amlodipine AdvReac Nausea & Verified 01/05/21 23:16 Vomiting cephalexin [From Keflex] AdvReac Nausea & Verified 01/05/21 23:16 Vomiting chlorthalidone AdvReac Nausea & Verified 01/05/21 23:16 Vomiting Iodinated Contrast Media AdvReac Nausea & Verified 01/05/21 23:16 Vomiting levofloxacin [From Levaquin] AdvReac Nausea & Verified 01/05/21 23:16 Vomiting lisinopril AdvReac Nausea & Verified 01/05/21 23:16 Vomiting Review of Systems ROS Statement: Those systems with pertinent positive or pertinent negative responses have been documented in the HPI. ROS Other: All systems not noted in ROS Statement are negative. Past Medical History Past Medical History: CVA/TIA, GERD/Reflux, Hypertension Additional Past Medical History / Comment(s): past back pain, c-diff 2015, rt side brain anuerysm (TIA) History of Any Multi-Drug Resistant Organisms: C-DIFF Date of last positivie culture/infection: 2005 MDRO Source:: stool Past Surgical History: Cholecystectomy, Hysterectomy, Tonsillectomy Additional Past Surgical History / Comment(s): colonoscopy, eye sx(tear ducts) brain surgery aneursym repair Past Anesthesia/Blood Transfusion Reactions: Motion Sickness Additional Past Anesthesia/Blood Transfusion Reaction / Comment(s): claustrophobia Past Psychological History: No Psychological Hx Reported Smoking Status: Never smoker Past Alcohol Use History: Occasional Past Drug Use History: None Reported - Past Family History Father Family Medical History: Hypertension Additional Family Medical History / Comment(s): Father at the age of 63 yrs. He was an alcoholic and a smoker. Mother Family Medical History: Hypertension Additional Family Medical History / Comment(s): Mother at the age of 88yrs. General Exam General appearance: alert, in no apparent distress, other (This is a well-devel oped, well-nourished elderly female patient in no acute distress. Vital signs upon presentation are temperature 97.5F, pulse 56, respirations 19, blood pressure 169/64, pulse ox 96% on room air.) Eye exam: Present: normal appearance, PERRL, EOMI. Absent: scleral icterus, conjunctival injection, nystagmus, periorbital swelling Neck exam: Present: normal inspection Respiratory exam: Present: normal lung sounds bilaterally. Absent: respiratory distress, wheezes, rales, rhonchi, stridor Cardiovascular Exam: Present: regular rate, normal rhythm, normal heart sounds. Absent: systolic murmur, diastolic murmur, rubs, gallop, clicks GI/Abdominal exam: Present: soft, normal bowel sounds. Absent: distended, tenderness, guarding, rebound, rigid Neurological exam: Present: alert, oriented X3, CN II-XII intact Psychiatric exam: Present: normal affect, normal mood Skin exam: Present: warm, dry, intact, normal color. Absent: rash Course Vital Signs 01/05/21 23:10 Temperature 97.5 F L Pulse Rate 56 L Respiratory 19 Rate Blood Pressure 169/64 O2 Sat by Pulse 96 Oximetry Medical Decision Making - Medical Decision Making 85-year-old female patient presents to the emergency department today for possible reaction to receiving IV contrast dye. Physical examination is unremarkable. Patient reports that she could "smell iodine in her urine and taste it in her mouth". States that she was unable to sleep. She experienced similar symptoms in July after having the dye. I did offer to perform labs and EKG to rule out any other conditions. Patient states she had cardiac workup three weeks ago and declines testing today. Would like to receive IV fluids only and to go home. She was given IV fluids. Upon reevaluation she is resting comfortably. She is requesting to go home. She'll be discharged up with her primary care physician for recheck in 1-2 days. Return parameters discussed in detail. She verbalizes understanding and agrees with this plan. Case discussed with my attending Dr. Lobo. Disposition Clinical Impression: Reaction to contrast media Disposition: HOME SELF-CARE Condition: Good Instructions (If sedation given, give patient instructions): General Allergic Reaction (ED) Additional Instructions: Follow-up with her primary care physician for recheck in 1-2 days. Return for any new, worsening, or concerning symptoms. Is patient prescribed a controlled substance at d/c from ED?: No Referrals: Oli Glover MD [Primary Care Provider] - 1-2 days Time of Disposition: 01:03
== END 2021-01-06 01:23 | disposition home or self-care (01) ==
LOC: EC 22:56
DX: R82.998 Other abnormal findings in urine (principal); T50.8X5A Adverse effect of diagnostic agents, initial encounter; I10 Essential (primary) hypertension; Z88.8 Allergy status to other drugs, medicaments and biological substances; Z88.5 Allergy status to narcotic agent; Z88.2 Allergy status to sulfonamides; Z88.1 Allergy status to other antibiotic agents; Z91.041 Radiographic dye allergy status; Z79.899 Other long term (current) drug therapy
CPT/HCPCS: 96360; 99283

== ENCOUNTER 2021-01-10 09:36 | Emergency (ER) | payer MEDICARE, BC ==
[2021-01-10 09:57] VITALS: TEMP 98.2
[2021-01-10 12:14] LABS: Appearance,Urine Cloudy (Clear); Bacteria,Urine Rare /hpf; Bilirubin,Urine Negative (Negative); Blood,Urine Large (Negative); Color,Urine Light Yellow; Glucose,Urine (UA) Negative (Negative); Ketones,Urine Negative (Negative); Leukocyte Esterase,Urine Large (Negative); Mucus,Urine Rare /hpf; Nitrite,Urine Positive (Negative); Protein,Urine Negative (Negative); RBC,Urine 5 /hpf (0-5); Specific Gravity,Urine 1.007 (1.001-1.035); Squamous Epithelial Cell,Urine 1 /hpf (0-4); Urobilinogen,Urine <2.0 mg/dL (<2.0); WBC,Urine 72 /hpf (0-5)
[2021-01-10] MEDS ORDERED: SODIUM CHLORIDE 0.9% 500 ML 500 ML IV STA (12:26)
[2021-01-10 13:43] LABS: Basophils % (A) 0 %; Eosinophils # (A) 0.1 k/uL (0-0.7); Eosinophils % (A) 1 %; HCT 37.7 % (34.0-46.0); HGB 12.5 gm/dL (11.4-16.0); Lymphocytes # (A) 2.1 k/uL (1.0-4.8); Lymphocytes % (A) 19 %; MCH 30.9 pg (25.0-35.0); MCHC 33.3 g/dL (31.0-37.0); MCV 92.9 fL (80.0-100.0); Mean Platelet Volume 7.4; Monocytes # (A) 0.7 k/uL (0-1.0); Monocytes % (A) 6 %; Neutrophils # (A) 7.8 k/uL (1.3-7.7); Neutrophils % (A) 72 %; Platelet Count 366 k/uL (150-450); RBC 4.05 m/uL (3.80-5.40); RDW 13.7 % (11.5-15.5); WBC 10.8 k/uL (3.8-10.6)
--- NOTE | 2021-01-10 13:43 | ED ---
General Adult HPI - General Chief complaint: Weakness Stated complaint: High BP/Weakness Time Seen by Provider: 01/10/21 11:47 Source: patient, family Mode of arrival: wheelchair Limitations: no limitations - History of Present Illness Initial comments: 85-year-old female presents to the emergency room for a chief complaint of weakness. Patient has felt weak since this morning. States she had a urinate frequently last night. Patient went to her doctor's office because of this weakness. Also suggested a blood pressure. It was noted to be high. Therefore the office sent her to the emergency room. Patient takes her blood pressure medication at night which she did take last night. Patient denies any falls. Denies any chest pain or shortness of breath.Patient has no other complaints at this time including shortness of breath, chest pain, abdominal pain, nausea or vomiting, headache, or visual changes. - Related Data Home Medications Medication Instructions Recorded Confirmed Aspirin 81 mg PO DAILY 07/11/20 01/10/21 Ticagrelor [Brilinta] 90 mg PO BID 07/11/20 01/10/21 atenoloL [Tenormin] 25 mg PO DAILY 07/11/20 01/10/21 ALPRAZolam [Xanax] 0.125 mg PO HS 12/03/20 01/10/21 Nystatin 100,000 Unit/gm Powd 1 applic TOPICAL BID 12/03/20 01/10/21 [Mycostatin Powder] Previous Rx's Medication Instructions Recorded Losartan Potassium [Cozaar] 100 mg PO DAILY 30 Days #30 tab 07/13/20 Nitrofurantoin Monohyd/M-Cryst 100 mg PO Q12HR #14 cap 01/10/21 [Macrobid] Allergies Allergy/AdvReac Type Severity Reaction Status Date / Time benzalkonium chloride Allergy Unknown Verified 01/10/21 13:29 [From Bactine (with alcohol)] codeine Allergy Unknown Verified 01/10/21 13:29 lidocaine Allergy Unknown Verified 01/10/21 13:29 [From Bactine (with alcohol)] metronidazole [From Flagyl] Allergy Unknown Verified 01/10/21 13:29 sulfamethoxazole Allergy Unknown Verified 01/10/21 13:29 [From Bactrim] trimethoprim [From Bactrim] Allergy Unknown Verified 01/10/21 13:29 amlodipine AdvReac Nausea & Verified 01/10/21 13:29 Vomiting cephalexin [From Keflex] AdvReac Nausea & Verified 01/10/21 13:29 Vomiting chlorthalidone AdvReac Nausea & Verified 01/10/21 13:29 Vomiting Iodinated Contrast Media AdvReac Nausea & Verified 01/10/21 13:29 Vomiting levofloxacin [From Levaquin] AdvReac Nausea & Verified 01/10/21 13:29 Vomiting lisinopril AdvReac Nausea & Verified 01/10/21 13:29 Vomiting Review of Systems ROS Statement: Those systems with pertinent positive or pertinent negative responses have been documented in the HPI. ROS Other: All systems not noted in ROS Statement are negative. Past Medical History Past Medical History: CVA/TIA, GERD/Reflux, Hypertension Additional Past Medical History / Comment(s): past back pain, c-diff 2015, rt side brain anuerysm (TIA) History of Any Multi-Drug Resistant Organisms: C-DIFF Date of last positivie culture/infection: 2005 MDRO Source:: stool Past Surgical History: Cholecystectomy, Hysterectomy, Tonsillectomy Additional Past Surgical History / Comment(s): colonoscopy, eye sx(tear ducts) brain surgery aneursym repair Past Anesthesia/Blood Transfusion Reactions: Motion Sickness Additional Past Anesthesia/Blood Transfusion Reaction / Comment(s): claustrophobia Past Psychological History: No Psychological Hx Reported Smoking Status: Never smoker Past Alcohol Use History: Occasional Past Drug Use History: None Reported - Past Family History Father Family Medical History: Hypertension Additional Family Medical History / Comment(s): Father at the age of 63 yrs. He was an alcoholic and a smoker. Mother Family Medical History: Hypertension Additional Family Medical History / Comment(s): Mother at the age of 88yrs. General Exam Limitations: no limitations General appearance: alert, in no apparent distress Head exam: Present: atraumatic, normocephalic, normal inspection Eye exam: Present: normal appearance, PERRL, EOMI. Absent: scleral icterus, conjunctival injection, periorbital swelling ENT exam: Present: normal exam, mucous membranes moist Neck exam: Present: normal inspection. Absent: tenderness, meningismus, lymphadenopathy Respiratory exam: Present: normal lung sounds bilaterally. Absent: respiratory distress, wheezes, rales, rhonchi, stridor Cardiovascular Exam: Present: regular rate, normal rhythm, normal heart sounds. Absent: systolic murmur, diastolic murmur, rubs, gallop, clicks GI/Abdominal exam: Present: soft, normal bowel sounds. Absent: distended, tenderness, guarding, rebound, rigid Course Vital Signs 01/10/21 01/10/21 01/10/21 09:51 13:15 14:03 Temperature 98.2 F Pulse Rate 58 L 59 L 56 L Respiratory 18 18 18 Rate Blood Pressure 200/72 174/67 165/72 O2 Sat by Pulse 99 99 100 Oximetry Medical Decision Making - Medical Decision Making Vitals are stable. Patient initially hypertensive however that improved during her stay. She denies any chest pain shortness of breath headache. Patient does have weakness. He be see CMP is unremarkable. Troponin is negative. Urinalysis however does show evidence of infection which does need to be treated and likely is the cause of her weakness. Radiology was unable to read the report of the chest x-ray for over 2 hours however [place] and I do not appreciate any lobar pneumonias. Patient is crusting discharge. She was given a dose of Rocephin here in the emergency room. Urine culture pending I did want to start patient on Levaquin for urinary tract infection however she states this, Keflex, and Bactrim, all make her nauseous and she cannot take them. Therefore she was started on Macrobid. She will follow up with her doctor. She will return for any worsening symptoms. - Lab Data Result diagrams: 01/10/21 12:18 01/10/21 12:18 Lab Results 01/10/21 01/10/21 01/10/21 Range/Units 11:36 12:18 12:18 WBC 10.8 H (3.8-10.6) k/uL RBC 4.05 (3.80-5.40) m/uL Hgb 12.5 (11.4-16.0) gm/dL Hct 37.7 (34.0-46.0) % MCV 92.9 (80.0-100.0) fL MCH 30.9 (25.0-35.0) pg MCHC 33.3 (31.0-37.0) g/dL RDW 13.7 (11.5-15.5) % Plt Count 366 (150-450) k/uL MPV 7.4 Neutrophils % 72 % Lymphocytes % 19 % Monocytes % 6 % Eosinophils % 1 % Basophils % 0 % Neutrophils # 7.8 H (1.3-7.7) k/uL Lymphocytes # 2.1 (1.0-4.8) k/uL Monocytes # 0.7 (0-1.0) k/uL Eosinophils # 0.1 (0-0.7) k/uL Basophils # 0.0 (0-0.2) k/uL PT 10.3 (9.0-12.0) sec INR 1.0 (<1.2) APTT 21.6 L (22.0-30.0) sec Sodium (137-145) mmol/L Potassium (3.5-5.1) mmol/L Chloride (98-107) mmol/L Carbon Dioxide (22-30) mmol/L Anion Gap mmol/L BUN (7-17) mg/dL Creatinine (0.52-1.04) mg/dL Est GFR (CKD-EPI)AfAm (>60 ml/min/1.73 sqM) Est GFR (CKD-EPI)NonAf (>60 ml/min/1.73 sqM) Glucose (74-99) mg/dL Plasma Lactic Acid Ryan (0.7-2.0) mmol/L Calcium (8.4-10.2) mg/dL Total Bilirubin (0.2-1.3) mg/dL AST (14-36) U/L ALT (4-34) U/L Alkaline Phosphatase (38-126) U/L Troponin I (0.000-0.034) ng/mL Total Protein (6.3-8.2) g/dL Albumin (3.5-5.0) g/dL Urine Color Light Yellow Urine Appearance Cloudy H (Clear) Urine pH 5.0 (5.0-8.0) Ur Specific [place] 1.007 (1.001-1.035) Urine Protein Negative (Negative) Urine Glucose (UA) Negative (Negative) Urine Ketones Negative (Negative) Urine Blood Large H (Negative) Urine Nitrite Positive H (Negative) Urine Bilirubin Negative (Negative) Urine Urobilinogen <2.0 (<2.0) mg/dL Ur Leukocyte Esterase Large H (Negative) Urine RBC 5 (0-5) /hpf Urine WBC 72 H (0-5) /hpf Urine WBC Clumps Few H (None) /hpf Ur Squamous Epith Cells 1 (0-4) /hpf Urine Bacteria Rare H (None) /hpf Urine Mucus Rare H (None) /hpf 01/10/21 01/10/21 01/10/21 Range/Units 12:18 12:18 12:18 WBC (3.8-10.6) k/uL RBC (3.80-5.40) m/uL Hgb (11.4-16.0) gm/dL Hct (34.0-46.0) % MCV (80.0-100.0) fL MCH (25.0-35.0) pg MCHC (31.0-37.0) g/dL RDW (11.5-15.5) % Plt Count (150-450) k/uL MPV Neutrophils % % Lymphocytes % % Monocytes % % Eosinophils % % Basophils % % Neutrophils # (1.3-7.7) k/uL Lymphocytes # (1.0-4.8) k/uL Monocytes # (0-1.0) k/uL Eosinophils # (0-0.7) k/uL Basophils # (0-0.2) k/uL PT (9.0-12.0) sec INR (<1.2) APTT (22.0-30.0) sec Sodium 132 L (137-145) mmol/L Potassium 4.1 (3.5-5.1) mmol/L Chloride 98 (98-107) mmol/L Carbon Dioxide 25 (22-30) mmol/L Anion Gap 9 mmol/L BUN 12 (7-17) mg/dL Creatinine 0.74 (0.52-1.04) mg/dL Est GFR (CKD-EPI)AfAm 87 (>60 ml/min/1.73 sqM) Est GFR (CKD-EPI)NonAf 75 (>60 ml/min/1.73 sqM) Glucose 109 H (74-99) mg/dL Plasma Lactic Acid Ryan 0.8 (0.7-2.0) mmol/L Calcium 9.2 (8.4-10.2) mg/dL Total Bilirubin 0.5 (0.2-1.3) mg/dL AST 20 (14-36) U/L ALT 11 (4-34) U/L Alkaline Phosphatase 71 (38-126) U/L Troponin I <0.012 (0.000-0.034) ng/mL Total Protein 6.6 (6.3-8.2) g/dL Albumin 3.9 (3.5-5.0) g/dL Urine Color Urine Appearance (Clear) Urine pH (5.0-8.0) Ur Specific [place] (1.001-1.035) Urine Protein (Negative) Urine Glucose (UA) (Negative) Urine Ketones (Negative) Urine Blood (Negative) Urine Nitrite (Negative) Urine Bilirubin (Negative) Urine Urobilinogen (<2.0) mg/dL Ur Leukocyte Esterase (Negative) Urine RBC (0-5) /hpf Urine WBC (0-5) /hpf Urine WBC Clumps (None) /hpf Ur Squamous Epith Cells (0-4) /hpf Urine Bacteria (None) /hpf Urine Mucus (None) /hpf Disposition Clinical Impression: UTI (urinary tract infection) Disposition: HOME SELF-CARE Condition: Good Instructions (If sedation given, give patient instructions): Urinary Tract Infection in Women (ED), Hypertension (ED) Additional Instructions: Take antibiotic as directed. Please drink plenty of fluids. Follow-up with your doctor in one to 2 days. Return to the emergency room for any worsening symptoms. Prescriptions: Nitrofurantoin Monohyd/M-Cryst [Macrobid] 100 mg PO Q12HR #14 cap Is patient prescribed a controlled substance at d/c from ED?: No Referrals: Oli Glover MD [Primary Care Provider] - 1-2 days Time of Disposition: 14:43
[2021-01-10 13:55] LABS: Albumin 3.9 g/dL (3.5-5.0); Calcium 9.2 mg/dL (8.4-10.2); Potassium 4.1 mmol/L (3.5-5.1); Total Bilirubin 0.5 mg/dL (0.2-1.3); Total Protein 6.6 g/dL (6.3-8.2)
[2021-01-10 14:09] LABS: Prothrombin Time 10.3 sec (9.0-12.0)
[2021-01-10] MEDS ORDERED: cefTRIAXone IN SWFI 1,000 MG/10 ML SYRINGE IVP STA (14:18)
[2021-01-10 14:22] LABS: Partial Thromboplastin Time 21.6 sec (22.0-30.0)
--- NOTE | 2021-01-10 14:44 | XR ---
EXAMINATION TYPE: XR chest 2V DATE OF EXAM: 01/10/2021 COMPARISON: Prior chest x-ray 07/13/2020 HISTORY: Weakness, hypertension TECHNIQUE: Frontal and lateral views of the chest are obtained. FINDINGS: There is no focal air space opacity, pleural effusion, or pneumothorax seen. There are ove rlying cardiac leads. Patient is rotated. The cardiac silhouette size is stable accounting for differ ences in technique. The osseous structures are remarkable for multiple wedge compression deformitie s in the midthoracic spine, kyphosis similar to prior exam. Prominent lung volumes suggest underlying COPD.. Surgical clips present in the upper abdomen. Aorta is dense. There is eventration of the righ t hemidiaphragm. IMPRESSION: No acute cardiopulmonary process. Stable cardiomegaly.
[2021-01-10 14:51] VITALS: BP 187/88; PULSE 58; RESP 16
== END 2021-01-10 15:17 | disposition home or self-care (01) ==
LOC: EC 09:36
DX: N39.0 Urinary tract infection, site not specified (principal); I10 Essential (primary) hypertension; R53.1 Weakness; Z88.8 Allergy status to other drugs, medicaments and biological substances; Z88.5 Allergy status to narcotic agent; Z88.2 Allergy status to sulfonamides; Z88.1 Allergy status to other antibiotic agents; Z91.041 Radiographic dye allergy status; Z79.899 Other long term (current) drug therapy
CPT/HCPCS: 36415; 93005; 80053; 83605; 84484; 85025; 85610; 85730; 81001; 87086; 71046; 99285; 96374; 96361; J0696

== ENCOUNTER 2021-05-27 11:11 | Inpatient (IN) | payer MEDICARE, BC ==
[2021-05-27] MEDS ORDERED: ONDANSETRON 4 MG/2 ML VIAL IVP STA (12:37)
[2021-05-27] MEDS ORDERED: SODIUM CHLORIDE 0.9% 1,000 ML IV STA (12:37)
[2021-05-27 13:02] LABS: Basophils % (A) 0 %; Eosinophils # (A) 0.1 k/uL (0-0.7); Eosinophils % (A) 1 %; HCT 36.4 % (34.0-46.0); HGB 12.4 gm/dL (11.4-16.0); Lymphocytes # (A) 1.8 k/uL (1.0-4.8); Lymphocytes % (A) 20 %; MCH 31.1 pg (25.0-35.0); MCHC 33.9 g/dL (31.0-37.0); MCV 91.7 fL (80.0-100.0); Mean Platelet Volume 7.3; Monocytes # (A) 0.6 k/uL (0-1.0); Monocytes % (A) 7 %; Neutrophils # (A) 6.4 k/uL (1.3-7.7); Neutrophils % (A) 71 %; Platelet Count 277 k/uL (150-450); RBC 3.97 m/uL (3.80-5.40); RDW 12.7 % (11.5-15.5)
[2021-05-27 13:03] LABS: Appearance,Urine Clear (Clear); Bilirubin,Urine Negative (Negative); Blood,Urine Negative (Negative); Color,Urine Yellow; Glucose,Urine (UA) Negative (Negative); Ketones,Urine 1+ (Negative); Leukocyte Esterase,Urine Trace (Negative); Mucus,Urine Rare /hpf; Nitrite,Urine Negative (Negative); PH, Urine 5.5 (5.0-8.0); Protein,Urine Trace (Negative); RBC,Urine 1 /hpf (0-5); Specific Gravity,Urine 1.015 (1.001-1.035); Squamous Epithelial Cell,Urine <1 /hpf (0-4); Urobilinogen,Urine <2.0 mg/dL (<2.0); WBC,Urine 4 /hpf (0-5)
--- NOTE | 2021-05-27 13:10 | ED ---
Nausea/Vomiting/Diarrhea HPI - General Chief complaint: Nausea/Vomiting/Diarrhea Stated complaint: Nausea/vomiting Time Seen by Provider: 05/27/21 12:05 Source: patient Mode of arrival: wheelchair Limitations: no limitations - History of Present Illness Initial comments: Patient is 85-year-old female who presents to the emergency department with reported nausea, vomiting and diarrhea since . 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 She also admits that she was having some constipation and used a fleets enema and afterwards the diarrhea began. States it's dark in color but but denies any black or bloody stools. No history of GI bleeding. Denies bright red blood per rectum. No rectal pain does admit to some lower abdominal cramping. Took Kaopectate at home however this did not help her symptoms. Has felt nauseated and made herself vomit. Has been unable to hold down her medications. No fevers. No recent travel. Does admit to a history of C. diff in 2016. Has had a colonoscopy. No hematemesis. No other alleviating, precipitating or modifying factors - Related Data Home Medications Medication Instructions Recorded Confirmed Aspirin 81 mg PO DAILY 07/11/20 05/27/21 atenoloL [Tenormin] 12.5 mg PO HS 07/11/20 05/27/21 Nystatin 100,000 Unit/gm Powd 1 applic TOPICAL BID PRN 12/03/20 05/27/21 [Mycostatin Powder] Losartan Potassium [Cozaar] 50 mg PO HS 05/27/21 05/27/21 Stop-Pain 1 applic TOPICAL DAILY PRN 05/27/21 05/27/21 Allergies Allergy/AdvReac Type Severity Reaction Status Date / Time benzalkonium chloride Allergy Unknown Verified 05/27/21 15:12 [From Bactine (with alcohol)] codeine Allergy Unknown Verified 05/27/21 15:12 lidocaine Allergy Unknown Verified 05/27/21 15:12 [From Bactine (with alcohol)] metronidazole [From Flagyl] Allergy Unknown Verified 05/27/21 15:12 sulfamethoxazole Allergy Unknown Verified 05/27/21 15:12 [From Bactrim] trimethoprim [From Bactrim] Allergy Unknown Verified 05/27/21 15:12 amlodipine AdvReac Nausea & Verified 05/27/21 15:12 Vomiting cephalexin [From Keflex] AdvReac Nausea & Verified 05/27/21 15:12 Vomiting chlorthalidone AdvReac Nausea & Verified 05/27/21 15:12 Vomiting Iodinated Contrast Media AdvReac Nausea & Verified 05/27/21 15:12 Vomiting levofloxacin [From Levaquin] AdvReac Nausea & Verified 05/27/21 15:12 Vomiting lisinopril AdvReac Nausea & Verified 05/27/21 15:12 Vomiting Review of Systems ROS Statement: Those systems with pertinent positive or pertinent negative responses have been documented in the HPI. ROS Other: All systems not noted in ROS Statement are negative. Past Medical History Past Medical History: CVA/TIA, GERD/Reflux, Hypertension Additional Past Medical History / Comment(s): past back pain, c-diff 2015, rt side brain anuerysm (TIA) History of Any Multi-Drug Resistant Organisms: C-DIFF Date of last positivie culture/infection: 2005 MDRO Source:: stool Past Surgical History: Cholecystectomy, Hysterectomy, Tonsillectomy Additional Past Surgical History / Comment(s): colonoscopy, eye sx(tear ducts) brain surgery aneursym repair Past Anesthesia/Blood Transfusion Reactions: Motion Sickness Additional Past Anesthesia/Blood Transfusion Reaction / Comment(s): claustrophobia Past Psychological History: No Psychological Hx Reported Smoking Status: Never smoker Past Alcohol Use History: Occasional Past Drug Use History: None Reported - Past Family History Father Family Medical History: Hypertension Additional Family Medical History / Comment(s): Father at the age of 63 yrs. He was an alcoholic and a smoker. Mother Family Medical History: Hypertension Additional Family Medical History / Comment(s): Mother at the age of 88yrs. General Exam Limitations: no limitations General appearance: alert, in no apparent distress Head exam: Present: atraumatic, normocephalic, normal inspection Eye exam: Present: normal appearance, PERRL, EOMI. Absent: scleral icterus, conjunctival injection, periorbital swelling ENT exam: Present: normal exam, mucous membranes moist Neck exam: Present: normal inspection. Absent: tenderness, meningismus, lymphadenopathy Respiratory exam: Present: normal lung sounds bilaterally. Absent: respiratory distress, wheezes, rales, rhonchi, stridor Cardiovascular Exam: Present: regular rate, normal rhythm, normal heart sounds. Absent: systolic murmur, diastolic murmur, rubs, gallop, clicks GI/Abdominal exam: Present: soft, tenderness (suprapubic), normal bowel sounds. Absent: distended, guarding, rebound, rigid Extremities exam: Present: normal inspection, full ROM, normal capillary refill. Absent: tenderness, pedal edema, joint swelling, calf tenderness Back exam: Present: normal inspection Neurological exam: Present: alert, oriented X3, CN II-XII intact Psychiatric exam: Present: normal affect, normal mood Skin exam: Present: warm, dry, intact, normal color. Absent: rash Course Vital Signs 05/27/21 05/27/21 05/27/21 12:04 17:03 20:00 Temperature 98.7 F 98.5 F Pulse Rate 66 62 Pulse Rate [ 62 Pulse Oximetery ] Respiratory 16 20 16 Rate Blood Pressure 167/75 179/74 Blood Pressure 175/75 [Left Arm] O2 Sat by Pulse 97 98 97 Oximetry Medical Decision Making - Medical Decision Making On arrival patient is placed into room 16. A thorough history and physical exam was performed area and IV was established and the patient was given 4 mg of Zofran. Also provided with 1 L of fluid. Laboratory studies are conducted which demonstrated a sodium of 125. Patient is initiated on [address] is performed because of patient's abdominal pain which does demonstrate fluid filled dilated colon with diverticulosis and pericolonic stranding. A few foci of air which appear to be extraluminal. Perforated: Not excluded. Trace fluid in the pelvis. Fat-containing ventral abdominal wall hernia. Perirenal stranding. He called and spoke with Dr. Rodrigues. He will admit the patient and evaluate her in the emergency department. Zosyn ordered. Patient awaiting admission in stable condition - Lab Data Result diagrams: 05/27/21 12:52 05/27/21 12:52 Lab Results 05/27/21 05/27/21 05/27/21 Range/Units 12:52 12:52 12:52 WBC 9.0 (3.8-10.6) k/uL RBC 3.97 (3.80-5.40) m/uL Hgb 12.4 (11.4-16.0) gm/dL Hct 36.4 (34.0-46.0) % MCV 91.7 (80.0-100.0) fL MCH 31.1 (25.0-35.0) pg MCHC 33.9 (31.0-37.0) g/dL RDW 12.7 (11.5-15.5) % Plt Count 277 (150-450) k/uL MPV 7.3 Neutrophils % 71 % Lymphocytes % 20 % Monocytes % 7 % Eosinophils % 1 % Basophils % 0 % Neutrophils # 6.4 (1.3-7.7) k/uL Lymphocytes # 1.8 (1.0-4.8) k/uL Monocytes # 0.6 (0-1.0) k/uL Eosinophils # 0.1 (0-0.7) k/uL Basophils # 0.0 (0-0.2) k/uL Sodium 125 L (137-145) mmol/L Potassium 3.6 (3.5-5.1) mmol/L Chloride 90 L (98-107) mmol/L Carbon Dioxide 24 (22-30) mmol/L Anion Gap 11 mmol/L BUN 12 (7-17) mg/dL Creatinine 0.73 (0.52-1.04) mg/dL Est GFR (CKD-EPI)AfAm 88 (>60 ml/min/1.73 sqM) Est GFR (CKD-EPI)NonAf 76 (>60 ml/min/1.73 sqM) Glucose 112 H (74-99) mg/dL Calcium 9.0 (8.4-10.2) mg/dL Total Bilirubin 0.8 (0.2-1.3) mg/dL AST 20 (14-36) U/L ALT 12 (4-34) U/L Alkaline Phosphatase 60 (38-126) U/L Total Protein 6.6 (6.3-8.2) g/dL Albumin 3.8 (3.5-5.0) g/dL Lipase 99 (23-300) U/L Urine Color Yellow Urine Appearance Clear (Clear) Urine pH 5.5 (5.0-8.0) Ur Specific [place] 1.015 (1.001-1.035) Urine Protein Trace H (Negative) Urine Glucose (UA) Negative (Negative) Urine Ketones 1+ H (Negative) Urine Blood Negative (Negative) Urine Nitrite Negative (Negative) Urine Bilirubin Negative (Negative) Urine Urobilinogen <2.0 (<2.0) mg/dL Ur Leukocyte Esterase Trace H (Negative) Urine RBC 1 (0-5) /hpf Urine WBC 4 (0-5) /hpf Ur Squamous Epith Cells <1 (0-4) /hpf Urine Mucus Rare H (None) /hpf Disposition Clinical Impression: Pneumoperitoneum, Diverticulitis, Colitis, Nausea and vomiting, Hyponatremia Disposition: ADMITTED IP TO THIS [facility] Condition: Serious Is patient prescribed a controlled substance at d/c from ED?: No Decision to Admit Reason: Admit from EC Decision Date: 05/27/21 Decision Time: 15:38
[2021-05-27 13:17] LABS: Albumin 3.8 g/dL (3.5-5.0); Potassium 3.6 mmol/L (3.5-5.1); Total Bilirubin 0.8 mg/dL (0.2-1.3); Total Protein 6.6 g/dL (6.3-8.2)
--- NOTE | 2021-05-27 14:49 | CT ---
EXAMINATION TYPE: CT abdomen pelvis wo con DATE OF EXAM: 05/27/2021 COMPARISON: None HISTORY: vomiting and diarrhea TECHNIQUE: CT scan of the abdomen and pelvis performed without contrast CT DLP: 680.9 mGycm Automated exposure control for dose reduction was used. FINDINGS: Small pericardial effusion. Lung base atelectasis greater on the right. No large effusion. Slightly atrophic appearing liver with a smooth contour. Subcentimeter and slightly larger low attenu ating lesions in the right hepatic lobe, the largest measures 1.5 x 0.7 cm, statistically likely to r epresent cysts. Gallbladder surgically absent. No abnormal biliary ductal dilatation. Spleen, pancreas and adrenal glands are within normal limit. No renal calculi or collecting system dilatation. Ureters are not dilated. Urinary bladder is partial ly distended and appears within normal limit. There is bilateral perirenal stranding. There is a small gastroesophageal hiatal hernia. Lack of oral contrast limits evaluation of the GI tr act. There is no malrotation. Small bowel loops are normal in caliber. The terminal ileum is unremark able. The chest is normal in appearance. There is a dilated colon filled with fluid. There is fat stranding around the descending and sigmoid colon. There is descending and sigmoid diverticulosis. There is an anterior abdominal wall hernia containing fat and is surrounded by fat stranding of the s oft tissue. There are a few foci of air which cannot be placed within the lumen for example image 60 series 201 a nd the right side adjacent to a bowel loops. 62 on the same series. There pneumatosis within the wall of the descending and sigmoid colon. No enlarged lymph nodes seen. There is nonaneurysmal. Inferior vena cava is partially collapsed. There is a round calcification at the midline in the region of the anus of unknown significance. Uterus is not seen. No adnexal mass appreciated.There is some of fluid is seen in the right side of t he pelvis series 63 image 201. There is slight loss of height involving inferior endplate of L4. There is bridging anterior osteophy miller of the lower thoracic spine. There is [id number] multilevel narrowing of the intervertebral spaces in the thoracic and lumbar spine. There is facet joint arthropathy in the lower lumbar spine. No acute fracture or dislocation seen. There is bilateral hip joint arthropathy and sacroiliac joint arthropathy. IMPRESSION: 1. FLUID-FILLED DILATED COLON WITH DIVERTICULOSIS AND PERICOLONIC STRANDING. FEW FOCI OF AIR WHICH AP PEAR TO BE EXTRALUMINAL. FINDINGS ARE CONCERNING FOR COLITIS WHICH COULD BE SECONDARY TO INFECTION OR INFLAMMATION AND/OR DIVERTICULITIS, PERFORATED COLON CANNOT BE EXCLUDED. 2. TRACE FLUID IN THE PELVIS FELT TO BE RELATED TO GENITAL ORGANS (PHYSIOLOGIC) RATHER THAN ABSCESS. NO PERICOLONIC FLUID COLLECTION. 3. FAT-CONTAINING VENTRAL ABDOMINAL WALL HERNIA WITH SURROUNDING SOFT TISSUE STRANDING WHICH COULD BE SECONDARY TO INFECTION AND INFLAMMATION OR FAT NECROSIS. 4. PERIRENAL STRANDING COULD BE SEEN WITH CHRONIC RENAL DISEASE. NO RENAL COLLECTING SYSTEM DILATATIO N OR CALCULI SEEN. 5. MILD COMPRESSION FRACTURE DEFORMITY OF L4 OF UNKNOWN CHRONICITY. Dr. Funk called Dr. Dorothy Stauffer with above critical findings at 2:40pm. Communication acknowledged .
[2021-05-27] MEDS ORDERED: NALOXONE 0.4 MG/ML 1 ML VIAL IV PRN (15:38)
[2021-05-27] MEDS ORDERED: ONDANSETRON 4 MG/2 ML VIAL IVP PRN (15:38)
[2021-05-27] MEDS ORDERED: MORPHINE SULFATE 2 MG/ML SYRINGE IVP ONE (15:39)
--- NOTE | 2021-05-27 16:12 | P.GSHP ---
History of Present Illness H&P Date: 05/27/21 Chief Complaint: Pneumoperitoneum 85-year-old female says she was doing well up until . She started experiencing some constipation quickly followed by diarrhea. Says she tried a fleets enema early . No success with that. Says she was straining somewhat. She then began experiencing some diarrhea. Has been having vague lower abdominal pain since then. Came to the ER because she was concerned about the possibility of an infectious diarrhea. Says she had some salad from a bag lettuce and was worried about that being contaminated. Denies fever. Fairly normal appetite. No history of similar events in the past. She does have a history of C. diff and 2016. Last colonoscopy 6-7 years ago. Some nausea. 2 small episodes of bilious emesis. Normal CBC today. Vital signs are stable. CAT scan was performed which shows fluid-filled:. There is diverticulosis and a small amount of pericolonic stranding. There are 2-3 small subcentimeter sized pockets of air in the pelvis that appear to be extraluminal. Abdominal wall hernia also noted. - Review of Systems Comment: The patient denies any acute changes in vision or hearing, no dysphagia or odynophagia, no chest pain or shortness of breath, no dysuria or hematuria, no headache, no runny nose, no rectal bleeding or melena, no unexplained weight los s Past Medical History Past Medical History: CVA/TIA, GERD/Reflux, Hypertension Additional Past Medical History / Comment(s): past back pain, c-diff 2016, rt side brain anuerysm (TIA) History of Any Multi-Drug Resistant Organisms: C-DIFF Date of last positivie culture/infection: 2005 MDRO Source:: stool Past Surgical History: Cholecystectomy, Hysterectomy, Tonsillectomy Additional Past Surgical History / Comment(s): colonoscopy, eye sx(tear ducts) brain surgery aneursym repair Past Anesthesia/Blood Transfusion Reactions: Motion Sickness Additional Past Anesthesia/Blood Transfusion Reaction / Comment(s): claustrophobia Past Psychological History: No Psychological Hx Reported Smoking Status: Never smoker Past Alcohol Use History: Occasional Past Drug Use History: None Reported - Past Family History Father Family Medical History: Hypertension Additional Family Medical History / Comment(s): Father at the age of 63 yrs. He was an alcoholic and a smoker. Mother Family Medical History: Hypertension Additional Family Medical History / Comment(s): Mother at the age of 88yrs. Medications and Allergies Home Medications Medication Instructions Recorded Confirmed Type Aspirin 81 mg PO DAILY 07/11/20 05/27/21 History atenoloL [Tenormin] 12.5 mg PO HS 07/11/20 05/27/21 History Nystatin 100,000 Unit/gm Powd 1 applic TOPICAL BID PRN 12/03/20 05/27/21 History [Mycostatin Powder] Losartan Potassium [Cozaar] 50 mg PO HS 05/27/21 05/27/21 History Stop-Pain 1 applic TOPICAL DAILY PRN 05/27/21 05/27/21 History Allergies Allergy/AdvReac Type Severity Reaction Status Date / Time benzalkonium chloride Allergy Unknown Verified 05/27/21 15:12 [From Bactine (with alcohol)] codeine Allergy Unknown Verified 05/27/21 15:12 lidocaine Allergy Unknown Verified 05/27/21 15:12 [From Bactine (with alcohol)] metronidazole [From Flagyl] Allergy Unknown Verified 05/27/21 15:12 sulfamethoxazole Allergy Unknown Verified 05/27/21 15:12 [From Bactrim] trimethoprim [From Bactrim] Allergy Unknown Verified 05/27/21 15:12 amlodipine AdvReac Nausea & Verified 05/27/21 15:12 Vomiting cephalexin [From Keflex] AdvReac Nausea & Verified 05/27/21 15:12 Vomiting chlorthalidone AdvReac Nausea & Verified 05/27/21 15:12 Vomiting Iodinated Contrast Media AdvReac Nausea & Verified 05/27/21 15:12 Vomiting levofloxacin [From Levaquin] AdvReac Nausea & Verified 05/27/21 15:12 Vomiting lisinopril AdvReac Nausea & Verified 05/27/21 15:12 Vomiting Surgical - Exam Vital Signs Temp Pulse Resp BP Pulse Ox 98.7 F 66 16 167/75 97 05/27/21 12:04 05/27/21 12:04 05/27/21 12:04 05/27/21 12:04 05/27/21 12:04 Physical exam: General: Well-developed, well-nourished, sitting comfortably in a wheelchair HEENT: Normocephalic, sclerae nonicteric Abdomen: Mild lower abdominal tenderness, nondistended Extremities: No edema Neuro: Alert and oriented Results - Labs 05/27/21 12:52 05/27/21 12:52 Abnormal Lab Results - Last 24 Hours (Table) 05/27/21 05/27/21 Range/Units 12:52 12:52 Sodium 125 L (137-145) mmol/L Chloride 90 L (98-107) mmol/L Glucose 112 H (74-99) mg/dL Urine Protein Trace H (Negative) Urine Ketones 1+ H (Negative) Ur Leukocyte Esterase Trace H (Negative) Urine Mucus Rare H (None) /hpf Diabetes panel 05/27/21 Range/Units 12:52 Sodium 125 L (137-145) mmol/L Potassium 3.6 (3.5-5.1) mmol/L Chloride 90 L (98-107) mmol/L Carbon Dioxide 24 (22-30) mmol/L BUN 12 (7-17) mg/dL Creatinine 0.73 (0.52-1.04) mg/dL Glucose 112 H (74-99) mg/dL Calcium 9.0 (8.4-10.2) mg/dL AST 20 (14-36) U/L ALT 12 (4-34) U/L Alkaline Phosphatase 60 (38-126) U/L Total Protein 6.6 (6.3-8.2) g/dL Albumin 3.8 (3.5-5.0) g/dL Calcium panel 05/27/21 Range/Units 12:52 Calcium 9.0 (8.4-10.2) mg/dL Albumin 3.8 (3.5-5.0) g/dL Pituitary panel 05/27/21 Range/Units 12:52 Sodium 125 L (137-145) mmol/L Potassium 3.6 (3.5-5.1) mmol/L Chloride 90 L (98-107) mmol/L Carbon Dioxide 24 (22-30) mmol/L BUN 12 (7-17) mg/dL Creatinine 0.73 (0.52-1.04) mg/dL Glucose 112 H (74-99) mg/dL Calcium 9.0 (8.4-10.2) mg/dL Adrenal panel 05/27/21 Range/Units 12:52 Sodium 125 L (137-145) mmol/L Potassium 3.6 (3.5-5.1) mmol/L Chloride 90 L (98-107) mmol/L Carbon Dioxide 24 (22-30) mmol/L BUN 12 (7-17) mg/dL Creatinine 0.73 (0.52-1.04) mg/dL Glucose 112 H (74-99) mg/dL Calcium 9.0 (8.4-10.2) mg/dL Total Bilirubin 0.8 (0.2-1.3) mg/dL AST 20 (14-36) U/L ALT 12 (4-34) U/L Alkaline Phosphatase 60 (38-126) U/L Total Protein 6.6 (6.3-8.2) g/dL Albumin 3.8 (3.5-5.0) g/dL Assessment and Plan (1) Pneumoperitoneum Narrative/Plan: 85-year-old female identified as having small volume pneumoperitoneum on today's CAT scan. Suspect sigmoid diverticulitis as the etiology. Continue bowel rest and broad-spectrum antibiotics. No need for surgery currently. Discussed clinical scenario in detail with the patient. Repeat labs tomorrow morning. Current Visit: Yes Status: Acute Code(s): K66.8 - OTHER SPECIFIED DISORDERS OF PERITONEUM SNOMED Code(s): 80981429
[2021-05-27] MEDS: SODIUM CHLORIDE 0.9% 1,000 ML IV SCH (17:10)
[2021-05-27] MEDS: PIPERACILLIN-TAZOBACTAM 3.375 GM in SODIUM CHLORIDE 0.9% 100 ML IVPB SCH (17:11)
[2021-05-27] MEDS: MORPHINE SULFATE 4 MG/ML SYRINGE IV PRN (20:26)
[2021-05-28] MEDS: PIPERACILLIN-TAZOBACTAM 3.375 GM in SODIUM CHLORIDE 0.9% 100 ML IVPB SCH ×4 (00:05→23:51)
[2021-05-28] MEDS: MORPHINE SULFATE 4 MG/ML SYRINGE IV PRN (00:10)
[2021-05-28 06:49] LABS: Basophils % (A) 0 %; Eosinophils % (A) 0 %; HCT 35.8 % (34.0-46.0); HGB 11.4 gm/dL (11.4-16.0); Lymphocytes # (A) 1.8 k/uL (1.0-4.8); Lymphocytes % (A) 19 %; MCHC 31.8 g/dL (31.0-37.0); MCV 94.5 fL (80.0-100.0); Mean Platelet Volume 7.3; Monocytes # (A) 0.8 k/uL (0-1.0); Monocytes % (A) 8 %; Neutrophils # (A) 6.7 k/uL (1.3-7.7); Neutrophils % (A) 70 %; Platelet Count 269 k/uL (150-450); RBC 3.79 m/uL (3.80-5.40); RDW 12.9 % (11.5-15.5); WBC 9.6 k/uL (3.8-10.6)
[2021-05-28] MEDS: SODIUM CHLORIDE 0.9% 1,000 ML IV SCH ×2 (08:21→19:21)
[2021-05-28] MEDS ORDERED: NYSTATIN 100,000 UNIT/GM POWD 15 GM TOPICAL PRN (08:26)
[2021-05-28] MEDS ORDERED: KETOROLAC 30 MG/ML 1 ML VIAL IVP PRN (09:03)
[2021-05-28] MEDS ORDERED: ACETAMINOPHEN IV (For NPO) 1,000 MG in EMPTY BAG 1 BAG IVPB PRN (09:04)
--- NOTE | 2021-05-28 09:12 | P.CONS ---
History of Present Illness - Reason for Consult Diverticulitis - History of Present Illness 85-year-old female with moderate bilateral lower quadrant abdominal pain crampy in nature patient has been having the constipation followed by diarrhea. Patient is found to have diverticulitis. 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 Patient also had nausea and vomiting. Patient was started on Zosyn. Patient abdominal pain improved today but complaining of jitteriness secondary to Zosyn. Patient apparently had the necklace tendon rupture because of Cipro in the past when she took it for diverticulitis and it's documented as ALLERGY to metronidazole which I believe he is mostly side effects rather than ALLERGY. Patient was admitted to general surgery because of work 2-3 small subcentimeter size IN the pericolonic area REVIEW OF SYSTEMS: CONSTITUTIONAL: No fever, no malaise, no fatigue. HEENT: No recent visual problems or hearing problems. Denied any sore throat. CARDIOVASCULAR: No chest pain, orthopnea, PND, no palpitations, no syncope. PULMONARY: No shortness of breath, no cough, no hemoptysis. GASTROINTESTINAL: as in HPI NEUROLOGICAL: No headaches, no weakness, no numbness. HEMATOLOGICAL: Denies any bleeding or petechiae. GENITOURINARY: Denies any burning micturition, frequency, or urgency. MUSCULOSKELETAL/RHEUMATOLOGICAL: Denies any joint pain, swelling, or any muscle pain. ENDOCRINE: Denies any polyuria or polydipsia. The rest of the 14-point review of systems is negative. PHYSICAL EXAMINATION: GENERAL: The patient is alert and oriented x3, not in any acute distress. Obese HEENT: Pupils are round and equally reacting to light. EOMI. No scleral icterus. No conjunctival pallor. Normocephalic, atraumatic. No pharyngeal erythema. No thyromegaly. CARDIOVASCULAR: S1 and S2 present. No murmurs, rubs, or gallops. PULMONARY: Chest is clear to auscultation, no wheezing or crackles. ABDOMEN: Tender, tympanic nontender, nondistended, normoactive bowel sounds. No palpable organomegaly. MUSCULOSKELETAL: No joint swelling or deformity. EXTREMITIES: No cyanosis, clubbing, or pedal edema. NEUROLOGICAL: Gross neurological examination did not reveal any focal deficits. SKIN: No rashes. Assessment and plan 1 acute diverticulitis: Possibly an infectious to Zosyn which will be continued in spite of her side effects as there is no other choice. Patient is presently nothing by mouth probably can have clear liquid diet will use a IV acetaminophen and the IV tramadol for pain and patient is having side effects from morphine. -Hypertension patient was started on her home medications of blood pressures highly elevated patient was on atenolol and the lisinopril which will be resumed. -Gastroesophageal reflux disease -CVA/TIA in the past DVT prophylaxis:lovenox Past Medical History Past Medical History: CVA/TIA, GERD/Reflux, Hypertension Additional Past Medical History / Comment(s): past back pain, c-diff 2016, rt side brain anuerysm (TIA) History of Any Multi-Drug Resistant Organisms: C-DIFF Year Discovered:: 2005 MDRO Source:: stool Past Surgical History: Cholecystectomy, Hysterectomy, Tonsillectomy Additional Past Surgical History / Comment(s): colonoscopy, eye sx(tear ducts) brain surgery aneursym repair Past Anesthesia/Blood Transfusion Reactions: Motion Sickness Additional Past Anesthesia/Blood Transfusion Reaction / Comm: claustrophobia Past Psychological History: No Psychological Hx Reported Smoking Status: Never smoker Past Alcohol Use History: Occasional Past Drug Use History: None Reported - Past Family History Father Family Medical History: Hypertension Additional Family Medical History / Comment(s): Father at the age of 63 yrs. He was an alcoholic and a smoker. Mother Family Medical History: Hypertension Additional Family Medical History / Comment(s): Mother at the age of 88yrs. Medications and Allergies Home Medications Medication Instructions Recorded Confirmed Type Aspirin 81 mg PO DAILY 07/11/20 05/27/21 History atenoloL [Tenormin] 12.5 mg PO HS 07/11/20 05/27/21 History Nystatin 100,000 Unit/gm Powd 1 applic TOPICAL BID PRN 12/03/20 05/27/21 History [Mycostatin Powder] Losartan Potassium [Cozaar] 50 mg PO HS 05/27/21 05/27/21 History Stop-Pain 1 applic TOPICAL DAILY PRN 05/27/21 05/27/21 History Allergies Allergy/AdvReac Type Severity Reaction Status Date / Time benzalkonium chloride Allergy Unknown Verified 05/27/21 15:12 [From Bactine (with alcohol)] codeine Allergy Unknown Verified 05/27/21 15:12 lidocaine Allergy Unknown Verified 05/27/21 15:12 [From Bactine (with alcohol)] metronidazole [From Flagyl] Allergy Unknown Verified 05/27/21 15:12 sulfamethoxazole Allergy Unknown Verified 05/27/21 15:12 [From Bactrim] trimethoprim [From Bactrim] Allergy Unknown Verified 05/27/21 15:12 amlodipine AdvReac Nausea & Verified 05/27/21 15:12 Vomiting cephalexin [From Keflex] AdvReac Nausea & Verified 05/27/21 15:12 Vomiting chlorthalidone AdvReac Nausea & Verified 05/27/21 15:12 Vomiting Iodinated Contrast Media AdvReac Nausea & Verified 05/27/21 15:12 Vomiting levofloxacin [From Levaquin] AdvReac Nausea & Verified 05/27/21 15:12 Vomiting lisinopril AdvReac Nausea & Verified 05/27/21 15:12 Vomiting Physical Exam Vitals: Vital Signs Temp Pulse Pulse Resp BP BP Pulse Ox 05/28/21 04:17 97.5 F L 59 L 16 170/76 97 05/28/21 00:47 155/69 05/27/21 20:00 98.5 F 62 16 175/75 97 05/27/21 17:03 62 20 179/74 98 05/27/21 12:04 98.7 F 66 16 167/75 97 Intake and Output 05/27/21 05/28/21 05/28/21 22:59 06:59 14:59 Intake Total 1000 Balance 1000 Intake: Intake, IV Titration 1000 Amount Piperacillin-Tazobactam 3 100 .375 gm In Sodium Chloride 0.9% 100 ml @ 25 mls/hr IVPB Q8HR [facility] Rx# :[id number] Sodium Chloride 0.9% 1, 900 000 ml @ 75 mls/hr IV . [id number] [facility] Rx#:[id number] Other: # Voids 3 # Bowel Movements 0 Weight 81.647 kg Results CBC & Chem 7: 05/28/21 06:22 05/27/21 12:52 Labs: Abnormal Lab Results - Last 24 Hours (Table) 05/27/21 05/27/21 05/28/21 Range/Units 12:52 12:52 06:22 RBC 3.79 L (3.80-5.40) m/uL Sodium 125 L (137-145) mmol/L Chloride 90 L (98-107) mmol/L Glucose 112 H (74-99) mg/dL Urine Protein Trace H (Negative) Urine Ketones 1+ H (Negative) Ur Leukocyte Esterase Trace H (Negative) Urine Mucus Rare H (None) /hpf
[2021-05-28 09:49] LABS: African American GFR (CKD) 92.2 (60.0-200.0); Anion Gap 10.9 mmol/L (10.00-18.00); BUN/Creat Ratio 16.57 Ratio (12.00-20.00); Blood Urea Nitrogen 11.6 mg/dL (9.0-27.0); Calcium 8.2 mg/dL (8.7-10.3); Carbon Dioxide 23.1 mmol/L (20.0-27.5); Non-African American GFR(CKD) 79.6 (60.0-200.0); Potassium 3.9 mmol/L (3.5-5.5)
[2021-05-28] MEDS: PANTOPRAZOLE 40 MG/10 ML VIAL IVP SCH (10:11)
[2021-05-28] MEDS: ASPIRIN 81 MG PO SCH (10:11)
[2021-05-28] MEDS: ENOXAPARIN 40 MG/0.4 ML SYRINGE SQ SCH (10:11)
--- NOTE | 2021-05-28 11:06 | P.PN ---
Subjective Progress Note Date: 05/28/21 Principal diagnosis: Pneumoperitoneum Patient feels well today. Says her pain is improved. She is hungry. Patient is afebrile. White blood cell count 9.6. Objective - Vital Signs Vital signs: Vital Signs Temp 97.5 F L 05/28/21 04:17 Pulse 59 L 05/28/21 04:17 Resp 16 05/28/21 04:17 BP 170/76 05/28/21 04:17 Pulse Ox 97 05/28/21 04:17 Intake & Output 05/27/21 05/28/21 05/28/21 18:59 06:59 18:59 Intake Total 1000 Balance 1000 Weight 81.647 kg 81.647 kg Intake: Intake, IV Titration 1000 Amount Piperacillin-Tazobactam 3 100 .375 gm In Sodium Chloride 0.9% 100 ml @ 25 mls/hr IVPB Q8HR [facility] Rx# :[id number] Sodium Chloride 0.9% 1, 900 000 ml @ 75 mls/hr IV . [id number] [facility] Rx#:[id number] Other: # Voids 3 # Bowel Movements 0 - Exam Abdomen: Soft, nondistended, mild lower abdominal tenderness, no rebound or guarding - Labs CBC & Chem 7: 05/28/21 06:22 05/28/21 06:22 Labs: Abnormal Lab Results - Last 24 Hours (Table) 05/27/21 05/27/21 05/28/21 Range/Units 12:52 12:52 06:22 RBC 3.79 L (3.80-5.40) m/uL Sodium 125 L (137-145) mmol/L Chloride 90 L (98-107) mmol/L Glucose 112 H (74-99) mg/dL Calcium (8.7-10.3) mg/dL Urine Protein Trace H (Negative) Urine Ketones 1+ H (Negative) Ur Leukocyte Esterase Trace H (Negative) Urine Mucus Rare H (None) /hpf 05/28/21 Range/Units 06:22 RBC (3.80-5.40) m/uL Sodium 131 L (137-145) mmol/L Chloride (98-107) mmol/L Glucose (74-99) mg/dL Calcium 8.2 L (8.7-10.3) mg/dL Urine Protein (Negative) Urine Ketones (Negative) Ur Leukocyte Esterase (Negative) Urine Mucus (None) /hpf Assessment and Plan (1) Pneumoperitoneum Narrative/Plan: Patient seems to be doing better. Continue antibiotics. Begin clear liquid diet. Ambulate. Current Visit: Yes Status: Acute Code(s): K66.8 - OTHER SPECIFIED DISORDERS OF PERITONEUM SNOMED Code(s): 22271672
[2021-05-28] MEDS: atenoloL 25 MG TAB PO SCH (19:22)
[2021-05-28] MEDS: LOSARTAN 50 MG TAB PO SCH (19:24)
[2021-05-29 06:12] LABS: Basophils % (A) 0 %; Eosinophils # (A) 0.1 k/uL (0-0.7); Eosinophils % (A) 1 %; HCT 35.2 % (34.0-46.0); HGB 11.5 gm/dL (11.4-16.0); Lymphocytes # (A) 1.4 k/uL (1.0-4.8); Lymphocytes % (A) 15 %; MCHC 32.7 g/dL (31.0-37.0); MCV 94.7 fL (80.0-100.0); Mean Platelet Volume 7.1; Monocytes # (A) 0.8 k/uL (0-1.0); Monocytes % (A) 8 %; Neutrophils # (A) 6.7 k/uL (1.3-7.7); Neutrophils % (A) 73 %; Platelet Count 253 k/uL (150-450); RBC 3.71 m/uL (3.80-5.40); RDW 12.9 % (11.5-15.5); WBC 9.1 k/uL (3.8-10.6)
[2021-05-29] MEDS: PANTOPRAZOLE 40 MG/10 ML VIAL IVP SCH (08:03)
[2021-05-29] MEDS: ASPIRIN 81 MG PO SCH (08:03)
[2021-05-29] MEDS: PIPERACILLIN-TAZOBACTAM 3.375 GM in SODIUM CHLORIDE 0.9% 100 ML IVPB SCH ×2 (08:04→15:41)
[2021-05-29] MEDS: ENOXAPARIN 40 MG/0.4 ML SYRINGE SQ SCH (08:05)
[2021-05-29 11:27] LABS: African American GFR (CKD) 68.1 (60.0-200.0); Anion Gap 10.4 mmol/L (10.00-18.00); BUN/Creat Ratio 9.56 Ratio (12.00-20.00); Blood Urea Nitrogen 8.6 mg/dL (9.0-27.0); Calcium 8.3 mg/dL (8.7-10.3); Carbon Dioxide 23.6 mmol/L (20.0-27.5); Non-African American GFR(CKD) 58.7 (60.0-200.0); Potassium 3.6 mmol/L (3.5-5.5)
[2021-05-29] MEDS: MAG HYDROX/AL HYDROX/SIMETH 30 ML CUP PO PRN ×3 (11:54→21:32)
[2021-05-29] MEDS: SODIUM CHLORIDE 0.9% 1,000 ML IV SCH ×2 (12:09→21:25)
--- NOTE | 2021-05-29 12:11 | P.PN ---
Subjective 85-year-old female with moderate bilateral lower quadrant abdominal pain crampy in nature patient has been having the constipation followed by diarrhea. Patient is found to have diverticulitis. 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 Patient also had nausea and vomiting. Patient was started on Zosyn. Patient abdominal pain improved today but complaining of jitteriness secondary to Zosyn. Patient apparently had the necklace tendon rup ture because of Cipro in the past when she took it for diverticulitis and it's documented as ALLERGY to metronidazole which I believe he is mostly side effects rather than ALLERGY. Patient was admitted to general surgery because of work 2- 3 small subcentimeter size IN the pericolonic area Visit05/29/2021 Patient is tolerating the liquid diet well presently doesn't have any tenderness patient did have a bowel movement wanting to go home. Patient is presently on Zosyn. Patient did have some possible microabscesses in the abdomen. Constitutional: Denied any fatigue denied any fever. Cardio vascular: denied any chest pain, palpitations Gastrointestinal denied any nausea vomiting Pulmonary: Denied any shortness of breath cough Neurologic denied any new focal deficits All inpatient medications were reviewed and appropriate changes in these medications as dictated in the interval history and assessment and plan. PHYSICAL EXAMINATION: GENERAL: The patient is alert and oriented x3, not in any acute distress. Obese HEENT: Pupils are round and equally reacting to light. EOMI. No scleral icterus. No conjunctival pallor. Normocephalic, atraumatic. No pharyngeal erythema. No thyromegaly. CARDIOVASCULAR: S1 and S2 present. No murmurs, rubs, or gallops. PULMONARY: Chest is clear to auscultation, no wheezing or crackles. ABDOMEN: Tender, tympanic nontender, nondistended, normoactive bowel sounds. No palpable organomegaly. MUSCULOSKELETAL: No joint swelling or deformity. EXTREMITIES: No cyanosis, clubbing, or pedal edema. NEUROLOGICAL: Gross neurological examination did not rOon eveal any focal deficits. SKIN: No rashes. Assessment and plan 1 acute diverticulitis: Possibly an infectious to Zosyn which will be continued in spite of her side effects as there is no other choice. Patient is presently on clear liquid diet will use a IV acetaminophen and the IV tramadol for pain and patient is having side effects from morphine. -Hypertension can you with the same home regimen without any changes -Gastroesophageal reflux disease -CVA/TIA in the past DVT prophylaxis:lovenox Objective - Vital Signs Vital signs: Vital Signs Temp 98.3 F 05/29/21 04:45 Pulse 57 L 05/29/21 04:45 Resp 20 05/29/21 04:45 BP 149/71 05/29/21 04:45 Pulse Ox 97 05/29/21 04:45 Intake & Output 05/28/21 05/29/21 05/29/21 18:59 06:59 18:59 Intake Total 1100 200 Balance 1100 200 Intake: Intake, IV Titration 1100 Amount Piperacillin-Tazobactam 3 200 .375 gm In Sodium Chloride 0.9% 100 ml @ 25 mls/hr IVPB Q8HR [facility] Rx# :[id number] Sodium Chloride 0.9% 1, 900 000 ml @ 75 mls/hr IV . [id number] [facility] Rx#:[id number] Oral 200 Other: # Voids 3 # Bowel Movements 0 - Labs CBC & Chem 7: 05/29/21 05:47 05/29/21 05:47 Labs: Abnormal Lab Results - Last 24 Hours (Table) 05/29/21 05/29/21 Range/Units 05:47 05:47 RBC 3.71 L (3.80-5.40) m/uL Sodium 131 L (135-145) mmol/L BUN 8.6 L (9.0-27.0) mg/dL Est GFR (CKD-EPI)NonAf 58.7 L (60.0-200.0) BUN/Creatinine Ratio 9.56 L (12.00-20.00) Ratio Calcium 8.3 L (8.7-10.3) mg/dL
[2021-05-29] MEDS: atenoloL 25 MG TAB PO SCH (21:23)
[2021-05-29] MEDS: LOSARTAN 50 MG TAB PO SCH (21:24)
[2021-05-29] MEDS: MORPHINE SULFATE 4 MG/ML SYRINGE IV PRN (21:26)
[2021-05-30] MEDS: PIPERACILLIN-TAZOBACTAM 3.375 GM in SODIUM CHLORIDE 0.9% 100 ML IVPB SCH ×3 (01:04→17:10)
[2021-05-30] MEDS: ACETAMINOPHEN TAB 325 MG TAB PO PRN ×2 (01:33→19:36)
--- NOTE | 2021-05-30 08:17 | P.PN ---
Subjective Progress Note Date: 05/29/21 CHIEF COMPLAINT: Diverticulitis HISTORY OF PRESENT ILLNESS: The patient is a 85-year-old female admitted for perforated diverticulitis. She reports diarrhea. She reports abdominal pain is unchanged from yesterday. She is eager to go home. ROS: No fevers or chills. No new chest pain. No productive sputum. She is hypertensive systolic blood pressure over 190s. PHYSICAL EXAM: VITAL SIGNS: Reviewed CONSTITUTIONAL: Well developed and in no acute distress. EYES: Conjuctivae without sclera icterus. Extraocular movements grossly intact. HEAD, EARS, NOSE, THROAT: Moist buccal mucosa. Head is atraumatic, normocephalic. Hears conversational speech. No nasal drainage. RESPIRATORY: Non-labored respirations and equal bilateral excursions. CARDIOVASCULAR: Palpable 2+ radial pulses. ABDOMEN: No diffuse peritonitis. MUSCULOSKELETAL: No gross deformity of the lower extremities noted. No c lubbing. No cyanosis. SKIN: Good skin turgor. Well perfused. NEUROLOGIC: Cranial nerves II through XII grossly intact. No focal or lateralizing signs. PSYCH: Appropriate affect. Alert and oriented to person, place and time. CLINICAL LABS: Reviewed. WBC normal 9.1. STUDIES: CT of the abdomen and pelvis and appendix reviewed demonstrating sigmoid thickening without free air or localized abscess. This is my independent interpretation. ASSESSMENT: 1. Sigmoid diverticulitis. 2. Hypertensive heart disease. PLAN: 1. Discharge pending resolution of diarrhea including improved abdominal pain. 2. Low fiber diet pending improved abdominal pain Objective - Vital Signs Vital signs: Vital Signs Temp 98.7 F 05/29/21 11:48 Pulse 66 05/29/21 11:48 Resp 18 05/29/21 11:48 BP 197/81 05/29/21 11:48 Pulse Ox 98 05/29/21 11:48 Intake & Output 05/29/21 05/29/21 05/30/21 06:59 18:59 06:59 Intake Total 200 850 Balance 200 850 Intake: Intake, IV Titration 850 Amount Piperacillin-Tazobactam 3 100 .375 gm In Sodium Chloride 0.9% 100 ml @ 25 mls/hr IVPB Q8HR [facility] Rx# :[id number] Sodium Chloride 0.9% 1, 750 000 ml @ 75 mls/hr IV . [id number] [facility] Rx#:[id number] Oral 200 Other: # Voids 3 # Bowel Movements 0 1 - Labs CBC & Chem 7: 05/29/21 05:47 05/29/21 05:47 Labs: Abnormal Lab Results - Last 24 Hours (Table) 05/29/21 05/29/21 Range/Units 05:47 05:47 RBC 3.71 L (3.80-5.40) m/uL Sodium 131 L (135-145) mmol/L BUN 8.6 L (9.0-27.0) mg/dL Est GFR (CKD-EPI)NonAf 58.7 L (60.0-200.0) BUN/Creatinine Ratio 9.56 L (12.00-20.00) Ratio Calcium 8.3 L (8.7-10.3) mg/dL
[2021-05-30] MEDS: ASPIRIN 81 MG PO SCH (09:08)
[2021-05-30] MEDS: ENOXAPARIN 40 MG/0.4 ML SYRINGE SQ SCH (09:08)
[2021-05-30] MEDS: PANTOPRAZOLE 40 MG/10 ML VIAL IVP SCH (09:08)
[2021-05-30] MEDS: SODIUM CHLORIDE 0.9% 1,000 ML IV SCH (11:08)
[2021-05-30] MEDS: atenoloL 25 MG TAB PO SCH (19:36)
[2021-05-30] MEDS: MAG HYDROX/AL HYDROX/SIMETH 30 ML CUP PO PRN (19:37)
[2021-05-30] MEDS: LOSARTAN 50 MG TAB PO SCH (19:37)
[2021-05-30 20:48] VITALS: RESP 18
[2021-05-31] MEDS: ACETAMINOPHEN TAB 325 MG TAB PO PRN (03:04)
[2021-05-31] MEDS: PIPERACILLIN-TAZOBACTAM 3.375 GM in SODIUM CHLORIDE 0.9% 100 ML IVPB SCH ×2 (03:05→07:25)
[2021-05-31] MEDS: MAG HYDROX/AL HYDROX/SIMETH 30 ML CUP PO PRN (03:05)
[2021-05-31] MEDS: SODIUM CHLORIDE 0.9% 1,000 ML IV SCH ×2 (03:05→13:25)
[2021-05-31] MEDS: ASPIRIN 81 MG PO SCH (07:25)
[2021-05-31] MEDS: ENOXAPARIN 40 MG/0.4 ML SYRINGE SQ SCH (07:25)
[2021-05-31] MEDS ORDERED: PANTOPRAZOLE 40 MG TABLET PO SCH (07:30)
--- NOTE | 2021-05-31 09:07 | P.PN ---
Subjective Progress Note Date: 05/30/21 85-year-old female with moderate bilateral lower quadrant abdominal pain crampy in nature patient has been having the constipation followed by diarrhea. Patient is found to have diverticulitis. Patient had salad from 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 Patient also had nausea and vomiting. Patient was started on Zosyn. Patient abdominal pain improved today but complaining of jitteriness secondary to Zosyn. Patient apparently had the necklace tendon rupture because of Cipro in the past when she took it for diverticulitis and it's documented as ALLERGY to metronidazole which I believe he is mostly side effects rather than ALLERGY. Patient was admitted to general surgery because of work 2-3 small subcentimeter size IN the pericolonic area 05/29/2021 Patient is tolerating the liquid diet well presently doesn't have any tenderness patient did have a bowel movement wanting to go home. Patient is presently on Zosyn. Patient did have some possible microabscesses in the abdomen. 05/30/2021 Patient is seen and evaluated this morning tolerating diet and denies any abdominal pain. Patient is having hyperactive bowel sounds but no bowel movement as of yet and general surgery following recommending conservative management and monitoring closely of diarrhea and improvement. Patient may advance slowly to a low fiber diet if abdominal pain improves. She is also continued on gentle IV hydration and will continue. C. diff testing was negative. Constitutional: Denied any fatigue denied any fever. Cardio vascular: denied any chest pain, palpitations Gastrointestinal denied any nausea vomiting Pulmonary: Denied any shortness of breath cough Neurologic denied any new focal deficits All inpatient medications were reviewed and appropriate changes in these medications as dictated in the interval history and assessment and plan. Active Medications Acetaminophen (Acetaminophen Tab 325 Mg Tab) 325 mg PO Q6HR PRN PRN Reason: Fever and/ or Pain Last Admin: 05/31/21 03:04 Dose: 325 mg Documented by: Al Hydroxide/Mg Hydroxide (Mag Hydrox/Al Hydrox/Simeth 30 Ml Cup) 30 ml PO Q4HR PRN PRN Reason: GI Upset Last Admin: 05/31/21 03:05 Dose: 30 ml Documented by: Aspirin (Aspirin 81 Mg) 81 mg PO DAILY [facility] Last Admin: 05/31/21 07:25 Dose: 81 mg Documented by: Atenolol (Atenolol 25 Mg Tab) 12.5 mg PO [facility] Last Admin: 05/30/21 19:36 Dose: 12.5 mg Documented by: Enoxaparin Sodium (Enoxaparin 40 Mg/0.4 Ml Syringe) 40 mg SQ DAILY [facility] Last Admin: 05/31/21 07:25 Dose: Not Given Documented by: Piperacillin Sod/Tazobactam (Sod 3.375 gm/ Sodium Chloride) 100 mls @ 25 mls/hr IVPB Q8HR [facility] Last Admin: 05/31/21 07:25 Dose: 25 mls/hr Documented by: Sodium Chloride (Saline 0.9%) 1,000 mls @ 75 mls/hr IV .[id number] [facility] Last Admin: 05/31/21 03:05 Dose: Not Given Documented by: Ketorolac Tromethamine (Ketorolac 30 Mg/Ml 1 Ml Vial) 15 mg IVP Q6HR PRN PRN Reason: Pain Stop: 06/02/21 09:04 Last Admin: 05/29/21 16:34 Dose: 15 mg Documented by: Losartan Potassium (Losartan 50 Mg Tab) 50 mg PO [facility] Last Admin: 05/30/21 19:37 Dose: 50 mg Documented by: Morphine Sulfate (Morphine Sulfate 4 Mg/Ml Syringe) 4 mg IV Q4HR PRN PRN Reason: Severe Pain Last Admin: 05/29/21 21:26 Dose: 4 mg Documented by: Naloxone HCl (Naloxone 0.4 Mg/Ml 1 Ml Vial) 0.2 mg IV Q2M PRN PRN Reason: Opioid Reversal Nystatin (Nystatin 100,000 Unit/Gm Powd 15 Gm) 1 applic TOPICAL BID PRN; Protocol PRN Reason: Skin Irritation Ondansetron HCl (Ondansetron 4 Mg/2 Ml Vial) 4 mg IVP Q8HR PRN PRN Reason: Nausea And Vomiting Pantoprazole Sodium (Pantoprazole 40 Mg Tablet) 40 mg PO AC-BRKFST [facility] Last Admin: 05/31/21 07:24 Dose: 40 mg Documented by: PHYSICAL EXAMINATION: GENERAL: The patient is alert and oriented x3, not in any acute distress. Obese HEENT: Pupils are round and equally reacting to light. EOMI. No scleral icterus. No conjunctival pallor. Normocephalic, atraumatic. No pharyngeal erythema. No thyromegaly. CARDIOVASCULAR: S1 and S2 present. No murmurs, rubs, or gallops. PULMONARY: Chest is clear to auscultation, no wheezing or crackles. ABDOMEN: Tender, tympanic nontender, nondistended, normoactive bowel sounds. No palpable organomegaly. MUSCULOSKELETAL: No joint swelling or deformity. EXTREMITIES: No cyanosis, clubbing, or pedal edema. NEUROLOGICAL: Gross neurological examination did not rOon eveal any focal deficits. SKIN: No rashes. Assessment and plan: -acute diverticulitis: Possibly infectious she is continued on IV Zosyn which will be continued in spite of her side effects as there is no other choice. Patient is presently on clear liquid diet and tolerating and asking for an increase in diet and per surgery will increase to low fiber if abdominal pain is improved and continue with conservative management -Hypertension -Gastroesophageal reflux disease -CVA/TIA in the past -DVT prophylaxis:lovenox Plan: Continue with IV hydration and clear liquids and slowly advance to low fiber as tolerated with improvement in abdominal pain. Patient has not had a bowel movement as of yet although does have hyperactive bowel sounds and states is passing gas. Patient is requesting to go home. Will discuss with general surgery about discharge planning. Possible discharge in 24-48 hours. Objective - Vital Signs Vital signs: Vital Signs Temp 98.2 F 05/30/21 05:00 Pulse 57 L 05/30/21 05:00 Resp 18 05/30/21 05:00 BP 156/72 05/30/21 05:00 Pulse Ox 96 05/30/21 05:00 Intake & Output 05/29/21 05/30/21 05/30/21 18:59 06:59 18:59 Intake Total 850 600 Balance 850 600 Intake: Intake, IV Titration 850 600 Amount Piperacillin-Tazobactam 3 100 .375 gm In Sodium Chloride 0.9% 100 ml @ 25 mls/hr IVPB Q8HR [facility] Rx# :[id number] Sodium Chloride 0.9% 1, 750 600 000 ml @ 75 mls/hr IV . [id number] [facility] Rx#:[id number] Other: # Bowel Movements 1 - Labs CBC & Chem 7: 05/29/21 05:47 05/29/21 05:47 Labs: Abnormal Lab Results - Last 24 Hours (Table) 05/29/21 Range/Units 05:47 Sodium 131 L (135-145) mmol/L BUN 8.6 L (9.0-27.0) mg/dL Est GFR (CKD-EPI)NonAf 58.7 L (60.0-200.0) BUN/Creatinine Ratio 9.56 L (12.00-20.00) Ratio Calcium 8.3 L (8.7-10.3) mg/dL
[2021-05-31 11:30] VITALS: BP 155/73; PULSE 61; TEMP 97.9
--- NOTE | 2021-05-31 12:21 | P.PN ---
Progress Note - Text Progress Note Date: 05/30/21 Patient feels better. She is requesting 40. On exam vital signs are stable. Abdomen soft. Resolving diverticulitis. Patient will have her diet advanced. We dysphagia discharge home tomorrow.
--- NOTE | 2021-05-31 12:23 | P.PN ---
Progress Note - Text Progress Note Date: 05/31/21 Patient remained stable. She denies a significant PAIN. She wishes to go home. On exam vital signs are stable. Abdomen soft. Resolving diverticulitis. Patient was discharged home.
--- NOTE | 2021-06-02 00:19 | P.PN ---
Subjective Progress Note Date: 05/31/21 85-year-old female with moderate bilateral lower quadrant abdominal pain crampy in nature patient has been having the constipation followed by diarrhea. Patient is found to have diverticulitis. 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 Patient also had nausea and vomiting. Patient was started on Zosyn. Patient abdominal pain improved today but complaining of jitteriness secondary to Zosyn. Patient apparently had the necklace tendon rupture because of Cipro in the past when she took it for diverticulitis and it's documented as ALLERGY to metronidazole which I believe he is mostly side effects rather than ALLERGY. Patient was admitted to general surgery because of work 2-3 small subcentimeter size IN the pericolonic area 05/29/2021 Patient is tolerating the liquid diet well presently doesn't have any tenderness patient did have a bowel movement wanting to go home. Patient is presently on Zosyn. Patient did have some possible microabscesses in the abdomen. 05/30/2021 Patient is seen and evaluated this morning tolerating diet and denies any abdominal pain. Patient is having hyperactive bowel sounds but no bowel movement as of yet and general surgery following recommending conservative management and monitoring closely of diarrhea and improvement. Patient may advance slowly to a low fiber diet if abdominal pain improves. She is also continued on gentle IV hydration and will continue. C. diff testing was negative. 05/31/2021 Patient is evaluated in follow up today currently sitting up in the chair with no acute overnight issues. Patient states abdominal pain is improved and continued on IV antibiotics. General surgery plans on discharging today. continues with some small amounts of diarrhea but much improved. Patient to follow up with Dr. Glover on discharge. at the bedside. Constitutional: Denied any fatigue denied any fever. Cardio vascular: denied any chest pain, palpitations Gastrointestinal denied any nausea vomiting Pulmonary: Denied any shortness of breath cough Neurologic denied any new focal deficits All inpatient medications were reviewed and appropriate changes in these medications as dictated in the interval history and assessment and plan. Active Medications Acetaminophen (Acetaminophen Tab 325 Mg Tab) 325 mg PO Q6HR PRN PRN Reason: Fever and/ or Pain Last Admin: 05/31/21 03:04 Dose: 325 mg Documented by: Al Hydroxide/Mg Hydroxide (Mag Hydrox/Al Hydrox/Simeth 30 Ml Cup) 30 ml PO Q4HR PRN PRN Reason: GI Upset Last Admin: 05/31/21 03:05 Dose: 30 ml Documented by: Aspirin (Aspirin 81 Mg) 81 mg PO DAILY [facility] Last Admin: 05/31/21 07:25 Dose: 81 mg Documented by: Atenolol (Atenolol 25 Mg Tab) 12.5 mg PO [facility] Last Admin: 05/30/21 19:36 Dose: 12.5 mg Documented by: Enoxaparin Sodium (Enoxaparin 40 Mg/0.4 Ml Syringe) 40 mg SQ DAILY [facility] Last Admin: 05/31/21 07:25 Dose: Not Given Documented by: Piperacillin Sod/Tazobactam (Sod 3.375 gm/ Sodium Chloride) 100 mls @ 25 mls/hr IVPB Q8HR [facility] Last Admin: 05/31/21 07:25 Dose: 25 mls/hr Documented by: Sodium Chloride (Saline 0.9%) 1,000 mls @ 75 mls/hr IV .[id number] [facility] Last Admin: 05/31/21 03:05 Dose: Not Given Documented by: Ketorolac Tromethamine (Ketorolac 30 Mg/Ml 1 Ml Vial) 15 mg IVP Q6HR PRN PRN Reason: Pain Stop: 06/02/21 09:04 Last Admin: 05/29/21 16:34 Dose: 15 mg Documented by: Losartan Potassium (Losartan 50 Mg Tab) 50 mg PO [facility] Last Admin: 05/30/21 19:37 Dose: 50 mg Documented by: Morphine Sulfate (Morphine Sulfate 4 Mg/Ml Syringe) 4 mg IV Q4HR PRN PRN Reason: Severe Pain Last Admin: 05/29/21 21:26 Dose: 4 mg Documented by: Naloxone HCl (Naloxone 0.4 Mg/Ml 1 Ml Vial) 0.2 mg IV Q2M PRN PRN Reason: Opioid Reversal Nystatin (Nystatin 100,000 Unit/Gm Powd 15 Gm) 1 applic TOPICAL BID PRN; Protocol PRN Reason: Skin Irritation Ondansetron HCl (Ondansetron 4 Mg/2 Ml Vial) 4 mg IVP Q8HR PRN PRN Reason: Nausea And Vomiting Pantoprazole Sodium (Pantoprazole 40 Mg Tablet) 40 mg PO AC-BRKFST [facility] Last Admin: 05/31/21 07:24 Dose: 40 mg Documented by: PHYSICAL EXAMINATION: GENERAL: The patient is alert and oriented x3, not in any acute distress. Obese HEENT: Pupils are round and equally reacting to light. EOMI. No scleral icterus. No conjunctival pallor. Normocephalic, atraumatic. No pharyngeal erythema. No thyromegaly. CARDIOVASCULAR: S1 and S2 present. No murmurs, rubs, or gallops. PULMONARY: Chest is clear to auscultation, no wheezing or crackles. ABDOMEN: Tender, nontender, nondistended, normoactive bowel sounds. No palpable organomegaly. MUSCULOSKELETAL: No joint swelling or deformity. EXTREMITIES: No cyanosis, clubbing, or pedal edema. NEUROLOGICAL: Gross neurological examination did not rOon eveal any focal deficits. SKIN: No rashes. Assessment and plan: -acute diverticulitis: Possibly infectious she is continued on IV Zosyn and w ill transition to a short course of oral levaquin on discharge, continue low fiber diet -Hypertension -Gastroesophageal reflux disease -CVA/TIA in the past -DVT prophylaxis:lovenox Plan: Continue with IV hydration and slowly advance to low fiber as tolerated with improvement in abdominal pain. Patient had one episode of loose stool this morning. Patient states she is going home today and at the bedside. Encouraged the patient to continue with current diet at home and slowly advance per surgery recommendations. Recommend follow up with DR. Glover on discharge. Will continue to follow with surgery during hospitalization. Thank you for this consultation. Objective - Vital Signs Vital signs: Vital Signs Temp 97.7 F 05/31/21 05:00 Pulse 64 05/31/21 05:00 Resp 18 05/31/21 05:00 BP 178/74 05/31/21 05:00 Pulse Ox 97 05/31/21 05:00 Intake & Output 05/30/21 05/31/21 05/31/21 18:59 06:59 18:59 Intake Total 780 600 Balance 780 600 Intake: Intake, IV Titration 600 Amount Sodium Chloride 0.9% 1, 600 000 ml @ 75 mls/hr IV . [id number] [facility] Rx#:[id number] Oral 780 Other: Voiding Method Toilet Toilet # Voids 3 - Labs CBC & Chem 7: 05/29/21 05:47 05/29/21 05:47
== END 2021-05-31 14:40 | disposition home or self-care (01) | DRG 392 ==
LOC: EC 11:11 → 5NMEDONC 15:38
PROVIDERS: ADMIT Surgery; ATTEND Surgery
DX: K57.92 Diverticulitis of intestine, part unspecified, without perforation or abscess without bleeding (principal); E87.1 Hypo-osmolality and hyponatremia; K59.39 Other megacolon; F40.240 Claustrophobia; K21.9 Gastro-esophageal reflux disease without esophagitis; K43.9 Ventral hernia without obstruction or gangrene; K52.9 Noninfective gastroenteritis and colitis, unspecified; K59.00 Constipation, unspecified; I11.9 Hypertensive heart disease without heart failure; Z20.822 Contact with and (suspected) exposure to COVID-19; Z79.82 Long term (current) use of aspirin; R13.10 Dysphagia, unspecified; Z82.49 Family history of ischemic heart disease and other diseases of the circulatory system; Z86.73 Personal history of transient ischemic attack (TIA), and cerebral infarction without residual deficits; Z90.710 Acquired absence of both cervix and uterus; Z88.5 Allergy status to narcotic agent; Z88.1 Allergy status to other antibiotic agents; Z88.8 Allergy status to other drugs, medicaments and biological substances
CPT/HCPCS: 36415; 74176; 80048; 80053; 81001; 83690; 85025; 87324; 87635; 96361; 96374; 99285

== ENCOUNTER 2021-06-24 20:02 | Inpatient (IN) | payer MEDICARE, BC ==
[2021-06-24] MEDS ORDERED: SODIUM CHLORIDE 0.9% 500 ML 500 ML IV ONE (20:15)
[2021-06-24] MEDS ORDERED: ONDANSETRON 4 MG/2 ML VIAL IVP STA (20:29)
--- NOTE | 2021-06-24 20:33 | ED ---
General Adult HPI - General Chief complaint: Syncope Stated complaint: Fall out of bed, syncope Time Seen by Provider: 06/24/21 20:10 Source: EMS, RN notes reviewed Mode of arrival: EMS Limitations: physical limitation - History of Present Illness Initial comments: This is a pleasant 85-year-old female who arrives via EMS. Patient has a history of CVA, hypertension, diverticulitis, GERD. Patient fell out of bed. Patient was also unconscious for an unknown amount of time. Patient was in and out of consciousness per her . Patient arrived by EMS. Patient's complaint to me is nausea. She is denying any pain. Patient able to give a limited history and is alert and oriented 1. Patient denying any chest pain. No vision or hearing disturbance. No headache. No neck pain. No spinal pain. No orthopedic pain. No focal weakness. No abdominal pain. - Related Data Home Medications Medication Instructions Recorded Confirmed Aspirin 81 mg PO DAILY 07/11/20 06/24/21 atenoloL [Tenormin] 12.5 mg PO HS 07/11/20 06/24/21 Nystatin 100,000 Unit/gm Powd 1 applic TOPICAL BID PRN 12/03/20 06/24/21 [Mycostatin Powder] Losartan Potassium [Cozaar] 50 mg PO HS 05/27/21 06/24/21 Stop-Pain 1 applic TOPICAL DAILY PRN 05/27/21 06/24/21 Previous Rx's Medication Instructions Recorded Acetaminophen Tab [Tylenol] 325 mg PO Q6HR PRN tab 05/31/21 Pantoprazole [Protonix] 40 mg PO AC-BRKFST 30 Days #30 tab 05/31/21 Allergies Allergy/AdvReac Type Severity Reaction Status Date / Time aluminum Allergy Unknown Verified 06/24/21 22:23 benzalkonium chloride Allergy Unknown Verified 06/24/21 22:23 [From Bactine (with alcohol)] codeine Allergy Unknown Verified 06/24/21 22:23 lidocaine Allergy Unknown Verified 06/24/21 22:23 [From Bactine (with alcohol)] metronidazole [From Flagyl] Allergy Unknown Verified 06/24/21 22:23 sulfamethoxazole Allergy Unknown Verified 06/24/21 22:23 [From Bactrim] trimethoprim [From Bactrim] Allergy Unknown Verified 06/24/21 22:23 amlodipine AdvReac Nausea & Verified 06/24/21 22:23 Vomiting cephalexin [From Keflex] AdvReac Nausea & Verified 06/24/21 22:23 Vomiting chlorthalidone AdvReac Nausea & Verified 06/24/21 22:23 Vomiting Iodinated Contrast Media AdvReac Nausea & Verified 06/24/21 22:23 Vomiting levofloxacin [From Levaquin] AdvReac Nausea & Verified 06/24/21 22:23 Vomiting lisinopril AdvReac Nausea & Verified 06/24/21 22:23 Vomiting Review of Systems ROS Statement: Those systems with pertinent positive or pertinent negative responses have been documented in the HPI. ROS Other: All systems not noted in ROS Statement are negative. Past Medical History Past Medical History: CVA/TIA, GERD/Reflux, Hypertension Additional Past Medical History / Comment(s): past back pain, c-diff 2015, rt side brain anuerysm (TIA); small perforation in bowels History of Any Multi-Drug Resistant Organisms: C-DIFF Date of last positivie culture/infection: 2005 MDRO Source:: stool Past Surgical History: Cholecystectomy, Hysterectomy, Tonsillectomy Additional Past Surgical History / Comment(s): colonoscopy, eye sx(tear ducts) brain surgery aneursym repair with coil 07/01/20 Past Anesthesia/Blood Transfusion Reactions: Motion Sickness Additional Past Anesthesia/Blood Transfusion Reaction / Comment(s): claustrophobia Past Psychological History: No Psychological Hx Reported Smoking Status: Never smoker Past Alcohol Use History: Occasional Past Drug Use History: None Reported - Past Family History Father Family Medical History: Hypertension Additional Family Medical History / Comment(s): Father at the age of 63 yrs. He was an alcoholic and a smoker. Mother Family Medical History: Hypertension Additional Family Medical History / Comment(s): Mother at the age of 88yrs. General Exam - General Exam Comments Initial Comments: Patient minimal distress. Does not appear to be ill or toxic. Mildly pale appearance. Cranial nerves II through XII are intact. No focal neurologic deficits. Patient is alert and oriented 1. Patient found to be hypertensive. Remainder of vital signs are stable. Limitations: physical limitation General appearance: alert, in no apparent distress Head exam: Present: atraumatic, normocephalic, normal inspection Eye exam: Present: normal appearance, PERRL, EOMI. Absent: scleral icterus, conjunctival injection, periorbital swelling ENT exam: Present: normal oropharynx, mucous membranes moist, other (Superficial left-sided tongue laceration noted, less than 1 cm). Absent: mucous membranes dry Neck exam: Present: normal inspection. Absent: tenderness, meningismus, lymphadenopathy Respiratory exam: Present: normal lung sounds bilaterally. Absent: respiratory distress, wheezes, rales, rhonchi, stridor Cardiovascular Exam: Present: regular rate, normal rhythm, normal heart sounds. Absent: systolic murmur, diastolic murmur, rubs, gallop, clicks GI/Abdominal exam: Present: soft, normal bowel sounds. Absent: distended, tenderness, guarding, rebound, rigid Extremities exam: Present: normal inspection, full ROM, normal capillary refill. Absent: tenderness, pedal edema, joint swelling, calf tenderness Back exam: Present: normal inspection Neurological exam: Present: alert, CN II-XII intact Expanded Patient oriented to: Present: person. Absent: place, time (Patient does know that it is June, states she cannot remember the year or the president) Speech: Present: fluid speech Cerebellar function: Finger to Nose: Normal, Heel to Ahn: Normal Motor strength exam: RUE: 5, LUE: 5, RLE: 5, LLE: 5 Eye Response: (4) open spontaneously Motor Response: (6) obeys commands Verbal Response: (5) oriented Toney Total: 15 Psychiatric exam: Present: normal affect, normal mood Skin exam: Present: warm, dry, intact, normal color. Absent: rash Course Vital Signs 06/24/21 06/24/21 20:18 22:25 Temperature 97.8 F Pulse Rate 85 74 Respiratory 20 16 Rate Blood Pressure 182/86 200/94 O2 Sat by Pulse 96 96 Oximetry - Reevaluation(s) Reevaluation #1: 06/24/21 22:59 Medical record is reviewed Patient more lucid, denies chest pain, essentially unchanged otherwise, still complaining of nausea. Hypertensive with a systolic blood pressure of 200. 10 mg labetalol ordered. Patient is informed of results and questions answered Patient in no distress Consultation for admission placed. Medical Decision Making - Medical Decision Making Patient presents after having a syncopal episode and falling out of bed. Unsure whether the patient fell out of bed first then had syncope or possibly struck her head and was knocked unconscious. There is no history of seizure-like activity on the patient appears to have a tiny laceration to the left side of her tongue. No other injuries noted. The case was discussed in detail with ED attending physician. Presentation, findings, treatment plan discussed in detail. Supervising physician Dr. Rothman Case discussed with Dr. Perez, patient will be admitted to [facility] with consultation for cardiology and neurology - Lab Data Result diagrams: 06/24/21 20:34 06/24/21 20:34 Lab Results 06/24/21 06/24/21 06/24/21 Range/Units 20:34 20:34 20:34 WBC 14.6 H (3.8-10.6) k/uL RBC 4.21 (3.80-5.40) m/uL Hgb 12.7 (11.4-16.0) gm/dL Hct 38.9 (34.0-46.0) % MCV 92.5 (80.0-100.0) fL MCH 30.1 (25.0-35.0) pg MCHC 32.5 (31.0-37.0) g/dL RDW 13.1 (11.5-15.5) % Plt Count 287 (150-450) k/uL MPV 7.1 Neutrophils % 82 % Lymphocytes % 11 % Monocytes % 5 % Eosinophils % 1 % Basophils % 0 % Neutrophils # 12.0 H (1.3-7.7) k/uL Lymphocytes # 1.7 (1.0-4.8) k/uL Monocytes # 0.7 (0-1.0) k/uL Eosinophils # 0.1 (0-0.7) k/uL Basophils # 0.0 (0-0.2) k/uL Sodium 131 L (137-145) mmol/L Potassium 3.3 L (3.5-5.1) mmol/L Chloride 99 (98-107) mmol/L Carbon Dioxide 21 L (22-30) mmol/L Anion Gap 11 mmol/L BUN 11 (7-17) mg/dL Creatinine 0.68 (0.52-1.04) mg/dL Est GFR (CKD-EPI)AfAm >90 (>60 ml/min/1.73 sqM) Est GFR (CKD-EPI)NonAf 81 (>60 ml/min/1.73 sqM) Glucose 167 H (74-99) mg/dL Plasma Lactic Acid Ryan (0.7-2.0) mmol/L Calcium 8.9 (8.4-10.2) mg/dL Magnesium 1.2 L (1.6-2.3) mg/dL Total Bilirubin 0.7 (0.2-1.3) mg/dL AST 24 (14-36) U/L ALT 14 (4-34) U/L Alkaline Phosphatase 45 (38-126) U/L Troponin I 0.017 (0.000-0.034) ng/mL NT-Pro-B Natriuret Pep pg/mL Total Protein 6.1 L (6.3-8.2) g/dL Albumin 3.6 (3.5-5.0) g/dL Urine Color Urine Appearance (Clear) Urine pH (5.0-8.0) Ur Specific [place] (1.001-1.035) Urine Protein (Negative) Urine Glucose (UA) (Negative) Urine Ketones (Negative) Urine Blood (Negative) Urine Nitrite (Negative) Urine Bilirubin (Negative) Urine Urobilinogen (<2.0) mg/dL Ur Leukocyte Esterase (Negative) Coronavirus (PCR) (Not Detectd) 06/24/21 06/24/21 06/24/21 Range/Units 20:34 20:35 20:50 WBC (3.8-10.6) k/uL RBC (3.80-5.40) m/uL Hgb (11.4-16.0) gm/dL Hct (34.0-46.0) % MCV (80.0-100.0) fL MCH (25.0-35.0) pg MCHC (31.0-37.0) g/dL RDW (11.5-15.5) % Plt Count (150-450) k/uL MPV Neutrophils % % Lymphocytes % % Monocytes % % Eosinophils % % Basophils % % Neutrophils # (1.3-7.7) k/uL Lymphocytes # (1.0-4.8) k/uL Monocytes # (0-1.0) k/uL Eosinophils # (0-0.7) k/uL Basophils # (0-0.2) k/uL Sodium (137-145) mmol/L Potassium (3.5-5.1) mmol/L Chloride (98-107) mmol/L Carbon Dioxide (22-30) mmol/L Anion Gap mmol/L BUN (7-17) mg/dL Creatinine (0.52-1.04) mg/dL Est GFR (CKD-EPI)AfAm (>60 ml/min/1.73 sqM) Est GFR (CKD-EPI)NonAf (>60 ml/min/1.73 sqM) Glucose (74-99) mg/dL Plasma Lactic Acid Ryan 1.7 (0.7-2.0) mmol/L Calcium (8.4-10.2) mg/dL Magnesium (1.6-2.3) mg/dL Total Bilirubin (0.2-1.3) mg/dL AST (14-36) U/L ALT (4-34) U/L Alkaline Phosphatase (38-126) U/L Troponin I (0.000-0.034) ng/mL NT-Pro-B Natriuret Pep 2110 pg/mL Total Protein (6.3-8.2) g/dL Albumin (3.5-5.0) g/dL Urine Color Urine Appearance (Clear) Urine pH (5.0-8.0) Ur Specific [place] (1.001-1.035) Urine Protein (Negative) Urine Glucose (UA) (Negative) Urine Ketones (Negative) Urine Blood (Negative) Urine Nitrite (Negative) Urine Bilirubin (Negative) Urine Urobilinogen (<2.0) mg/dL Ur Leukocyte Esterase (Negative) Coronavirus (PCR) Not Detected (Not Detectd) 06/24/21 Range/Units 22:15 WBC (3.8-10.6) k/uL RBC (3.80-5.40) m/uL Hgb (11.4-16.0) gm/dL Hct (34.0-46.0) % MCV (80.0-100.0) fL MCH (25.0-35.0) pg MCHC (31.0-37.0) g/dL RDW (11.5-15.5) % Plt Count (150-450) k/uL MPV Neutrophils % % Lymphocytes % % Monocytes % % Eosinophils % % Basophils % % Neutrophils # (1.3-7.7) k/uL Lymphocytes # (1.0-4.8) k/uL Monocytes # (0-1.0) k/uL Eosinophils # (0-0.7) k/uL Basophils # (0-0.2) k/uL Sodium (137-145) mmol/L Potassium (3.5-5.1) mmol/L Chloride (98-107) mmol/L Carbon Dioxide (22-30) mmol/L Anion Gap mmol/L BUN (7-17) mg/dL Creatinine (0.52-1.04) mg/dL Est GFR (CKD-EPI)AfAm (>60 ml/min/1.73 sqM) Est GFR (CKD-EPI)NonAf (>60 ml/min/1.73 sqM) Glucose (74-99) mg/dL Plasma Lactic Acid Ryan (0.7-2.0) mmol/L Calcium (8.4-10.2) mg/dL Magnesium (1.6-2.3) mg/dL Total Bilirubin (0.2-1.3) mg/dL AST (14-36) U/L ALT (4-34) U/L Alkaline Phosphatase (38-126) U/L Troponin I (0.000-0.034) ng/mL NT-Pro-B Natriuret Pep pg/mL Total Protein (6.3-8.2) g/dL Albumin (3.5-5.0) g/dL Urine Color Light Yellow Urine Appearance Clear (Clear) Urine pH 5.5 (5.0-8.0) Ur Specific [place] 1.014 (1.001-1.035) Urine Protein Trace H (Negative) Urine Glucose (UA) Negative (Negative) Urine Ketones 1+ H (Negative) Urine Blood Negative (Negative) Urine Nitrite Negative (Negative) Urine Bilirubin Negative (Negative) Urine Urobilinogen <2.0 (<2.0) mg/dL Ur Leukocyte Esterase Negative (Negative) Coronavirus (PCR) (Not Detectd) - Radiology Data Radiology results: report reviewed, image reviewed Disposition Clinical Impression: Syncope, Hypomagnesemia, Hypokalemia, Poor hypertension control Disposition: ADMITTED IP TO THIS [facility] Condition: Fair Referrals: None,Stated [Primary Care Provider] - 1-2 days
[2021-06-24 20:40] LABS: Basophils % (A) 0 %; Eosinophils # (A) 0.1 k/uL (0-0.7); Eosinophils % (A) 1 %; HCT 38.9 % (34.0-46.0); HGB 12.7 gm/dL (11.4-16.0); Lymphocytes # (A) 1.7 k/uL (1.0-4.8); Lymphocytes % (A) 11 %; MCH 30.1 pg (25.0-35.0); MCHC 32.5 g/dL (31.0-37.0); MCV 92.5 fL (80.0-100.0); Mean Platelet Volume 7.1; Monocytes # (A) 0.7 k/uL (0-1.0); Monocytes % (A) 5 %; Neutrophils % (A) 82 %; Platelet Count 287 k/uL (150-450); RBC 4.21 m/uL (3.80-5.40); RDW 13.1 % (11.5-15.5); WBC 14.6 k/uL (3.8-10.6)
[2021-06-24 20:50] LABS: ALT 14 U/L (4-34); AST 24 U/L (14-36); African American GFR (CKD) >90 (>60 ml/min/1.73 sqM); Albumin 3.6 g/dL (3.5-5.0); Alkaline Phosphatase 45 U/L (38-126); Anion Gap 11 mmol/L; Blood Urea Nitrogen 11 mg/dL (7-17); Calcium 8.9 mg/dL (8.4-10.2); Carbon Dioxide 21 mmol/L (22-30); Chloride 99 mmol/L (98-107); Glucose 167 mg/dL (74-99); Magnesium 1.2 mg/dL (1.6-2.3); Non-African American GFR(CKD) 81 (>60 ml/min/1.73 sqM); Potassium 3.3 mmol/L (3.5-5.1); Sodium 131 mmol/L (137-145); Total Bilirubin 0.7 mg/dL (0.2-1.3); Total Protein 6.1 g/dL (6.3-8.2)
--- NOTE | 2021-06-24 21:00 | XR ---
EXAMINATION TYPE: XR chest 1V portable DATE OF EXAM: 06/24/2021 COMPARISON: 06/16/2021 HISTORY: Chest pain TECHNIQUE: FINDINGS: Heart is enlarged. There is no gross heart failure. Lungs are clear of consolidation. There are no hilar masses. The bony thorax is intact. There is minimal pleural reaction lateral left lung base. IMPRESSION: No active cardiopulmonary disease. No adverse change.
[2021-06-24] MEDS ORDERED: POTASSIUM CHLORIDE ER 20 MEQ TAB.ER PO STA (21:44)
--- NOTE | 2021-06-24 21:54 | CT ---
EXAMINATION TYPE: CT brain tessaine wo con DATE OF EXAM: 06/24/2021 COMPARISON: CT brain 07/11/2020 HISTORY: fall, head injury CT DLP: 1397.8 mGycm Automated exposure control for dose reduction was used. There is cerebral cortical atrophy. There is 5 x 4 cm area of hypodensity right temporal lobe related to old infarct. There is no mass effect or midline shift. There is no sign of intracranial hemorrhag e there is normal aeration of the mastoid sinuses. The cervical vertebra have normal alignment. Posterior elements are intact. Disc spaces are fairly no rmal. There is no compression fracture. Prevertebral soft tissues are intact. IMPRESSION: There is old right temporal lobe infarct in the right middle cerebral artery distribution. Infarct is a change compared to old exam. No acute intracranial abnormality. Minor degenerative changes in the cervical spine. No fracture.
[2021-06-24] MEDS ORDERED: Magnesium Replacement Protocol 1 EACH MISC MISCELLANE PRN (22:04)
[2021-06-24] MEDS: MAGNESIUM SULFATE-D5W PMX 1 GM in DEXTROSE/WATER 1 100ML.BAG IVPB SCH ×2 (22:24→22:53)
[2021-06-24 22:27] LABS: Appearance,Urine Clear (Clear); Bilirubin,Urine Negative (Negative); Blood,Urine Negative (Negative); Color,Urine Light Yellow; Glucose,Urine (UA) Negative (Negative); Ketones,Urine 1+ (Negative); Leukocyte Esterase,Urine Negative (Negative); Nitrite,Urine Negative (Negative); PH, Urine 5.5 (5.0-8.0); Protein,Urine Trace (Negative); Specific Gravity,Urine 1.014 (1.001-1.035); Urobilinogen,Urine <2.0 mg/dL (<2.0)
[2021-06-24] MEDS ORDERED: LABETALOL 5 MG/ML VIAL MDV IVP STA (22:59)
[2021-06-24] MEDS ORDERED: NALOXONE 0.4 MG/ML 1 ML VIAL IV PRN (23:02)
[2021-06-24] MEDS ORDERED: ACETAMINOPHEN TAB 325 MG TAB PO PRN (23:02)
[2021-06-24] MEDS: SODIUM CHLORIDE 0.9% 1,000 ML IV SCH (23:26)
[2021-06-25] MEDS: MAGNESIUM SULFATE-D5W PMX 1 GM in DEXTROSE/WATER 1 100ML.BAG IVPB SCH (00:02)
[2021-06-25] MEDS: SODIUM CHLORIDE 0.9% 1,000 ML IV SCH (00:36)
[2021-06-25] MEDS: ONDANSETRON 4 MG/2 ML VIAL IVP PRN (05:15)
[2021-06-25 08:20] LABS: Basophils % (A) 0 %; Eosinophils % (A) 0 %; HCT 35.1 % (34.0-46.0); HGB 11.8 gm/dL (11.4-16.0); Lymphocytes # (A) 1.4 k/uL (1.0-4.8); Lymphocytes % (A) 17 %; MCHC 33.6 g/dL (31.0-37.0); MCV 92.2 fL (80.0-100.0); Mean Platelet Volume 7.3; Monocytes # (A) 0.8 k/uL (0-1.0); Monocytes % (A) 10 %; Neutrophils # (A) 5.8 k/uL (1.3-7.7); Neutrophils % (A) 71 %; Platelet Count 263 k/uL (150-450); WBC 8.1 k/uL (3.8-10.6)
[2021-06-25 08:35] LABS: ALT 19 U/L (4-34); AST 30 U/L (14-36); African American GFR (CKD) >90 (>60 ml/min/1.73 sqM); Albumin 3.3 g/dL (3.5-5.0); Alkaline Phosphatase 47 U/L (38-126); Anion Gap 8 mmol/L; Blood Urea Nitrogen 11 mg/dL (7-17); Calcium 8.4 mg/dL (8.4-10.2); Carbon Dioxide 25 mmol/L (22-30); Chloride 98 mmol/L (98-107); Glucose 125 mg/dL (74-99); Magnesium 2.1 mg/dL (1.6-2.3); Non-African American GFR(CKD) 81 (>60 ml/min/1.73 sqM); Potassium 3.3 mmol/L (3.5-5.1); Sodium 131 mmol/L (137-145); Total Bilirubin 0.9 mg/dL (0.2-1.3); Total Protein 5.9 g/dL (6.3-8.2)
[2021-06-25] MEDS: LOSARTAN 50 MG TAB PO SCH (08:38)
[2021-06-25] MEDS ORDERED: ACETAMINOPHEN TAB 325 MG TAB PO PRN (09:49)
[2021-06-25] MEDS ORDERED: NYSTATIN 100,000 UNIT/GM POWD 15 GM TOPICAL PRN (09:49)
[2021-06-25] MEDS ORDERED: POTASSIUM CHLORIDE ER 20 MEQ TAB.ER PO STA (09:50)
--- NOTE | 2021-06-25 10:47 | XR ---
2 view abdomen HISTORY: Nausea and vomiting 2 views the abdomen on 3 images, correlation to prior exam 06/17/2021, CT 06/15/2021 There are overlying artifacts. Calcifications are present within the pelvis similar to prior exam. Th ere is a calcification superimposed over the rectum as noted on CT. No evident pneumoperitoneum. Dist ended bowel loop is noted along the left hemiabdomen thought to represent: Surgical clips are present right upper quadrant, superimposed over the right lower quadrant. Air-fluid levels are present. Ther e is a spinal curvature, degenerative disc change in the visualized spine IMPRESSION: Correlate for colitis, enteritis, bowel obstruction not excluded. Additional findings abo ve.
--- NOTE | 2021-06-25 11:57 | P.CNNES ---
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 Some of the history is obtained from medical record. Per the ED note the patient was unconscious for unknown amount of time. Per nurse, patient would have some fluctuation in mentation but currently is doing better. Patient stated she has diarrhea for the past 4weeks and has been complaining of hypersensitivity to smell for past 2-4 weeks. I called the patient's via phone but no response. I spoke with the patient son's via phone and he stated that her father her a noise and found half way in laying half out of bed, gurgling in mouth and not responding. No mention of shaking that father notified him but he is not sure of entire story. She had aneurysm s/p coil in 06/2020 at [facility]. She is independent and uses a walker. She does not have a focal deficit. She notified her family she had stroke that was old since her aneurysm but son does not know. She does not have history of seizures. Per son, in last two weeks she has been hypersensitive to smell. Patient is on ASA 81mg daily. Of note, I personally saw the patient on June 2020 and regarding her right MCA aneurysm I requested the patient to be transferred for surgical evaluation in which she had. Some other workup in the hospital consisted of: Initial Vitals: Blood pressure 182/86, pulse is 85, RR 20, temp 97.8F oral, pulse oxygen 96% at room. CT of the head is reported as old right temporal infarct in the right middle cerebral artery distribution. Infarct is a change compared to old exam. No acute intracranial abnormality. I personally reviewed image and agree with the findings. I feel the patient had coiling of the right MCA in my opinion upon reviewing it appeared CT of cervical spine was reported as minor degenerative changes in the cervical spine. No fracture. Initial wbc is 14.6 and repeat is 8.1 Otherwise rest of cbc with diff is unremarkable. Sodium is 131, potassium 3.3, creatinine is 0.68, magnesium is 1.2, troponin is 0.055, 0.059. Plasma like acid is 1.7. Calcium is 8.9, AST is 24 and ALT is 14. Urinalysis is negative for urinary tract infection. Whitney virus PCR is nondetected. Review of Systems Review of system is limited but pertinent positive and negative as per HPI. Past Medical History Past Medical History: CVA/TIA, GERD/Reflux, Hypertension Additional Past Medical History / Comment(s): past back pain, c-diff 2016, rt side brain anuerysm (TIA); small perforation in bowels History of Any Multi-Drug Resistant Organisms: C-DIFF Date of last positivie culture/infection: 2005 MDRO Source:: stool Past Surgical History: Cholecystectomy, Hysterectomy, Tonsillectomy Additional Past Surgical History / Comment(s): colonoscopy, eye sx(tear ducts) brain surgery aneursym repair with coil 07/01/20 Past Anesthesia/Blood Transfusion Reactions: Motion Sickness Additional Past Anesthesia/Blood Transfusion Reaction / Comment(s): eddie strophobia Past Psychological History: No Psychological Hx Reported Additional Psychological History / Comment(s): Pt resides with her spouse. She is independent. uses a walker at home. Smoking Status: Never smoker Past Alcohol Use History: None Reported Past Drug Use History: None Reported - Past Family History Father Family Medical History: Hypertension Additional Family Medical History / Comment(s): Father at the age of 63 yrs. He was an alcoholic and a smoker. Mother Family Medical History: Hypertension Additional Family Medical History / Comment(s): Mother at the age of 88yrs. Medications and Allergies Home Medications Medication Instructions Recorded Confirmed Type Aspirin 81 mg PO DAILY 07/11/20 06/24/21 History atenoloL [Tenormin] 12.5 mg PO HS 07/11/20 06/24/21 History Nystatin 100,000 Unit/gm Powd 1 applic TOPICAL BID PRN 12/03/20 06/24/21 History [Mycostatin Powder] Losartan Potassium [Cozaar] 50 mg PO HS 05/27/21 06/24/21 History Stop-Pain 1 applic TOPICAL DAILY PRN 05/27/21 06/24/21 History Acetaminophen Tab [Tylenol] 325 mg PO Q6HR PRN tab 05/31/21 06/24/21 Rx Pantoprazole [Protonix] 40 mg PO AC-BRKFST 30 Days #30 tab 05/31/21 06/24/21 Rx Allergies Allergy/AdvReac Type Severity Reaction Status Date / Time aluminum Allergy Unknown Verified 06/24/21 22:23 benzalkonium chloride Allergy Unknown Verified 06/24/21 22:23 [From Bactine (with alcohol)] codeine Allergy Unknown Verified 06/24/21 22:23 lidocaine Allergy Unknown Verified 06/24/21 22:23 [From Bactine (with alcohol)] metronidazole [From Flagyl] Allergy Unknown Verified 06/24/21 22:23 sulfamethoxazole Allergy Unknown Verified 06/24/21 22:23 [From Bactrim] trimethoprim [From Bactrim] Allergy Unknown Verified 06/24/21 22:23 amlodipine AdvReac Nausea & Verified 06/24/21 22:23 Vomiting cephalexin [From Keflex] AdvReac Nausea & Verified 06/24/21 22:23 Vomiting chlorthalidone AdvReac Nausea & Verified 06/24/21 22:23 Vomiting Iodinated Contrast Media AdvReac Nausea & Verified 06/24/21 22:23 Vomiting levofloxacin [From Levaquin] AdvReac Nausea & Verified 06/24/21 22:23 Vomiting lisinopril AdvReac Nausea & Verified 06/24/21 22:23 Vomiting Physical Examination - Vital Signs Vital Signs: Vital Signs Temp Pulse Pulse Pulse Resp BP BP 06/25/21 08:42 78 164/62 06/25/21 04:49 98.6 F 71 16 161/69 06/25/21 02:15 20 184/83 06/25/21 01:15 98.1 F 73 18 166/70 06/24/21 23:51 69 16 139/66 06/24/21 22:25 74 16 200/94 06/24/21 20:18 97.8 F 85 20 182/86 Pulse Ox 06/25/21 08:42 06/25/21 04:49 94 L 06/25/21 02:15 98 06/25/21 01:15 96 06/24/21 23:51 92 L 06/24/21 22:25 96 06/24/21 20:18 96 Intake and Output 06/24/21 06/25/21 06/25/21 22:59 06:59 14:59 Intake Total 900 Balance 900 Intake: Intake, IV Titration 900 Amount Sodium Chloride 0.9% 1, 900 000 ml @ 75 mls/hr IV . [id number] [facility] Rx#:[id number] Other: Voiding Method Toilet Bedside Commode # Voids 3 Weight 81.647 kg 81.647 kg GENERAL: The patient is lying in bed and is not in acute distress. CHEST: The heart rate is regular rate rhythm. No murmurs to auscultation. LUNG: Clear to auscultation bilaterally no wheezing noted throughout. Not labored breathing. ABDOMEN/GI: Bowel sounds present in all 4 quadrants. No tenderness to palpation throughout. NEUROLOGICAL: Higher mental function: The patient is awake, alert, oriented to self, place and time. Patient is following commands. No aphasia and no neglect. Cranial nerves: The pupils are round, equal and reactive to light. Visual smith are full to confrontation throughout. Extraocular movement is intact no nystagmus is noted. Facial sensation is normal to touch throughout. The facial strength is normal throughout. Hearing is moderately decreased bilaterally to hand rub. Tongue is midline and moved [id number] without any difficulty There is tongue bite over the left lateral side (patient stated likely this happened yesterday). No dysarthria is noted. Shoulder shrug is normal bilaterally. Motor: Gait is deferred. The strength is 5 over 5 throughout uppers while lower are limited because of pain but is able to move above gravity without focality. Normal tone and bulk. Cerebellum: Normal finger to nose bilaterally. Sensation: Sensation is normal to touch throughout. Reflexes (right/left): 1+ throughout. Plantars are mute bilaterally. Results - Laboratory Findings CBC and BMP: 06/25/21 07:36 06/25/21 07:36 Abnormal Lab Findings: Abnormal Labs 06/24/21 06/24/21 06/24/21 20:34 20:34 22:15 WBC 14.6 H Neutrophils # 12.0 H Sodium 131 L Potassium 3.3 L Carbon Dioxide 21 L Glucose 167 H Magnesium 1.2 L Troponin I Total Protein 6.1 L Albumin Urine Protein Trace H Urine Ketones 1+ H 06/25/21 06/25/21 06/25/21 01:29 02:56 07:36 WBC Neutrophils # Sodium 131 L Potassium 3.3 L Carbon Dioxide Glucose 125 H Magnesium Troponin I 0.055 H* 0.059 H* Total Protein 5.9 L Albumin 3.3 L Urine Protein Urine Ketones 06/25/21 07:36 WBC Neutrophils # Sodium Potassium Carbon Dioxide Glucose Magnesium Troponin I 0.057 H* Total Protein Albumin Urine Protein Urine Ketones Assessment and Plan Assessment: * Episode of unconsciousness with gurgling of her mouth I believe this is new onset seizure especially with a history of right MCA stroke (patient has been complaint of hypersensitivity to smell in last two weeks which could have been aura). On exam she has tongue bite on left lateral. * Diarrhea for the past 4 weeks * Right MCA stroke (mostly temporal region) seems old but new since last image of of 07/2020 but is seen on 01/2021 CTA. * History of right MCA aneurysm about 10 mm status post coiling in 06/2020 * Hypertension and uncontrolled * Elevated troponin * Chronic vertigo * Chronic hyponatremia (mild and currently is 131) Plan: I ordered an urgent EEG. I started the patient on Vimpat 50mg bid PO. Did not start the patient on Kep pra because it can cause worsening of mood which per son has some mood. Every 4 hours neuro checks. Placed on seizure precautions and seizure pads Patient is on aspirin [address] the patient on Lipitor 10 mg daily at bedtime for secondary stroke prophylaxis Cardiology is on board On cardiac monitoring 2-D echo was ordered and is pending C. diff is ordered by the primary team is pending We'll defer the rest of the medical management to primary team The plan is discussed with the patient's son (Jason) via phone and her nurse. Thank you for the consultation. Dr. Joy will start neurology service tomorrow AM. Froilan Santos M.D. Neuro-Hospitalist Time with Patient: Greater than 30
--- NOTE | 2021-06-25 13:49 | P.HPIM ---
History of Present Illness Patient is pleasant 85-year-old female came in after she was found unresponsive and was confused. Patient had a recent hospitalization she was treated for diverticulitis at that time. Patient continues to have diarrhea multiple epi sodes a day. Patient denied any fever chills. Patient was also complained nausea without any vomiting. Patient was having abdominal pain presently doesn't have any such symptoms except for diarrhea patient does have leukocytosis. Patient is hyponatremic with serum sodium of 131 and hypomagnesemia mildly elevated troponin of 0.057 EKG did not show any acute ST-T wave changes. Neurology was consulted with concerns of seizure. Patient apparently has a tongue bite on the left side patient had a CT of the head which showed right MCA stroke which was old patient had aneurysmal coiling at [facility] in the past. REVIEW OF SYSTEMS: CONSTITUTIONAL: No fever, no malaise, no fatigue. HEENT: No recent visual problems or hearing problems. Denied any sore throat. CARDIOVASCULAR: No chest pain, orthopnea, PND, no palpitations. PULMONARY: No shortness of breath, no cough, no hemoptysis. GASTROINTESTINAL: No diarrhea, no nausea, no vomiting, no abdominal pain. NEUROLOGICAL: No headaches, no weakness, no numbness. HEMATOLOGICAL: Denies any bleeding or petechiae. GENITOURINARY: Denies any burning micturition, frequency, or urgency. MUSCULOSKELETAL/RHEUMATOLOGICAL: Denies any joint pain, swelling, or any muscle pain. ENDOCRINE: Denies any polyuria or polydipsia. The rest of the 14-point review of systems is negative. PHYSICAL EXAMINATION: GENERAL: The patient is alert and oriented x3, not in any acute distress. Well developed, well nourished. HEENT: Pupils are round and equally reacting to light. EOMI. No scleral icterus. No conjunctival pallor. Normocephalic, atraumatic. No pharyngeal erythema. No thyromegaly. CARDIOVASCULAR: S1 and S2 present. No murmurs, rubs, or gallops. PULMONARY: Chest is clear to auscultation, no wheezing or crackles. ABDOMEN: Soft, nontender, nondistended, normoactive bowel sounds. No palpable organomegaly. MUSCULOSKELETAL: No joint swelling or deformity. EXTREMITIES: No cyanosis, clubbing, or pedal edema. NEUROLOGICAL: Gross neurological examination did not reveal any focal deficits. SKIN: No rashes. Assessment and plan -Episode of unconsciousness: Patient will be worked up for syncope and seizures EEG is being obtain CT of the head as mentioned above neurology and cardiology is evaluating the patient echo is being obtained. -Hypervolemic hyponatremia secondary to diarrhea patient will be started on IV fluids -Diarrhea appears to be chronic at this point of time patient has diarrhea for about 4 weeks will need outpatient evaluation starting with colonoscopy will obtain C. diff if that's negative patient will be started on symptomatic treatment for diarrhea -Leukocytosis can be reactive secondary to above-mentioned reasons -Hypomagnesemia secondary to diarrhea will be placed -Hypokalemia again secondary to diarrhea and hypomagnesemia -Mildly elevated troponins: No evidence of acute type I myocardial infarction . -History of CVA in the past -Hypertension DVT prophylaxis: Lovenox Past Medical History Past Medical History: CVA/TIA, GERD/Reflux, Hypertension Additional Past Medical History / Comment(s): past back pain, c-diff 2015, rt side brain anuerysm (TIA); small perforation in bowels History of Any Multi-Drug Resistant Organisms: C-DIFF Date of last positivie culture/infection: 2005 MDRO Source:: stool Past Surgical History: Cholecystectomy, Hysterectomy, Tonsillectomy Additional Past Surgical History / Comment(s): colonoscopy, eye sx(tear ducts) brain surgery aneursym repair with coil 07/01/20 Past Anesthesia/Blood Transfusion Reactions: Motion Sickness Additional Past Anesthesia/Blood Transfusion Reaction / Comment(s): claustrophobia Past Psychological History: No Psychological Hx Reported Additional Psychological History / Comment(s): Pt resides with her spouse. She is independent. uses a walker at home. Smoking Status: Never smoker Past Alcohol Use History: None Reported Past Drug Use History: None Reported - Past Family History Father Family Medical History: Hypertension Additional Family Medical History / Comment(s): Father at the age of 63 yrs. He was an alcoholic and a smoker. Mother Family Medical History: Hypertension Additional Family Medical History / Comment(s): Mother at the age of 88yrs. Medications and Allergies Home Medications Medication Instructions Recorded Confirmed Type Aspirin 81 mg PO DAILY 07/11/20 06/24/21 History atenoloL [Tenormin] 12.5 mg PO HS 07/11/20 06/24/21 History Nystatin 100,000 Unit/gm Powd 1 applic TOPICAL BID PRN 12/03/20 06/24/21 History [Mycostatin Powder] Losartan Potassium [Cozaar] 50 mg PO HS 05/27/21 06/24/21 History Stop-Pain 1 applic TOPICAL DAILY PRN 05/27/21 06/24/21 History Acetaminophen Tab [Tylenol] 325 mg PO Q6HR PRN tab 05/31/21 06/24/21 Rx Pantoprazole [Protonix] 40 mg PO AC-BRKFST 30 Days #30 tab 05/31/21 06/24/21 Rx Allergies Allergy/AdvReac Type Severity Reaction Status Date / Time aluminum Allergy Unknown Verified 06/24/21 22:23 benzalkonium chloride Allergy Unknown Verified 06/24/21 22:23 [From Bactine (with alcohol)] codeine Allergy Unknown Verified 06/24/21 22:23 lidocaine Allergy Unknown Verified 06/24/21 22:23 [From Bactine (with alcohol)] metronidazole [From Flagyl] Allergy Unknown Verified 06/24/21 22:23 sulfamethoxazole Allergy Unknown Verified 06/24/21 22:23 [From Bactrim] trimethoprim [From Bactrim] Allergy Unknown Verified 06/24/21 22:23 amlodipine AdvReac Nausea & Verified 06/24/21 22:23 Vomiting cephalexin [From Keflex] AdvReac Nausea & Verified 06/24/21 22:23 Vomiting chlorthalidone AdvReac Nausea & Verified 06/24/21 22:23 Vomiting Iodinated Contrast Media AdvReac Nausea & Verified 06/24/21 22:23 Vomiting levofloxacin [From Levaquin] AdvReac Nausea & Verified 06/24/21 22:23 Vomiting lisinopril AdvReac Nausea & Verified 06/24/21 22:23 Vomiting Physical Exam Vitals: Vital Signs Temp Pulse Pulse Pulse Resp BP BP 06/25/21 13:24 97.8 F 78 17 161/64 06/25/21 08:42 78 164/62 06/25/21 08:35 78 73 16 06/25/21 04:49 98.6 F 71 16 161/69 06/25/21 02:15 20 184/83 06/25/21 01:15 98.1 F 73 18 166/70 06/24/21 23:51 69 16 139/66 06/24/21 22:25 74 16 200/94 06/24/21 20:18 97.8 F 85 20 182/86 Pulse Ox 06/25/21 13:24 96 06/25/21 08:42 06/25/21 08:35 06/25/21 04:49 94 L 06/25/21 02:15 98 06/25/21 01:15 96 06/24/21 23:51 92 L 06/24/21 22:25 96 06/24/21 20:18 96 Intake and Output 06/24/21 06/25/21 06/25/21 22:59 06:59 14:59 Intake Total 900 Balance 900 Intake: Intake, IV Titration 900 Amount Sodium Chloride 0.9% 1, 900 000 ml @ 75 mls/hr IV . [id number] [facility] Rx#:[id number] Other: Voiding Method Toilet Toilet Bedside Commode Bedside Commode # Voids 3 Weight 81.647 kg 81.647 kg Results CBC & Chem 7: 06/25/21 07:36 06/25/21 07:36 Labs: Abnormal Lab Results - Last 24 Hours (Table) 06/24/21 06/24/21 06/24/21 Range/Units 20:34 20:34 22:15 WBC 14.6 H (3.8-10.6) k/uL Neutrophils # 12.0 H (1.3-7.7) k/uL Sodium 131 L (137-145) mmol/L Potassium 3.3 L (3.5-5.1) mmol/L Carbon Dioxide 21 L (22-30) mmol/L Glucose 167 H (74-99) mg/dL Magnesium 1.2 L (1.6-2.3) mg/dL Troponin I (0.000-0.034) ng/mL Total Protein 6.1 L (6.3-8.2) g/dL Albumin (3.5-5.0) g/dL Urine Protein Trace H (Negative) Urine Ketones 1+ H (Negative) 06/25/21 06/25/21 06/25/21 Range/Units 01:29 02:56 07:36 WBC (3.8-10.6) k/uL Neutrophils # (1.3-7.7) k/uL Sodium 131 L (137-145) mmol/L Potassium 3.3 L (3.5-5.1) mmol/L Carbon Dioxide (22-30) mmol/L Glucose 125 H (74-99) mg/dL Magnesium (1.6-2.3) mg/dL Troponin I 0.055 H* 0.059 H* (0.000-0.034) ng/mL Total Protein 5.9 L (6.3-8.2) g/dL Albumin 3.3 L (3.5-5.0) g/dL Urine Protein (Negative) Urine Ketones (Negative) 06/25/21 Range/Units 07:36 WBC (3.8-10.6) k/uL Neutrophils # (1.3-7.7) k/uL Sodium (137-145) mmol/L Potassium (3.5-5.1) mmol/L Carbon Dioxide (22-30) mmol/L Glucose (74-99) mg/dL Magnesium (1.6-2.3) mg/dL Troponin I 0.057 H* (0.000-0.034) ng/mL Total Protein (6.3-8.2) g/dL Albumin (3.5-5.0) g/dL Urine Protein (Negative) Urine Ketones (Negative) Thrombosis Risk Factor Assmnt - Choose All That Apply Each Factor Represents 1 point: Obesity (BMI >25) Each Risk Factor Represents 3 Points: Age 75 years or older Thrombosis Risk Factor Assessment Total Risk Factor Score: 4 Thrombosis Risk Factor Assessment Level: Moderate Risk
[2021-06-25] MEDS: LACOSAMIDE 50 MG TABLET PO SCH ×2 (14:10→22:08)
[2021-06-25] MEDS: PANTOPRAZOLE 40 MG TABLET PO SCH (14:43)
--- NOTE | 2021-06-25 15:19 | P.CRDCN ---
History of Present Illness History of present illness: Known case of hypertension and dyslipidemia presented to Hospital having had an episode of syncope at home. It is unclear if the patient had a seizure or syncope. There was a sudden loss of consciousness. Patient did not have any injury. There is no bladder bowel incontinence. There is no history of focal neurological deficits. At the time of my evaluation this afternoon patient appears comfortable at rest and is free of symptoms. Her monitor shows that she is in sinus rhythm with frequent PVCs and PACs. She does not have atrial fibrillation or atrial flutter. An EKG shows sinus rhythm without significant ST-T wave changes Her troponins are in the llanos zone at 0.0 5.05 and 0.05 without any definite pattern to them There is no prior history of coronary artery disease congestive heart failure or cardiac arrhythmia I will obtain a 2-D echo to assess her LV function and wall motion watch her on telemetry patient will undergo an EEG to rule out seizure disorder if this workup is benign and unremarkable she may be discharged home and pursue her workup as outpatient. I will perform a stress test on her to rule out ischemic heart disease given the elevated troponin. Constitutional: Denies chills. Denies fever. Eyes: Denies blurred vision. Denies pain. Ears, nose, mouth and throat: Denies headache. Denies sore throat. Cardiovascular: Denies chest pain. Denies shortness of breath. Significant for syncope Respiratory: Denies cough. Gastrointestinal: Denies abdominal pain. Denies diarrhea. Denies nausea. Denies vomiting. Musculoskeletal: Denies myalgias. Integumentary: Denies pruritus. Denies rash. Neurological: Denies numbness. Denies weakness. Psychiatric: Denies anxiety. Denies depression. Endocrine: Denies fatigue. Denies weight change. Genitourinary: Denies burning, hematuria, frequency of urination. Hematological: No anemia or excess bleeding. General: The patient is awake and alert, in no distress, and does not appear acutely ill. Skin: Skin is warm and dry and no rashes or lesions are noted. Eye: Pupils are equal, round and reactive to light, extra-ocular movements are intact; there is normal conjunctiva bilaterally. Ears, nose, mouth and throat: There are moist mucous membranes and no oral lesions. Neck: The neck is supple, there is no tenderness or JVD. Cardiovascular: There is a regular rate and rhythm. Systolic murmur at the apex rub or gallop is appreciated. Respiratory: Lungs are clear to auscultation, respirations are non-labored, breath sounds are equal. Gastrointestinal: Soft, non-distended, non-tender abdomen without masses or organomegaly noted. There is no rebound or guarding present. Bowel sounds are unremarkable. Back: There is no tenderness to palpation in the midline. There is no obvious deformity. Musculoskeletal: Normal ROM, no tenderness, There is no pedal edema. There is no calf tenderness or swelling. Extremities: No edema. Vascular: Femoral pulse is normal. Posterior tibial pulses are normal .Dorsalis pedis is palpable. Neurological: CN II-XII intact. There are no obvious motor or sensory deficits. Speech is normal. Psychiatric: Cooperative, appropriate mood & affect, normal judgment. Assessment and plan: Syncope rule out cardiac causes Elevated troponin of unclear clinical significance PVCs and PACs I will obtain a 2-D echo to assess LV function and wall motion Agree with the neurological workup If patient is stable okay for discharge over the next 24-48 hours and I will do an outpatient stress test for further evaluation of the elevated troponin Past Medical History Past Medical History: CVA/TIA, GERD/Reflux, Hypertension Additional Past Medical History / Comment(s): past back pain, c-diff 2016, rt side brain anuerysm (TIA); small perforation in bowels History of Any Multi-Drug Resistant Organisms: C-DIFF Date of last positivie culture/infection: 2005 MDRO Source:: stool Past Surgical History: Cholecystectomy, Hysterectomy, Tonsillectomy Additional Past Surgical History / Comment(s): colonoscopy, eye sx(tear ducts) brain surgery aneursym repair with coil 07/01/20 Past Anesthesia/Blood Transfusion Reactions: Motion Sickness Additional Past Anesthesia/Blood Transfusion Reaction / Comment(s): claustrophobia Past Psychological History: No Psychological Hx Reported Additional Psychological History / Comment(s): Pt resides with her spouse. She is independent. uses a walker at home. Smoking Status: Never smoker Past Alcohol Use History: None Reported Past Drug Use History: None Reported - Past Family History Father Family Medical History: Hypertension Additional Family Medical History / Comment(s): Father at the age of 63 yrs. He was an alcoholic and a smoker. Mother Family Medical History: Hypertension Additional Family Medical History / Comment(s): Mother at the age of 88yrs. Medications and Allergies Home Medications Medication Instructions Recorded Confirmed Type Aspirin 81 mg PO DAILY 07/11/20 06/24/21 History atenoloL [Tenormin] 12.5 mg PO HS 07/11/20 06/24/21 History Nystatin 100,000 Unit/gm Powd 1 applic TOPICAL BID PRN 12/03/20 06/24/21 History [Mycostatin Powder] Losartan Potassium [Cozaar] 50 mg PO HS 05/27/21 06/24/21 History Stop-Pain 1 applic TOPICAL DAILY PRN 05/27/21 06/24/21 History Acetaminophen Tab [Tylenol] 325 mg PO Q6HR PRN tab 05/31/21 06/24/21 Rx Pantoprazole [Protonix] 40 mg PO AC-BRKFST 30 Days #30 tab 05/31/21 06/24/21 Rx Allergies Allergy/AdvReac Type Severity Reaction Status Date / Time aluminum Allergy Unknown Verified 06/24/21 22:23 benzalkonium chloride Allergy Unknown Verified 06/24/21 22:23 [From Bactine (with alcohol)] codeine Allergy Unknown Verified 06/24/21 22:23 lidocaine Allergy Unknown Verified 06/24/21 22:23 [From Bactine (with alcohol)] metronidazole [From Flagyl] Allergy Unknown Verified 06/24/21 22:23 sulfamethoxazole Allergy Unknown Verified 06/24/21 22:23 [From Bactrim] trimethoprim [From Bactrim] Allergy Unknown Verified 06/24/21 22:23 amlodipine AdvReac Nausea & Verified 06/24/21 22:23 Vomiting cephalexin [From Keflex] AdvReac Nausea & Verified 06/24/21 22:23 Vomiting chlorthalidone AdvReac Nausea & Verified 06/24/21 22:23 Vomiting Iodinated Contrast Media AdvReac Nausea & Verified 06/24/21 22:23 Vomiting levofloxacin [From Levaquin] AdvReac Nausea & Verified 06/24/21 22:23 Vomiting lisinopril AdvReac Nausea & Verified 06/24/21 22:23 Vomiting Physical Exam Vitals: Vital Signs Temp Pulse Pulse Pulse Resp BP BP 06/25/21 13:24 97.8 F 78 17 161/64 06/25/21 08:42 78 164/62 06/25/21 08:35 78 73 16 06/25/21 04:49 98.6 F 71 16 161/69 06/25/21 02:15 20 184/83 06/25/21 01:15 98.1 F 73 18 166/70 06/24/21 23:51 69 16 139/66 06/24/21 22:25 74 16 200/94 06/24/21 20:18 97.8 F 85 20 182/86 Pulse Ox 06/25/21 13:24 96 06/25/21 08:42 06/25/21 08:35 06/25/21 04:49 94 L 06/25/21 02:15 98 06/25/21 01:15 96 06/24/21 23:51 92 L 06/24/21 22:25 96 06/24/21 20:18 96 Intake and Output 06/25/21 06/25/21 06/25/21 06:59 14:59 22:59 Intake Total 900 Balance 900 Intake: Intake, IV Titration 900 Amount Sodium Chloride 0.9% 1, 900 000 ml @ 75 mls/hr IV . [id number] [facility] Rx#:[id number] Other: Voiding Method Toilet Toilet Bedside Commode Bedside Commode # Voids 3 Weight 81.647 kg Results 06/25/21 07:36 06/25/21 07:36 Cardiac Enzymes 06/24/21 06/24/21 06/25/21 Range/Units 20:34 20:34 01:29 AST 24 (14-36) U/L Troponin I 0.017 0.055 H* (0.000-0.034) ng/mL 06/25/21 06/25/21 06/25/21 Range/Units 02:56 07:36 07:36 AST 30 (14-36) U/L Troponin I 0.059 H* 0.057 H* (0.000-0.034) ng/mL CBC 06/24/21 06/25/21 Range/Units 20:34 07:36 WBC 14.6 H 8.1 (3.8-10.6) k/uL RBC 4.21 3.80 (3.80-5.40) m/uL Hgb 12.7 11.8 (11.4-16.0) gm/dL Hct 38.9 35.1 (34.0-46.0) % Plt Count 287 263 (150-450) k/uL Comprehensive Metabolic Panel 06/24/21 06/25/21 Range/Units 20:34 07:36 Sodium 131 L 131 L (137-145) mmol/L Potassium 3.3 L 3.3 L (3.5-5.1) mmol/L Chloride 99 98 (98-107) mmol/L Carbon Dioxide 21 L 25 (22-30) mmol/L BUN 11 11 (7-17) mg/dL Creatinine 0.68 0.67 (0.52-1.04) mg/dL Glucose 167 H 125 H (74-99) mg/dL Calcium 8.9 8.4 (8.4-10.2) mg/dL AST 24 30 (14-36) U/L ALT 14 19 (4-34) U/L Alkaline Phosphatase 45 47 (38-126) U/L Total Protein 6.1 L 5.9 L (6.3-8.2) g/dL Albumin 3.6 3.3 L (3.5-5.0) g/dL Current Medications Generic Name Dose Route Start Last Admin Trade Name Freq PRN Reason Stop Dose Admin Acetaminophen 650 mg 06/24/21 23:02 Acetaminophen Tab 325 Mg Tab PO Q6HR PRN Mild Pain or Fever > 100.5 Acetaminophen 325 mg 06/25/21 09:49 Acetaminophen Tab 325 Mg Tab PO Q6HR PRN Fever and/ or Pain Aspirin 81 mg 06/26/21 09:00 Aspirin 81 Mg PO DAILY SUSAN Atenolol 12.5 mg 06/25/21 09:00 06/25/21 08:47 Atenolol 12.5 Mg Tab PO 12.5 mg DAILY SUSAN Administration Atenolol 12.5 mg 06/25/21 21:00 Atenolol 12.5 Mg Tab PO HS SUSAN Atorvastatin Calcium 10 mg 06/25/21 21:00 Atorvastatin 10 Mg Tab PO HS SUSAN Enoxaparin Sodium 40 mg 06/26/21 09:00 Enoxaparin 40 Mg/0.4 Ml Syringe SQ DAILY [facility] Sodium Chloride 1,000 mls @ 75 mls/hr 06/24/21 23:15 06/25/21 00:36 Saline 0.9% IV 75 mls/hr .[id number] SUSAN Administration Lacosamide 50 mg 06/25/21 12:30 06/25/21 14:10 Lacosamide 50 Mg Tablet PO 50 mg BID SUSAN Administration Losartan Potassium 50 mg 06/25/21 09:00 06/25/21 08:38 Losartan 50 Mg Tab PO 50 mg DAILY SUSAN Administration Miscellaneous Information 1 each 06/24/21 22:04 Magnesium Replacement Protocol 1 Each Misc MISCELLANE DAILY PRN Per Protocol Protocol Naloxone HCl 0.2 mg 06/24/21 23:02 Naloxone 0.4 Mg/Ml 1 Ml Vial IV Q2M PRN Opioid Reversal Nystatin 1 applic 06/25/21 09:49 Nystatin 100,000 Unit/Gm Powd 15 Gm TOPICAL BID PRN Skin Irritation Protocol Ondansetron HCl 4 mg 06/24/21 23:02 06/25/21 05:15 Ondansetron 4 Mg/2 Ml Vial IVP 4 mg Q8HR PRN Administration Nausea And Vomiting Pantoprazole Sodium 40 mg 06/25/21 10:00 06/25/21 14:43 Pantoprazole 40 Mg Tablet PO 40 mg AC-BRKFST SUSAN Administration Intake and Output 06/25/21 06/25/21 06/25/21 06:59 14:59 22:59 Intake Total 900 Balance 900 Intake: Intake, IV Titration 900 Amount Sodium Chloride 0.9% 1, 900 000 ml @ 75 mls/hr IV . [id number] [facility] Rx#:[id number] Other: Voiding Method Toilet Toilet Bedside Commode Bedside Commode # Voids 3 Weight 81.647 kg 06/25/21 07:36 06/25/21 07:36
[2021-06-25] MEDS: ATORVASTATIN 10 MG TAB PO SCH (22:08)
[2021-06-26] MEDS: ONDANSETRON 4 MG/2 ML VIAL IVP PRN (03:16)
[2021-06-26] MEDS: PANTOPRAZOLE 40 MG TABLET PO SCH (07:55)
[2021-06-26] MEDS: LACOSAMIDE 50 MG TABLET PO SCH ×2 (07:55→20:14)
[2021-06-26] MEDS: LOSARTAN 50 MG TAB PO SCH (07:55)
[2021-06-26] MEDS: ENOXAPARIN 40 MG/0.4 ML SYRINGE SQ SCH (07:55)
[2021-06-26] MEDS: ASPIRIN 81 MG PO SCH (07:55)
[2021-06-26] MEDS: SODIUM CHLORIDE 0.9% 1,000 ML IV SCH ×2 (07:56→17:30)
[2021-06-26] MEDS ORDERED: LOPERAMIDE 2 MG CAP PO PRN (09:18)
--- NOTE | 2021-06-26 09:21 | P.PN ---
Subjective This is a 85-year-old female past medical history of hypertension, CVA. 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 We are consulted for syncope and elevated troponin. Patient presents to the emergency department with complaints of diarrhea and nausea. Patient was found unresponsive and confused at home and was brought to the emergency department. There was a sudden loss of consciousness. Patient did not have any injury. There is no bladder bowel incontinence. There is no history of focal neurological deficits. EKG shows sinus rhythm without significant ST-T wave changes. Cardiac enzymes 0.05 x 3. Patient stays at bedside, no acute distress. She is still having diarrhea. She denies chest pain or shortness of breath, lightheadedness or dizziness. On telemetry patient in sinus rhythm with frequent PVCs and PACs, her atenolol was increased and she has seen improvement in her PVCs and PACs. No evidence of arrhythmia on telemetry. She is currently maintained on aspirin 81 mg daily, atenolol 12.5 mg twice a day, atorvastatin 10 mg nightly, losartan 50 mg daily Echocardiogram revealed EF of 5055 percent, mild mitral regurgitation, moderate tricuspid medication. Blood pressure 155/67, heart rate 69, afebrile, saturations greater than 92% on room air GENERAL: Well-appearing, well-nourished and in no acute distress. NECK: Supple without JVD or thyromegaly. LUNGS: Breath sounds clear to auscultation bilaterally. Respiration equal and unlabored. No wheezes, rales or rhonchi. HEART: Regular rate and rhythm without murmurs, rubs or gallops. S1 and S2 heard. EXTREMITIES: Normal range of motion, no edema. No clubbing or cyanosis. Peripheral pulses intact. ASSESSMENT Syncope rule out cardiac cause Diarrhea Hyponatremia, hypomagnesemia, hypokalemia Mildly elevated troponin, unclear significance at this time, not indicative of acute coronary syndrome, patient without chest pain or shortness of breath, no acute ischemic findings on EKG Leukocytosis History of hypertension History of prior CVA PLAN Echocardiogram revealed normal LV systolic function no significant wall motion abnormalities. Neurology following Recommend stress testing in the outpatient setting. Patient to follow up with Dr. Santana outpatient We will sign off at this time. Please reconsult if needed. Nurse Practitioner note has been reviewed, I agree with a documented findings and plan of care. Patient was seen and examined. Objective - Vital Signs Vital signs: Vital Signs Temp 99.1 F 06/26/21 04:49 Pulse 69 06/26/21 04:49 Resp 16 06/26/21 04:49 BP 155/67 06/26/21 04:49 Pulse Ox 92 L 06/26/21 04:49 Intake & Output 06/25/21 06/26/21 06/26/21 18:59 06:59 18:59 Intake Total 360 1140 Balance 360 1140 Intake: Intake, IV Titration 900 Amount Sodium Chloride 0.9% 1, 900 000 ml @ 75 mls/hr IV . [id number] [facility] Rx#:[id number] Oral 360 240 Other: Voiding Method Toilet Toilet Bedside Commode Bedside Commode # Voids 4 6 # Bowel Movements 3 2 1 - Labs CBC & Chem 7: 06/25/21 07:36 06/26/21 07:01 Labs: Abnormal Lab Results - Last 24 Hours (Table) 06/25/21 06/25/21 Range/Units 07:36 07:36 Sodium 131 L (137-145) mmol/L Potassium 3.3 L (3.5-5.1) mmol/L Glucose 125 H (74-99) mg/dL Troponin I 0.057 H* (0.000-0.034) ng/mL Total Protein 5.9 L (6.3-8.2) g/dL Albumin 3.3 L (3.5-5.0) g/dL
[2021-06-26 09:39] LABS: Anion Gap 10.5 mmol/L (10.00-18.00); BUN/Creat Ratio 13.33 Ratio (12.00-20.00); Calcium 8.3 mg/dL (8.7-10.3); Carbon Dioxide 24.5 mmol/L (20.0-27.5); Magnesium 1.8 mg/dL (1.5-2.4); Non-African American GFR(CKD) 83.7 (60.0-200.0); Potassium 3.2 mmol/L (3.5-5.5)
--- NOTE | 2021-06-26 11:00 | ECHOF ---
Referral Reason:syncope MEASUREMENTS -------- HEIGHT: 157.5 cm WEIGHT: 81.6 kg BP: IVSd: 1.5 cm (0.6 - 1.1) LVIDd: 4.9 cm (3.9 - 5.3) LVPWd: 1.6 cm (0.6 - 1.1) EDV(Teich): 114 ml IVSs: 1.7 cm LVIDs: 3.4 cm LVPWs: 2.3 cm %IVS Thck: 13 % ESV(Teich): 46 ml EF(Teich): 60 % %FS: 32 % SV(Teich): 68 ml LA Diam: 4.8 cm (2.7 - 3.8) Ao Diam: 2.8 cm (2.0 - 3.7) LA Diam: 4.7 cm (2.7 - 3.8) AV Cusp: 1.8 cm (1.5 - 2.6) MV E Nasir: 0.62 m/s MV DecT: 255 ms MV Dec [place]: 2.4 m/s MV A Nasir: 0.79 m/s MV E/A Ratio: 0.78 MV PHT: 74 ms TR Vmax: 2.43 m/s TR maxP.71 mmHg RAP: 5.00 mmHg RVSP: 28.71 mmHg FINDINGS -------- Undetermined rhythm. This was a technically adequate study. The left ventricular size is normal. There is moderate concentric left ventricular hypertrophy. O verall left ventricular systolic function is low-normal with, an EF between 50 - 55 %. The right ventricle is normal in size. The left atrium is markedly dilated. The right atrial size is normal. There is mild aortic valve sclerosis. There is no evidence of aortic regurgitation. Mild mitral regurgitation is present. Mild tricuspid regurgitation present. Right ventricular systolic pressure is normal at < 35 mmHg. There is no pulmonic regurgitation present. Echo free space indicative of a pericardial fat pad. CONCLUSIONS -------- 1. The left ventricular size is normal. 2. There is moderate concentric left ventricular hypertrophy. 3. Overall left ventricular systolic function is low-normal with, an EF between 50 - 55 %. 4. The right ventricle is normal in size. 5. The left atrium is markedly dilated. 6. The right atrial size is normal. 7. There is mild aortic valve sclerosis. 8. Mild mitral regurgitation is present. 9. Mild tricuspid regurgitation present. 10. Echo free space indicative of a pericardial fat pad. CHILDREN LIBRARIAN: Olimpia Menjivar RDCS
[2021-06-26] MEDS ORDERED: POTASSIUM CHLORIDE ER 20 MEQ TAB.ER PO STA (12:39)
[2021-06-26] MEDS: CHOLESTYRAMINE (WITH SUGAR) 4 GM PACKET PO SCH ×2 (13:28→17:30)
[2021-06-26] MEDS: POTASSIUM CHLORIDE ER 20 MEQ TAB.ER PO SCH ×2 (13:43→17:38)
--- NOTE | 2021-06-26 14:21 | EEG ---
ELECTROENCEPHALOGRAM REPORT DATE OF SERVICE: 06/26/2021 PREAMBLE: This is an 85-year-old female with syncope. This study is performed to evaluate for any epileptiform activity. EEG FINDINGS: This is a 21-channel digital EEG recorded utilizing 10/20 international system with referential and bipolar montages. Background consists of well-developed, moderately well regulated, 8-9 hertz alpha which is posterior-dominant and reactive to eye opening and closing. Photic driving response was not seen. Different stages of sleep were not seen. Frequent myogenic activity was seen during the study. Patient was frequently talking during the study. No focal or generalized epileptiform activity was seen. EKG channel showed arrhythmia. IMPRESSION: This is a normal awake EEG. No focal, lateralized or epileptiform activity was seen. EKG channel showed significantly irregular rhythm. Correlate for any arrhythmia. MMODL / IJN: [id number] /
[2021-06-26] MEDS: ATORVASTATIN 10 MG TAB PO SCH (20:14)
[2021-06-26 20:19] VITALS: RESP 18
--- NOTE | 2021-06-27 01:39 | P.PN ---
Subjective Progress Note Date: 06/26/21 Patient is pleasant 85-year-old female came in after she was found unresponsive and was confused. Patient had a recent hospitalization she was treated for diverticulitis at that time. Patient continues to have diarrhea multiple episodes a day. Patient denied any fever chills. Patient was also complained nausea without any vomiting. Patient was having abdominal pain presently doesn't have any such symptoms except for diarrhea patient does have leukocytosis. Patient is hyponatremic with serum sodium of 131 and hypomagnesemia mildly elevated troponin of 0.057 EKG did not show any acute ST-T wave changes. Neurology was consulted with concerns of seizure. 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 06/26/2021 Patient is seen and evaluated in follow-up this morning and continues with weakness and will have PT/OT therapy evaluate with social work consult for possible ECF. Patient was seen and evaluated by cardiology and will follow as needed. Patient also being followed by neurology and on vimpat currently for possible seizures. EEG ordered and pending. Patient maintained on IV fluids and sodium improved and will dc IV fluids. Encourage oral intake. Cdiff testing was negative and will order questran and imodium as needed. Potassium is 3.2 and will replace per protocol. Labs: Sodium is 132, potassium is 3.2, BUN is 8, creatinine 0.6, calcium 8.3, magnesium 1.8, C. diff testing was negative Review of systems: Constitutional: No reports of fatigue, fever, or chills Cardiovascular: No reports of chest pain or palpitations Respiratory: No reports of shortness of breath or cough GI: No reports of nausea, vomiting, or diarrhea : No reports of dysuria or retention Neurovascular: No reports of weakness or numbness All medications have been reviewed Active Medications Acetaminophen (Acetaminophen Tab 325 Mg Tab) 650 mg PO Q6HR PRN PRN Reason: Mild Pain or Fever > 100.5 Acetaminophen (Acetaminophen Tab 325 Mg Tab) 325 mg PO Q6HR PRN PRN Reason: Fever and/ or Pain Aspirin (Aspirin 81 Mg) 81 mg PO DAILY [facility]USAN Last Admin: 06/26/21 07:55 Dose: 81 mg Documented by: Atenolol (Atenolol 12.5 Mg Tab) 12.5 mg PO DAILY [facility] Last Admin: 06/26/21 07:55 Dose: 12.5 mg Documented by: Atenolol (Atenolol 12.5 Mg Tab) 12.5 mg PO HS [facility] Last Admin: 06/25/21 22:09 Dose: 12.5 mg Documented by: Atorvastatin Calcium (Atorvastatin 10 Mg Tab) 10 mg PO HS [facility] Last Admin: 06/25/21 22:08 Dose: 10 mg Documented by: Cholestyramine Resin (Cholestyramine (With Sugar) 4 Gm Packet) 4 gm PO BI D@1000,1800 [facility] Enoxaparin Sodium (Enoxaparin 40 Mg/0.4 Ml Syringe) 40 mg SQ DAILY [facility] Last Admin: 06/26/21 07:55 Dose: 40 mg Documented by: Sodium Chloride (Saline 0.9%) 1,000 mls @ 75 mls/hr IV .[id number] [facility] Last Admin: 06/26/21 07:56 Dose: 75 mls/hr Documented by: Lacosamide (Lacosamide 50 Mg Tablet) 50 mg PO BID [facility] Last Admin: 06/26/21 07:55 Dose: 50 mg Documented by: Loperamide HCl (Loperamide 2 Mg Cap) 2 mg PO QID PRN PRN Reason: Diarrhea Losartan Potassium (Losartan 50 Mg Tab) 50 mg PO DAILY [facility] Last Admin: 06/26/21 07:55 Dose: 50 mg Documented by: Miscellaneous Information (Magnesium Replacement Protocol 1 Each Misc) 1 each MISCELLANE DAILY PRN; Protocol PRN Reason: Per Protocol Naloxone HCl (Naloxone 0.4 Mg/Ml 1 Ml Vial) 0.2 mg IV Q2M PRN PRN Reason: Opioid Reversal Nystatin (Nystatin 100,000 Unit/Gm Powd 15 Gm) 1 applic TOPICAL BID PRN; Protocol PRN Reason: Skin Irritation Ondansetron HCl (Ondansetron 4 Mg/2 Ml Vial) 4 mg IVP Q8HR PRN PRN Reason: Nausea And Vomiting Last Admin: 06/26/21 03:16 Dose: 4 mg Documented by: Pantoprazole Sodium (Pantoprazole 40 Mg Tablet) 40 mg PO AC-BRKFST [facility] Last Admin: 06/26/21 07:55 Dose: 40 mg Documented by: PHYSICAL EXAMINATION: GENERAL: The patient is alert and oriented x3, not in any acute distress. Well developed, well nourished. HEENT: Pupils are round and equally reacting to light. EOMI. No scleral icterus. No conjunctival pallor. Normocephalic, atraumatic. No pharyngeal erythema. No thyromegaly. CARDIOVASCULAR: S1 and S2 present. No murmurs, rubs, or gallops. PULMONARY: Chest is clear to auscultation, no wheezing or crackles. ABDOMEN: Soft, nontender, nondistended, normoactive bowel sounds. No palpable organomegaly. MUSCULOSKELETAL: No joint swelling or deformity. EXTREMITIES: No cyanosis, clubbing, or pedal edema. NEUROLOGICAL: Gross neurological examination did not reveal any focal deficits. diffusely weak SKIN: No rashes. Assessment and plan: -Episode of unconsciousness: syncope and seizures workup in progress. EEG today. neurology and cardiology is evaluating the patient echo done. -Hypervolemic hyponatremia secondary to diarrhea patient improving, sodium 132 today, DC IV fluids and encourage oral intake -Diarrhea appears to be chronic at this point of time patient has diarrhea for about 4 weeks will need outpatient evaluation starting with colonoscopy, cdiff testing negative and will start imodium as needed and questran. -Leukocytosis can be reactive secondary to above-mentioned reasons -Hypomagnesemia secondary to diarrhea, improved -Hypokalemia again secondary to diarrhea and hypomagnesemia -Mildly elevated troponins: No evidence of acute type I myocardial infarction . -History of CVA in the past -Hypertension -DVT prophylaxis: Lovenox -GI prophylaxis -full code Plan: Recommend to continue current medications. Cardiology evaluated the patient and recommend to continue current medications and follow up outpatient in 2 weeks. 2D echo shows moderated concentric left ventricular hypertrophy with overall LV systolic function is low normal with an EF of 50-55% with mild aortic valve sclerosis, mild mitral and tricuspid regurgitation present. EEG showed normal awake EEG with no focal lateralized or epileptiform activity. EKG channel on EEG showed significant irregular rhythm and to correlate for any arrhythmias. Will discuss with cardio and neurology about treatment plan. Continue vimpat for now. Obtain labs and ecg in the am. Await PT evaluation and social work consulted. Objective - Vital Signs Vital signs: Vital Signs Temp 99.1 F 06/26/21 04:49 Pulse 69 06/26/21 04:49 Resp 16 06/26/21 04:49 BP 155/67 06/26/21 04:49 Pulse Ox 92 L 06/26/21 04:49 Intake & Output 06/25/21 06/26/21 06/26/21 18:59 06:59 18:59 Intake Total 360 1140 Balance 360 1140 Intake: Intake, IV Titration 900 Amount Sodium Chloride 0.9% 1, 900 000 ml @ 75 mls/hr IV . [id number] [facility] Rx#:[id number] Oral 360 240 Other: Voiding Method Toilet Toilet Bedside Commode Bedside Commode # Voids 4 6 # Bowel Movements 3 2 1 - Labs CBC & Chem 7: 06/25/21 07:36 06/26/21 07:01 Labs: Abnormal Lab Results - Last 24 Hours (Table) 06/25/21 Range/Units 07:36 Troponin I 0.057 H* (0.000-0.034) ng/mL
[2021-06-27] MEDS: PANTOPRAZOLE 40 MG TABLET PO SCH (06:13)
[2021-06-27 07:31] LABS: African American GFR (CKD) >90 (>60 ml/min/1.73 sqM); Anion Gap 5 mmol/L; Blood Urea Nitrogen 6 mg/dL (7-17); Calcium 8.5 mg/dL (8.4-10.2); Carbon Dioxide 26 mmol/L (22-30); Chloride 98 mmol/L (98-107); Glucose 132 mg/dL (74-99); Non-African American GFR(CKD) 80 (>60 ml/min/1.73 sqM); Sodium 129 mmol/L (137-145)
[2021-06-27] MEDS: ASPIRIN 81 MG PO SCH (10:02)
[2021-06-27] MEDS: ENOXAPARIN 40 MG/0.4 ML SYRINGE SQ SCH (10:03)
[2021-06-27] MEDS: LACOSAMIDE 50 MG TABLET PO SCH (10:03)
[2021-06-27] MEDS: LOSARTAN 50 MG TAB PO SCH (10:04)
[2021-06-27] MEDS: POTASSIUM CHLORIDE ER 20 MEQ TAB.ER PO SCH (10:04)
--- NOTE | 2021-06-27 10:16 | P.PN ---
Subjective Progress Note Date: 06/27/21 Patient initially seen by Dr. Froilan Santos. Please refer to his note for details. This is a follow-up. Patient is an 85-year-old female, with episode of loss of consciousness and tongue bite. Patient also has increased sensitivity to smell for past 2-4 weeks. New onset seizure was suspected. Patient was started on Vimpat 50 mg twice a day. Patient has history of right MCA stroke. History of aneurysm over MCA, status post coiling in June 2020. Since arrival to the hospital patient has not had any more seizures.patient wants to go home. Denies headache. Patient states that she does not remember what exactly happened, if she woke up from the sleep or her tried to wake her up, but she was unresponsive. Patient did bite her tongue, but did not lose control of urine. no previous history of seizures. Objective - Vital Signs Vital signs: Vital Signs Temp 98.6 F 06/27/21 07:53 Pulse 73 06/27/21 08:31 Resp 18 06/27/21 08:31 BP 170/77 06/27/21 07:53 Pulse Ox 98 06/27/21 07:53 Intake & Output 06/26/21 06/27/21 06/27/21 18:59 06:59 18:59 Intake Total 900 540 Balance 900 540 Intake: Intake, IV Titration 900 Amount Sodium Chloride 0.9% 1, 900 000 ml @ 75 mls/hr IV . [id number] [facility] Rx#:[id number] Oral 540 Other: Voiding Method Toilet Bedside Commode Bedside Commode # Voids 3 1 # Bowel Movements 1 1 - Exam Patient is an elderly female, very pleasant, in no acute distress. Patient is sitting on side of the bed. Patient is alert awake oriented to time place and person. patient knows it is June 2021 and that she is in [facility] and name of the current president. Speech and language functions are normal. Attention, concentration and fund of knowledge is adequate. On cranial examination, pupils are round and reacting to light, visual smith are full on confrontation, extraocular muscles are intact with no nystagmus. Face has very minimal flattening of the right nasolabial fold, tongue protrudes to the midline. Palatal elevation and sensation normal, hearing and shoulder shrug normal, facial sensation normal. Shoulder shrug normal. On muscle strength testing, there is no pronator drift and the strength is normal in arms and legs distally and proximally. Deep tendon reflexes are symmetric, plantars downgoing. Sensory to touch is equal with no neglect. Cerebellar function showed no ataxia for [id number] testing. No d ysdiadochokinesia. Tone and bulk of muscles normal. Gait normal. On general examination, there is no carotid bruit or murmur, S1-S2 audible. Abdomen is soft nontender. Chest is clear. Peripheral pulses are present. No edema. - Labs CBC & Chem 7: 06/25/21 07:36 06/27/21 06:56 Labs: Abnormal Lab Results - Last 24 Hours (Table) 06/27/21 Range/Units 06:56 Sodium 129 L (137-145) mmol/L Potassium 3.0 L (3.5-5.1) mmol/L BUN 6 L (7-17) mg/dL Glucose 132 H (74-99) mg/dL Assessment and Plan Assessment: * Episode of unconsciousness with gurgling of her mouth and tongue bite, suggestive of probable new onset seizure, especially with a background history of right MCA stroke (patient has been complaining of hypersensitivity to smell in last two weeks which could have been aura). * Diarrhea for the past 4 weeks * Right MCA stroke (mostly temporal region) seems old but new since last image of of 07/2020 but is seen on 01/2021 CTA. 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 No epileptiform activity was seen. Normal EEG does not rule out seizure disorder. EKG channel showed some arrhythmia. Correlate for any arrhythmia. Continue Vimpat 50mg bid PO. Placed on seizure precautions and seizure pads Patient is on aspirin [address] the patient on Lipitor 10 mg daily at bedtime for secondary stroke prophylaxis Cardiology is on board. Suggest 48 hours Holter monitoring rule out arrhythmia. 2-D echo was performed, revealed normal left ventricular size. Moderate concentric LVH. Left ventricular systolic function is low normal with EF between 50-55%. Right ventricle is normal in size. Left atrium is moderately dilated. Mild aortic valve sclerosis. Patient was informed of [place] state law of no driving unless seizure free for 6 months, climbing ladders, operating dangerous machinery or unsupervised swimming. Suggest patient follow up with neurologist in 2-4 weeks. Discussed with primary team.
[2021-06-27] MEDS: CHOLESTYRAMINE (WITH SUGAR) 4 GM PACKET PO SCH (11:32)
[2021-06-27 11:53] VITALS: BP 130/80; PULSE 82; TEMP 98.5
[2021-06-27] MEDS ORDERED: POTASSIUM CHLORIDE ER 20 MEQ TAB.ER PO STA (11:59)
--- NOTE | 2021-06-28 09:54 | P.DS ---
Providers Date of admission: 06/24/21 22:02 Expected date of discharge: 06/27/21 Attending physician: Javed Dow MD Consults: 06/24/21 23:02 Consult Physician Routine Consulting Provider: Trevon Bazzi Consult Reason/Comments: syncope Do you want consulting provider notified?: Yes Consult Physician Routine Consulting Provider: Froilan Santos Consult Reason/Comments: Syncope Do you want consulting provider notified?: Yes Primary care physician: Stated None Hospital Course: Final diagnosis -Episode of unconsciousness, possibly secondary to new onset seizure -Hypervolemic hyponatremia secondary to diarrhea -Diarrhea appears to be chronic at this point of time patient has diarrhea for about 4 weeks will need outpatient evaluation starting with colonoscopy -Leukocytosis can be reactive secondary to above-mentioned reasons -Hypomagnesemia secondary to diarrhea, improved -Hypokalemia again secondary to diarrhea and hypomagnesemia -Mildly elevated troponins: No evidence of acute type I myocardial infarction . -History of CVA in the past -Hypertension -DVT prophylaxis: Lovenox -GI prophylaxis -full code Discharge disposition Patient is being discharged in a stable condition with guarded prognosis to home. Patient will follow-up with Dr. Glover upon discharge. Patient will also follow up with neurology along with cardiology in the next 1-2 weeks. Patient will continue on Vimpat 50 mg twice a day and recommend close outpatient follow- up with neurology this week. Total time taken is >35 minutes. Hospital course Patient is pleasant 85-year-old female came in after she was found unresponsive and was confused. Patient had a recent hospitalization she was treated for diverticulitis at that time. Patient continues to have diarrhea multiple episodes a day. Patient denied any fever chills. Patient was also complained nausea without any vomiting. Patient was having abdominal pain presently doesn't have any such symptoms except for diarrhea patient does have leukocytosis. Patient is hyponatremic with serum sodium of 131 and hypomagnesemia mildly elevated troponin of 0.057 EKG did not show any acute ST-T wave changes. Neurology was consulted with concerns of seizure. 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 06/26/2021 Patient is seen and evaluated in follow-up this morning and continues with weakness and will have PT/OT therapy evaluate with social work consult for possible ECF. Patient was seen and evaluated by cardiology and will follow as needed. Patient also being followed by neurology and on vimpat currently for possible seizures. EEG ordered and pending. Patient maintained on IV fluids and sodium improved and will dc IV fluids. Encourage oral intake. Cdiff testing was negative and will order questran and imodium as needed. Potassium is 3.2 and will replace per protocol. 06/27/2021 She is seen in follow-up this morning currently sitting up at the side of the bed and has worked with physical therapy and is doing well and will go home with home care. Patient was evaluated by neurology along with cardiology and patient will follow-up in the office with Dr. Santana 2 weeks. Patient will also follow- up with neurology and continue on Vimpat 50 milligrams twice daily per neurology recommendations and follow-up closely in the outpatient setting in the next 1 week. Patient will also continue other current medications. Cardiology evaluated the patient as there was some arrhythmia noted on the EEG and patient will be following up with cardiology Dr. Santana in the next 2 weeks and will be having an event monitor in the outpatient setting. Patient was evaluated by physical therapy and continues to refuse any form of rehab and will be going home and is now agreeable to home care. Currently no reports of chest pain, shortness of breath, or palpitations. Patient is afebrile. No reports of nausea or vomiting and patient is tolerating diet. She will be discharged home today. Guarded prognosis. PHYSICAL EXAMINATION: GENERAL: The patient is alert and oriented x3, not in any acute distress. Well developed, well nourished. HEENT: Pupils are round and equally reacting to light. EOMI. No scleral icterus. No conjunctival pallor. Normocephalic, atraumatic. No pharyngeal erythema. No thyromegaly. CARDIOVASCULAR: S1 and S2 present. No murmurs, rubs, or gallops. PULMONARY: Chest is clear to auscultation, no wheezing or crackles. ABDOMEN: Soft, nontender, nondistended, normoactive bowel sounds. No palpable organomegaly. MUSCULOSKELETAL: No joint swelling or deformity. EXTREMITIES: No cyanosis, clubbing, or pedal edema. NEUROLOGICAL: Gross neurological examination did not reveal any focal deficits. diffusely weak SKIN: No rashes. Please refer to medication reconciliation sheet for a list of medications. Patient Condition at Discharge: Fair Plan - Discharge Summary Discharge Rx Participant: Yes New Discharge Prescriptions: New Potassium Chloride ER [K-Dur 20] 20 meq PO DAILY 30 Days #30 tablet Atorvastatin [Lipitor] 10 mg PO HS #30 tab Lacosamide [Vimpat] 50 mg PO BID 30 Days #60 tablet Loperamide [Imodium] 2 mg PO QID PRN #20 cap PRN Reason: Diarrhea Cholestyramine (with Sugar) [Questran Packet] 4 gm PO BID@1000,1800 #60 packet Acetaminophen Tab [Tylenol] 650 mg PO Q6HR PRN tab PRN Reason: Mild Pain Or Fever > 100.5 Continue Aspirin 81 mg PO DAILY Nystatin 100,000 Unit/gm Powd [Mycostatin Powder] 1 applic TOPICAL BID PRN PRN Reason: Skin Irritation Pantoprazole [Protonix] 40 mg PO AC-BRKFST 30 Days #30 tab Losartan Potassium [Cozaar] 50 mg PO HS Stop-Pain 1 applic TOPICAL DAILY PRN PRN Reason: knee pain Acetaminophen Tab [Tylenol] 325 mg PO Q6HR PRN tab PRN Reason: Fever And/ Or Pain Changed atenoloL [Tenormin] 12.5 mg PO BID #30 tab Discharge Medication List Aspirin 81 mg PO DAILY 07/11/20 [History] Nystatin 100,000 Unit/gm Powd [Mycostatin Powder] 1 applic TOPICAL BID PRN 12/03/20 [History] Losartan Potassium [Cozaar] 50 mg PO HS 05/27/21 [History] Stop-Pain 1 applic TOPICAL DAILY PRN 05/27/21 [History] Acetaminophen Tab [Tylenol] 325 mg PO Q6HR PRN tab 05/31/21 [Rx] Pantoprazole [Protonix] 40 mg PO AC-BRKFST 30 Days #30 tab 05/31/21 [Rx] Acetaminophen Tab [Tylenol] 650 mg PO Q6HR PRN tab 06/27/21 [Rx] Atorvastatin [Lipitor] 10 mg PO HS #30 tab 06/27/21 [Rx] Cholestyramine (with Sugar) [Questran Packet] 4 gm PO BID@1000,1800 #60 packet 06/27/21 [Rx] Lacosamide [Vimpat] 50 mg PO BID 30 Days #60 tablet 06/27/21 [Rx] Loperamide [Imodium] 2 mg PO QID PRN #20 cap 06/27/21 [Rx] Potassium Chloride ER [K-Dur 20] 20 meq PO DAILY 30 Days #30 tablet 06/27/21 [Rx] atenoloL [Tenormin] 12.5 mg PO BID #30 tab 06/27/21 [Rx] Follow up Appointment(s)/Referral(s): Oli Glover MD [STAFF PHYSICIAN] - 07/04/21 4:00 pm [facility], [NON-STAFF] - 1 Week Hebert Luna MD [Medical Doctor] - 1 Week Robin Santana MD [STAFF PHYSICIAN] - 07/07/21 3:15 pm Ambulatory/Diagnostic Orders: Basic Metabolic Panel [LAB.AMB] Time Frame: 2 Days, Location: None Selected Patient Instructions/Handouts: Atenolol (By mouth), Loperamide (By mouth), Cholestyramine (By mouth), Potassium Chloride (By mouth), Atorvastatin (By mouth), Lacosamide (By mouth), Potassium Content of Foods List (DC), Hypokalemia (DC), Syncope (DC), Basic Metabolic Panel (GEN), Hypomagnesemia (DC) Activity/Diet/Wound Care/Special Instructions: Activity Limited until follow-up Follow-up with primary care provider on discharge Continue taking medications as prescribed Repeat labs in 2-3 days to monitor electrolytes and kidney functions Continue potassium rich diet Follow-up with neurology outpatient in 2 weeks Follow-up with cardiology in 2 weeks and discuss an event monitor or Holter monitor at that point Discharge Disposition: HOME WITH HOME HEALTH SERVICES
== END 2021-06-27 13:39 | disposition home health service (06) | DRG 312 ==
LOC: EC 20:02 → 5NMEDONC 22:02
PROVIDERS: ADMIT Internal Medicine; ATTEND Internal Medicine
DX: R55 Syncope and collapse (principal); E87.1 Hypo-osmolality and hyponatremia; W06.XXXA Fall from bed, initial encounter; R56.9 Unspecified convulsions; Z20.822 Contact with and (suspected) exposure to COVID-19; E87.6 Hypokalemia; K21.9 Gastro-esophageal reflux disease without esophagitis; R79.89 Other specified abnormal findings of blood chemistry; E83.42 Hypomagnesemia; I10 Essential (primary) hypertension; E87.70 Fluid overload, unspecified; D72.829 Elevated white blood cell count, unspecified; I08.3 Combined rheumatic disorders of mitral, aortic and tricuspid valves; R77.8 Other specified abnormalities of plasma proteins; E78.5 Hyperlipidemia, unspecified; F40.240 Claustrophobia; K52.9 Noninfective gastroenteritis and colitis, unspecified; I49.3 Ventricular premature depolarization; Y92.013 Bedroom of single-family (private) house as the place of occurrence of the external cause; M54.9 Dorsalgia, unspecified; Z90.49 Acquired absence of other specified parts of digestive tract; Z90.710 Acquired absence of both cervix and uterus; Z88.5 Allergy status to narcotic agent; Z88.2 Allergy status to sulfonamides; Z88.8 Allergy status to other drugs, medicaments and biological substances; Z88.1 Allergy status to other antibiotic agents; Z91.041 Radiographic dye allergy status; Z79.82 Long term (current) use of aspirin; Z79.899 Other long term (current) drug therapy; Z82.49 Family history of ischemic heart disease and other diseases of the circulatory system; Z81.1 Family history of alcohol abuse and dependence; Z81.2 Family history of tobacco abuse and dependence; Z86.73 Personal history of transient ischemic attack (TIA), and cerebral infarction without residual deficits; Z86.79 Personal history of other diseases of the circulatory system; Z87.19 Personal history of other diseases of the digestive system
CPT/HCPCS: 36415; 70450; 71045; 72125; 74019; 80048; 80053; 81003; 83605; 83735; 83880; 84484; 85025; 87324; 87635; 93005; 93306; 94760; 95816; 96361; 96374; 99285

== ENCOUNTER → 2021-06-29 | Outpatient (CLI) | payer MEDICARE, BC | END | disposition home or self-care (01) | LOC: LABWHC1 10:56 | PROVIDERS: ATTEND Nurse Practitioner Family | DX: R00.8 Other abnormalities of heart beat (principal) | CPT/HCPCS: 36415; 93005 ==

== ENCOUNTER 2021-07-06 09:50 | Inpatient (IN) | payer MEDICARE, BC ==
[2021-07-06 10:33] LABS: Basophils # (A) 0.1 k/uL (0-0.2); Basophils % (A) 1 %; Eosinophils % (A) 0 %; HCT 41.3 % (34.0-46.0); HGB 13.9 gm/dL (11.4-16.0); Lymphocytes # (A) 1.3 k/uL (1.0-4.8); Lymphocytes % (A) 12 %; MCHC 33.7 g/dL (31.0-37.0); MCV 92.1 fL (80.0-100.0); Mean Platelet Volume 7.4; Monocytes # (A) 0.9 k/uL (0-1.0); Monocytes % (A) 8 %; Neutrophils # (A) 9.1 k/uL (1.3-7.7); Neutrophils % (A) 79 %; Platelet Count 369 k/uL (150-450); RBC 4.49 m/uL (3.80-5.40); RDW 12.4 % (11.5-15.5); WBC 11.6 k/uL (3.8-10.6)
--- NOTE | 2021-07-06 10:38 | ED ---
General Adult HPI - General Chief complaint: Fall Stated complaint: Fall Time Seen by Provider: 07/06/21 09:51 Source: patient, EMS, RN notes reviewed, old records reviewed Mode of arrival: EMS Limitations: no limitations - History of Present Illness Initial comments: 85-year-old female presents status post fall. Patient had head injury and injury to the right knee. She was using the bathroom, lost her footing and fell next to the toilet. There was no loss conscious. No anticoagulation. She states it was sometime before her came in from outside and found her. She was unable to stand without assistance. Denied chest pain or palpitations. She states she has had some diarrhea. She denies fever. - Related Data Home Medications Medication Instructions Recorded Confirmed Aspirin 81 mg PO DAILY 07/11/20 07/06/21 Nystatin 100,000 Unit/gm Powd 1 applic TOPICAL BID PRN 12/03/20 07/06/21 [Mycostatin Powder] Losartan Potassium [Cozaar] 50 mg PO HS 05/27/21 07/06/21 Stop-Pain 1 applic TOPICAL DAILY PRN 05/27/21 07/06/21 Acetaminophen Tab [Tylenol] 325 - 650 mg PO Q6HR PRN 07/06/21 07/06/21 Magnesium Oxide [Mag-Ox] 400 mg PO HS 07/06/21 07/06/21 Previous Rx's Medication Instructions Recorded Pantoprazole [Protonix] 40 mg PO AC-BRKFST 30 Days #30 tab 05/31/21 Atorvastatin [Lipitor] 10 mg PO HS #30 tab 06/27/21 Cholestyramine (with Sugar) 4 gm PO BID@1000,1800 #60 packet 06/27/21 [Questran Packet] Lacosamide [Vimpat] 50 mg PO BID 30 Days #60 tablet 06/27/21 Loperamide [Imodium] 2 mg PO QID PRN #20 cap 06/27/21 atenoloL [Tenormin] 12.5 mg PO BID #30 tab 06/27/21 Allergies Allergy/AdvReac Type Severity Reaction Status Date / Time aluminum Allergy Unknown Verified 07/06/21 11:38 benzalkonium chloride Allergy Unknown Verified 07/06/21 11:38 [From Bactine (with alcohol)] codeine Allergy Unknown Verified 07/06/21 11:38 lidocaine Allergy Unknown Verified 07/06/21 11:38 [From Bactine (with alcohol)] metronidazole [From Flagyl] Allergy Unknown Verified 07/06/21 11:38 sulfamethoxazole Allergy Unknown Verified 07/06/21 11:38 [From Bactrim] trimethoprim [From Bactrim] Allergy Unknown Verified 07/06/21 11:38 amlodipine AdvReac Nausea & Verified 07/06/21 11:38 Vomiting cephalexin [From Keflex] AdvReac Nausea & Verified 07/06/21 11:38 Vomiting chlorthalidone AdvReac Nausea & Verified 07/06/21 11:38 Vomiting Iodinated Contrast Media AdvReac Nausea & Verified 07/06/21 11:38 Vomiting levofloxacin [From Levaquin] AdvReac Nausea & Verified 07/06/21 11:38 Vomiting lisinopril AdvReac Nausea & Verified 07/06/21 11:38 Vomiting Review of Systems ROS Statement: Those systems with pertinent positive or pertinent negative responses have been documented in the HPI. ROS Other: All systems not noted in ROS Statement are negative. Past Medical History Past Medical History: CVA/TIA, GERD/Reflux, Hypertension Additional Past Medical History / Comment(s): past back pain, c-diff 2015, rt side brain anuerysm (TIA); small perforation in bowels History of Any Multi-Drug Resistant Organisms: C-DIFF Date of last positivie culture/infection: 2005 MDRO Source:: stool Past Surgical History: Cholecystectomy, Hysterectomy, Tonsillectomy Additional Past Surgical History / Comment(s): colonoscopy, eye sx(tear ducts) brain surgery aneursym repair with coil 07/01/20 Past Anesthesia/Blood Transfusion Reactions: Motion Sickness Additional Past Anesthesia/Blood Transfusion Reaction / Comment(s): claustrophobia Past Psychological History: No Psychological Hx Reported Smoking Status: Never smoker Past Alcohol Use History: None Reported Past Drug Use History: None Reported - Past Family History Father Family Medical History: Hypertension Additional Family Medical History / Comment(s): Father at the age of 63 yrs. He was an alcoholic and a smoker. Mother Family Medical History: Hypertension Additional Family Medical History / Comment(s): Mother at the age of 88yrs. General Exam Limitations: no limitations General appearance: alert, in no apparent distress Head exam: Present: atraumatic, normocephalic Eye exam: Present: normal appearance, PERRL ENT exam: Present: normal exam Neck exam: Present: normal inspection. Absent: tenderness, meningismus Respiratory exam: Present: normal lung sounds bilaterally. Absent: respiratory distress, wheezes Cardiovascular Exam: Present: regular rate, normal rhythm GI/Abdominal exam: Present: soft, distended. Absent: tenderness, guarding, rebound Extremities exam: Present: other (Abrasion to the right knee, no gross deformity) Neurological exam: Present: alert, oriented X3, CN II-XII intact. Absent: motor sensory deficit Psychiatric exam: Present: normal affect, normal mood Skin exam: Present: warm, dry, abrasion Course Vital Signs 07/06/21 09:57 Temperature 97.8 F Pulse Rate 97 Respiratory 18 Rate Blood Pressure 160/67 O2 Sat by Pulse 98 Oximetry Medical Decision Making - Medical Decision Making 85-year-old female with multiple falls, most recent this morning. She is had multiple hospital admissions over the past several months. Patient has minimal external signs of trauma, small abrasion to the right knee. I did perform imaging of the knee as well as CT of the brain is negative for acute traumatic injury. She has a mild leukocytosis 11.6. Sodium is 126 with some mild elevations or creatinine at 1.09. Urinalysis is pending. Patient's states that the patient is not doing well at home. She may require rehabilitation. She will be admitted for some IV hydration. Case discussed with Dr. Weir who will admit. - Lab Data Result diagrams: 07/06/21 10:19 07/06/21 10:19 Lab Results 07/06/21 07/06/21 Range/Units 10:19 10:19 WBC 11.6 H (3.8-10.6) k/uL RBC 4.49 (3.80-5.40) m/uL Hgb 13.9 (11.4-16.0) gm/dL Hct 41.3 (34.0-46.0) % MCV 92.1 (80.0-100.0) fL MCH 31.0 (25.0-35.0) pg MCHC 33.7 (31.0-37.0) g/dL RDW 12.4 (11.5-15.5) % Plt Count 369 (150-450) k/uL MPV 7.4 Neutrophils % 79 % Lymphocytes % 12 % Monocytes % 8 % Eosinophils % 0 % Basophils % 1 % Neutrophils # 9.1 H (1.3-7.7) k/uL Lymphocytes # 1.3 (1.0-4.8) k/uL Monocytes # 0.9 (0-1.0) k/uL Eosinophils # 0.0 (0-0.7) k/uL Basophils # 0.1 (0-0.2) k/uL Sodium 126 L (137-145) mmol/L Potassium 4.5 (3.5-5.1) mmol/L Chloride 96 L (98-107) mmol/L Carbon Dioxide 22 (22-30) mmol/L Anion Gap 8 mmol/L BUN 34 H (7-17) mg/dL Creatinine 1.09 H (0.52-1.04) mg/dL Est GFR (CKD-EPI)AfAm 54 (>60 ml/min/1.73 sqM) Est GFR (CKD-EPI)NonAf 47 (>60 ml/min/1.73 sqM) Glucose 118 H (74-99) mg/dL Calcium 8.6 (8.4-10.2) mg/dL Total Bilirubin 0.8 (0.2-1.3) mg/dL AST 37 H (14-36) U/L ALT 23 (4-34) U/L Alkaline Phosphatase 77 (38-126) U/L Total Protein 6.0 L (6.3-8.2) g/dL Albumin 3.2 L (3.5-5.0) g/dL Disposition Clinical Impression: Fall, Hyponatremia, JOVANY (acute kidney injury) Disposition: ADMITTED IP TO THIS HOSP Condition: Stable Is patient prescribed a controlled substance at d/c from ED?: No Referrals: Oli Glover MD [Primary Care Provider] - 1-2 days Decision to Admit Reason: Admit from EC Decision Date: 07/06/21 Decision Time: 13:54
[2021-07-06 10:47] LABS: Albumin 3.2 g/dL (3.5-5.0); Calcium 8.6 mg/dL (8.4-10.2); Potassium 4.5 mmol/L (3.5-5.1); Total Bilirubin 0.8 mg/dL (0.2-1.3)
--- NOTE | 2021-07-06 11:03 | XR ---
Right knee HISTORY: Trauma and pain 3 views of the right knee, correlation to plain film 03/02/2019 There is arthropathy change which has progressed. Joint space loss is complete in the medial compartm ent, there is remodeling as noted on prior, tricompartmental marginal spurring. Chondrocalcinosis is present. Alignment is stable. There is soft tissue swelling present. No definite joint effusion. IMPRESSION: No fracture or dislocation. Consider crystal deposition arthropathy, osteoarthritis
--- NOTE | 2021-07-06 11:07 | CT ---
EXAMINATION TYPE: CT brain cspine wo con DATE OF EXAM: 07/06/2021 COMPARISON: CT brain and cervical spine June 24, 2021 HISTORY: fall injury with headache and neck pain. CT DLP: 1414.2 mGycm. Automated Exposure Control for Dose Reduction was Utilized. TECHNIQUE: CT scan of the head and cervical spine are performed without contrast. FINDINGS: There is no acute intracranial hemorrhage or midline shift identified. Mild to moderate v entricular and sulcal prominence. Moderate low attenuation in the deep and periventricular white christiano er. Old infarct right parietal temporal lobe redemonstrated. The calvarium is intact. Nasal septum is deviated to right of midline. The globes are intact and the visualized sinuses are clear. Cervical spine is visualized in its entirety from C1 through upper thoracic levels and demonstrates s table alignment without evidence of acute fracture or dislocation. Prevertebral soft tissue appears within normal limits. The C1-C2 articulation is within normal limits on the coronal images. Osseous structures are demineralized. Vertebral body heights are maintained. Mild disc space narrowing C5-C6 through the C7-T1 levels. No large disc herniations. Review of axial images shows some multilevel left-sided uncovertebral facet degenerative changes. Thy roid gland remains normal in size. Lung apices show no pneumothorax. IMPRESSION: 1. There is no acute fracture or dislocation evident in the cervical spine. 2. No acute intracranial hemorrhage or midline shift is seen. No significant change from prior study.
[2021-07-06] MEDS ORDERED: SODIUM CHLORIDE 0.9% 500 ML 500 ML IV ONE (11:25)
[2021-07-06] MEDS ORDERED: NALOXONE 0.4 MG/ML 1 ML VIAL IV PRN (13:51)
[2021-07-06] MEDS: SODIUM CHLORIDE 0.9% 1,000 ML IV SCH (14:21)
[2021-07-06] MEDS: ACETAMINOPHEN TAB 325 MG TAB PO PRN ×2 (14:32→23:36)
[2021-07-06] MEDS ORDERED: NYSTATIN 100,000 UNIT/GM POWD 15 GM TOPICAL PRN (15:42)
[2021-07-06 17:59] LABS: Appearance,Urine Clear (Clear); Bacteria,Urine Rare /hpf; Bilirubin,Urine Negative (Negative); Blood,Urine Negative (Negative); Color,Urine Yellow; Glucose,Urine (UA) Negative (Negative); Ketones,Urine 1+ (Negative); Leukocyte Esterase,Urine Trace (Negative); Mucus,Urine Rare /hpf; Nitrite,Urine Negative (Negative); Protein,Urine Trace (Negative); RBC,Urine 1 /hpf (0-5); Specific Gravity,Urine 1.027 (1.001-1.035); Squamous Epithelial Cell,Urine 2 /hpf (0-4); Urobilinogen,Urine <2.0 mg/dL (<2.0); WBC,Urine 5 /hpf (0-5)
[2021-07-06] MEDS: MAGNESIUM OXIDE 400 MG TAB PO SCH (21:11)
[2021-07-06] MEDS: ATORVASTATIN 10 MG TAB PO SCH (21:12)
[2021-07-06] MEDS: LACOSAMIDE 50 MG TABLET PO SCH (21:12)
--- NOTE | 2021-07-06 22:14 | P.HPIM ---
History of Present Illness H&P Date: 07/06/21 Chief Complaint: Fall Patient is a 85-year-old female with a known history of CVA/TIA, hypertension, GERD, recently diagnosed with seizure disorder, history of right-sided brain aneurysm and recent history of diverticulitis with perforation presents to ER with complaints of fall. Patient states that she has been having diarrhea for the past 4 to 5 weeks and went to the bathroom and trying to sit on the commode. Patient states that she miscalculated the distance and fell to the side. Denies any complaints of dizziness or lightheadedness. Denied any loss of consciousness. Patient fell next to the toilet. Patient has been came in from outside and found her and she was unable to stand without assistance. Denied any complaints of chest pain. No shortness of breath. No palpitations. Patient states that he had head injury and injury to the right knee. Denies any fever or chills. Knee x-ray showed no acute fracture or dislocation. Consider crystal deposition arthropathy. Osteoarthritis. CT head and cervical spine showed there is no acute fracture or dislocation evident in the cervical spine. No acute intracranial hemorrhage or midline shift noted. Laboratory data showed WBC 11.6 hemoglobin 13.9 and platelets 369 Sodium 126 potassium 4.5 chloride 96 bicarb is 22 anion gap 8 BUN 34 and creatinine 1.09 albumin 3.2 and calcium 8.6 and urinalysis showed 1+ ketones and negative nitrite and trace leukocyte esterase. Coronavirus PCR not detected. Patient was admitted to the hospital from 05/27/2021 to 05/31/2021 due to acute diverticulitis and possible perforation. Patient was discharged home on antibiotics. Patient was admitted to the hospital from 06/15/2021 to 06/18/2021 due to complaints of diarrhea and discharge neuro: Possible colon obstruction. C. difficile was negative. And also admitted to hospital from 06/24/2021 to 06/27/2021 due to complaints of syncope and possible seizures. Patient was started on antiepileptic medication in the form of impact by neurology. Patient was also seen by cardiology. 2D echocardiogram showed normal ejection fraction and no significant valvular abnormalities noted. Review of Systems Constitutional: Patient denies any fever or chills . Patient does have generalized weakness and fatigue. Abdomen: Patient denied nausea vomiting. Patient does have diarrhea and lower a bdominal pain/discomfort. Cardiovascular: Patient denies any chest pain or short of breath no palpit ations. Respiratory: patient denied any cough or sputum production. No shortness of breath Neurologic: Patient denied any numbness or tingling headache. Musculoskeletal: Patient denies any complaints of joint swelling or deformity. Skin: Negative Psychiatric: Negative Endocrine: No heat or cold intolerance. No recent weight gain. Genitourinary: No dysuria or hematuria. All other 14 point ROS negative except the above Past Medical History Past Medical History: CVA/TIA, GERD/Reflux, Hypertension Additional Past Medical History / Comment(s): past back pain, c-diff 2015, rt side brain anuerysm (TIA); small perforation in bowels History of Any Multi-Drug Resistant Organisms: C-DIFF Date of last positivie culture/infection: 2005 MDRO Source:: stool Past Surgical History: Cholecystectomy, Hysterectomy, Tonsillectomy Additional Past Surgical History / Comment(s): colonoscopy, eye sx(tear ducts) brain surgery aneursym repair with coil 07/01/20 Past Anesthesia/Blood Transfusion Reactions: Motion Sickness Additional Past Anesthesia/Blood Transfusion Reaction / Comment(s): claustrophobia Past Psychological History: No Psychological Hx Reported Smoking Status: Never smoker Past Alcohol Use History: None Reported Past Drug Use History: None Reported - Past Family History Father Family Medical History: Hypertension Additional Family Medical History / Comment(s): Father at the age of 63 yrs. He was an alcoholic and a smoker. Mother Family Medical History: Hypertension Additional Family Medical History / Comment(s): Mother at the age of 88yrs. Medications and Allergies Home Medications Medication Instructions Recorded Confirmed Type Aspirin 81 mg PO DAILY 07/11/20 07/06/21 History Nystatin 100,000 Unit/gm Powd 1 applic TOPICAL BID PRN 12/03/20 07/06/21 History [Mycostatin Powder] Losartan Potassium [Cozaar] 50 mg PO HS 05/27/21 07/06/21 History Stop-Pain 1 applic TOPICAL DAILY PRN 05/27/21 07/06/21 History Pantoprazole [Protonix] 40 mg PO AC-BRKFST 30 Days #30 tab 05/31/21 07/06/21 Rx Atorvastatin [Lipitor] 10 mg PO HS #30 tab 06/27/21 07/06/21 Rx Cholestyramine (with Sugar) 4 gm PO BID@1000,1800 #60 packet 06/27/21 07/06/21 Rx [Questran Packet] Lacosamide [Vimpat] 50 mg PO BID 30 Days #60 tablet 06/27/21 07/06/21 Rx Loperamide [Imodium] 2 mg PO QID PRN #20 cap 06/27/21 07/06/21 Rx atenoloL [Tenormin] 12.5 mg PO BID #30 tab 06/27/21 07/06/21 Rx Acetaminophen Tab [Tylenol] 325 - 650 mg PO Q6HR PRN 07/06/21 07/06/21 History Magnesium Oxide [Mag-Ox] 400 mg PO HS 07/06/21 07/06/21 History Allergies Allergy/AdvReac Type Severity Reaction Status Date / Time aluminum Allergy Unknown Verified 07/06/21 11:38 benzalkonium chloride Allergy Unknown Verified 07/06/21 11:38 [From Bactine (with alcohol)] codeine Allergy Unknown Verified 07/06/21 11:38 lidocaine Allergy Unknown Verified 07/06/21 11:38 [From Bactine (with alcohol)] metronidazole [From Flagyl] Allergy Unknown Verified 07/06/21 11:38 sulfamethoxazole Allergy Unknown Verified 07/06/21 11:38 [From Bactrim] trimethoprim [From Bactrim] Allergy Unknown Verified 07/06/21 11:38 amlodipine AdvReac Nausea & Verified 07/06/21 11:38 Vomiting cephalexin [From Keflex] AdvReac Nausea & Verified 07/06/21 11:38 Vomiting chlorthalidone AdvReac Nausea & Verified 07/06/21 11:38 Vomiting Iodinated Contrast Media AdvReac Nausea & Verified 07/06/21 11:38 Vomiting levofloxacin [From Levaquin] AdvReac Nausea & Verified 07/06/21 11:38 Vomiting lisinopril AdvReac Nausea & Verified 07/06/21 11:38 Vomiting Physical Exam Vitals: Vital Signs Temp Pulse Resp BP Pulse Ox 07/06/21 14:25 92 18 128/72 96 07/06/21 09:57 97.8 F 97 18 160/67 98 Intake and Output 07/06/21 07/06/21 07/06/21 06:59 14:59 22:59 Other: Weight 76.204 kg PHYSICAL EXAMINATION: Patient is lying in the bed comfortably, no acute distress, awake alert and oriented.. HEENT: Normocephalic. Neck is supple. Pupils reactive. Nostrils clear. Oral cavity is moist. Neck reveals no JVD, carotid bruits, or thyromegaly. CHEST EXAMINATION: Trachea is central. Symmetrical expansion. Bibasilar diminished sounds.Lung smith clear to auscultation and percussion. CARDIAC: Normal S1, S2 with no gallops. No murmurs ABDOMEN: Soft.Lower abdominal tenderness. No guarding or rigidity. Mild distention of abdomen.. Bowel sounds normal. No organomegaly. No abdominal bruits. Extremities: reveal no edema. No clubbing or cyanosis Neurologically awake, alert, oriented x3 with well-coordinated movements. No focal deficits noted Skin: No rash or skin lesions. Psychiatric: Cooperative. Nonsuicidal Musculoskeletal: No joint swelling or deformity. Normal range of motion. Results CBC & Chem 7: 07/06/21 10:19 07/06/21 10:19 Labs: Abnormal Lab Results - Last 24 Hours (Table) 07/06/21 07/06/21 Range/Units 10:19 10:19 WBC 11.6 H (3.8-10.6) k/uL Neutrophils # 9.1 H (1.3-7.7) k/uL Sodium 126 L (137-145) mmol/L Chloride 96 L (98-107) mmol/L BUN 34 H (7-17) mg/dL Creatinine 1.09 H (0.52-1.04) mg/dL Glucose 118 H (74-99) mg/dL AST 37 H (14-36) U/L Total Protein 6.0 L (6.3-8.2) g/dL Albumin 3.2 L (3.5-5.0) g/dL Thrombosis Risk Factor Assmnt - DVT/VTE Prophylaxis DVT/VTE Prophylaxis: Pharmacologic Prophylaxis ordered Assessment and Plan Assessment: Status post fall likely mechanical. Patient states that she miscalculated while sitting on the commode and fell to the side. Generalized weakness. Acute kidney injury likely prerenal Hypovolemic hyponatremia Mild leukocytosis likely reactive Chronic diarrhea Recent history of diverticulitis and perforation status post antibiotic course. seizure disorder. Diagnosed during last admission was started on Vimpat. DVT prophylaxis History of CVA/TIA History of brain aneurysm Hypertension GERD Prior history of C. difficile infection in 2016 Plan: Patient be continued on IV hydration with normal saline and monitor electrolytes and renal function closely. Patient is still complains of lower abdominal discomfort and is having chronic diarrhea which is not resolving.. General surgery and GI will be consulted for further work-up and evaluation. Rule out C . difficile and stool studies were sent. Continue to follow closely. Time with Patient: Greater than 30
[2021-07-06] MEDS: HEPARIN SODIUM,PORCINE/PF 5,000 UNIT/0.5 ML SYRINGE SQ SCH (23:37)
--- NOTE | 2021-07-07 00:20 | XR ---
EXAMINATION TYPE: XR abdomen 1V DATE OF EXAM: 07/06/2021 COMPARISON: 06/25/2021 HISTORY: Distention TECHNIQUE: 2 views supine FINDINGS: There are some dilated air and fluid-filled small bowel loops in the mid abdomen. There is no evidence of free air. There is elevated right diaphragm. There are clips from cholecystectomy. IMPRESSION: Dilated small bowel increased compared to last exam and suggestive of significant ileus o r partial mechanical small bowel obstruction. No free air.
[2021-07-07] MEDS: ACETAMINOPHEN TAB 325 MG TAB PO PRN ×3 (05:33→23:09)
[2021-07-07] MEDS: SODIUM CHLORIDE 0.9% 1,000 ML IV SCH ×3 (05:56→23:10)
[2021-07-07] MEDS: HEPARIN SODIUM,PORCINE/PF 5,000 UNIT/0.5 ML SYRINGE SQ SCH ×3 (08:10→23:11)
[2021-07-07] MEDS: LACOSAMIDE 50 MG TABLET PO SCH ×2 (08:10→20:00)
[2021-07-07] MEDS: PANTOPRAZOLE 40 MG TABLET PO SCH (08:10)
[2021-07-07] MEDS ORDERED: ASPIRIN 81 MG PO SCH (09:00)
[2021-07-07 09:24] LABS: Basophils # (A) 0.04 X 10*3/uL (0.00-0.10); Basophils % (A) 0.4 %; Eosinophils # (A) 0.01 X 10*3/uL (0.04-0.35); Eosinophils % (A) 0.1 %; HGB 11.8 g/dL (12.0-15.0); Immature Grans, Automated 0.8 %; Lymphocytes # (A) 2.17 X 10*3/uL (0.90-5.00); Lymphocytes % (A) 21.2 %; MCH 29.1 pg (27.0-32.0); MCHC 31.9 g/dL (32.0-37.0); MCV 91.1 fL (80.0-97.0); Mean Platelet Volume 9.4 fL (9.5-12.2); Monocytes # (A) 1.16 X 10*3/uL (0.20-1.00); Monocytes % (A) 11.3 %; NRBC Per 100 WBC 0 /100 WBCS (0.0-0.0); Neutrophils # (A) 6.79 X 10*3/uL (1.80-7.70); Neutrophils % (A) 66.2 %; Platelet Count 307 X 10*3/uL (140-440); RBC 4.06 X 10*6/uL (4.10-5.20); WBC 10.25 X 10*3/uL (4.50-10.00)
[2021-07-07 09:37] LABS: African American GFR (CKD) 77.5 (60.0-200.0); Albumin 2.9 g/dL (3.8-4.9); Albumin/Globulin Ratio 1.66 (1.60-3.17); Anion Gap 12.2 mmol/L (10.00-18.00); BUN/Creat Ratio 34.28 Ratio (12.00-20.00); Blood Urea Nitrogen 27.7 mg/dL (9.0-27.0); Calcium 7.6 mg/dL (8.7-10.3); Carbon Dioxide 17.3 mmol/L (20.0-27.5); Globulin 1.7 g/dL (1.6-3.3); Non-African American GFR(CKD) 66.9 (60.0-200.0); Potassium 4.2 mmol/L (3.5-5.5); Total Bilirubin 0.4 mg/dL (0.30-1.20); Total Protein 4.6 g/dL (6.2-8.2)
[2021-07-07] MEDS ORDERED: ONDANSETRON 4 MG/2 ML VIAL IVP PRN (10:19)
--- NOTE | 2021-07-07 12:27 | P.CONS ---
History of Present Illness - Reason for Consult Consult date: 07/07/21 Chronic diarrhea Requesting physician: Isaak Weir - Chief Complaint Fall - History of Present Illness This is an 85-year-old female who presented to the hospital for weakness and a fall with the head and knee injury. Patient was recently treated for diverticulitis approximately 4 weeks ago. She states ever since then she's had diarrhea. She states she has loose watery stool 3-4 times a day. Denies any blood in her stool. She denies any severe abdominal pain, but does have some nausea but no vomiting. Appetite has been okay. She denies any fevers or chil ls. It does appear during her last hospitalization in May 2021 she was seen by general surgery and noted to have a small volume pneumoperitoneum is suspected with sigmoid diverticulitis as the etiology with no surgical intervention required. She was then again readmitted in June with complaints of ongoing diarrhea and was admitted for colon distention with possible partial colon obstruction at that time she was negative for C. diff. 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 On this admission C. diff was negative. Patient had mild leukocytosis on admission. On today's labs WBC 10.2 hemoglobin 11.8 hematocrit 37 platelet count 307,000 sodium 128 potassium 4.2 BUN 27 creatinine 0.8 total bilirubin 0.4 AST 27 ALT 22 alk phos 67 patient had positive stool lactoferrin occult blood was negative as well as C. diff. Stool cultures are pending. Patient is supposed to have an outpatient colonoscopy with Dr. Mccarty in August. She had an abdominal x-ray with findings of dilated small bowel increased compared to last exam and suggestive of significant ileus or partial mechanical small bowel obstruction. No free air. Review of Systems REVIEW OF SYSTEMS: CARDIOPULMONARY: No chest pain or shortness of breath. Gastrointestinal: No abdominal pain. No nausea or vomiting. No hematemesis, coffee-ground emesis. No rectal bleeding, or melena. Chronic diarrhea since May. I reported as watery no mucus or blood, 3-4 times a day. GENITOURINARY: No dysuria or hematuria. MUSCULOSKELETAL: Reports normal range of motion., Joint pain. SKIN: No rashes. No jaundice. ENDOCRINE: No chills, fevers. No excessive weight gain or loss. No polydipsia or polyuria. PSYCHIATRIC: Unremarkable. NEUROLOGY: No change in mental status. Denies dizziness, headache. ENT: Vision unremarkable. CONSTITUTIONAL: No recent weight loss. No fever, chills, night sweats. Past Medical History Past Medical History: CVA/TIA, GERD/Reflux, Hypertension Additional Past Medical History / Comment(s): past back pain, c-diff 2016, rt side brain anuerysm (TIA); small perforation in bowels History of Any Multi-Drug Resistant Organisms: C-DIFF Year Discovered:: 2005 MDRO Source:: stool Past Surgical History: Cholecystectomy, Hysterectomy, Tonsillectomy Additional Past Surgical History / Comment(s): colonoscopy, eye sx(tear ducts) brain surgery aneursym repair with coil 07/01/20 Past Anesthesia/Blood Transfusion Reactions: Motion Sickness Additional Past Anesthesia/Blood Transfusion Reaction / Comm: claustrophobia Past Psychological History: No Psychological Hx Reported Smoking Status: Never smoker Past Alcohol Use History: None Reported Past Drug Use History: None Reported - Past Family History Father Family Medical History: Hypertension Additional Family Medical History / Comment(s): Father at the age of 63 yrs. He was an alcoholic and a smoker. Mother Family Medical History: Hypertension Additional Family Medical History / Comment(s): Mother at the age of 88yrs. Medications and Allergies Home Medications Medication Instructions Recorded Confirmed Type Aspirin 81 mg PO DAILY 07/11/20 07/06/21 History Nystatin 100,000 Unit/gm Powd 1 applic TOPICAL BID PRN 12/03/20 07/06/21 History [Mycostatin Powder] Losartan Potassium [Cozaar] 50 mg PO HS 05/27/21 07/06/21 History Stop-Pain 1 applic TOPICAL DAILY PRN 05/27/21 07/06/21 History Pantoprazole [Protonix] 40 mg PO AC-BRKFST 30 Days #30 tab 05/31/21 07/06/21 Rx Atorvastatin [Lipitor] 10 mg PO HS #30 tab 06/27/21 07/06/21 Rx Cholestyramine (with Sugar) 4 gm PO BID@1000,1800 #60 packet 06/27/21 07/06/21 Rx [Questran Packet] Lacosamide [Vimpat] 50 mg PO BID 30 Days #60 tablet 06/27/21 07/06/21 Rx Loperamide [Imodium] 2 mg PO QID PRN #20 cap 06/27/21 07/06/21 Rx atenoloL [Tenormin] 12.5 mg PO BID #30 tab 06/27/21 07/06/21 Rx Acetaminophen Tab [Tylenol] 325 - 650 mg PO Q6HR PRN 07/06/21 07/06/21 History Magnesium Oxide [Mag-Ox] 400 mg PO HS 07/06/21 07/06/21 History Allergies Allergy/AdvReac Type Severity Reaction Status Date / Time aluminum Allergy Unknown Verified 07/06/21 11:38 benzalkonium chloride Allergy Unknown Verified 07/06/21 11:38 [From Bactine (with alcohol)] codeine Allergy Unknown Verified 07/06/21 11:38 lidocaine Allergy Unknown Verified 07/06/21 11:38 [From Bactine (with alcohol)] metronidazole [From Flagyl] Allergy Unknown Verified 07/06/21 11:38 sulfamethoxazole Allergy Unknown Verified 07/06/21 11:38 [From Bactrim] trimethoprim [From Bactrim] Allergy Unknown Verified 07/06/21 11:38 amlodipine AdvReac Nausea & Verified 07/06/21 11:38 Vomiting cephalexin [From Keflex] AdvReac Nausea & Verified 07/06/21 11:38 Vomiting chlorthalidone AdvReac Nausea & Verified 07/06/21 11:38 Vomiting Iodinated Contrast Media AdvReac Nausea & Verified 07/06/21 11:38 Vomiting levofloxacin [From Levaquin] AdvReac Nausea & Verified 07/06/21 11:38 Vomiting lisinopril AdvReac Nausea & Verified 07/06/21 11:38 Vomiting Physical Exam Vitals: Vital Signs Temp Pulse Pulse Resp BP BP Pulse Ox 07/07/21 08:09 93 166/84 07/07/21 04:22 97.6 F 83 16 117/73 95 07/06/21 20:49 97.9 F 94 16 127/68 96 07/06/21 16:10 98.5 F 96 18 154/83 98 07/06/21 14:25 92 18 128/72 96 Intake and Output 07/06/21 07/07/21 07/07/21 22:59 06:59 14:59 Intake Total 75 900 Balance 75 900 Intake: Intake, IV Titration 75 900 Amount Sodium Chloride 0.9% 1, 75 900 000 ml @ 75 mls/hr IV . [id number] [facility] Rx#:[id number] Other: Voiding Method Bedside Commode Bedside Commode # Voids 3 # Bowel Movements 3 Weight 76.204 kg General appearance: The patient is alert, oriented, appears in no acute distress. HET: Head is normocephalic and atraumatic. Conjunctiva pink. Sclera anicteric. Neck: Supple without lymphadenopathy. Trachea midline. Heart: S1 S2. Regular rate and rhythm. Lungs: Clear to auscultation. Abdomen: Soft, nontender, distended. No guarding or rigidity. Skin: No rashes. No jaundice. Extremities: Normal skin color and turgor. No pedal edema. Neurological: No focal deficits. Alert and oriented x3. Results CBC & Chem 7: 07/07/21 06:20 07/07/21 06:20 Labs: Abnormal Lab Results - Last 24 Hours (Table) 07/06/21 07/06/21 07/06/21 Range/Units 10:19 10:19 17:30 WBC 11.6 H (3.8-10.6) k/uL RBC (4.10-5.20) X 10*6/uL Hgb (12.0-15.0) g/dL Hct (37.2-46.3) % MCHC (32.0-37.0) g/dL MPV (9.5-12.2) fL Immature Gran # (0.00-0.04) X 10*3/uL Neutrophils # 9.1 H (1.3-7.7) k/uL Monocytes # (0.20-1.00) X 10*3/uL Eosinophils # (0.04-0.35) X 10*3/uL Sodium 126 L (137-145) mmol/L Chloride 96 L (98-107) mmol/L Carbon Dioxide (20.0-27.5) mmol/L BUN 34 H (7-17) mg/dL Creatinine 1.09 H (0.52-1.04) mg/dL BUN/Creatinine Ratio (12.00-20.00) Ratio Glucose 118 H (74-99) mg/dL Calcium (8.7-10.3) mg/dL AST 37 H (14-36) U/L Total Protein 6.0 L (6.3-8.2) g/dL Albumin 3.2 L (3.5-5.0) g/dL Urine Protein Trace H (Negative) Urine Ketones 1+ H (Negative) Ur Leukocyte Esterase Trace H (Negative) Urine Bacteria Rare H (None) /hpf Urine Mucus Rare H (None) /hpf 07/07/21 07/07/21 Range/Units 06:20 06:20 WBC 10.25 H (3.8-10.6) k/uL RBC 4.06 L (4.10-5.20) X 10*6/uL Hgb 11.8 L (12.0-15.0) g/dL Hct 37.0 L (37.2-46.3) % MCHC 31.9 L (32.0-37.0) g/dL MPV 9.4 L (9.5-12.2) fL Immature Gran # 0.08 H (0.00-0.04) X 10*3/uL Neutrophils # (1.3-7.7) k/uL Monocytes # 1.16 H (0.20-1.00) X 10*3/uL Eosinophils # 0.01 L (0.04-0.35) X 10*3/uL Sodium 128 L (137-145) mmol/L Chloride (98-107) mmol/L Carbon Dioxide 17.3 L (20.0-27.5) mmol/L BUN 27.7 H (7-17) mg/dL Creatinine (0.52-1.04) mg/dL BUN/Creatinine Ratio 34.28 H (12.00-20.00) Ratio Glucose (74-99) mg/dL Calcium 7.6 L (8.7-10.3) mg/dL AST (14-36) U/L Total Protein 4.6 L (6.3-8.2) g/dL Albumin 2.9 L (3.5-5.0) g/dL Urine Protein (Negative) Urine Ketones (Negative) Ur Leukocyte Esterase (Negative) Urine Bacteria (None) /hpf Urine Mucus (None) /hpf Abdominal x-ray: report reviewed (Dilated small bowel increased compared to last exam and suggestive of significant ileus or partial mechanical small bowel obstruction. No free air.) Assessment and Plan (1) Chronic diarrhea Narrative/Plan: A 41-year-old female who presented to the emergency department after sustaining a fall. Patient apparently lost her bearings but she still been complaining of weakness. She has had diarrhea since May for which she was admitted for a small volume pneumoperitoneum suspected from sigmoid diverticulitis that did not require surgery. She had been discharged home. Patient continued to have diarrhea and was readmitted in June of this year with a suspected possible small bowel obstruction and followed by Dr. Mccarty from general surgery. Patient was scheduled to undergo colonoscopy in August as a follow-up. She does have a history of C. diff colitis. Stool studies ordered, stool culture pending. Stool lactoferrin positive, C. diff negative, occult blood negative. Patient states she's continues to have loose watery diarrhea 3-4 a day, nonbloody, non-mucousy. Denies any fevers, chills or abdominal pain. She does state that she is very distended. No nausea or vomiting. Current Visit: Yes Status: Acute Code(s): K52.9 - NONINFECTIVE GASTROENTERITIS AND COLITIS, UNSPECIFIED SNOMED Code(s): 169047517 (2) History of diverticulitis of colon Current Visit: Yes Status: Acute Code(s): Z87.19 - PERSONAL HISTORY OF OTHER DISEASES OF THE DIGESTIVE SYSTEM SNOMED Code(s): 785847283131378 Plan: 1. Continue symptomatic and supportive care 2. Decrease diet to clear liquid 3. Await further recommendations from general surgery, patient has been following with Dr. Mccarty 4. Gastroenterology will not be available after today. Recommend patient follow-up after discharge. Thank you for allowing us to participate in the care of the patient, the GI service will sign off, gastroenterology will not be available at the hospital this weekend and through next week. If further evaluation by gastroenterology is required the patient will need transfer as per the primary team's discretion. Dr. Consuelo Santana I agree with the dictator's note, documented as a scribe by Bijal Aceves.
--- NOTE | 2021-07-07 14:25 | P.GSCN ---
History of Present Illness Consult date: 07/07/21 Reason for Consult: Abdominal pain History of present illness: 85-year-old female known to our service. Patient was hospitalized on 1225 and t hen again 2-3 weeks later. Initial presentation demonstrated small volume pneumoperitoneum adjacent to the sigmoid colon consistent with sigmoid diverticulitis with microperforation. Patient did not require surgical intervention. She was treated conservatively with antibiotics. She was discharged home. When she came back and was seen by myself on 06/16 patient was complaining of diarrhea. CAT scan showed small and large bowel dilation. She was treated for possible partial colonic obstruction at that time. Antibiotics were continued. Stool cultures were negative. She does have a history of previous C. diff colitis. Infectious disease I believe was following at that time. She did improve and was discharged home. States that since she's been home she is still had some mild abdominal distention and persistent diarrhea that has increased. Patient says she was sitting on the toilet when she fell to the floor and she actually came to the hospital for a fall. Patient had x-rays performed because she was complaining of distention and nausea. Abdominal x- rays show what appears to represent small bowel dilation worrisome for persistent ileus or obstruction. No CAT scan performed at this hospitalization. Patient with history of previous open cholecystectomy and hysterectomy. Review of Systems My review of systemThe patient denies any acute changes in vision or hearing, no dysphagia or odynophagia, no chest pain or shortness of breath, no dysuria or hematuria, no headache, no runny nose, no rectal bleeding or melena, no unexplained weight loss Past Medical History Past Medical History: CVA/TIA, GERD/Reflux, Hypertension Additional Past Medical History / Comment(s): past back pain, c-diff 2015, rt side brain anuerysm (TIA); small perforation in bowels History of Any Multi-Drug Resistant Organisms: C-DIFF Year Discovered:: 2005 MDRO Source:: stool Past Surgical History: Cholecystectomy, Hysterectomy, Tonsillectomy Additional Past Surgical History / Comment(s): colonoscopy, eye sx(tear ducts) brain surgery aneursym repair with coil 07/01/20 Past Anesthesia/Blood Transfusion Reactions: Motion Sickness Additional Past Anesthesia/Blood Transfusion Reaction / Comm: claustrophobia Past Psychological History: No Psychological Hx Reported Smoking Status: Never smoker Past Alcohol Use History: None Reported Past Drug Use History: None Reported - Past Family History Father Family Medical History: Hypertension Additional Family Medical History / Comment(s): Father at the age of 63 yrs. He was an alcoholic and a smoker. Mother Family Medical History: Hypertension Additional Family Medical History / Comment(s): Mother at the age of 88yrs. Medications and Allergies Home Medications Medication Instructions Recorded Confirmed Type Aspirin 81 mg PO DAILY 07/11/20 07/06/21 History Nystatin 100,000 Unit/gm Powd 1 applic TOPICAL BID PRN 12/03/20 07/06/21 History [Mycostatin Powder] Losartan Potassium [Cozaar] 50 mg PO HS 05/27/21 07/06/21 History Stop-Pain 1 applic TOPICAL DAILY PRN 05/27/21 07/06/21 History Pantoprazole [Protonix] 40 mg PO AC-BRKFST 30 Days #30 tab 05/31/21 07/06/21 Rx Atorvastatin [Lipitor] 10 mg PO HS #30 tab 06/27/21 07/06/21 Rx Cholestyramine (with Sugar) 4 gm PO BID@1000,1800 #60 packet 06/27/21 07/06/21 Rx [Questran Packet] Lacosamide [Vimpat] 50 mg PO BID 30 Days #60 tablet 06/27/21 07/06/21 Rx Loperamide [Imodium] 2 mg PO QID PRN #20 cap 06/27/21 07/06/21 Rx atenoloL [Tenormin] 12.5 mg PO BID #30 tab 06/27/21 07/06/21 Rx Acetaminophen Tab [Tylenol] 325 - 650 mg PO Q6HR PRN 07/06/21 07/06/21 History Magnesium Oxide [Mag-Ox] 400 mg PO HS 07/06/21 07/06/21 History Allergies Allergy/AdvReac Type Severity Reaction Status Date / Time aluminum Allergy Unknown Verified 07/06/21 11:38 benzalkonium chloride Allergy Unknown Verified 07/06/21 11:38 [From Bactine (with alcohol)] codeine Allergy Unknown Verified 07/06/21 11:38 lidocaine Allergy Unknown Verified 07/06/21 11:38 [From Bactine (with alcohol)] metronidazole [From Flagyl] Allergy Unknown Verified 07/06/21 11:38 sulfamethoxazole Allergy Unknown Verified 07/06/21 11:38 [From Bactrim] trimethoprim [From Bactrim] Allergy Unknown Verified 07/06/21 11:38 amlodipine AdvReac Nausea & Verified 07/06/21 11:38 Vomiting cephalexin [From Keflex] AdvReac Nausea & Verified 07/06/21 11:38 Vomiting chlorthalidone AdvReac Nausea & Verified 07/06/21 11:38 Vomiting Iodinated Contrast Media AdvReac Nausea & Verified 07/06/21 11:38 Vomiting levofloxacin [From Levaquin] AdvReac Nausea & Verified 07/06/21 11:38 Vomiting lisinopril AdvReac Nausea & Verified 07/06/21 11:38 Vomiting Surgical - Exam Vital Signs Temp Pulse Resp BP Pulse Ox 97.8 F 97 18 160/67 98 07/06/21 09:57 07/06/21 09:57 07/06/21 09:57 07/06/21 09:57 07/06/21 09:57 Physical exam: General: Well-developed, well-nourished HEENT: Normocephalic, sclerae nonicteric Abdomen: Mild distention, mild tenderness diffusely Extremities: No edema Neuro: Alert and oriented Results - Labs 07/07/21 06:20 07/07/21 06:20 Abnormal Lab Results - Last 24 Hours (Table) 07/06/21 07/07/21 07/07/21 Range/Units 17:30 03:30 06:20 WBC 10.25 H (4.50-10.00) X 10*3/uL RBC 4.06 L (4.10-5.20) X 10*6/uL Hgb 11.8 L (12.0-15.0) g/dL Hct 37.0 L (37.2-46.3) % MCHC 31.9 L (32.0-37.0) g/dL MPV 9.4 L (9.5-12.2) fL Immature Gran # 0.08 H (0.00-0.04) X 10*3/uL Monocytes # 1.16 H (0.20-1.00) X 10*3/uL Eosinophils # 0.01 L (0.04-0.35) X 10*3/uL Sodium (135-145) mmol/L Carbon Dioxide (20.0-27.5) mmol/L BUN (9.0-27.0) mg/dL BUN/Creatinine Ratio (12.00-20.00) Ratio Calcium (8.7-10.3) mg/dL Total Protein (6.2-8.2) g/dL Albumin (3.8-4.9) g/dL Urine Protein Trace H (Negative) Urine Ketones 1+ H (Negative) Ur Leukocyte Esterase Trace H (Negative) Urine Bacteria Rare H (None) /hpf Urine Mucus Rare H (None) /hpf Stool Lactoferrin POSITIVE A (NEGATIVE) 07/07/21 Range/Units 06:20 WBC (4.50-10.00) X 10*3/uL RBC (4.10-5.20) X 10*6/uL Hgb (12.0-15.0) g/dL Hct (37.2-46.3) % MCHC (32.0-37.0) g/dL MPV (9.5-12.2) fL Immature Gran # (0.00-0.04) X 10*3/uL Monocytes # (0.20-1.00) X 10*3/uL Eosinophils # (0.04-0.35) X 10*3/uL Sodium 128 L (135-145) mmol/L Carbon Dioxide 17.3 L (20.0-27.5) mmol/L BUN 27.7 H (9.0-27.0) mg/dL BUN/Creatinine Ratio 34.28 H (12.00-20.00) Ratio Calcium 7.6 L (8.7-10.3) mg/dL Total Protein 4.6 L (6.2-8.2) g/dL Albumin 2.9 L (3.8-4.9) g/dL Urine Protein (Negative) Urine Ketones (Negative) Ur Leukocyte Esterase (Negative) Urine Bacteria (None) /hpf Urine Mucus (None) /hpf Stool Lactoferrin (NEGATIVE) Microbiology - Last 24 Hours (Table) 07/07/21 03:30 Stool Culture - Preliminary Stool Diabetes panel 07/07/21 Range/Units 06:20 Sodium 128 L (135-145) mmol/L Potassium 4.2 (3.5-5.5) mmol/L Chloride 99 (96-109) mmol/L Carbon Dioxide 17.3 L (20.0-27.5) mmol/L BUN 27.7 H (9.0-27.0) mg/dL Creatinine 0.8 (0.6-1.5) mg/dL Glucose 95 (70-110) mg/dL Calcium 7.6 L (8.7-10.3) mg/dL AST 27 (13-35) U/L ALT 22 (8-44) U/L Alkaline Phosphatase 67 (41-126) U/L Total Protein 4.6 L (6.2-8.2) g/dL Albumin 2.9 L (3.8-4.9) g/dL Calcium panel 07/07/21 Range/Units 06:20 Calcium 7.6 L (8.7-10.3) mg/dL Albumin 2.9 L (3.8-4.9) g/dL Pituitary panel 07/07/21 Range/Units 06:20 Sodium 128 L (135-145) mmol/L Potassium 4.2 (3.5-5.5) mmol/L Chloride 99 (96-109) mmol/L Carbon Dioxide 17.3 L (20.0-27.5) mmol/L BUN 27.7 H (9.0-27.0) mg/dL Creatinine 0.8 (0.6-1.5) mg/dL Glucose 95 (70-110) mg/dL Calcium 7.6 L (8.7-10.3) mg/dL Adrenal panel 07/07/21 Range/Units 06:20 Sodium 128 L (135-145) mmol/L Potassium 4.2 (3.5-5.5) mmol/L Chloride 99 (96-109) mmol/L Carbon Dioxide 17.3 L (20.0-27.5) mmol/L BUN 27.7 H (9.0-27.0) mg/dL Creatinine 0.8 (0.6-1.5) mg/dL Glucose 95 (70-110) mg/dL Calcium 7.6 L (8.7-10.3) mg/dL Total Bilirubin 0.40 (0.30-1.20) mg/dL AST 27 (13-35) U/L ALT 22 (8-44) U/L Alkaline Phosphatase 67 (41-126) U/L Total Protein 4.6 L (6.2-8.2) g/dL Albumin 2.9 L (3.8-4.9) g/dL Assessment and Plan (1) Abdominal pain Narrative/Plan: 85-year-old female with abdominal pain and diarrhea. Etiology unclear at this time. We'll order CT abdomen and pelvis to better evaluate the small bowel distention seen on x-ray. Keep nothing by mouth for now. Current Visit: Yes Status: Acute Code(s): R10.9 - UNSPECIFIED ABDOMINAL PAIN SNOMED Code(s): 97602853
[2021-07-07] MEDS ORDERED: BARIUM SULFATE 450 ML ORAL.SUSP BOTTLE PO PRN (14:27)
--- NOTE | 2021-07-07 17:52 | CT ---
EXAMINATION TYPE: CT abdomen pelvis wo con DATE OF EXAM: 07/07/2021 COMPARISON: 06/15/2021 HISTORY: abdominal pain CT DLP: 897.7 mGycm Automated exposure control for dose reduction was used. Images obtained from the diaphragm to the floor the pelvis with oral contrast. There is small right pleural effusion. There is subsegmental atelectasis at the lung bases. There is pericardial effusion with fluid measuring up to 1 cm in thickness. There is small hiatal hernia. Liver is intact. The bile ducts are not dilated. Spleen is intact. There is no evidence of pancreatic mass. There is no adrenal mass. Kidneys have normal size. There is no hydronephrosis. Ureters are not dilat ed. There is fat-containing umbilical hernia measuring 5 cm. There is mild subcutaneous edema over th e anterior abdomen. There are multiple dilated fluid-filled loops of large bowel extending to the rectosigmoid colon. The re are sigmoid diverticula. There are fluid levels in the rectum. There are dilated fluid-filled and air-filled small bowel loops that measure up to almost 4 cm. The lumbar vertebra have fairly normal alignment. There is a minimal L4-5 degenerative spondylolisthe sis. There is no lumbar compression fracture. Bony pelvis is intact. There is no evidence of a hip fr acture. Sacroiliac joints are intact. Acetabula appear intact. IMPRESSION: Dilated large and small bowel loops with fluid levels extending down to the rectum and consistent wit h generalized ileus. Sigmoid diverticulosis without sign of diverticulitis. Intestinal dilation is in creased compared to old exam. Right pleural effusion is new compared to old exam. Pericardial effusion without change.
[2021-07-07] MEDS: MAGNESIUM OXIDE 400 MG TAB PO SCH (20:00)
[2021-07-07] MEDS: ATORVASTATIN 10 MG TAB PO SCH (20:00)
[2021-07-08 07:30] LABS: Basophils % (A) 0 %; Eosinophils % (A) 0 %; HCT 37.6 % (34.0-46.0); HGB 12.8 gm/dL (11.4-16.0); Lymphocytes # (A) 1.7 k/uL (1.0-4.8); Lymphocytes % (A) 18 %; MCH 31.7 pg (25.0-35.0); MCHC 34.1 g/dL (31.0-37.0); MCV 93.2 fL (80.0-100.0); Mean Platelet Volume 9.2; Monocytes # (A) 0.8 k/uL (0-1.0); Monocytes % (A) 8 %; Neutrophils # (A) 6.5 k/uL (1.3-7.7); Neutrophils % (A) 72 %; Platelet Count 236 k/uL (150-450); RBC 4.04 m/uL (3.80-5.40); RDW 13.3 % (11.5-15.5); WBC 9.1 k/uL (3.8-10.6)
[2021-07-08 07:54] LABS: African American GFR (CKD) 79 (>60 ml/min/1.73 sqM); Anion Gap 8 mmol/L; Blood Urea Nitrogen 24 mg/dL (7-17); Calcium 7.3 mg/dL (8.4-10.2); Carbon Dioxide 12 mmol/L (22-30); Chloride 108 mmol/L (98-107); Glucose 81 mg/dL (74-99); Non-African American GFR(CKD) 68 (>60 ml/min/1.73 sqM); Sodium 128 mmol/L (137-145)
[2021-07-08 07:58] LABS: Potassium 4.2 mmol/L (3.5-5.1)
[2021-07-08] MEDS: PANTOPRAZOLE 40 MG TABLET PO SCH (09:52)
[2021-07-08] MEDS: HEPARIN SODIUM,PORCINE/PF 5,000 UNIT/0.5 ML SYRINGE SQ SCH ×2 (09:52→17:11)
[2021-07-08] MEDS: LACOSAMIDE 50 MG TABLET PO SCH ×4 (09:52→20:52)
[2021-07-08] MEDS: SODIUM CHLORIDE 0.9% 1,000 ML IV SCH ×2 (09:53→17:11)
--- NOTE | 2021-07-08 13:20 | P.PN ---
Subjective Progress Note Date: 07/08/21 Principal diagnosis: Abdominal pain Patient's CAT scan was reviewed. As expected the patient has significant small and large bowel distention down to the level of the sigmoid colon where I believe she has a partial colonic obstruction. Patient has had a small amount of liquid stool since yesterday although thinks the frequency and volume of liquid stools are decreasing. Patient says she feels more bloated now than she was a week or so ago. She is currently nothing by mouth. Objective - Vital Signs Vital signs: Vital Signs Temp 97.7 F 07/08/21 11:21 Pulse 77 07/08/21 11:21 Resp 16 07/08/21 11:21 BP 151/77 07/08/21 11:21 Pulse Ox 96 07/08/21 11:21 Intake & Output 07/07/21 07/08/21 07/08/21 18:59 06:59 18:59 Intake Total 1250 Balance 1250 Intake: Intake, IV Titration 1200 Amount Sodium Chloride 0.9% 1, 1200 000 ml @ 125 mls/hr IV . Q8H [facility] Rx#:[id number] Oral 50 Other: Voiding Method Bedside Commode Bedside Commode Bedside Commode # Voids 4 # Bowel Movements 2 2 - Exam Abdomen: Distended, mild diffuse tenderness, no rebound or guarding - Labs CBC & Chem 7: 07/08/21 06:10 07/08/21 06:10 Labs: Abnormal Lab Results - Last 24 Hours (Table) 07/08/21 Range/Units 06:10 Sodium 128 L (137-145) mmol/L Chloride 108 H (98-107) mmol/L Carbon Dioxide 12 L (22-30) mmol/L BUN 24 H (7-17) mg/dL Calcium 7.3 L (8.4-10.2) mg/dL Microbiology - Last 24 Hours (Table) 07/07/21 03:30 Stool Culture - Preliminary Stool Assessment and Plan (1) Abdominal pain Narrative/Plan: 85-year-old female with CAT scan findings demonstrating partial colonic obstruction at the site of suspected previous perforation. Etiology thought to be related to diverticulitis however atypical malignancy not excluded. Clinical scenario reviewed in detail with the patient once again and also her son by phone. I did call her and left a message. Recommend that we proceed with exploratory laparotomy with possible partial colectomy and colostomy at this time. Discussed that if the pelvis was significantly inflamed and that if resection of the sigmoid colon was not feasible that we would perform a diverting loop colostomy. Otherwise planned sigmoid colectomy with end colostomy. Risks of bleeding, infection, scarring, bladder bowel ureteral injury, ostomy complications, hernia, respiratory and cardiac complications reviewed. They understand and wish to proceed. Current Visit: Yes Status: Acute Code(s): R10.9 - UNSPECIFIED ABDOMINAL PAIN SNOMED Code(s): 43501506
[2021-07-08] MEDS: HYDROmorphone 1 MG/ML 1 ML SYRINGE IVP PRN ×2 (13:38→17:12)
[2021-07-08] MEDS: MAGNESIUM OXIDE 400 MG TAB PO SCH ×2 (20:26→20:32)
[2021-07-08] MEDS: ATORVASTATIN 10 MG TAB PO SCH ×2 (20:26→20:31)
[2021-07-09] MEDS: HEPARIN SODIUM,PORCINE/PF 5,000 UNIT/0.5 ML SYRINGE SQ SCH ×4 (00:28→23:16)
[2021-07-09] MEDS: SODIUM CHLORIDE 0.9% 1,000 ML IV SCH ×3 (00:29→17:05)
[2021-07-09] MEDS ORDERED: NEOSTIGMINE 1 MG/ML 10 ML VIAL ONE (07:45)
[2021-07-09] MEDS ORDERED: SUCCINYLCHOLINE CHLORIDE 100 MG/5 ML SYR IV ONE (07:45)
[2021-07-09] MEDS ORDERED: ROCURONIUM 10 MG/ML (5 ML VIAL) IV ONE (07:45)
[2021-07-09] MEDS ORDERED: GLYCOPYRROLATE 0.2 MG/ML 2 ML VIAL ONE (07:45)
[2021-07-09] MEDS ORDERED: PROPOFOL 10 MG/ML 20 ML VIAL IV ONE (07:45)
[2021-07-09] MEDS ORDERED: PHENYLEPHRINE-0.9% NACL SYG 1,000 MCG/10 ML SYRINGE ONE (07:45)
[2021-07-09] MEDS ORDERED: fentaNYL (PF) 50 MCG/ML 2 ML AMP ONE (07:45)
[2021-07-09] MEDS ORDERED: metroNIDAZOLE-NS PMX 500 MG in SALINE 1 100ML.BAG IVPB STA (07:46)
[2021-07-09] MEDS ORDERED: LACTATED RINGERS 1,000 ML IV ONE ×3 (07:50→10:15)
[2021-07-09] MEDS ORDERED: SODIUM CHLORIDE 0.9% 100 ML with ceFAZolin 2,000 MG IV ONE ×2 (07:50)
[2021-07-09 09:12] LABS: Basophils # (A) 0.03 X 10*3/uL (0.00-0.10); Basophils % (A) 0.3 %; Eosinophils # (A) 0.01 X 10*3/uL (0.04-0.35); Eosinophils % (A) 0.1 %; HCT 34.8 % (37.2-46.3); HGB 11.3 g/dL (12.0-15.0); Immature Grans, Automated 0.6 %; Lymphocytes # (A) 2.19 X 10*3/uL (0.90-5.00); Lymphocytes % (A) 21.7 %; MCH 29.6 pg (27.0-32.0); MCHC 32.5 g/dL (32.0-37.0); MCV 91.1 fL (80.0-97.0); Mean Platelet Volume 9.6 fL (9.5-12.2); Monocytes % (A) 8.9 %; NRBC Per 100 WBC 0 /100 WBCS (0.0-0.0); Neutrophils % (A) 68.4 %; Platelet Count 320 X 10*3/uL (140-440); RBC 3.82 X 10*6/uL (4.10-5.20); RDW 13.2 % (11.5-14.5); WBC 10.09 X 10*3/uL (4.50-10.00)
[2021-07-09 09:25] LABS: African American GFR (CKD) 90.6 (60.0-200.0); Anion Gap 12.3 mmol/L (10.00-18.00); BUN/Creat Ratio 27.18 Ratio (12.00-20.00); Blood Urea Nitrogen 19.3 mg/dL (9.0-27.0); Calcium 7.3 mg/dL (8.7-10.3); Carbon Dioxide 16.7 mmol/L (20.0-27.5); Non-African American GFR(CKD) 78.2 (60.0-200.0)
--- NOTE | 2021-07-09 10:36 | P.OP ---
Date of Procedure: 07/09/21 Procedure(s) Performed: PREOPERATIVE DIAGNOSIS: Partial colonic obstruction POSTOPERATIVE DIAGNOSIS: Same PROCEDURE: Left colectomy with end colostomy, partial omentectomy, repair incisional hernia, mobilization splenic flexure SURGEON: Bibiana EBL: 50 mL ANESTHESIA: General COMPLICATIONS: None OPERATIVE PROCEDURE: Patient place in the operative table in the supine position. The patient was placed under general anesthesia. The abdomen was prepped and draped in usual sterile fashion. A vertical incision was made encompassing extending from the suprapubic region above the umbilicus. The fascia was divided as well. The patient had a 2 fascial defects at the umbilicus that was incorporated into our incision and later closed with our fascial closure. The patient had omentum that was densely adherent to the hernia sacs. This was partially excised at that time using the LigaSure device. The remainder the fascia was opened. The patient had a large volume of serous fluid within the abdomen. Both small and large colon were significantly distended. We could not visualize the abdominal and well because of the significant bowel distention. The small bowel contents were then milked back to the stomach. Over 1 L was removed. Mobilization of the left colon down to the sigmoid then took place using a combination of blunt dissection, LigaSure, and electrocautery. The bowel was divided beyond the portion of indurated: Or the obstruction appeared to be present. This did not appear to be frankly neoplastic and was thought to likely be related to chronic diverticulitis changes. The bowel was divided again distal to this area using a linear 75 stapler. The mesentery was then divided up to the left colon using the LigaSure device. No bleeding was seen. Ovalization of the splenic flexure took place. I did up removing the colon from the obstruction site proximally to the distal aspect of the transverse colon where the colon was again divided using a linear 75 stapler. The abdominal cavity was thoroughly irrigated. No bleeding was seen. A circular incision was made in the left midabdomen. Dissection through the subcutaneous fat and fascia took place using electrocautery. I bluntly entered the perineal cavity and this was further bluntly opened. The bowel was brought out through this defect in the left midabdomen. The midline fascia was then reapproximated using 3 separate double-stranded #1 PDS sutures. The fascial defects were incorporated into our closure. The subcutaneous tissues were irrigated. The subcutaneous tissues were closed using 3-0 Vicryl sutures. The skin was then closed using aneudy. The ostomy was then addressed. A portion of the pericolonic fat was removed using the LigaSure device. The staple line was then removed using electrocautery. The ostomy was then matured in a [place] fashion using interrupted 3-0 Vicryl sutures. An ostomy appliance was then applied. Sterile dressings were then applied to the midline incision. DISPOSITION: Stable to recovery room
[2021-07-09] MEDS ORDERED: HYDROmorphone 0.5 MG/0.5 ML SYRINGE IVP ONE ×3 (10:47→11:05)
[2021-07-09] MEDS ORDERED: ACETAMINOPHEN IV (For NPO) 1,000 MG/100 ML VIAL IVPB ONE (11:04)
[2021-07-09] MEDS ORDERED: DEXAMETHASONE SOD PHOSPHATE 4 MG/ML 1 ML VIAL IV ONE (12:24)
[2021-07-09] MEDS ORDERED: ONDANSETRON 4 MG/2 ML VIAL IVP PRN (12:24)
[2021-07-09] MEDS ORDERED: ONDANSETRON 4 MG/2 ML VIAL IVP ONE (12:24)
[2021-07-09] MEDS ORDERED: HYDROmorphone 0.5 MG/0.5 ML SYRINGE IVP PRN (12:24)
[2021-07-09] MEDS: PANTOPRAZOLE 40 MG TABLET PO SCH (13:03)
[2021-07-09] MEDS: LACTATED RINGERS 1,000 ML IV SCH (13:10)
[2021-07-09] MEDS: LACOSAMIDE 50 MG TABLET PO SCH ×2 (14:48→20:35)
[2021-07-09] MEDS: MAGNESIUM OXIDE 400 MG TAB PO SCH (20:35)
[2021-07-09] MEDS: ATORVASTATIN 10 MG TAB PO SCH (20:35)
[2021-07-09] MEDS: HYDROmorphone 1 MG/ML 1 ML SYRINGE IVP PRN (21:46)
--- NOTE | 2021-07-10 00:39 | P.PN ---
Subjective Progress Note Date: 07/07/21 Patient is a 85-year-old female with a known history of CVA/TIA, hypertension, GERD, recently diagnosed with seizure disorder, history of right-sided brain aneurysm and recent history of diverticulitis with perforation presents to ER with complaints of fall. Patient states that she has been having diarrhea for the past 4 to 5 weeks and went to the bathroom and trying to sit on the commode. Patient states that she miscalculated the distance and fell to the side. Denies any complaints of dizziness or lightheadedness. Denied any loss of consciousness. Patient fell next to the toilet. Patient has been came in from outside and found her and she was unable to stand without assistance. Denied any complaints of chest pain. No shortness of breath. No palpitations. Patient states that he had head injury and injury to the right knee. Denies any fever or chills. Knee x-ray showed no acute fracture or dislocation. Consider crystal deposition arthropathy. Osteoarthritis. CT head and cervical spine showed there is no acute fracture or dislocation evident in the cervical spine. No acute intracranial hemorrhage or midline shift noted. Laboratory data showed WBC 11.6 hemoglobin 13.9 and platelets 369 Sodium 126 potassium 4.5 chloride 96 bicarb is 22 anion gap 8 BUN 34 and creatinine 1.09 albumin 3.2 and calcium 8.6 and urinalysis showed 1+ ketones and negative nitrite and trace leukocyte esterase. Coronavirus PCR not detected. Patient was admitted to the hospital from 05/27/2021 to 05/31/2021 due to acute diverticulitis and possible perforation. Patient was discharged home on antib iotics. Patient was admitted to the hospital from 06/15/2021 to 06/18/2021 due to complaints of diarrhea and discharge neuro: Possible colon obstruction. C. difficile was negative. And also admitted to hospital from 06/24/2021 to 06/27/2021 due to complaints of syncope and possible seizures. Patient was started on antiepileptic medication in the form of impact by neurology. Patient was also seen by cardiology. 2D echocardiogram showed normal ejection fraction and no significant valvular abnormalities noted. 07/07/2021 Patient is currently resting in bed. Still complains of abdominal distention and pain. Repeat. CT of the abdomen pelvis was ordered patient has been afebrile. Currently on liquid diet and changed to nothing by mouth. General surgery has seen the patient. Laboratory showed WBC 10.2 hemoglobin 11.8 and platelets 307 sodium 128 potassium 4.2 chloride 99 bicarb is 30.3 BUN 27.7 creatinine 0.8 and albumin 2.9 Patient was also seen by GI. Currently requiring IV fluids with normal saline. Current medications reviewed. Objective - Vital Signs Vital signs: Vital Signs Temp 97.8 F 07/07/21 20:36 Pulse 86 07/07/21 20:36 Resp 16 07/07/21 20:36 BP 148/77 07/07/21 20:36 Pulse Ox 99 07/07/21 20:36 Intake & Output 07/07/21 07/07/21 07/08/21 06:59 18:59 06:59 Intake Total 900 20 Balance 900 20 Intake: Intake, IV Titration 900 Amount Sodium Chloride 0.9% 1, 900 000 ml @ 125 mls/hr IV . Q8H [facility] Rx#:[id number] Oral 20 Other: Voiding Method Bedside Commode Bedside Commode Bedside Commode # Voids 3 1 # Bowel Movements 3 2 1 - Exam PHYSICAL EXAMINATION: Patient is lying in the bed comfortably, no acute distress, awake alert and oriented.. HEENT: Normocephalic. Neck is supple. Pupils reactive. Nostrils clear. Oral cavity is moist. Neck reveals no JVD, carotid bruits, or thyromegaly. CHEST EXAMINATION: Trachea is central. Symmetrical expansion. Bibasilar diminished sounds.Lung smith clear to auscultation and percussion. CARDIAC: Normal S1, S2 with no gallops. No murmurs ABDOMEN: Soft.Lower abdominal tenderness. No guarding or rigidity. Mild distention of abdomen.. Bowel sounds normal. No organomegaly. No abdominal bruits. Extremities: reveal no edema. No clubbing or cyanosis Neurologically awake, alert, oriented x3 with well-coordinated movements. No focal deficits noted Skin: No rash or skin lesions. Psychiatric: Cooperative. Nonsuicidal Musculoskeletal: No joint swelling or deformity. Normal range of motion. - Labs CBC & Chem 7: 07/09/21 06:08 07/09/21 06:08 Labs: Abnormal Lab Results - Last 24 Hours (Table) 07/07/21 07/07/21 07/07/21 Range/Units 03:30 06:20 06:20 WBC 10.25 H (4.50-10.00) X 10*3/uL RBC 4.06 L (4.10-5.20) X 10*6/uL Hgb 11.8 L (12.0-15.0) g/dL Hct 37.0 L (37.2-46.3) % MCHC 31.9 L (32.0-37.0) g/dL MPV 9.4 L (9.5-12.2) fL Immature Gran # 0.08 H (0.00-0.04) X 10*3/uL Monocytes # 1.16 H (0.20-1.00) X 10*3/uL Eosinophils # 0.01 L (0.04-0.35) X 10*3/uL Sodium 128 L (135-145) mmol/L Carbon Dioxide 17.3 L (20.0-27.5) mmol/L BUN 27.7 H (9.0-27.0) mg/dL BUN/Creatinine Ratio 34.28 H (12.00-20.00) Ratio Calcium 7.6 L (8.7-10.3) mg/dL Total Protein 4.6 L (6.2-8.2) g/dL Albumin 2.9 L (3.8-4.9) g/dL Stool Lactoferrin POSITIVE A (NEGATIVE) Microbiology - Last 24 Hours (Table) 07/07/21 03:30 Stool Culture - Preliminary Stool Assessment and Plan Assessment: Distended small and large bowel loops. Ileus versus colon obstruction. Status post fall likely mechanical. Patient states that she miscalculated while sitting on the commode and fell to the side. Generalized weakness. Acute kidney injury likely prerenal Hypovolemic hyponatremia Mild leukocytosis likely reactive Chronic diarrhea Recent history of diverticulitis and perforation status post antibiotic course. seizure disorder. Diagnosed during last admission was started on Vimpat. DVT prophylaxis History of CVA/TIA History of brain aneurysm Hypertension GERD Prior history of C. difficile infection in 2016 Plan: Patient be continued on IV hydration with normal saline and monitor electrolytes and renal function closely. Patient is still complains of lower abdominal discomfort and is having chronic diarrhea which is not resolving.. CT of the abdomen pelvis was ordered. General surgery and GI will be consulted for further work-up and evaluation. Ruled out C. difficile and stool studies were sent. Continue to follow closely. Time with Patient: Greater than 30
--- NOTE | 2021-07-10 00:42 | P.PN ---
Subjective Progress Note Date: 07/08/21 Patient is a 85-year-old female with a known history of CVA/TIA, hypertension, GERD, recently diagnosed with seizure disorder, history of right-sided brain aneurysm and recent history of diverticulitis with perforation presents to ER with complaints of fall. Patient states that she has been having diarrhea for the past 4 to 5 weeks and went to the bathroom and trying to sit on the commode. Patient states that she miscalculated the distance and fell to the side. Denies any complaints of dizziness or lightheadedness. Denied any loss of consciousness. Patient fell next to the toilet. Patient has been came in from outside and found her and she was unable to stand without assistance. Denied any complaints of chest pain. No shortness of breath. No palpitations. Patient states that he had head injury and injury to the right knee. Denies any fever or chills. Knee x-ray showed no acute fracture or dislocation. Consider crystal deposition arthropathy. Osteoarthritis. CT head and cervical spine showed there is no acute fracture or dislocation evident in the cervical spine. No acute intracranial hemorrhage or midline shift noted. Laboratory data showed WBC 11.6 hemoglobin 13.9 and platelets 369 Sodium 126 potassium 4.5 chloride 96 bicarb is 22 anion gap 8 BUN 34 and creatinine 1.09 albumin 3.2 and calcium 8.6 and urinalysis showed 1+ ketones and negative nitrite and trace leukocyte esterase. Coronavirus PCR not detected. Patient was admitted to the hospital from 05/27/2021 to 05/31/2021 due to acute diverticulitis and possible perforation. Patient was discharged home on antib iotics. Patient was admitted to the hospital from 06/15/2021 to 06/18/2021 due to complaints of diarrhea and discharge neuro: Possible colon obstruction. C. difficile was negative. And also admitted to hospital from 06/24/2021 to 06/27/2021 due to complaints of syncope and possible seizures. Patient was started on antiepileptic medication in the form of impact by neurology. Patient was also seen by cardiology. 2D echocardiogram showed normal ejection fraction and no significant valvular abnormalities noted. 07/07/2021 Patient is currently resting in bed. Still complains of abdominal distention and pain. Repeat. CT of the abdomen pelvis was ordered patient has been afebrile. Currently on liquid diet and changed to nothing by mouth. General surgery has seen the patient. Laboratory showed WBC 10.2 hemoglobin 11.8 and platelets 307 sodium 128 potassium 4.2 chloride 99 bicarb is 30.3 BUN 27.7 creatinine 0.8 and albumin 2.9 Patient was also seen by GI. Currently requiring IV fluids with normal saline. 07/08/2021 Patient is currently resting in bed. Appears in distress. Complains of abdominal pain and requesting pain medications. CT of the abdomen pelvis was done small and large bowel distention down to the left sigmoid colon with possible partial colonic obstruction. Patient feels very bloated and also having increasing abdominal pain and discomfort. Patient is currently nothing by mouth. General surgery is planning for colectomy and colostomy bag placement. Patient has been afebrile. Improving. Denied any chest pain or shortness breath. No cough or sputum production. Laboratory data showed WBC 9.1 hemoglobin 12.8 and platelets 236 Sodium 128 potassium 4.2 chloride 108 bicarb is 12 BUN 24 and creatinine 0.8 patient is being continued on IV hydration. Nothing by mouth. Current medications reviewed. Objective - Vital Signs Vital signs: Vital Signs Temp 97.7 F 07/08/21 11:21 Pulse 77 07/08/21 11:21 Resp 16 07/08/21 11:21 BP 151/77 07/08/21 11:21 Pulse Ox 96 07/08/21 11:21 Intake & Output 07/07/21 07/08/21 07/08/21 18:59 06:59 18:59 Intake Total 1250 Balance 1250 Intake: Intake, IV Titration 1200 Amount Sodium Chloride 0.9% 1, 1200 000 ml @ 125 mls/hr IV . Q8H [facility] Rx#:[id number] Oral 50 Other: Voiding Method Bedside Commode Bedside Commode Bedside Commode # Voids 4 # Bowel Movements 2 2 - Exam PHYSICAL EXAMINATION: Patient is lying in the bed comfortably, no acute distress, awake alert and oriented.. HEENT: Normocephalic. Neck is supple. Pupils reactive. Nostrils clear. Oral cavity is moist. Neck reveals no JVD, carotid bruits, or thyromegaly. CHEST EXAMINATION: Trachea is central. Symmetrical expansion. Bibasilar diminished sounds.Lung smith clear to auscultation and percussion. CARDIAC: Normal S1, S2 with no gallops. No murmurs ABDOMEN: Soft.Lower abdominal tenderness. No guarding or rigidity. Mild distention of abdomen.. Bowel sounds diminished. No organomegaly. No abdominal bruits. Extremities: reveal no edema. No clubbing or cyanosis Neurologically awake, alert, oriented x3 with well-coordinated movements. No focal deficits noted Skin: No rash or skin lesions. Psychiatric: Cooperative. Nonsuicidal Musculoskeletal: No joint swelling or deformity. Normal range of motion. - Labs CBC & Chem 7: 07/09/21 06:08 07/09/21 06:08 Labs: Abnormal Lab Results - Last 24 Hours (Table) 07/08/21 Range/Units 06:10 Sodium 128 L (137-145) mmol/L Chloride 108 H (98-107) mmol/L Carbon Dioxide 12 L (22-30) mmol/L BUN 24 H (7-17) mg/dL Calcium 7.3 L (8.4-10.2) mg/dL Assessment and Plan Assessment: Distended small and large bowel loopsDue to partial colonic obstruction at the sigmoid level. Status post fall likely mechanical. Patient states that she miscalculated while sitting on the commode and fell to the side. Generalized weakness. Acute kidney injury likely prerenal Hypovolemic hyponatremia Mild leukocytosis likely reactive Chronic diarrhea Recent history of diverticulitis and perforation status post antibiotic course. seizure disorder. Diagnosed during last admission was started on Vimpat. DVT prophylaxis History of CVA/TIA History of brain aneurysm Hypertension GERD Prior history of C. difficile infection in 2016 Plan: Patient be continued on IV hydration with normal saline and monitor electrolytes and renal function closely. Patient is still complains of lower abdominal discomfort and is having chronic diarrhea which is not resolving.. CT of the abdomen pelvis Showed dilated small and large bowel loops. [facility] is planning for colectomy and colostomy bag placement. Continue to follow closely. Time with Patient: Greater than 30
--- NOTE | 2021-07-10 00:54 | P.PN ---
Subjective Progress Note Date: 07/09/21 Patient is a 85-year-old female with a known history of CVA/TIA, hypertension, GERD, recently diagnosed with seizure disorder, history of right-sided brain aneurysm and recent history of diverticulitis with perforation presents to ER with complaints of fall. Patient states that she has been having diarrhea for the past 4 to 5 weeks and went to the bathroom and trying to sit on the commode. Patient states that she miscalculated the distance and fell to the side. Denies any complaints of dizziness or lightheadedness. Denied any loss of consciousness. Patient fell next to the toilet. Patient has been came in from outside and found her and she was unable to stand without assistance. Denied any complaints of chest pain. No shortness of breath. No palpitations. Patient states that he had head injury and injury to the right knee. Denies any fever or chills. Knee x-ray showed no acute fracture or dislocation. Consider crystal deposition arthropathy. Osteoarthritis. CT head and cervical spine showed there is no acute fracture or dislocation evident in the cervical spine. No acute intracranial hemorrhage or midline shift noted. Laboratory data showed WBC 11.6 hemoglobin 13.9 and platelets 369 Sodium 126 potassium 4.5 chloride 96 bicarb is 22 anion gap 8 BUN 34 and creatinine 1.09 albumin 3.2 and calcium 8.6 and urinalysis showed 1+ ketones and negative nitrite and trace leukocyte esterase. Coronavirus PCR not detected. Patient was admitted to the hospital from 05/27/2021 to 05/31/2021 due to acute diverticulitis and possible perforation. Patient was discharged home on antib iotics. Patient was admitted to the hospital from 06/15/2021 to 06/18/2021 due to complaints of diarrhea and discharge neuro: Possible colon obstruction. C. difficile was negative. And also admitted to hospital from 06/24/2021 to 06/27/2021 due to complaints of syncope and possible seizures. Patient was started on antiepileptic medication in the form of impact by neurology. Patient was also seen by cardiology. 2D echocardiogram showed normal ejection fraction and no significant valvular abnormalities noted. 07/07/2021 Patient is currently resting in bed. Still complains of abdominal distention and pain. Repeat. CT of the abdomen pelvis was ordered patient has been afebrile. Currently on liquid diet and changed to nothing by mouth. General surgery has seen the patient. Laboratory showed WBC 10.2 hemoglobin 11.8 and platelets 307 sodium 128 potassium 4.2 chloride 99 bicarb is 30.3 BUN 27.7 creatinine 0.8 and albumin 2.9 Patient was also seen by GI. Currently requiring IV fluids with normal saline. 07/08/2021 Patient is currently resting in bed. Appears in distress. Complains of abdominal pain and requesting pain medications. CT of the abdomen pelvis was done small and large bowel distention down to the left sigmoid colon with possible partial colonic obstruction. Patient feels very bloated and also having increasing abdominal pain and discomfort. Patient is currently nothing by mouth. General surgery is planning for colectomy and colostomy bag placement. Patient has been afebrile. Improving. Denied any chest pain or shortness breath. No cough or sputum production. Laboratory data showed WBC 9.1 hemoglobin 12.8 and platelets 236 Sodium 128 potassium 4.2 chloride 108 bicarb is 12 BUN 24 and creatinine 0.8 patient is being continued on IV hydration. Nothing by mouth. 07/09/2021 Patient underwent left colectomy with end colostomy, partial omentectomy and repair of incisional hernia and mobilization of splenic flexure due to partial colon obstruction.. POD 0 Patient is currently complains of pain and morning. Slight confusion. No complaints of chest pain or shortness breath. Patient has been afebrile. Laboratory data showed WBC 10.0 hemoglobin 9.3 and platelets 320 Sodium 132 potassium 4.0, chloride 103 bicarb improved to 16.7 Calcium 7.3. General surgery is on board. Patient is being continued on IV hydration and continued to be nothing by mouth. Current medications reviewed. Objective - Vital Signs Vital signs: Vital Signs Temp 97.4 F L 07/09/21 12:00 Pulse 73 07/09/21 15:42 Resp 22 07/09/21 12:37 BP 145/79 07/09/21 15:42 Pulse Ox 95 07/09/21 15:42 Intake & Output 07/09/21 07/09/21 07/10/21 06:59 18:59 06:59 Intake Total 0 2400 Output Total 200 250 Balance 0 2200 -250 Intake: IV 2400 Oral 0 Output: Gastric Drainage 250 Urine 100 Estimated Blood Loss 100 Other: Voiding Method Bedside Commode Indwelling Catheter # Voids 2 - Exam PHYSICAL EXAMINATION: Patient is lying in the bed comfortably, no acute distress, awake alert and oriented.. HEENT: Normocephalic. Neck is supple. Pupils reactive. Nostrils clear. Oral cavity is moist. Neck reveals no JVD, carotid bruits, or thyromegaly. CHEST EXAMINATION: Trachea is central. Symmetrical expansion. Bibasilar diminished sounds.Lung smith clear to auscultation and percussion. CARDIAC: Normal S1, S2 with no gallops. No murmurs ABDOMEN: Soft.Patient does have tenderness of the surgical site. Colostomy bag on the left side.. Bowel sounds diminished. Extremities: reveal no edema. No clubbing or cyanosis Neurologically awake, alert, oriented x3 with well-coordinated movements. No focal deficits noted Skin: No rash or skin lesions. Psychiatric: Cooperative. Nonsuicidal Musculoskeletal: No joint swelling or deformity. Normal range of motion. - Labs CBC & Chem 7: 07/09/21 06:08 07/09/21 06:08 Labs: Abnormal Lab Results - Last 24 Hours (Table) 07/09/21 07/09/21 Range/Units 06:08 06:08 WBC 10.09 H (4.50-10.00) X 10*3/uL RBC 3.82 L (4.10-5.20) X 10*6/uL Hgb 11.3 L (12.0-15.0) g/dL Hct 34.8 L (37.2-46.3) % Immature Gran # 0.06 H (0.00-0.04) X 10*3/uL Eosinophils # 0.01 L (0.04-0.35) X 10*3/uL Sodium 132 L (135-145) mmol/L Carbon Dioxide 16.7 L (20.0-27.5) mmol/L BUN/Creatinine Ratio 27.18 H (12.00-20.00) Ratio Calcium 7.3 L (8.7-10.3) mg/dL Microbiology - Last 24 Hours (Table) 07/07/21 03:30 Stool Culture - Preliminary Stool Assessment and Plan Assessment: Distended small and large bowel loopsDue to partial colonic obstruction at the sigmoid level.Patient is status post left colectomy and colostomy VAC placement on 07/09/2021. Status post fall likely mechanical. Patient states that she miscalculated while sitting on the commode and fell to the side. Generalized weakness. Acute kidney injury likely prerenal Hypovolemic hyponatremia Mild leukocytosis likely reactive Chronic diarrhea Recent history of diverticulitis and perforation status post antibiotic course. seizure disorder. Diagnosed during last admission was started on Vimpat. DVT prophylaxis History of CVA/TIA History of brain aneurysm Hypertension GERD Prior history of C. difficile infection in 2015 Plan: Patient be continued on IV hydration with normal saline and monitor electrolytes and renal function closely. NPO CT of the abdomen pelvis Showed dilated small and large bowel loops. Patient is status post left colectomy and colostomy VAC placement on 07/09/2021. Continue to follow closely. Time with Patient: Greater than 30
[2021-07-10] MEDS: SODIUM CHLORIDE 0.9% 1,000 ML IV SCH ×3 (01:15→20:12)
[2021-07-10] MEDS: HYDROmorphone 1 MG/ML 1 ML SYRINGE IVP PRN (02:40)
--- NOTE | 2021-07-10 07:48 | XR ---
EXAMINATION TYPE: XR chest 1V DATE OF EXAM: 07/10/2021 COMPARISON: 06/24/2021 HISTORY: Shortness of breath TECHNIQUE: Single frontal view of the chest is obtained. FINDINGS: There is increase in left-sided consolidation and pleural effusion. Perihilar interstitial pattern. No pneumothorax. Arthropathy shoulders. Subsegmental changes right perihilar region. IMPRESSION: 1. Bilateral areas of consolidation or infiltrate with small left and tiny right pleural effusion. Co rrelate for pneumonia.
[2021-07-10 10:57] LABS: African American GFR (CKD) 68.1 (60.0-200.0); Anion Gap 12.4 mmol/L (10.00-18.00); Blood Urea Nitrogen 20.7 mg/dL (9.0-27.0); Calcium 7.4 mg/dL (8.7-10.3); Carbon Dioxide 15.6 mmol/L (20.0-27.5); Magnesium 1.4 mg/dL (1.5-2.4); Non-African American GFR(CKD) 58.7 (60.0-200.0); Potassium 4.3 mmol/L (3.5-5.5)
[2021-07-10] MEDS: LACOSAMIDE 50 MG TABLET PO SCH ×2 (11:28→20:11)
[2021-07-10] MEDS: HEPARIN SODIUM,PORCINE/PF 5,000 UNIT/0.5 ML SYRINGE SQ SCH ×2 (11:28→15:51)
[2021-07-10] MEDS: PANTOPRAZOLE 40 MG TABLET PO SCH (11:28)
[2021-07-10 11:54] LABS: HCT 35.7 % (37.2-46.3); HGB 11.5 g/dL (12.0-15.0); MCH 29.5 pg (27.0-32.0); MCHC 32.2 g/dL (32.0-37.0); MCV 91.5 fL (80.0-97.0); Mean Platelet Volume 9.7 fL (9.5-12.2); NRBC Per 100 WBC 0 /100 WBCS (0.0-0.0); Platelet Count 267 X 10*3/uL (140-440); RDW 13.4 % (11.5-14.5); WBC 15.53 X 10*3/uL (4.50-10.00)
--- NOTE | 2021-07-10 12:55 | P.PN ---
<Bijal Patricia - Last Filed: 07/10/21 12:46> Subjective Progress Note Date: 07/10/21 CHIEF COMPLAINT: Abdominal pain HISTORY OF PRESENT ILLNESS: The patient seen and examined is a follow-up. She i s postop day #14 left colectomy with end colostomy, partial omentectomy, repair of the incisional hernia, and mobilization of splenic flexure. Patient remains nothing by mouth with a NG tube in place. There is minimal output. She denies any abdominal pain, nausea, or vomiting. She is asking for ice chips and states her mouth is very dry. Colostomy with soft brown stool. PHYSICAL EXAM: VITAL SIGNS: Reviewed. GENERAL: Well-developed in no acute distress. HEENT: No sclera icterus. Extraocular movements grossly intact. Moist buccal mucosa. Head is atraumatic, normocephalic. ABDOMEN: Soft. Nondistended. Nontender. Surgical incision with dressing, saturated. Dressing change. Abdominal incision approximated with aneudy, with small area noted to have bleeding and blood clot. Colostomy left abdomen with soft brown stool. Bowel sounds hypoactive. NEUROLOGIC: Alert and oriented. Cranial nerves II through XII grossly intact. ASSESSMENT: 1. Partial colonic obstruction status post left colectomy with end colostomy, partial omentectomy, repair incisional hernia, mobilization splenic flexure 2. Abdominal pain PLAN: 1. Keep nothing by mouth, may have ice chips 2. Keep NG tube in place with intermittent suction 3. Incentive spirometer to bedside 4. Physical therapy The impression and plan of care has been dictated as directed. Dr. Mccarty I performed a history and examination of this patient, discussed the same with the dictator. I agree with the dictator's note ,documented as a scribe. Any additional findings or plans will be noted. Objective - Vital Signs Vital signs: Vital Signs Temp 96.7 F L 07/10/21 12:43 Pulse 96 07/10/21 12:43 Resp 18 07/10/21 12:43 BP 150/66 07/10/21 12:43 Pulse Ox 97 07/10/21 12:43 Intake & Output 07/09/21 07/10/21 07/10/21 18:59 06:59 18:59 Intake Total 2400 1500 Output Total 200 2200 0 Balance 2200 -700 0 Intake: IV 2400 Intake, IV Titration 1500 Amount Sodium Chloride 0.9% 1, 1500 000 ml @ 125 mls/hr IV . Q8H [facility] Rx#:[id number] Output: Gastric Drainage 550 Urine 100 1650 Stool 0 0 Estimated Blood Loss 100 Other: Voiding Method Indwelling Catheter Indwelling Catheter Indwelling Catheter - Labs CBC & Chem 7: 07/10/21 06:37 07/10/21 06:37 Labs: Abnormal Lab Results - Last 24 Hours (Table) 07/10/21 07/10/21 Range/Units 06:37 06:37 WBC 15.53 H (4.50-10.00) X 10*3/uL RBC 3.90 L (4.10-5.20) X 10*6/uL Hgb 11.5 L (12.0-15.0) g/dL Hct 35.7 L (37.2-46.3) % Carbon Dioxide 15.6 L (20.0-27.5) mmol/L Est GFR (CKD-EPI)NonAf 58.7 L (60.0-200.0) BUN/Creatinine Ratio 23.00 H (12.00-20.00) Ratio Calcium 7.4 L (8.7-10.3) mg/dL Magnesium 1.4 L (1.5-2.4) mg/dL Microbiology - Last 24 Hours (Table) 07/07/21 03:30 Stool Culture - Final Stool Assessment and Plan (1) Chronic diarrhea Current Visit: Yes Status: Acute Code(s): K52.9 - NONINFECTIVE G ASTROENTERITIS AND COLITIS, UNSPECIFIED SNOMED Code(s): 112428685 (2) History of diverticulitis of colon Current Visit: Yes Status: Acute Code(s): Z87.19 - PERSONAL HISTORY OF OTHER DISEASES OF THE DIGESTIVE SYSTEM SNOMED Code(s): 431758024524560 <Yobany Mccarty - Last Filed: 07/10/21 19:02> Subjective I have personally seen and examined the patient, reviewed the GOVERNMENT MINISTER /PAs history, exam and MDM and agree with the assessment and plan as written. Based on total visit time, I have performed more than 50% of the visit. As above. Patient doing better today. She is having some ostomy function. Patient is miserable with the nasogastric tube in place. We'll removed. Keep nothing by mouth except for ice chips for now. Gradually increase activity. Objective - Vital Signs Vital signs: Vital Signs Temp 96.7 F L 07/10/21 12:43 Pulse 96 07/10/21 12:43 Resp 18 07/10/21 12:43 BP 150/66 07/10/21 12:43 Pulse Ox 97 07/10/21 12:43 Intake & Output 07/10/21 07/10/21 07/11/21 06:59 18:59 06:59 Intake Total 1500 Output Total 2200 100 Balance -700 -100 Intake: Intake, IV Titration 1500 Amount Sodium Chloride 0.9% 1, 1500 000 ml @ 125 mls/hr IV . Q8H [facility] Rx#:[id number] Output: Gastric Drainage 550 Urine 1650 Stool 0 100 Other: Voiding Method Indwelling Catheter Indwelling Catheter - Labs CBC & Chem 7: 07/10/21 06:37 07/10/21 06:37 Labs: Abnormal Lab Results - Last 24 Hours (Table) 07/10/21 07/10/21 Range/Units 06:37 06:37 WBC 15.53 H (4.50-10.00) X 10*3/uL RBC 3.90 L (4.10-5.20) X 10*6/uL Hgb 11.5 L (12.0-15.0) g/dL Hct 35.7 L (37.2-46.3) % Immature Gran # 0.11 H (0.00-0.04) X 10*3/uL Neutrophils # 13.43 H (1.80-7.70) X 10*3/uL Eosinophils # 0.01 L (0.04-0.35) X 10*3/uL Carbon Dioxide 15.6 L (20.0-27.5) mmol/L Est GFR (CKD-EPI)NonAf 58.7 L (60.0-200.0) BUN/Creatinine Ratio 23.00 H (12.00-20.00) Ratio Calcium 7.4 L (8.7-10.3) mg/dL Magnesium 1.4 L (1.5-2.4) mg/dL Microbiology - Last 24 Hours (Table) 07/07/21 03:30 Stool Culture - Final Stool Assessment and Plan (1) Abdominal pain Current Visit: Yes Status: Acute Code(s): R10.9 - UNSPECIFIED ABDOMINAL PAIN SNOMED Code(s): 92530816
[2021-07-10] MEDS ORDERED: Magnesium Replacement Protocol 1 EACH MISC MISCELLANE PRN (13:26)
--- NOTE | 2021-07-10 13:34 | P.PN ---
Subjective from records Patient is a 85-year-old female with a known history of CVA/TIA, hypertension, GERD, recently diagnosed with seizure disorder, history of right-sided brain aneurysm and recent history of diverticulitis with perforation presents to ER wi th complaints of fall. Patient states that she has been having diarrhea for the past 4 to 5 weeks and went to the bathroom and trying to sit on the commode. Patient states that she miscalculated the distance and fell to the side. Denies any complaints of dizziness or lightheadedness. Denied any loss of consciousness. Patient fell next to the toilet. Patient has been came in from outside and found her and she was unable to stand without assistance. Denied any complaints of chest pain. No shortness of breath. No palpitations. Patient states that he had head injury and injury to the right knee. Denies any fever or chills. Knee x-ray showed no acute fracture or dislocation. Consider crystal deposition arthropathy. Osteoarthritis. CT head and cervical spine showed there is no acute fracture or dislocation evident in the cervical spine. No acute intracranial hemorrhage or midline shift noted. Laboratory data showed WBC 11.6 hemoglobin 13.9 and platelets 369 Sodium 126 potassium 4.5 chloride 96 bicarb is 22 anion gap 8 BUN 34 and creatinine 1.09 albumin 3.2 and calcium 8.6 and urinalysis showed 1+ ketones and negative nitrite and trace leukocyte esterase. Coronavirus PCR not detected. Patient was admitted to the hospital from 05/27/2021 to 05/31/2021 due to acute diverticulitis and possible perforation. Patient was discharged home on antibiotics. Patient was admitted to the hospital from 06/15/2021 to 06/18/2021 due to complaints of diarrhea and discharge neuro: Possible colon obstruction. C. difficile was negative. And also admitted to hospital from 06/24/2021 to 06/27/2021 due to complaints of syncope and possible seizures. Patient was started on antiepileptic medication in the form of impact by neurology. Patient was also seen by cardiology. 2D echocardiogram showed normal ejection fraction and no significant valvular abnormalities noted. 07/07/2021 Patient is currently resting in bed. Still complains of abdominal distention and pain. Repeat. CT of the abdomen pelvis was ordered patient has been afebrile. Currently on liquid diet and changed to nothing by mouth. General surgery has seen the patient. Laboratory showed WBC 10.2 hemoglobin 11.8 and platelets 307 sodium 128 potassium 4.2 chloride 99 bicarb is 30.3 BUN 27.7 creatinine 0.8 and albumin 2.9 Patient was also seen by GI. Currently requiring IV fluids with normal saline. 07/08/2021 Patient is currently resting in bed. Appears in distress. Complains of abdominal pain and requesting pain medications. CT of the abdomen pelvis was done small and large bowel distention down to the left sigmoid colon with possible partial colonic obstruction. Patient feels very bloated and also hav ing increasing abdominal pain and discomfort. Patient is currently nothing by mouth. General surgery is planning for colectomy and colostomy bag placement. Patient has been afebrile. Improving. Denied any chest pain or shortness breath. No cough or sputum production. Laboratory data showed WBC 9.1 hemoglobin 12.8 and platelets 236 Sodium 128 potassium 4.2 chloride 108 bicarb is 12 BUN 24 and creatinine 0.8 patient is being continued on IV hydration. Nothing by mouth. 07/09/2021 Patient underwent left colectomy with end colostomy, partial omentectomy and repair of incisional hernia and mobilization of splenic flexure due to partial colon obstruction.. POD 0 Patient is currently complains of pain and morning. Slight confusion. No complaints of chest pain or shortness breath. Patient has been afebrile. Laboratory data showed WBC 10.0 hemoglobin 9.3 and platelets 320 Sodium 132 potassium 4.0, chloride 103 bicarb improved to 16.7 Calcium 7.3. General surgery is on board. Patient is being continued on IV hydration and continued to be nothing by mouth. Subjective: 07/10/2021 This is a pleasant 85 years old female who presents with fall found to have bowel obstructions status post left colectomy with end colostomy and hernia repair on 07/09. Today is postoperative day #1. Patient lying in bed not in distress, coughing a lot, no distinct while she is at rest. She has little abdominal pain and no vomiting on ice chips only. She has left colostomy back with no bowel movement yet which is expected. She has leukocytosis of 15.5 and chest x-ray showing bilateral infiltrates suspicious for pneumonia versus aspiration pneumonia. She is mildly tachypneic. She is also normal saline 1 25 mL/h. Start the patient on Zosyn and incentive spirometer Objective - Vital Signs Vital signs: Vital Signs Temp 96.7 F L 07/10/21 12:43 Pulse 96 07/10/21 12:43 Resp 18 07/10/21 12:43 BP 150/66 07/10/21 12:43 Pulse Ox 97 07/10/21 12:43 Intake & Output 07/09/21 07/10/21 07/10/21 18:59 06:59 18:59 Intake Total 2400 1500 Output Total 200 2200 0 Balance 2200 -700 0 Intake: IV 2400 Intake, IV Titration 1500 Amount Sodium Chloride 0.9% 1, 1500 000 ml @ 125 mls/hr IV . Q8H [facility] Rx#:[id number] Output: Gastric Drainage 550 Urine 100 1650 Stool 0 0 Estimated Blood Loss 100 Other: Voiding Method Indwelling Catheter Indwelling Catheter Indwelling Catheter - Exam GENERAL: The patient is alert and oriented x3, not in any acute distress. Well developed, well nourished. HEENT: Pupils are round and equally reacting to light. EOMI. No scleral icterus. No conjunctival pallor. Normocephalic, atraumatic. No pharyngeal erythema. No thyromegaly. CARDIOVASCULAR: S1 and S2 present. No murmurs, rubs, or gallops. Decreased breath sounds on basal zones bilaterally -PULMONARY: Chest is clear to auscultation, no wheezing or crackles. -ABDOMEN: Soft, nontender, nondistended, normoactive bowel sounds. No palpable organomegaly. Colostomy back is empty MUSCULOSKELETAL: No joint swelling or deformity. EXTREMITIES: No cyanosis, clubbing, or pedal edema. NEUROLOGICAL: Gross neurological examination did not reveal any focal deficits. SKIN: No rashes. no petechiae. - Labs CBC & Chem 7: 07/10/21 06:37 07/10/21 06:37 Labs: Abnormal Lab Results - Last 24 Hours (Table) 07/10/21 07/10/21 Range/Units 06:37 06:37 WBC 15.53 H (4.50-10.00) X 10*3/uL RBC 3.90 L (4.10-5.20) X 10*6/uL Hgb 11.5 L (12.0-15.0) g/dL Hct 35.7 L (37.2-46.3) % Carbon Dioxide 15.6 L (20.0-27.5) mmol/L Est GFR (CKD-EPI)NonAf 58.7 L (60.0-200.0) BUN/Creatinine Ratio 23.00 H (12.00-20.00) Ratio Calcium 7.4 L (8.7-10.3) mg/dL Magnesium 1.4 L (1.5-2.4) mg/dL Microbiology - Last 24 Hours (Table) 07/07/21 03:30 Stool Culture - Final Stool Assessment and Plan Assessment: Bilateral aspiration pneumonia Bowel obstruction, both small and large bowel status post left colostomy with end colostomy and hernia repair on 07/09 Fall at home without losing consciousness Mild hypernatremia, improving Recent history of diverticulitis and perforation status post antibiotic course. seizure disorder. Diagnosed during last admission was started on Vimpat. Plan: This is a pleasant 85 years old female who presents with bowel obstruction status post colostomy and fall and pneumonia. Follow-up biopsy of the colectomy. Continue with bowel rest, IV fluids and pain management. Start Zosyn. Follow-up stool culture Sent blood culture and sputum culture. Labs and medication were reviewed.. Continue same treatment. Continue with symptomatic treatment. Resume home medication. Monitor lytes and vitals. DVT and GI prophylaxis. Further recommendationsas per clinical course of the patient DVT prophylaxis: Subcutaneous heparin GI Prophylaxis: Ppi Prognosis is guarded
[2021-07-10 14:08] LABS: Basophilic Stippling 2+; Basophils # (A) 0.07 X 10*3/uL (0.00-0.10); Basophils % (A) 0.5 %; Eosinophils # (A) 0.01 X 10*3/uL (0.04-0.35); Eosinophils % (A) 0.1 %; Immature Grans, Automated 0.7 %; Lymphocytes # (A) 1.36 X 10*3/uL (0.90-5.00); Lymphocytes % (A) 8.8 %; Monocytes # (A) 0.55 X 10*3/uL (0.20-1.00); Monocytes % (A) 3.5 %; Neutrophils # (A) 13.43 X 10*3/uL (1.80-7.70); Neutrophils % (A) 86.4 %
[2021-07-10] MEDS: PIPERACILLIN-TAZOBACTAM 3.375 GM in SODIUM CHLORIDE 0.9% 100 ML IVPB SCH ×2 (15:51→21:46)
[2021-07-10] MEDS: LACTATED RINGERS 1,000 ML IV SCH (20:09)
[2021-07-10] MEDS: ATORVASTATIN 10 MG TAB PO SCH (20:12)
[2021-07-10] MEDS: MAGNESIUM OXIDE 400 MG TAB PO SCH ×2 (20:12→20:13)
[2021-07-11] MEDS: HEPARIN SODIUM,PORCINE/PF 5,000 UNIT/0.5 ML SYRINGE SQ SCH ×3 (00:12→17:39)
[2021-07-11] MEDS: SODIUM CHLORIDE 0.9% 1,000 ML IV SCH ×3 (04:18→11:38)
[2021-07-11] MEDS: PIPERACILLIN-TAZOBACTAM 3.375 GM in SODIUM CHLORIDE 0.9% 100 ML IVPB SCH ×3 (06:08→21:05)
[2021-07-11] MEDS: PANTOPRAZOLE 40 MG TABLET PO SCH (07:52)
[2021-07-11] MEDS: LACOSAMIDE 50 MG TABLET PO SCH ×2 (07:52→20:46)
[2021-07-11 10:25] LABS: Basophils # (A) 0.02 X 10*3/uL (0.00-0.10); Basophils % (A) 0.2 %; Eosinophils # (A) 0.01 X 10*3/uL (0.04-0.35); Eosinophils % (A) 0.1 %; HCT 32.3 % (37.2-46.3); HGB 10.7 g/dL (12.0-15.0); Immature Grans, Automated 1.1 %; Lymphocytes # (A) 1.25 X 10*3/uL (0.90-5.00); Lymphocytes % (A) 9.5 %; MCH 29.9 pg (27.0-32.0); MCHC 33.1 g/dL (32.0-37.0); MCV 90.2 fL (80.0-97.0); Mean Platelet Volume 9.5 fL (9.5-12.2); Monocytes # (A) 0.78 X 10*3/uL (0.20-1.00); Monocytes % (A) 5.9 %; NRBC Per 100 WBC 0 /100 WBCS (0.0-0.0); Neutrophils % (A) 83.2 %; Platelet Count 256 X 10*3/uL (140-440); RBC 3.58 X 10*6/uL (4.10-5.20); RDW 13.7 % (11.5-14.5); WBC 13.11 X 10*3/uL (4.50-10.00)
[2021-07-11 10:45] LABS: African American GFR (CKD) 68.1 (60.0-200.0); Anion Gap 12.3 mmol/L (10.00-18.00); BUN/Creat Ratio 21.89 Ratio (12.00-20.00); Blood Urea Nitrogen 19.7 mg/dL (9.0-27.0); Calcium 7.5 mg/dL (8.7-10.3); Carbon Dioxide 18.7 mmol/L (20.0-27.5); Non-African American GFR(CKD) 58.7 (60.0-200.0)
[2021-07-11] MEDS ORDERED: Potassium Replacement Protocol 1 EACH MISC MISCELLANE PRN ×2 (10:56→18:29)
[2021-07-11] MEDS: POTASSIUM BICARBONATE/CIT AC 20 MEQ TABLET.EFF NG-TUBE SCH ×2 (11:28→13:44)
[2021-07-11] MEDS: LACTATED RINGERS 1,000 ML IV SCH (11:37)
--- NOTE | 2021-07-11 13:04 | P.PN ---
<Ole, - Last Filed: 07/11/21 12:28> Subjective Progress Note Date: 07/11/21 Principal diagnosis: Partial colonic obstruction Patient is a 85-year-old female that presented to the ER after falling while trying to go to the bathroom. She reports falling on her bottom, no injury to head or loss of consciousness. She also reports having diarrhea for the past 4-5 weeks as well as dizziness and weakness. CT of the head and cervical spine showed no acute fracture or dislocation. Right knee x-ray was negative for fracture or dislocation, positive for osteoarthritis. She had mild leukocytosis 11.6, sodium was 126, bun 34, creatinine 1.09. She was recently admitted in the hospital in May and June with diarrhea secondary to acute diverticulitis and possible perforation. She was discharged home on antibiotics but was continuing to have diarrhea and increased weakness both times. reported that the patient has not been doing well at home and may require rehab. Patient has medical history of CVA, GERD, hypertension, C. diff 2015, right side brain aneurysm, surgical history of cholecystectomy and hysterectomy. Patient was followed by hospitalists 07/06/21-07/10/21. GI and Surgical services consulted for diarrhea and partial colonic obstruction. 07/11/21 Patient was seen and examined at bedside. She is sitting in the chair drinking water. Reports feeling weak and tired. She is status post op left colectomy with end colostomy and hernia repair on 07/09/21. Today is postop day 2. She reports tenderness at surgical site. Stool is present in colostomy. reports walking in the hallway with physical therapy today. Is agreeable to rehab services at discharge. Objective - Vital Signs Vital signs: Vital Signs Temp 97.4 F L 07/11/21 12:00 Pulse 94 07/11/21 12:00 Resp 16 07/11/21 12:00 BP 137/70 07/11/21 12:00 Pulse Ox 97 07/11/21 12:00 Intake & Output 07/10/21 07/11/21 07/11/21 18:59 06:59 18:59 Intake Total 0 Output Total 100 1600 2800 Balance -100 -1600 -2800 Intake: Oral 0 Output: Urine 1400 2800 Stool 100 200 Other: Voiding Method Indwelling Catheter Indwelling Catheter Indwelling Catheter - Constitutional General appearance: Present: cooperative, no acute distress - EENT Eyes: Present: EOMI, PERRLA, normal appearance ENT: Present: normal oropharynx Ears: bilateral: normal - Neck Neck: Present: normal ROM Carotids: bilateral: upstroke normal Thyroid: bilateral: normal size - Respiratory Respiratory: bilateral: rales, rhonchi - Cardiovascular Heart rate: 90 Rhythm: regular Heart sounds: normal: S1, S2 - Peripheral pulses dorsalis pedis Peripheral Pulses: bilateral: Normal - Gastrointestinal Gastrointestinal Comment(s): Left colostomy stoma beefy red, stool present in bag. General gastrointestinal: Present: normal bowel sounds, soft, tenderness - Integumentary Integumentary Comment(s): Abdominal incision site well approximated, no redness or drainage. Integumentary: Present: normal, normal turgor - Neurologic Neurologic: Present: CNII-XII intact - Musculoskeletal Musculoskeletal: Present: generalized weakness - Psychiatric Psychiatric: Present: A&O x's 3, appropriate affect, intact judgment & insight - Allied health notes Allied health notes reviewed: nursing - Labs CBC & Chem 7: 07/11/21 06:30 07/11/21 06:30 Labs: Abnormal Lab Results - Last 24 Hours (Table) 07/10/21 07/11/21 07/11/21 Range/Units 06:37 06:30 06:30 WBC 13.11 H (4.50-10.00) X 10*3/uL RBC 3.58 L (4.10-5.20) X 10*6/uL Hgb 10.7 L (12.0-15.0) g/dL Hct 32.3 L (37.2-46.3) % Immature Gran # 0.11 H 0.15 H (0.00-0.04) X 10*3/uL Neutrophils # 13.43 H 10.90 H (1.80-7.70) X 10*3/uL Eosinophils # 0.01 L 0.01 L (0.04-0.35) X 10*3/uL Potassium 3.0 L (3.5-5.5) mmol/L Carbon Dioxide 18.7 L (20.0-27.5) mmol/L Est GFR (CKD-EPI)NonAf 58.7 L (60.0-200.0) BUN/Creatinine Ratio 21.89 H (12.00-20.00) Ratio Calcium 7.5 L (8.7-10.3) mg/dL Microbiology - Last 24 Hours (Table) 07/07/21 03:30 Stool Culture - Final Stool - Imaging and Cardiology Chest x-ray: image reviewed Abdominal x-ray: image reviewed CT Scan - head: image reviewed Assessment and Plan Assessment: Partial colonic obstruction, status post left colectomy with end colostomy and hernia repair on 07/09/21 Bilateral aspiration pneumonia Hypokalemia Mild hyponatremia, improved Falls at home Recent history of diverticulitis and possible perforation Seizure disorder Plan: Continue with surgical recommendations for diet, currently on water and ice chips only Continue treatment for pneumonia, Zosyn and incentive spirometry Stool culture negative for E. coli, Salmonella, Shigella, Campylobacter Colon biopsy pending Continue current treatment regimen Continue monitoring vital signs Further recommendations based on patient's clinical course Plan to discharge to acute rehab facility Time with Patient: Greater than 30 <Oli Glover - Last Filed: 07/27/21 19:57> Subjective I have personally seen and examined the patient, reviewed the documentation and agree with the assessment and plan as written. Number of minutes spent on the visit: Greater than 15. Objective - Vital Signs Vital signs: Vital Signs Temp 97.9 F 07/19/21 08:00 Pulse 92 07/19/21 14:00 Resp 18 07/19/21 14:00 BP 111/74 07/19/21 08:00 Pulse Ox 96 07/19/21 08:00 - Labs CBC & Chem 7: 07/19/21 08:09 07/19/21 08:09
--- NOTE | 2021-07-11 13:07 | P.PN ---
<Bijal Patricia - Last Filed: 07/11/21 13:03> Subjective Progress Note Date: 07/11/21 CHIEF COMPLAINT: Abdominal pain HISTORY OF PRESENT ILLNESS: The patient seen and examined is a follow-up. She i s postop day #2 for left colectomy with end colostomy, partial omentectomy, repair of the incisional hernia, and mobilization of splenic flexure. She states no abdominal pain at this time. Colostomy with small amount of soft brown output. She denies any nausea or vomiting. NG tube was discontinued yesterday and patient was started on water today. WBC 13.1 hemoglobin 10.7 sodium 139 potassium 3.0 BUN 19 creatinine 0.9 calcium 7.5 PHYSICAL EXAM: VITAL SIGNS: Reviewed. GENERAL: Well-developed in no acute distress. HEENT: No sclera icterus. Extraocular movements grossly intact. Moist buccal mucosa. Head is atraumatic, normocephalic. ABDOMEN: Soft. Nondistended. Nontender. Surgical incision with dressing, saturated. Dressing change. Abdominal incision approximated with aneudy, with small area noted to have bleeding and blood clot. Colostomy left abdomen with soft brown stool. Bowel sounds hypoactive. NEUROLOGIC: Alert and oriented. Cranial nerves II through XII grossly intact. ASSESSMENT: 1. Partial colonic obstruction status post left colectomy with end colostomy, p artial omentectomy, repair incisional hernia, mobilization splenic flexure 2. Abdominal pain 3. Hypokalemia PLAN: 1. Patient may have small amounts of water 2. Replace potassium per protocol 3. Incentive spirometer to bedside 4. Physical therapy 5. Ostomy nurse on consult The impression and plan of care has been dictated as directed. Dr. Mccarty I performed a history and examination of this patient, discussed the same with the dictator. I agree with the dictator's note ,documented as a scribe. Any additional findings or plans will be noted. Objective - Vital Signs Vital signs: Vital Signs Temp 97.8 F 07/11/21 07:50 Pulse 99 07/11/21 07:50 Resp 16 07/11/21 07:50 BP 145/70 07/11/21 07:50 Pulse Ox 94 L 07/11/21 07:50 Intake & Output 07/10/21 07/11/21 07/11/21 18:59 06:59 18:59 Intake Total 0 Output Total 100 1600 1600 Balance -100 -1600 -1600 Intake: Oral 0 Output: Urine 1400 1600 Stool 100 200 Other: Voiding Method Indwelling Catheter Indwelling Catheter - Labs CBC & Chem 7: 07/11/21 06:30 07/11/21 06:30 Labs: Abnormal Lab Results - Last 24 Hours (Table) 07/10/21 07/10/21 Range/Units 06:37 06:37 WBC 15.53 H (4.50-10.00) X 10*3/uL RBC 3.90 L (4.10-5.20) X 10*6/uL Hgb 11.5 L (12.0-15.0) g/dL Hct 35.7 L (37.2-46.3) % Immature Gran # 0.11 H (0.00-0.04) X 10*3/uL Neutrophils # 13.43 H (1.80-7.70) X 10*3/uL Eosinophils # 0.01 L (0.04-0.35) X 10*3/uL Carbon Dioxide 15.6 L (20.0-27.5) mmol/L Est GFR (CKD-EPI)NonAf 58.7 L (60.0-200.0) BUN/Creatinine Ratio 23.00 H (12.00-20.00) Ratio Calcium 7.4 L (8.7-10.3) mg/dL Magnesium 1.4 L (1.5-2.4) mg/dL Microbiology - Last 24 Hours (Table) 07/07/21 03:30 Stool Culture - Final Stool Assessment and Plan (1) Chronic diarrhea Current Visit: Yes Status: Acute Code(s): K52.9 - NONINFECTIVE GASTROENTERITIS AND COLITIS, UNSPECIFIED SNOMED Code(s): 252713861 (2) History of diverticulitis of colon Current Visit: Yes Status: Acute Code(s): Z87.19 - PERSONAL HISTORY OF OTHER DISEASES OF THE DIGESTIVE SYSTEM SNOMED Code(s): 297656286047462 <Yobany Mccarty - Last Filed: 07/11/21 15:41> Subjective As above.I have personally seen and examined the patient, reviewed the MUSEUM ATTENDANT /PAs history, exam and MDM and agree with the assessment and plan as written. Based on total visit time, I have performed more than 50% of the visit. Patient doing well at this time. Continues to have good ostomy function. No nausea or vomiting. Begin sips of water. Ostomy nurse evaluation appreciated. Objective - Vital Signs Vital signs: Vital Signs Temp 97.4 F L 07/11/21 12:00 Pulse 94 07/11/21 12:00 Resp 16 07/11/21 12:00 BP 137/70 07/11/21 12:00 Pulse Ox 97 07/11/21 12:00 Intake & Output 07/10/21 07/11/21 07/11/21 18:59 06:59 18:59 Intake Total 0 Output Total 100 1600 2800 Balance -100 -1600 -2800 Intake: Oral 0 Output: Urine 1400 2800 Stool 100 200 Other: Voiding Method Indwelling Catheter Indwelling Catheter Indwelling Catheter - Labs CBC & Chem 7: 07/11/21 06:30 07/11/21 06:30 Labs: Abnormal Lab Results - Last 24 Hours (Table) 07/11/21 07/11/21 07/11/21 Range/Units 06:30 06:30 06:30 WBC 13.11 H (4.50-10.00) X 10*3/uL RBC 3.58 L (4.10-5.20) X 10*6/uL Hgb 10.7 L (12.0-15.0) g/dL Hct 32.3 L (37.2-46.3) % Immature Gran # 0.15 H (0.00-0.04) X 10*3/uL Neutrophils # 10.90 H (1.80-7.70) X 10*3/uL Eosinophils # 0.01 L (0.04-0.35) X 10*3/uL Potassium 3.0 L (3.5-5.5) mmol/L Carbon Dioxide 18.7 L (20.0-27.5) mmol/L Est GFR (CKD-EPI)NonAf 58.7 L (60.0-200.0) BUN/Creatinine Ratio 21.89 H (12.00-20.00) Ratio Calcium 7.5 L (8.7-10.3) mg/dL Magnesium 1.3 L (1.5-2.4) mg/dL Total Bilirubin 0.20 L (0.30-1.20) mg/dL Total Protein 3.9 L (6.2-8.2) g/dL Albumin 2.2 L (3.8-4.9) g/dL Albumin/Globulin Ratio 1.29 L (1.60-3.17) g/dL Microbiology - Last 24 Hours (Table) 07/07/21 03:30 Stool Culture - Final Stool Assessment and Plan (1) Abdominal pain Current Visit: Yes Status: Acute Code(s): R10.9 - UNSPECIFIED ABDOMINAL PAIN SNOMED Code(s): 36073133
[2021-07-11] MEDS ORDERED: Magnesium Replacement Protocol 1 EACH MISC MISCELLANE PRN (14:27)
[2021-07-11 15:27] LABS: Albumin 2.2 g/dL (3.8-4.9); Albumin/Globulin Ratio 1.29 (1.60-3.17); Globulin 1.7 g/dL (1.6-3.3); Total Bilirubin 0.2 mg/dL (0.30-1.20); Total Protein 3.9 g/dL (6.2-8.2)
[2021-07-11] MEDS: MAGNESIUM SULFATE-D5W PMX 1 GM in DEXTROSE/WATER 1 100ML.BAG IVPB SCH ×3 (16:49→20:36)
[2021-07-11] MEDS ORDERED: POTASSIUM CHLORIDE ER 20 MEQ TAB.ER PO STA (19:55)
[2021-07-11] MEDS: MAGNESIUM OXIDE 400 MG TAB PO SCH (20:46)
[2021-07-11] MEDS: ATORVASTATIN 10 MG TAB PO SCH (20:46)
[2021-07-11] MEDS ORDERED: POTASSIUM CHLORIDE ER 20 MEQ TAB.ER PO ONE (23:00)
[2021-07-12] MEDS: HEPARIN SODIUM,PORCINE/PF 5,000 UNIT/0.5 ML SYRINGE SQ SCH ×4 (00:56→23:47)
[2021-07-12] MEDS ORDERED: POTASSIUM CHLORIDE ER 20 MEQ TAB.ER PO ONE (05:00)
[2021-07-12] MEDS: PIPERACILLIN-TAZOBACTAM 3.375 GM in SODIUM CHLORIDE 0.9% 100 ML IVPB SCH ×3 (05:34→21:41)
[2021-07-12] MEDS: PANTOPRAZOLE 40 MG TABLET PO SCH (08:02)
[2021-07-12] MEDS: LACOSAMIDE 50 MG TABLET PO SCH ×2 (08:03→20:59)
[2021-07-12 10:10] LABS: Basophils # (A) 0.01 X 10*3/uL (0.00-0.10); Basophils % (A) 0.1 %; Eosinophils # (A) 0.04 X 10*3/uL (0.04-0.35); Eosinophils % (A) 0.4 %; HCT 30.8 % (37.2-46.3); HGB 10.2 g/dL (12.0-15.0); Immature Grans, Automated 0.9 %; Lymphocytes % (A) 11.4 %; MCH 29.3 pg (27.0-32.0); MCHC 33.1 g/dL (32.0-37.0); MCV 88.5 fL (80.0-97.0); Mean Platelet Volume 9.4 fL (9.5-12.2); Monocytes # (A) 0.67 X 10*3/uL (0.20-1.00); Monocytes % (A) 6.3 %; NRBC Per 100 WBC 0 /100 WBCS (0.0-0.0); Neutrophils # (A) 8.55 X 10*3/uL (1.80-7.70); Neutrophils % (A) 80.9 %; Platelet Count 246 X 10*3/uL (140-440); RBC 3.48 X 10*6/uL (4.10-5.20); RDW 13.8 % (11.5-14.5); WBC 10.57 X 10*3/uL (4.50-10.00)
[2021-07-12 10:27] LABS: African American GFR (CKD) 78.5 (60.0-200.0); Anion Gap 11.4 mmol/L (10.00-18.00); BUN/Creat Ratio 19.5 Ratio (12.00-20.00); Blood Urea Nitrogen 15.6 mg/dL (9.0-27.0); Calcium 7.6 mg/dL (8.7-10.3); Carbon Dioxide 21.6 mmol/L (20.0-27.5); Magnesium 1.9 mg/dL (1.5-2.4); Non-African American GFR(CKD) 67.7 (60.0-200.0); Potassium 3.5 mmol/L (3.5-5.5)
[2021-07-12] MEDS: SODIUM CHLORIDE 0.9% 1,000 ML IV SCH ×3 (10:48→10:51)
--- NOTE | 2021-07-12 11:04 | P.PN ---
<Bijal Patricia - Last Filed: 07/12/21 11:01> Subjective Progress Note Date: 07/12/21 CHIEF COMPLAINT: Abdominal pain HISTORY OF PRESENT ILLNESS: The patient seen and examined is a follow-up. She i s postop day #3 for left colectomy with end colostomy, partial omentectomy, repair of the incisional hernia, and mobilization of splenic flexure. She states no abdominal pain at this time. Colostomy with 300 mils of liquid brown stoo this morning.l. She denies any nausea or vomiting. She has been afebrile. WBC continues to trend down. Hemoglobin is stable. WBC 10.5 hemoglobin 10.2 platelet count 246,000 sodium 138 potassium 3.5 magnesium 1.9. She has been tolerating her water. She would like to advance her diet. PHYSICAL EXAM: VITAL SIGNS: Reviewed. GENERAL: Well-developed in no acute distress. HEENT: No sclera icterus. Extraocular movements grossly intact. Moist buccal mucosa. Head is atraumatic, normocephalic. ABDOMEN: Soft. Nondistended. Nontender. Surgical incision with dressing, saturated. Dressing change. Abdominal incision approximated with aneudy, with small area noted to have bleeding and blood clot. Colostomy left abdomen with soft brown stool. Bowel sounds hypoactive. NEUROLOGIC: Alert and oriented. Cranial nerves II through XII grossly intact. ASSESSMENT: 1. Partial colonic obstruction status post left colectomy with end colostomy, partial omentectomy, repair incisional hernia, mobilization splenic flexure 2. Abdominal pain 3. Hypokalemia PLAN: 1. Patient mayadvance to full liquid diet, lactose-free 2. Incentive spirometer to bedside 3. Physical therapy 4. Ostomy nurse on consult 5. GI prophylaxis The impression and plan of care has been dictated as directed. Dr. Mccarty I performed a history and examination of this patient, discussed the same with the dictator. I agree with the dictator's note ,documented as a scribe. Any additional findings or plans will be noted. Objective - Vital Signs Vital signs: Vital Signs Temp 97.7 F 07/12/21 08:05 Pulse 94 07/12/21 08:05 Resp 16 07/12/21 08:05 BP 136/75 07/12/21 08:05 Pulse Ox 93 L 07/12/21 08:05 Intake & Output 07/11/21 07/12/21 07/12/21 18:59 06:59 18:59 Output Total 2800 650 Balance -2800 -650 Output: Urine 2800 300 Stool 350 Other: Voiding Method Indwelling Catheter Indwelling Catheter - Labs CBC & Chem 7: 07/12/21 06:30 07/12/21 06:30 Labs: Abnormal Lab Results - Last 24 Hours (Table) 07/11/21 07/11/21 07/11/21 Range/Units 06:30 06:30 19:04 WBC (4.50-10.00) X 10*3/uL RBC (4.10-5.20) X 10*6/uL Hgb (12.0-15.0) g/dL Hct (37.2-46.3) % MPV (9.5-12.2) fL Immature Gran # (0.00-0.04) X 10*3/uL Neutrophils # (1.80-7.70) X 10*3/uL Potassium 2.6 L* (3.5-5.1) mmol/L Calcium (8.7-10.3) mg/dL Magnesium 1.3 L (1.5-2.4) mg/dL Total Bilirubin 0.20 L (0.30-1.20) mg/dL Total Protein 3.9 L (6.2-8.2) g/dL Albumin 2.2 L (3.8-4.9) g/dL Albumin/Globulin Ratio 1.29 L (1.60-3.17) g/dL 07/12/21 07/12/21 Range/Units 06:30 06:30 WBC 10.57 H (4.50-10.00) X 10*3/uL RBC 3.48 L (4.10-5.20) X 10*6/uL Hgb 10.2 L (12.0-15.0) g/dL Hct 30.8 L (37.2-46.3) % MPV 9.4 L (9.5-12.2) fL Immature Gran # 0.10 H (0.00-0.04) X 10*3/uL Neutrophils # 8.55 H (1.80-7.70) X 10*3/uL Potassium (3.5-5.1) mmol/L Calcium 7.6 L (8.7-10.3) mg/dL Magnesium (1.5-2.4) mg/dL Total Bilirubin (0.30-1.20) mg/dL Total Protein (6.2-8.2) g/dL Albumin (3.8-4.9) g/dL Albumin/Globulin Ratio (1.60-3.17) g/dL Microbiology - Last 24 Hours (Table) 07/10/21 15:16 Blood Culture - Preliminary Blood No Growth after 24 hours 07/07/21 03:30 Stool Culture - Final Stool Assessment and Plan (1) Chronic diarrhea Current Visit: Yes Status: Acute Code(s): K52.9 - NONINFECTIVE GASTROENTERITIS AND COLITIS, UNSPECIFIED SNOMED Code(s): 791127216 (2) History of diverticulitis of colon Current Visit: Yes Status: Acute Code(s): Z87.19 - PERSONAL HISTORY OF OTHER DISEASES OF THE DIGESTIVE SYSTEM SNOMED Code(s): 052407953828685 <Yobany Mccarty - Last Filed: 07/12/21 12:28> Subjective I have personally seen and examined the patient, reviewed the HUMANITIES DEPARTMENT CHAIR /PAs history, exam and MDM and agree with the assessment and plan as written. Based on total visit time, I have performed more than 50% of the visit. As above. Patient doing well. May advance diet today. Increase activity. Objective - Vital Signs Vital signs: Vital Signs Temp 97.7 F 07/12/21 08:05 Pulse 94 07/12/21 08:05 Resp 16 07/12/21 08:05 BP 136/75 07/12/21 08:05 Pulse Ox 93 L 07/12/21 08:05 Intake & Output 07/11/21 07/12/21 07/12/21 18:59 06:59 18:59 Output Total 2800 650 Balance -2800 -650 Output: Urine 2800 300 Stool 350 Other: Voiding Method Indwelling Catheter Indwelling Catheter Indwelling Catheter - Labs CBC & Chem 7: 07/12/21 06:30 07/12/21 06:30 Labs: Abnormal Lab Results - Last 24 Hours (Table) 07/11/21 07/11/21 07/11/21 Range/Units 06:30 06:30 19:04 WBC (4.50-10.00) X 10*3/uL RBC (4.10-5.20) X 10*6/uL Hgb (12.0-15.0) g/dL Hct (37.2-46.3) % MPV (9.5-12.2) fL Immature Gran # (0.00-0.04) X 10*3/uL Neutrophils # (1.80-7.70) X 10*3/uL Potassium 2.6 L* (3.5-5.1) mmol/L Calcium (8.7-10.3) mg/dL Magnesium 1.3 L (1.5-2.4) mg/dL Total Bilirubin 0.20 L (0.30-1.20) mg/dL Total Protein 3.9 L (6.2-8.2) g/dL Albumin 2.2 L (3.8-4.9) g/dL Albumin/Globulin Ratio 1.29 L (1.60-3.17) g/dL 07/12/21 07/12/21 Range/Units 06:30 06:30 WBC 10.57 H (4.50-10.00) X 10*3/uL RBC 3.48 L (4.10-5.20) X 10*6/uL Hgb 10.2 L (12.0-15.0) g/dL Hct 30.8 L (37.2-46.3) % MPV 9.4 L (9.5-12.2) fL Immature Gran # 0.10 H (0.00-0.04) X 10*3/uL Neutrophils # 8.55 H (1.80-7.70) X 10*3/uL Potassium (3.5-5.1) mmol/L Calcium 7.6 L (8.7-10.3) mg/dL Magnesium (1.5-2.4) mg/dL Total Bilirubin (0.30-1.20) mg/dL Total Protein (6.2-8.2) g/dL Albumin (3.8-4.9) g/dL Albumin/Globulin Ratio (1.60-3.17) g/dL Microbiology - Last 24 Hours (Table) 07/10/21 15:16 Blood Culture - Preliminary Blood No Growth after 24 hours 07/07/21 03:30 Stool Culture - Final Stool Assessment and Plan (1) Abdominal pain Current Visit: Yes Status: Acute Code(s): R10.9 - UNSPECIFIED ABDOMINAL PAIN SNOMED Code(s): 95200981
--- NOTE | 2021-07-12 11:52 | P.PN ---
<Ole, - Last Filed: 07/12/21 11:36> Subjective Progress Note Date: 07/12/21 Principal diagnosis: Diarrhea secondary to Partial colonic obstruction Patient is a 85-year-old female that presented to the ER after falling while trying to go to the bathroom. She reports falling on her bottom, no injury to head or loss of consciousness. She also reports having diarrhea for the past 4-5 weeks as well as dizziness and weakness. CT of the head and cervical spine showed no acute fracture or dislocation. Right knee x-ray was negative for fracture or dislocation, positive for osteoarthritis. She had mild leukocytosis 11.6, sodium was 126, bun 34, creatinine 1.09. She was recently admitted in the hospital in May and June with diarrhea secondary to acute diverticulitis and possible perforation. She was discharged home on antibiotics but was continuing to have diarrhea and increased weakness both times. reported that the patient has not been doing well at home and may require rehab. Patient has medical history of CVA, GERD, hypertension, C. diff 2015, right side brain aneurysm, surgical history of cholecystectomy and hysterectomy. Patient was followed by hospitalists 07/06/21-07/10/21. GI and Surgical services consulted for diarrhea and partial colonic obstruction. 07/11/21 Patient was seen and examined at bedside. She is sitting in the chair drinking water. Reports feeling weak and tired. She is status post op left colectomy with end colostomy and hernia repair on 07/09/21. Today is postop day 2. She reports tenderness at surgical site. Stool is present in colostomy. reports walking in the hallway with physical therapy today. Is agreeable to rehab services at discharge. 07/12/21 Patient is resting comfortably in bed. States she is very tired and weak today. Denies shortness of breath, chest pain, palpitations or abdominal pain. Diet was increased to full liquids and she reports tolerating a pudding well. Potassium, magnesium, sodium and white blood count levels have improved. Patient is still agreeable to subacute rehab. Objective - Vital Signs Vital signs: Vital Signs Temp 97.7 F 07/12/21 08:05 Pulse 94 07/12/21 08:05 Resp 16 07/12/21 08:05 BP 136/75 07/12/21 08:05 Pulse Ox 93 L 07/12/21 08:05 Intake & Output 07/11/21 07/12/21 07/12/21 18:59 06:59 18:59 Output Total 2800 650 Balance -2800 -650 Output: Urine 2800 300 Stool 350 Other: Voiding Method Indwelling Catheter Indwelling Catheter Indwelling Catheter - Constitutional General appearance: Present: average body habitus, no acute distress - EENT Eyes: Present: EOMI, PERRLA ENT: Present: normal oropharynx Ears: bilateral: normal - Neck Neck: Present: normal ROM Carotids: bilateral: upstroke normal Thyroid: bilateral: normal size - Respiratory Respiratory: bilateral: rales, rhonchi, wheezing - Cardiovascular Rhythm: regular Heart sounds: normal: S1, S2 - Peripheral pulses dorsalis pedis Peripheral Pulses: bilateral: Normal radial pulse Peripheral Pulses: bilateral: Normal - Gastrointestinal Gastrointestinal Comment(s): no changes to surgical incision, well approximated, no redness or drainage. Left colostomy, stoma beefy red, loose brown stool present in bag General gastrointestinal: Present: normal bowel sounds, soft, tenderness - Integumentary Integumentary: Present: normal, normal turgor - Neurologic Neurologic: Present: CNII-XII intact - Musculoskeletal Musculoskeletal: Present: generalized weakness - Psychiatric Psychiatric: Present: A&O x's 3 - Allied health notes Allied health notes reviewed: nursing - Labs CBC & Chem 7: 07/12/21 06:30 07/12/21 06:30 Labs: Abnormal Lab Results - Last 24 Hours (Table) 07/11/21 07/11/21 07/11/21 Range/Units 06:30 06:30 19:04 WBC (4.50-10.00) X 10*3/uL RBC (4.10-5.20) X 10*6/uL Hgb (12.0-15.0) g/dL Hct (37.2-46.3) % MPV (9.5-12.2) fL Immature Gran # (0.00-0.04) X 10*3/uL Neutrophils # (1.80-7.70) X 10*3/uL Potassium 2.6 L* (3.5-5.1) mmol/L Calcium (8.7-10.3) mg/dL Magnesium 1.3 L (1.5-2.4) mg/dL Total Bilirubin 0.20 L (0.30-1.20) mg/dL Total Protein 3.9 L (6.2-8.2) g/dL Albumin 2.2 L (3.8-4.9) g/dL Albumin/Globulin Ratio 1.29 L (1.60-3.17) g/dL 07/12/21 07/12/21 Range/Units 06:30 06:30 WBC 10.57 H (4.50-10.00) X 10*3/uL RBC 3.48 L (4.10-5.20) X 10*6/uL Hgb 10.2 L (12.0-15.0) g/dL Hct 30.8 L (37.2-46.3) % MPV 9.4 L (9.5-12.2) fL Immature Gran # 0.10 H (0.00-0.04) X 10*3/uL Neutrophils # 8.55 H (1.80-7.70) X 10*3/uL Potassium (3.5-5.1) mmol/L Calcium 7.6 L (8.7-10.3) mg/dL Magnesium (1.5-2.4) mg/dL Total Bilirubin (0.30-1.20) mg/dL Total Protein (6.2-8.2) g/dL Albumin (3.8-4.9) g/dL Albumin/Globulin Ratio (1.60-3.17) g/dL Microbiology - Last 24 Hours (Table) 07/10/21 15:16 Blood Culture - Preliminary Blood No Growth after 24 hours 07/07/21 03:30 Stool Culture - Final Stool Assessment and Plan Assessment: Partial colonic obstruction, status post left colectomy with end colostomy and hernia repair on 07/09/21 Bilateral aspiration pneumonia Hypokalemia, improved to 3.5 Mild hyponatremia, improved Falls at home Recent history of diverticulitis and possible perforation Seizure disorder Plan: Continue with surgical recommendations for diet, upgraded to full liquid diet, tolerating well Continue treatment for pneumonia, Zosyn and incentive spirometry, repeat chest xray ordered Potassium and magnesium improved, monitor daily Stool culture negative for E. coli, Salmonella, Shigella, Campylobacter Colon biopsy still pending Continue current treatment regimen Continue monitoring vital signs Further recommendations based on patient's clinical course Plan to discharge to acute rehab facility Time with Patient: Greater than 30 <Oli Glover - Last Filed: 07/27/21 19:55> Subjective I have personally seen and examined the patient, reviewed the documentation and agree with the assessment and plan as written. Number of minutes spent on the visit: Greater than 15. Objective - Vital Signs Vital signs: Vital Signs Temp 97.9 F 07/19/21 08:00 Pulse 92 07/19/21 14:00 Resp 18 07/19/21 14:00 BP 111/74 07/19/21 08:00 Pulse Ox 96 07/19/21 08:00 - Labs CBC & Chem 7: 07/19/21 08:09 07/19/21 08:09
--- NOTE | 2021-07-12 15:45 | XR ---
EXAMINATION TYPE: XR chest 2V DATE OF EXAM: 07/12/2021 COMPARISON: Chest x-ray 07/10/2021, CT 12/30/2018, 07/07/2021 HISTORY: Shortness of breath, pneumonia TECHNIQUE: Frontal and lateral views of the chest are obtained. FINDINGS: Blunting the costophrenic angles is present. Prominent lung volumes may be indicative of u nderlying COPD. Patient is rotated. No evident pneumothorax. There is a kyphosis centered at the lowe r thoracic spine, compression deformity is present, chronic, there are findings of DISH. Basilar dens ity is greater in the retrocardiac region on the left. The heart may be enlarged, there is a pericard ial effusion. Small hiatal hernia is present. IMPRESSION: There is a small right pleural effusion, correlate for basilar atelectasis versus pneumo chelsy. There is a pericardial effusion, additional findings above.
[2021-07-12] MEDS: ATORVASTATIN 10 MG TAB PO SCH (20:59)
[2021-07-12] MEDS: MAGNESIUM OXIDE 400 MG TAB PO SCH (20:59)
[2021-07-13] MEDS: PIPERACILLIN-TAZOBACTAM 3.375 GM in SODIUM CHLORIDE 0.9% 100 ML IVPB SCH ×3 (05:25→21:53)
[2021-07-13 07:30] LABS: Basophils % (A) 0 %; Eosinophils # (A) 0.1 k/uL (0-0.7); Eosinophils % (A) 1 %; HCT 33.6 % (34.0-46.0); HGB 11.1 gm/dL (11.4-16.0); Lymphocytes # (A) 1.1 k/uL (1.0-4.8); Lymphocytes % (A) 14 %; MCV 94.1 fL (80.0-100.0); Mean Platelet Volume 7.2; Monocytes # (A) 0.8 k/uL (0-1.0); Monocytes % (A) 10 %; Neutrophils # (A) 5.8 k/uL (1.3-7.7); Neutrophils % (A) 73 %; Platelet Count 236 k/uL (150-450); RBC 3.57 m/uL (3.80-5.40); RDW 13.3 % (11.5-15.5); WBC 7.9 k/uL (3.8-10.6)
[2021-07-13 07:55] LABS: ALT 10 U/L (4-34); AST 18 U/L (14-36); African American GFR (CKD) 90 (>60 ml/min/1.73 sqM); Albumin 1.7 g/dL (3.5-5.0); Albumin/Globulin Ratio 0.7; Alkaline Phosphatase 52 U/L (38-126); Anion Gap 1 mmol/L; Blood Urea Nitrogen 14 mg/dL (7-17); Calcium 7.5 mg/dL (8.4-10.2); Carbon Dioxide 24 mmol/L (22-30); Chloride 107 mmol/L (98-107); Globulin 2.3 g/dL; Glucose 98 mg/dL (74-99); Non-African American GFR(CKD) 78 (>60 ml/min/1.73 sqM); Potassium 3.2 mmol/L (3.5-5.1); Sodium 132 mmol/L (137-145); Total Bilirubin 0.5 mg/dL (0.2-1.3)
[2021-07-13] MEDS ORDERED: POTASSIUM CHLORIDE ER 20 MEQ TAB.ER PO STA (08:12)
[2021-07-13] MEDS: HEPARIN SODIUM,PORCINE/PF 5,000 UNIT/0.5 ML SYRINGE SQ SCH ×2 (08:16→16:58)
[2021-07-13] MEDS: PANTOPRAZOLE 40 MG TABLET PO SCH (08:16)
[2021-07-13 09:02] LABS: Albumin/Globulin Ratio 1.11 (1.60-3.17); Globulin 1.8 g/dL (1.6-3.3); Total Bilirubin 0.3 mg/dL (0.30-1.20); Total Protein 3.8 g/dL (6.2-8.2)
[2021-07-13] MEDS: LACOSAMIDE 50 MG TABLET PO SCH ×2 (11:04→20:03)
[2021-07-13] MEDS: POTASSIUM CHLORIDE ER 20 MEQ TAB.ER PO SCH (11:12)
--- NOTE | 2021-07-13 11:26 | P.PN ---
<Ole, - Last Filed: 07/13/21 11:07> Subjective Progress Note Date: 07/13/21 Principal diagnosis: Diarrhea secondary to Partial colonic obstruction Patient is a 85-year-old female that presented to the ER after falling while trying to go to the bathroom. She reports falling on her bottom, no injury to head or loss of consciousness. She also reports having diarrhea for the past 4-5 weeks as well as dizziness and weakness. CT of the head and cervical spine showed no acute fracture or dislocation. Right knee x-ray was negative for fracture or dislocation, positive for osteoarthritis. She had mild leukocytosis 11.6, sodium was 126, bun 34, creatinine 1.09. She was recently admitted in the hospital in May and June with diarrhea secondary to acute diverticulitis and possible perforation. She was discharged home on antibiotics but was continuing to have diarrhea and increased weakness both times. reported that the patient has not been doing well at home and may require rehab. Patient has medical history of CVA, GERD, hypertension, C. diff 2015, right side brain aneurysm, surgical history of cholecystectomy and hysterectomy. Patient was followed by hospitalists 07/06/21-07/10/21. GI and Surgical services consulted for diarrhea and partial colonic obstruction. 07/11/21 Patient was seen and examined at bedside. She is sitting in the chair drinking water. Reports feeling weak and tired. She is status post op left colectomy with end colostomy and hernia repair on 07/09/21. Today is postop day 2. She reports tenderness at surgical site. Stool is present in colostomy. reports walking in the hallway with physical therapy today. Is agreeable to rehab services at discharge. 07/12/21 Patient is resting comfortably in bed. States she is very tired and weak today. Denies shortness of breath, chest pain, palpitations or abdominal pain. Diet was increased to full liquids and she reports tolerating a pudding well. Potassium, magnesium, sodium and white blood count levels have improved. Patient is still agreeable to subacute rehab. 07/13/21 Patient sitting up in bed. Reports generalized weakness and soreness at incision site. Denies dyspnea, chest pain, and abdominal pain. Diet maintained at full liquids, tolerating well. Potassium this morning was 3.2, replaced and daily dose added. Repeat chest xray shows small right pleural effusion, continue iv zosyn and encouraged IS use. Plan to discharge to subacute rehab. Objective - Vital Signs Vital signs: Vital Signs Temp 97.5 F L 07/13/21 07:46 Pulse 77 07/13/21 09:55 Resp 18 07/13/21 07:46 BP 139/69 07/13/21 09:55 Pulse Ox 92 L 07/13/21 08:28 Intake & Output 07/12/21 07/13/21 07/13/21 18:59 06:59 18:59 Intake Total 100 Output Total 1475 500 Balance -1475 -400 Intake: Oral 100 Output: Urine 300 Stool 1475 200 Other: Voiding Method Indwelling Catheter Indwelling Catheter # Bowel Movements 2 - Constitutional General appearance: Present: cooperative, no acute distress - EENT Eyes: Present: EOMI, PERRLA ENT: Present: normal oropharynx Ears: bilateral: normal - Neck Neck: Present: normal ROM Carotids: bilateral: upstroke normal Thyroid: bilateral: normal size - Respiratory Respiratory: bilateral: diminished - Cardiovascular Heart rate: 75 Rhythm: regular Heart sounds: normal: S1, S2 - Peripheral edema ankle Peripheral Edema: bilateral: 2+ foot Peripheral Edema: bilateral: 2+ - Gastrointestinal Gastrointestinal Comment(s): Surgical site well approximated, no redness or drainage Colostomy stoma beefy red, liquid brown stool present in bag General gastrointestinal: Present: normal bowel sounds, soft, tenderness Localized gastrointestinal: tender: diffuse - Integumentary Integumentary: Present: normal - Neurologic Neurologic: Present: CNII-XII intact - Musculoskeletal Musculoskeletal: Present: generalized weakness - Psychiatric Psychiatric: Present: A&O x's 3, appropriate affect, intact judgment & insight - Allied health notes Allied health notes reviewed: nursing - Labs CBC & Chem 7: 07/13/21 06:54 07/13/21 06:54 Labs: Abnormal Lab Results - Last 24 Hours (Table) 07/12/21 07/13/21 07/13/21 Range/Units 06:30 06:54 06:54 RBC 3.57 L (3.80-5.40) m/uL Hgb 11.1 L (11.4-16.0) gm/dL Hct 33.6 L (34.0-46.0) % Sodium 132 L (137-145) mmol/L Potassium 3.2 L (3.5-5.1) mmol/L Calcium 7.5 L (8.4-10.2) mg/dL AST 12 L (13-35) U/L Total Protein 3.8 L 4.0 L (6.2-8.2) g/dL Albumin 2.0 L 1.7 L (3.8-4.9) g/dL Albumin/Globulin Ratio 1.11 L (1.60-3.17) g/dL Microbiology - Last 24 Hours (Table) 07/10/21 15:16 Blood Culture - Preliminary Blood No Growth after 48 hours - Imaging and Cardiology Chest x-ray: report reviewed Assessment and Plan Assessment: Partial colonic obstruction, status post left colectomy with end colostomy and hernia repair on 07/09/21 Bilateral aspiration pneumonia Hypokalemia, potassium replaced Mild hyponatremia, improved Falls at home Recent history of diverticulitis and possible perforation Seizure disorder Plan: Continue with surgical recommendations for diet, tolerating full liquid diet Continue treatment for pneumonia, Zosyn and incentive spirometry Potassium replaced and magnesium improved, monitor daily Stool culture negative for E. coli, Salmonella, Shigella, Campylobacter Continue current treatment regimen Continue monitoring vital signs Further recommendations based on patient's clinical course Plan to discharge to acute rehab facility Time with Patient: Greater than 30 <Oli Glover - Last Filed: 07/27/21 19:53> Subjective I have personally seen and examined the patient, reviewed the documentation and agree with the assessment and plan as written. Number of minutes spent on the visit: Greater than 15. Objective - Vital Signs Vital signs: Vital Signs Temp 97.9 F 07/19/21 08:00 Pulse 92 07/19/21 14:00 Resp 18 07/19/21 14:00 BP 111/74 07/19/21 08:00 Pulse Ox 96 07/19/21 08:00 - Labs CBC & Chem 7: 07/19/21 08:09 07/19/21 08:09
[2021-07-13] MEDS ORDERED: FUROSEMIDE 10 MG/ML 2 ML VIAL IV ONE (12:52)
--- NOTE | 2021-07-13 14:39 | P.PN ---
<Bijal Patricia - Last Filed: 07/13/21 14:35> Subjective Progress Note Date: 07/13/21 CHIEF COMPLAINT: Abdominal pain HISTORY OF PRESENT ILLNESS: The patient seen and examined is a follow-up. She i s postop day #4 for left colectomy with end colostomy, partial omentectomy, repair of the incisional hernia, and mobilization of splenic flexure. She states no abdominal pain at this time. Ostomy with good output. She denies any nausea or vomiting. She was advanced to a full liquid diet yesterday and is tolerating it well. Asking to increase her diet. PHYSICAL EXAM: VITAL SIGNS: Reviewed. GENERAL: Well-developed in no acute distress. HEENT: No sclera icterus. Extraocular movements grossly intact. Moist buccal mucosa. Head is atraumatic, normocephalic. ABDOMEN: Soft. Nondistended. Nontender. Abdominal incision approximated with aneudy, clean dry and intact. Colostomy left abdomen with soft brown stool. Positive bowel sounds. NEUROLOGIC: Alert and oriented. Cranial nerves II through XII grossly intact. ASSESSMENT: 1. Partial colonic obstruction status post left colectomy with end colostomy, partial omentectomy, repair incisional hernia, mobilization splenic flexure 2. Abdominal pain 3. Hypokalemia PLAN: 1. Patient may advance to soft diet, lactose-free 2. Incentive spirometer to bedside 3. Physical therapy, encourage ambulation 4. Ostomy nurse on consult 5. GI prophylaxis 6. Replace potassium per protocol 7. CBC, BMP daily 8. Continue IV antibiotics 9. Anticipate discharge for Saturday The impression and plan of care has been dictated as directed. Dr. Mccarty I performed a history and examination of this patient, discussed the same with the dictator. I agree with the dictator's note ,documented as a scribe. Any additional findings or plans will be noted. Objective - Vital Signs Vital signs: Vital Signs Temp 97.5 F L 07/13/21 07:46 Pulse 78 07/13/21 07:46 Resp 18 07/13/21 07:46 BP 147/71 07/13/21 07:46 Pulse Ox 92 L 07/13/21 08:28 Intake & Output 07/12/21 07/13/21 07/13/21 18:59 06:59 18:59 Intake Total 100 Output Total 1475 500 Balance -1475 -400 Intake: Oral 100 Output: Urine 300 Stool 1475 200 Other: Voiding Method Indwelling Catheter Indwelling Catheter # Bowel Movements 2 - Labs CBC & Chem 7: 07/13/21 06:54 07/13/21 06:54 Labs: Abnormal Lab Results - Last 24 Hours (Table) 07/12/21 07/12/21 07/13/21 Range/Units 06:30 06:30 06:54 WBC 10.57 H (4.50-10.00) X 10*3/uL RBC 3.48 L 3.57 L (4.10-5.20) X 10*6/uL Hgb 10.2 L 11.1 L (12.0-15.0) g/dL Hct 30.8 L 33.6 L (37.2-46.3) % MPV 9.4 L (9.5-12.2) fL Immature Gran # 0.10 H (0.00-0.04) X 10*3/uL Neutrophils # 8.55 H (1.80-7.70) X 10*3/uL Sodium (137-145) mmol/L Potassium (3.5-5.1) mmol/L Calcium 7.6 L (8.7-10.3) mg/dL AST 12 L (13-35) U/L Total Protein 3.8 L (6.2-8.2) g/dL Albumin 2.0 L (3.8-4.9) g/dL Albumin/Globulin Ratio 1.11 L (1.60-3.17) g/dL 07/13/21 Range/Units 06:54 WBC (4.50-10.00) X 10*3/uL RBC (4.10-5.20) X 10*6/uL Hgb (12.0-15.0) g/dL Hct (37.2-46.3) % MPV (9.5-12.2) fL Immature Gran # (0.00-0.04) X 10*3/uL Neutrophils # (1.80-7.70) X 10*3/uL Sodium 132 L (137-145) mmol/L Potassium 3.2 L (3.5-5.1) mmol/L Calcium 7.5 L (8.7-10.3) mg/dL AST (13-35) U/L Total Protein 4.0 L (6.2-8.2) g/dL Albumin 1.7 L (3.8-4.9) g/dL Albumin/Globulin Ratio (1.60-3.17) g/dL Microbiology - Last 24 Hours (Table) 07/10/21 15:16 Blood Culture - Preliminary Blood No Growth after 48 hours Assessment and Plan (1) Chronic diarrhea Current Visit: Yes Status: Acute Code(s): K52.9 - NONINFECTIVE GASTROENTERITIS AND COLITIS, UNSPECIFIED SNOMED Code(s): 443140395 (2) History of diverticulitis of colon Current Visit: Yes Status: Acute Code(s): Z87.19 - PERSONAL HISTORY OF OTHER DISEASES OF THE DIGESTIVE SYSTEM SNOMED Code(s): 904658360873309 <Yobany Mccarty - Last Filed: 07/13/21 17:30> Subjective I have personally seen and examined the patient, reviewed the RESOURCE CENTER TEACHER /PAs history, exam and MDM and agree with the assessment and plan as written. Based on total visit time, I have performed more than 50% of the visit. As above. Patient less confused. Tolerating diet. Abdominal pain is minimal. Good ostomy function. Agree with advancing diet. Remove Torrez catheter in the morning. Continue discharge planning. Objective - Vital Signs Vital signs: Vital Signs Temp 97.6 F 07/13/21 12:53 Pulse 55 L 07/13/21 12:55 Resp 16 07/13/21 12:55 BP 149/82 07/13/21 12:53 Pulse Ox 95 07/13/21 12:53 Intake & Output 07/12/21 07/13/21 07/13/21 18:59 06:59 18:59 Intake Total 100 Output Total 8891 880 0940 Balance -1475 -400 -1400 Weight 76.204 kg Intake: Oral 100 Output: Urine 300 Stool 3290 977 2246 Other: Voiding Method Indwelling Catheter Indwelling Catheter Indwelling Catheter # Bowel Movements 2 - Labs CBC & Chem 7: 07/13/21 06:54 07/13/21 14:17 Labs: Abnormal Lab Results - Last 24 Hours (Table) 07/12/21 07/13/21 07/13/21 Range/Units 06:30 06:54 06:54 RBC 3.57 L (3.80-5.40) m/uL Hgb 11.1 L (11.4-16.0) gm/dL Hct 33.6 L (34.0-46.0) % Sodium 132 L (137-145) mmol/L Potassium 3.2 L (3.5-5.1) mmol/L Calcium 7.5 L (8.4-10.2) mg/dL AST 12 L (13-35) U/L Total Protein 3.8 L 4.0 L (6.2-8.2) g/dL Albumin 2.0 L 1.7 L (3.8-4.9) g/dL Albumin/Globulin Ratio 1.11 L (1.60-3.17) g/dL Microbiology - Last 24 Hours (Table) 07/10/21 15:16 Blood Culture - Preliminary Blood No Growth after 48 hours Assessment and Plan (1) Abdominal pain Current Visit: Yes Status: Acute Code(s): R10.9 - UNSPECIFIED ABDOMINAL PAIN SNOMED Code(s): 56458906
[2021-07-13 15:16] VITALS: BMI 28.8
[2021-07-13] MEDS: MAGNESIUM OXIDE 400 MG TAB PO SCH (20:03)
[2021-07-13] MEDS: ATORVASTATIN 10 MG TAB PO SCH (20:03)
[2021-07-14] MEDS: SODIUM CHLORIDE 0.9% 1,000 ML IV SCH (00:02)
[2021-07-14] MEDS: HEPARIN SODIUM,PORCINE/PF 5,000 UNIT/0.5 ML SYRINGE SQ SCH ×3 (00:02→17:49)
[2021-07-14] MEDS: PIPERACILLIN-TAZOBACTAM 3.375 GM in SODIUM CHLORIDE 0.9% 100 ML IVPB SCH ×2 (05:35→12:59)
[2021-07-14] MEDS: PANTOPRAZOLE 40 MG TABLET PO SCH (08:17)
[2021-07-14 09:22] LABS: HCT 32.9 % (37.2-46.3); HGB 10.7 g/dL (12.0-15.0); MCH 29.1 pg (27.0-32.0); MCHC 32.5 g/dL (32.0-37.0); MCV 89.4 fL (80.0-97.0); Mean Platelet Volume 9.9 fL (9.5-12.2); NRBC Per 100 WBC 0 /100 WBCS (0.0-0.0); Platelet Count 216 X 10*3/uL (140-440); RBC 3.68 X 10*6/uL (4.10-5.20); RDW 13.7 % (11.5-14.5)
[2021-07-14] MEDS: LACOSAMIDE 50 MG TABLET PO SCH ×2 (09:44→20:32)
[2021-07-14 09:45] LABS: African American GFR (CKD) 78.5 (60.0-200.0); Anion Gap 9.2 mmol/L (10.00-18.00); BUN/Creat Ratio 13.75 Ratio (12.00-20.00); Calcium 7.4 mg/dL (8.7-10.3); Carbon Dioxide 24.8 mmol/L (20.0-27.5); Magnesium 1.5 mg/dL (1.5-2.4); Non-African American GFR(CKD) 67.7 (60.0-200.0)
[2021-07-14] MEDS: POTASSIUM CHLORIDE ER 20 MEQ TAB.ER PO SCH ×3 (09:45→18:58)
--- NOTE | 2021-07-14 10:02 | ECHOF ---
Referral Reason:LV function, possible pericardial effusion MEASUREMENTS -------- HEIGHT: 162.6 cm WEIGHT: 76.2 kg BP: RVIDd: 2.9 cm (< 3.3) IVSd: 1.9 cm (0.6 - 1.1) LVIDd: 3.6 cm (3.9 - 5.3) LVPWd: 1.5 cm (0.6 - 1.1) IVSs: 2.4 cm LVIDs: 1.9 cm LVPWs: 1.8 cm FINDINGS -------- Limited Study There is moderate concentric left ventricular hypertrophy. There is severe global hypokinesis of LV . Overall left ventricular systolic function is severely impaired with, an EF between 20 - 25 %. Lumason used There is a small, generalized pericardial effusion present. CONCLUSIONS -------- 1. There is moderate concentric left ventricular hypertrophy. 2. There is severe global hypokinesis of LV . 3. Overall left ventricular systolic function is severely impaired with, an EF between 20 - 25 %. 4. There is a small, generalized pericardial effusion present. DIRECT MARKETING REPRESENTATIVE: Lupe Nunez RDCS
[2021-07-14] MEDS ORDERED: Magnesium Replacement Protocol 1 EACH MISC MISCELLANE PRN (10:11)
[2021-07-14] MEDS ORDERED: Potassium Replacement Protocol 1 EACH MISC MISCELLANE PRN (10:11)
--- NOTE | 2021-07-14 10:56 | P.PN ---
<Bijal Patricia - Last Filed: 07/14/21 13:23> Subjective Progress Note Date: 07/14/21 CHIEF COMPLAINT: Abdominal pain HISTORY OF PRESENT ILLNESS: The patient seen and examined is a follow-up. She i s postop day #5 for left colectomy with end colostomy, partial omentectomy, repair of the incisional hernia, and mobilization of splenic flexure. She is up in the chair. She states no abdominal pain at this time. Ostomy with good output, loose watery. She denies any nausea or vomiting. She was advanced to to a soft low fiber diet yesterday and tolerating it well. She denies any nausea or vomiting. PHYSICAL EXAM: VITAL SIGNS: Reviewed. GENERAL: Well-developed in no acute distress. HEENT: No sclera icterus. Extraocular movements grossly intact. Moist buccal mucosa. Head is atraumatic, normocephalic. ABDOMEN: Soft. Nondistended. Nontender. Abdominal incision approximated with aneudy, clean dry and intact. Colostomy left abdomen with soft brown stool. Positive bowel sounds. NEUROLOGIC: Alert and oriented. Cranial nerves II through XII grossly intact. ASSESSMENT: 1. Partial colonic obstruction status post left colectomy with end colostomy, partial omentectomy, repair incisional hernia, mobilization splenic flexure 2. Abdominal pain 3. Hypokalemia PLAN: 1. Patient may advance to regular, lactose-free diet 2. Incentive spirometer to bedside 3. Physical therapy, encourage ambulation 4. Ostomy nurse on consult 5. GI prophylaxis 6. Replace potassium per protocol, replace magnesium 7. CBC, BMP daily 8. Continue IV antibiotics 9. Will add Questran for loose stools 10. Anticipate discharge tomorrow or Saturday The impression and plan of care has been dictated as directed. Dr. Mccarty I performed a history and examination of this patient, discussed the same with the dictator. I agree with the dictator's note ,documented as a scribe. Any additional findings or plans will be noted. Objective - Vital Signs Vital signs: Vital Signs Temp 97.5 F L 07/14/21 07:30 Pulse 87 07/14/21 07:30 Resp 18 07/14/21 07:30 BP 114/68 07/14/21 07:30 Pulse Ox 96 07/14/21 07:30 Intake & Output 07/13/21 07/14/21 07/14/21 18:59 06:59 18:59 Intake Total 100 Output Total 3300 1300 1000 Balance -3300 -1200 -1000 Weight 76.204 kg Intake: Intake, IV Titration 100 Amount Piperacillin-Tazobactam 3 100 .375 gm In Sodium Chloride 0.9% 100 ml @ 25 mls/hr IVPB Q8H [facility] Rx#: [id number] Output: Urine 1500 800 Stool 3151 909 2942 Other: Voiding Method Indwelling Catheter Indwelling Catheter - Labs CBC & Chem 7: 07/14/21 05:18 07/14/21 05:18 Labs: Abnormal Lab Results - Last 24 Hours (Table) 07/14/21 Range/Units 05:18 RBC 3.68 L (4.10-5.20) X 10*6/uL Hgb 10.7 L (12.0-15.0) g/dL Hct 32.9 L (37.2-46.3) % Microbiology - Last 24 Hours (Table) 07/10/21 15:16 Blood Culture - Preliminary Blood No Growth after 72 hours Assessment and Plan (1) Chronic diarrhea Current Visit: Yes Status: Acute Code(s): K52.9 - NONINFECTIVE GASTRO ENTERITIS AND COLITIS, UNSPECIFIED SNOMED Code(s): 444173370 (2) History of diverticulitis of colon Current Visit: Yes Status: Acute Code(s): Z87.19 - PERSONAL HISTORY OF OTHER DISEASES OF THE DIGESTIVE SYSTEM SNOMED Code(s): 112523005790572 <Yobany Mccarty - Last Filed: 07/14/21 18:17> Subjective I have personally seen and examined the patient, reviewed the FUR BLOWING MACHINE ATTENDANT /PAs history, exam and MDM and agree with the assessment and plan as written. Based on total visit time, I have performed more than 50% of the visit. As above. Patient transferred because of elevated troponins. Torrez catheter left in place. Having a large amount of watery stools through the stoma at this time. Potassium remains low. We'll add Imodium. Continue electrolyte replacement. Objective - Vital Signs Vital signs: Vital Signs Temp 97.6 F 07/14/21 16:59 Pulse 90 07/14/21 16:59 Resp 16 07/14/21 16:59 BP 121/66 07/14/21 16:59 Pulse Ox 96 07/14/21 16:59 Intake & Output 07/13/21 07/14/21 07/14/21 18:59 06:59 18:59 Intake Total 100 120 Output Total 3300 1300 1850 Balance -3300 -1200 -1730 Weight 76.204 kg Intake: Intake, IV Titration 100 Amount Piperacillin-Tazobactam 3 100 .375 gm In Sodium Chloride 0.9% 100 ml @ 25 mls/hr IVPB Q8H [facility] Rx#: [id number] Oral 120 Output: Urine 1500 800 300 Stool 4681 611 8827 Other: Voiding Method Indwelling Catheter Indwelling Catheter Indwelling Catheter - Labs CBC & Chem 7: 07/14/21 05:18 07/14/21 16:16 Labs: Abnormal Lab Results - Last 24 Hours (Table) 07/14/21 07/14/21 07/14/21 Range/Units 05:18 05:18 12:24 RBC 3.68 L (4.10-5.20) X 10*6/uL Hgb 10.7 L (12.0-15.0) g/dL Hct 32.9 L (37.2-46.3) % Potassium 3.0 L (3.5-5.5) mmol/L Anion Gap 9.20 L (10.00-18.00) mmol/L Glucose 112 H (70-110) mg/dL Calcium 7.4 L (8.7-10.3) mg/dL Magnesium (1.6-2.3) mg/dL Troponin I 2.650 H* (0.000-0.034) ng/mL 07/14/21 07/14/21 Range/Units 14:56 16:16 RBC (4.10-5.20) X 10*6/uL Hgb (12.0-15.0) g/dL Hct (37.2-46.3) % Potassium 3.4 L (3.5-5.5) mmol/L Anion Gap (10.00-18.00) mmol/L Glucose (70-110) mg/dL Calcium (8.7-10.3) mg/dL Magnesium 1.4 L (1.6-2.3) mg/dL Troponin I 2.240 H* (0.000-0.034) ng/mL Microbiology - Last 24 Hours (Table) 07/10/21 15:16 Blood Culture - Preliminary Blood No Growth after 96 hours Assessment and Plan (1) Abdominal pain Current Visit: Yes Status: Acute Code(s): R10.9 - UNSPECIFIED ABDOMINAL PAIN SNOMED Code(s): 25746275
[2021-07-14] MEDS ORDERED: 0.9% NACL WITH KCL 40 MEQ/L 1,000 ML IV SCH (11:00)
[2021-07-14] MEDS ORDERED: POTASSIUM CHLORIDE ER 20 MEQ TAB.ER PO STA (11:42)
--- NOTE | 2021-07-14 12:27 | P.CRDCN ---
History of Present Illness Consult date: 07/13/21 History of present illness: HISTORY OF PRESENT ILLNESS: This is a 85 year old female with a past medical history significant for hypertension, hyperlipidemia, falls, diverticulitis, and seizure disorder. Patient does not follow with a automobile and property underwriter. We have been asked to see the patient in consultation for pericardial effusion. patient is admitted to the hospital secondary to partial colonic obstruction. She underwent left colectomy with end colostomy, partial omentectomy, repair of incisional hernia, and mobilization of splenic flexure with Dr. Mccarty on 07/09/2021. Patient examined at the bedside. Patient reports generalized weakness. She denies chest pain or pressure. She denies shortness of breath. Denies dizziness or lightheadedness. Patient had an echocardiogram performed revealing EF 20-25%, severe global hypokinesis of LV, and small generalized pericardial effusion. Cardiomyopathy is new compared to echo completed in June 2021 (see details below). * EKG reveals sinus mechanism with no signs of acute ischemia. Q waves laterally and V1-V2 * Chest xray small right pleural effusion. Correlate for basilar atelectasis versus pneumonia. Pericardial effusion. * Laboratory data: WBC 7.9. Hemoglobin 11.1. Platelet count 236. Sodium 132. Potassium 3.2. BUN 14. Creatinine 0.72. * Current home cardiac medications include atenolol 12.5 mg twice a day, losartan 50 mg at night, atorvastatin 10 mg at night, aspirin 81 mg daily * Most recent echocardiogram obtained in June 2021 revealed ejection fraction 50-55%, mild mitral regurgitation, mild tricuspid regurgitation, * Patient underwent dobutamine stress test in June 2020 which was negative for ischemia. REVIEW OF SYSTEMS: At the time of my exam: CONSTITUTIONAL: Denies fever or chills. HEENT: Denies blurred vision, vision changes, or eye pain. Denies hemoptysis CARDIOVASCULAR: Denies chest pain. Denies orthopnea. Denies PND. Denies palpitations RESPIRATORY: Denies shortness of breath. GASTROINTESTINAL: Denies abdominal pain. Denies nausea or vomiting. HEMATOLOGIC: Denies bleeding disorders. GENITOURINARY: Denies any blood in urine. SKIN: Denies pruitis. Denies rash. PHYSICAL EXAM: VITAL SIGNS: Reviewed. GENERAL: Well-developed in no acute distress. HEENT: Head is normocephalic. Pupils are equal, round. Sclerae anicteric. Mucous membranes of the mouth are moist. Neck supple. No JVD or thyromegaly LUNGS: Respirations even and unlabored. Lungs essentially clear to auscultation bilaterally. HEART: Regular rate and rhythm. S1 and S2 heard. ABDOMEN: Soft. Nondistended. Nontender. EXTREMITIES: Normal range of motion. No clubbing or cyanosis. Peripheral pulses intact. No lower extremity edema NEUROLOGIC: Awake and alert. Oriented x 3. 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 Small pericardial effusion with no evidence of tamponade. Patient with new onset cardiomyopathy with unclear etiology, possible cardiac event versus Takotsubo Obtain troponin Obtain BNP Add aspirin 81mg daily DC atenolol. Begin metoprolol succinate 25 mg daily Begin lisinopril 2.5 mg daily May continue with current dose of atorvastatin Discontinue IVF due to low EF. Patient is able to tolerate oral fluids. Further recommendations pending patient course Nurse practitioner note has been reviewed by physician. Signing provider agrees with the documented findings, assessment, and plan of care. Past Medical History Past Medical History: CVA/TIA, GERD/Reflux, Hypertension Additional Past Medical History / Comment(s): past back pain, c-diff 2015, rt side brain anuerysm (TIA); small perforation in bowels History of Any Multi-Drug Resistant Organisms: C-DIFF Date of last positivie culture/infection: 2005 MDRO Source:: stool Past Surgical History: Cholecystectomy, Hysterectomy, Tonsillectomy Additional Past Surgical History / Comment(s): colonoscopy, eye sx(tear ducts) brain surgery aneursym repair with coil 07/01/20 Past Anesthesia/Blood Transfusion Reactions: Motion Sickness Additional Past Anesthesia/Blood Transfusion Reaction / Comment(s): claustrophobia Past Psychological History: No Psychological Hx Reported Smoking Status: Never smoker Past Alcohol Use History: None Reported Past Drug Use History: None Reported - Past Family History Father Family Medical History: Hypertension Additional Family Medical History / Comment(s): Father at the age of 63 yrs. He was an alcoholic and a smoker. Mother Family Medical History: Hypertension Additional Family Medical History / Comment(s): Mother at the age of 88yrs. Medications and Allergies Home Medications Medication Instructions Recorded Confirmed Type Aspirin 81 mg PO DAILY 07/11/20 07/06/21 History Nystatin 100,000 Unit/gm Powd 1 applic TOPICAL BID PRN 12/03/20 07/06/21 History [Mycostatin Powder] Losartan Potassium [Cozaar] 50 mg PO HS 05/27/21 07/06/21 History Stop-Pain 1 applic TOPICAL DAILY PRN 05/27/21 07/06/21 History Pantoprazole [Protonix] 40 mg PO AC-BRKFST 30 Days #30 tab 05/31/21 07/06/21 Rx Atorvastatin [Lipitor] 10 mg PO HS #30 tab 06/27/21 07/06/21 Rx Cholestyramine (with Sugar) 4 gm PO BID@1000,1800 #60 packet 06/27/21 07/06/21 Rx [Questran Packet] Lacosamide [Vimpat] 50 mg PO BID 30 Days #60 tablet 06/27/21 07/06/21 Rx Loperamide [Imodium] 2 mg PO QID PRN #20 cap 06/27/21 07/06/21 Rx atenoloL [Tenormin] 12.5 mg PO BID #30 tab 06/27/21 07/06/21 Rx Acetaminophen Tab [Tylenol] 325 - 650 mg PO Q6HR PRN 07/06/21 07/06/21 History Magnesium Oxide [Mag-Ox] 400 mg PO HS 07/06/21 07/06/21 History Allergies Allergy/AdvReac Type Severity Reaction Status Date / Time aluminum Allergy Unknown Verified 07/06/21 11:38 benzalkonium chloride Allergy Unknown Verified 07/06/21 11:38 [From Bactine (with alcohol)] codeine Allergy Unknown Verified 07/06/21 11:38 lidocaine Allergy Unknown Verified 07/06/21 11:38 [From Bactine (with alcohol)] metronidazole [From Flagyl] Allergy Unknown Verified 07/06/21 11:38 sulfamethoxazole Allergy Unknown Verified 07/06/21 11:38 [From Bactrim] trimethoprim [From Bactrim] Allergy Unknown Verified 07/06/21 11:38 amlodipine AdvReac Nausea & Verified 07/06/21 11:38 Vomiting cephalexin [From Keflex] AdvReac Nausea & Verified 07/06/21 11:38 Vomiting chlorthalidone AdvReac Nausea & Verified 07/06/21 11:38 Vomiting Iodinated Contrast Media AdvReac Nausea & Verified 07/06/21 11:38 Vomiting levofloxacin [From Levaquin] AdvReac Nausea & Verified 07/06/21 11:38 Vomiting lisinopril AdvReac Nausea & Verified 07/06/21 11:38 Vomiting Physical Exam Vitals: Vital Signs Temp Pulse Pulse Resp BP BP Pulse Ox 07/13/21 12:53 97.6 F 55 L 16 149/82 95 07/13/21 09:55 77 139/69 07/13/21 08:28 92 L 07/13/21 07:46 97.5 F L 78 18 147/71 94 L 07/13/21 04:35 97.6 F 75 20 145/61 95 07/12/21 19:30 97.8 F 90 20 148/85 97 Intake and Output 07/12/21 07/13/21 07/13/21 22:59 06:59 14:59 Intake Total 100 Output Total 325 500 800 Balance -225 -500 -800 Intake: Oral 100 Output: Urine 300 Stool 325 200 800 Other: Voiding Method Indwelling Catheter # Bowel Movements 2 Results 07/14/21 05:18 07/14/21 05:18 Cardiac Enzymes 07/12/21 07/13/21 Range/Units 06:30 06:54 AST 12 L 18 (13-35) U/L CBC 07/13/21 Range/Units 06:54 WBC 7.9 (3.8-10.6) k/uL RBC 3.57 L (3.80-5.40) m/uL Hgb 11.1 L (11.4-16.0) gm/dL Hct 33.6 L (34.0-46.0) % Plt Count 236 (150-450) k/uL Comprehensive Metabolic Panel 07/12/21 07/13/21 Range/Units 06:30 06:54 Sodium 132 L (137-145) mmol/L Potassium 3.2 L (3.5-5.1) mmol/L Chloride 107 (98-107) mmol/L Carbon Dioxide 24 (22-30) mmol/L BUN 14 (7-17) mg/dL Creatinine 0.72 (0.52-1.04) mg/dL Glucose 98 (74-99) mg/dL Calcium 7.5 L (8.4-10.2) mg/dL AST 12 L 18 (13-35) U/L ALT 11 10 (8-44) U/L Alkaline Phosphatase 63 52 (41-126) U/L Total Protein 3.8 L 4.0 L (6.2-8.2) g/dL Albumin 2.0 L 1.7 L (3.8-4.9) g/dL Current Medications Generic Name Dose Route Start Last Admin Trade Name Freq PRN Reason Stop Dose Admin Acetaminophen 650 mg 07/06/21 13:51 07/07/21 23:09 Acetaminophen Tab 325 Mg Tab PO 650 mg Q6HR PRN Administration Mild Pain or Fever > 100.5 Atenolol 12.5 mg 07/06/21 21:00 07/13/21 11:04 Atenolol 12.5 Mg Tab PO 12.5 mg BID SUSAN Administration Atorvastatin Calcium 10 mg 07/06/21 21:00 07/12/21 20:59 Atorvastatin 10 Mg Tab PO 10 mg HS SUSAN Administration Heparin Sodium (Porcine) 5,000 unit 07/07/21 00:00 07/13/21 08:16 Heparin Sodium,Porcine/Pf 5,000 Unit/0.5 Ml Syringe SQ 5,000 unit Q8HR SUSAN Administration Hydromorphone HCl 1 mg 07/08/21 13:32 07/10/21 02:40 Hydromorphone 1 Mg/Ml 1 Ml Syringe IVP 1 mg Q3HR PRN Administration Pain Hydromorphone HCl 0.5 mg 07/09/21 12:24 Hydromorphone 0.5 Mg/0.5 Ml Syringe IVP 08/08/21 12:25 Q5M PRN Phase I - Pain Control Piperacillin Sod/Tazobactam 100 mls @ 25 mls/hr 07/10/21 14:00 07/13/21 13:22 Sod 3.375 gm/ Sodium Chloride IVPB 25 mls/hr Q8H SUSAN Administration Sodium Chloride 1,000 mls @ 50 mls/hr 07/11/21 11:45 07/12/21 10:51 Saline 0.9% IV 50 mls/hr .Q20H SUSAN Administration Lacosamide 50 mg 07/06/21 21:00 07/13/21 11:04 Lacosamide 50 Mg Tablet PO 50 mg BID SUSAN Administration Magnesium Oxide 400 mg 07/06/21 21:00 07/12/21 20:59 Magnesium Oxide 400 Mg Tab PO 400 mg HS SUSAN Administration Miscellaneous Information 1 each 07/11/21 14:27 Magnesium Replacement Protocol 1 Each Misc MISCELLANE DAILY PRN Per Protocol Protocol Miscellaneous Information 1 each 07/11/21 18:29 Potassium Replacement Protocol 1 Each Misc MISCELLANE DAILY PRN Per Protocol Protocol Naloxone HCl 0.2 mg 07/06/21 13:51 Naloxone 0.4 Mg/Ml 1 Ml Vial IV Q2M PRN Opioid Reversal Nystatin 1 applic 07/06/21 15:42 Nystatin 100,000 Unit/Gm Powd 15 Gm TOPICAL BID PRN Skin Irritation Protocol Ondansetron HCl 4 mg 07/07/21 10:19 07/08/21 21:07 Ondansetron 4 Mg/2 Ml Vial IVP 4 mg Q6HR PRN Administration Nausea And Vomiting Ondansetron HCl 4 mg 07/09/21 12:24 Ondansetron 4 Mg/2 Ml Vial IVP 08/08/21 12:25 ONCE PRN Phase I - Nausea And Vomiting Pantoprazole Sodium 40 mg 07/07/21 07:30 07/13/21 08:16 Pantoprazole 40 Mg Tablet PO 40 mg AC-BRKFST SUSAN Administration Potassium Chloride 20 meq 07/13/21 09:00 07/13/21 11:12 Potassium Chloride Er 20 Meq Tab.Er PO 20 meq DAILY SUSAN Administration Intake and Output 07/12/21 07/13/21 07/13/21 22:59 06:59 14:59 Intake Total 100 Output Total 325 500 800 Balance -225 -500 -800 Intake: Oral 100 Output: Urine 300 Stool 325 200 800 Other: Voiding Method Indwelling Catheter # Bowel Movements 2 07/13/21 06:54 07/13/21 06:54
[2021-07-14] MEDS: METOPROLOL SUCCINATE (ER) 25 MG TAB.ER.24H PO SCH (12:58)
--- NOTE | 2021-07-14 16:43 | P.PN ---
<Ole, - Last Filed: 07/14/21 16:33> Subjective Progress Note Date: 07/14/21 Principal diagnosis: Diarrhea secondary to Partial colonic obstruction Patient is a 85-year-old female that presented to the ER after falling while trying to go to the bathroom. She reports falling on her bottom, no injury to head or loss of consciousness. She also reports having diarrhea for the past 4-5 weeks as well as dizziness and weakness. CT of the head and cervical spine showed no acute fracture or dislocation. Right knee x-ray was negative for fracture or dislocation, positive for osteoarthritis. She had mild leukocytosis 11.6, sodium was 126, bun 34, creatinine 1.09. She was recently admitted in the hospital in May and June with diarrhea secondary to acute diverticulitis and possible perforation. She was discharged home on antibiotics but was continuing to have diarrhea and increased weakness both times. reported that the patient has not been doing well at home and may require rehab. Patient has medical history of CVA, GERD, hypertension, C. diff 2015, right side brain aneurysm, surgical history of cholecystectomy and hysterectomy. Patient was followed by hospitalists 07/06/21-07/10/21. GI and Surgical services consulted for diarrhea and partial colonic obstruction. 07/11/21 Patient was seen and examined at bedside. She is sitting in the chair drinking water. Reports feeling weak and tired. She is status post op left colectomy with end colostomy and hernia repair on 07/09/21. Today is postop day 2. She reports tenderness at surgical site. Stool is present in colostomy. reports walking in the hallway with physical therapy today. Is agreeable to rehab services at discharge. 07/12/21 Patient is resting comfortably in bed. States she is very tired and weak today. Denies shortness of breath, chest pain, palpitations or abdominal pain. Diet was increased to full liquids and she reports tolerating a pudding well. Potassium, magnesium, sodium and white blood count levels have improved. Patient is still agreeable to subacute rehab. 07/13/21 Patient sitting up in bed. Reports generalized weakness and soreness at incision site. Denies dyspnea, chest pain, and abdominal pain. Diet maintained at full liquids, tolerating well. Potassium this morning was 3.2, replaced and daily dose added. Repeat chest xray shows small right pleural effusion, continue iv zosyn and encouraged IS use. Plan to discharge to subacute rehab. 07/14/2021 Patient is sitting up in chair, in no acute distress. Continues to feel weak, denies abdominal pain, dyspnea, chest pain or dizziness. Diet was increased to regular, tolerating well. Potassium was 3.0, replaced in addition to daily dose. Echocardiogram ordered by cardiology shows severe global hypokinesis of left ventricle and an ejection fraction of 20-25%, previous echocardiogram and June showed an EF of 50-55%. We'll continue to follow cardiology recommendations. Continue to encourage patient to use incentive spirometry and work with physical therapy. Objective - Vital Signs Vital signs: Vital Signs Temp 98.0 F 07/14/21 12:28 Pulse 87 07/14/21 12:28 Resp 18 07/14/21 12:28 BP 131/83 07/14/21 12:28 Pulse Ox 97 07/14/21 12:28 Intake & Output 07/13/21 07/14/21 07/14/21 18:59 06:59 18:59 Intake Total 100 Output Total 3300 1300 1700 Balance -3300 -1200 -1700 Weight 76.204 kg Intake: Intake, IV Titration 100 Amount Piperacillin-Tazobactam 3 100 .375 gm In Sodium Chloride 0.9% 100 ml @ 25 mls/hr IVPB Q8H [facility] Rx#: [id number] Output: Urine 1500 800 300 Stool 3658 [id number] Other: Voiding Method Indwelling Catheter Indwelling Catheter Indwelling Catheter - Exam PHYSICAL EXAM: GENERAL: Pleasant, cooperative, no acute distress HEENT: Conjunctivae normal. eyes normal. NECK: No JVD. No thyroid enlargement. No LNs CARDIOVASCULAR: S1, S2 regular.. No murmur RESPIRATION: Breath sounds diminished in the bases. No rhonchi or crackles. No bronchial breathing. ABDOMEN: Soft, tender near incision site, incision is well approximated, no redness or drainage noted. Left colostomy stoma beefy red, brown, liquid stool present in bag. No ascites, No hepatosplenomegaly.Bowel sounds heard. LEGS: +1 edema and bilateral lower extremity PSYCHIATRY: Alert and oriented X3, mood and affect normal. NERVOUS SYSTEM: Cranial N 2-12 grossly normal. Moves all 4 limbs. Diffuse weakness No focal deficits. Strength and sensation grossly intact.. Skin: no lesions, no rash Joints: No active swelling. No inflammation. Lymphatic system. No LN neck axilla or groin. - Labs CBC & Chem 7: 07/14/21 05:18 07/14/21 05:18 Labs: Abnormal Lab Results - Last 24 Hours (Table) 07/14/21 07/14/21 07/14/21 Range/Units 05:18 05:18 12:24 RBC 3.68 L (4.10-5.20) X 10*6/uL Hgb 10.7 L (12.0-15.0) g/dL Hct 32.9 L (37.2-46.3) % Potassium 3.0 L (3.5-5.5) mmol/L Anion Gap 9.20 L (10.00-18.00) mmol/L Glucose 112 H (70-110) mg/dL Calcium 7.4 L (8.7-10.3) mg/dL Troponin I 2.650 H* (0.000-0.034) ng/mL 07/14/21 Range/Units 14:56 RBC (4.10-5.20) X 10*6/uL Hgb (12.0-15.0) g/dL Hct (37.2-46.3) % Potassium (3.5-5.5) mmol/L Anion Gap (10.00-18.00) mmol/L Glucose (70-110) mg/dL Calcium (8.7-10.3) mg/dL Troponin I 2.240 H* (0.000-0.034) ng/mL Microbiology - Last 24 Hours (Table) 07/10/21 15:16 Blood Culture - Preliminary Blood No Growth after 72 hours Assessment and Plan Assessment: Partial colonic obstruction, status post left colectomy with end colostomy and hernia repair on 07/09/21 Pericardial effusion New-onset cardiomyopathy Bilateral aspiration pneumonia Hypokalemia, potassium replaced Mild hyponatremia, improved Falls at home Recent history of diverticulitis and possible perforation Seizure disorder Plan: Continue with surgical recommendations for diet, tolerating regular diet well Continue treatment for pneumonia, Zosyn and incentive spirometry Potassium replaced and magnesium improved, monitor daily Continue following cardiology recommendations for new onset cardiomyopathy Cardiac monitoring Encourage IS use and increase in activity Continue current treatment regimen Continue monitoring vital signs Further recommendations based on patient's clinical course Plan to discharge to acute rehab facility Time with Patient: Greater than 30 <AdalbertoOli K - Last Filed: 07/27/21 19:47> Subjective I have personally seen and examined the patient, reviewed the documentation and agree with the assessment and plan as written. Number of minutes spent on the visit: Greater than 15. Objective - Vital Signs Vital signs: Vital Signs Temp 96.6 F L 07/18/21 08:00 Pulse 99 07/18/21 08:00 Resp 18 07/18/21 08:00 BP 128/67 07/18/21 08:00 Pulse Ox 97 07/18/21 08:00 Intake & Output 07/17/21 07/18/21 07/18/21 18:59 06:59 18:59 Intake Total 250 Output Total 1225 850 Balance -1225 -600 Weight 76.204 kg Intake: Oral 250 Output: Urine 275 150 Stool 950 700 Other: Voiding Method External Catheter Indwelling Catheter Indwelling Catheter - Labs CBC & Chem 7: 07/19/21 08:09 07/19/21 08:09 Labs: Abnormal Lab Results - Last 24 Hours (Table) 07/18/21 07/18/21 07/18/21 Range/Units 05:20 07:08 07:08 RBC 3.46 L (3.80-5.40) m/uL Hgb 10.7 L (11.4-16.0) gm/dL Hct 32.3 L (34.0-46.0) % Sodium 130 L (137-145) mmol/L Calcium 8.1 L (8.4-10.2) mg/dL Urine Protein 1+ H (Negative) Urine Blood Small H (Negative) Urine Bacteria Rare H (None) /hpf Hyaline Casts 7 H (0-2) /lpf Urine Mucus Few H (None) /hpf Assessment and Plan Plan: I have personally seen and examined the patient, reviewed the documentation and agree with the assessment and plan as written. Number of minutes spent on the visit: 16.
[2021-07-14 16:59] LABS: Magnesium 1.4 mg/dL (1.6-2.3); Potassium 3.4 mmol/L (3.5-5.1)
[2021-07-14] MEDS: MAGNESIUM SULFATE-D5W PMX 1 GM in DEXTROSE/WATER 1 100ML.BAG IVPB SCH ×3 (17:49→20:32)
[2021-07-14] MEDS ORDERED: CHOLESTYRAMINE (WITH SUGAR) 4 GM PACKET PO SCH (18:00)
[2021-07-14] MEDS ORDERED: LOPERAMIDE 2 MG CAP PO PRN (18:17)
[2021-07-14] MEDS: MAGNESIUM OXIDE 400 MG TAB PO SCH (20:32)
[2021-07-14] MEDS: ATORVASTATIN 10 MG TAB PO SCH (20:32)
[2021-07-15] MEDS: HEPARIN SODIUM,PORCINE/PF 5,000 UNIT/0.5 ML SYRINGE SQ SCH ×4 (00:47→23:49)
[2021-07-15] MEDS: PIPERACILLIN-TAZOBACTAM 3.375 GM in SODIUM CHLORIDE 0.9% 100 ML IVPB SCH ×4 (00:47→21:12)
[2021-07-15] MEDS: PANTOPRAZOLE 40 MG TABLET PO SCH (06:32)
[2021-07-15 09:13] LABS: Albumin 2.1 g/dL (3.5-5.0); Basophils % (A) 0 %; Calcium 7.8 mg/dL (8.4-10.2); Eosinophils # (A) 0.1 k/uL (0-0.7); Eosinophils % (A) 1 %; HCT 36.7 % (34.0-46.0); HGB 12.1 gm/dL (11.4-16.0); Lymphocytes # (A) 1.6 k/uL (1.0-4.8); Lymphocytes % (A) 21 %; MCH 30.8 pg (25.0-35.0); MCHC 32.9 g/dL (31.0-37.0); MCV 93.7 fL (80.0-100.0); Magnesium 2.1 mg/dL (1.6-2.3); Mean Platelet Volume 7.9; Monocytes # (A) 0.4 k/uL (0-1.0); Monocytes % (A) 5 %; Neutrophils # (A) 5.6 k/uL (1.3-7.7); Neutrophils % (A) 70 %; Platelet Count 221 k/uL (150-450); Potassium 3.4 mmol/L (3.5-5.1); RBC 3.92 m/uL (3.80-5.40); RDW 13.8 % (11.5-15.5); Total Bilirubin 0.6 mg/dL (0.2-1.3); Total Protein 4.6 g/dL (6.3-8.2)
[2021-07-15] MEDS: METOPROLOL SUCCINATE (ER) 25 MG TAB.ER.24H PO SCH (09:29)
[2021-07-15] MEDS: ASPIRIN 81 MG PO SCH (09:29)
[2021-07-15] MEDS: LACOSAMIDE 50 MG TABLET PO SCH ×2 (09:29→21:12)
--- NOTE | 2021-07-15 10:18 | P.PN ---
Progress Note - Text Progress Note Date: 07/15/21 Patient is status post Simone procedure for colonic obstruction. She is resting in bed. She has some complaints of incisional pain. She is complaining about the oral potassium she was given. On exam vitals are stable. Abdomen soft. There is some minimal output through the colostomy. Status post Simone procedure. Patient okay receive supportive care.
[2021-07-15] MEDS: POTASSIUM CHLORIDE ER 20 MEQ TAB.ER PO SCH (11:47)
[2021-07-15] MEDS ORDERED: Potassium Replacement Protocol 1 EACH MISC MISCELLANE PRN (11:47)
[2021-07-15] MEDS: POTASSIUM CHLORIDE 10 MEQ in WATER FOR INJECTION 1 100ML.BAG IVPB SCH ×4 (13:03→15:55)
--- NOTE | 2021-07-15 15:42 | P.PN ---
Subjective from records Patient is a 85-year-old female with a known history of CVA/TIA, hypertension, GERD, recently diagnosed with seizure disorder, history of right-sided brain aneurysm and recent history of diverticulitis with perforation presents to ER wi th complaints of fall. Patient states that she has been having diarrhea for the past 4 to 5 weeks and went to the bathroom and trying to sit on the commode. Patient states that she miscalculated the distance and fell to the side. Denies any complaints of dizziness or lightheadedness. Denied any loss of consciousness. Patient fell next to the toilet. Patient has been came in from outside and found her and she was unable to stand without assistance. Denied any complaints of chest pain. No shortness of breath. No palpitations. Patient states that he had head injury and injury to the right knee. Denies any fever or chills. Knee x-ray showed no acute fracture or dislocation. Consider crystal deposition arthropathy. Osteoarthritis. CT head and cervical spine showed there is no acute fracture or dislocation evident in the cervical spine. No acute intracranial hemorrhage or midline shift noted. Laboratory data showed WBC 11.6 hemoglobin 13.9 and platelets 369 Sodium 126 potassium 4.5 chloride 96 bicarb is 22 anion gap 8 BUN 34 and creatinine 1.09 albumin 3.2 and calcium 8.6 and urinalysis showed 1+ ketones and negative nitrite and trace leukocyte esterase. Coronavirus PCR not detected. Patient was admitted to the hospital from 05/27/2021 to 05/31/2021 due to acute diverticulitis and possible perforation. Patient was discharged home on antibiotics. Patient was admitted to the hospital from 06/15/2021 to 06/18/2021 due to complaints of diarrhea and discharge neuro: Possible colon obstruction. C. difficile was negative. And also admitted to hospital from 06/24/2021 to 06/27/2021 due to complaints of syncope and possible seizures. Patient was started on antiepileptic medication in the form of impact by neurology. Patient was also seen by cardiology. 2D echocardiogram showed normal ejection fraction and no significant valvular abnormalities noted. 07/07/2021 Patient is currently resting in bed. Still complains of abdominal distention and pain. Repeat. CT of the abdomen pelvis was ordered patient has been afebrile. Currently on liquid diet and changed to nothing by mouth. General surgery has seen the patient. Laboratory showed WBC 10.2 hemoglobin 11.8 and platelets 307 sodium 128 potassium 4.2 chloride 99 bicarb is 30.3 BUN 27.7 creatinine 0.8 and albumin 2.9 Patient was also seen by GI. Currently requiring IV fluids with normal saline. 07/08/2021 Patient is currently resting in bed. Appears in distress. Complains of abdominal pain and requesting pain medications. CT of the abdomen pelvis was done small and large bowel distention down to the left sigmoid colon with possible partial colonic obstruction. Patient feels very bloated and also hav ing increasing abdominal pain and discomfort. Patient is currently nothing by mouth. General surgery is planning for colectomy and colostomy bag placement. Patient has been afebrile. Improving. Denied any chest pain or shortness breath. No cough or sputum production. Laboratory data showed WBC 9.1 hemoglobin 12.8 and platelets 236 Sodium 128 potassium 4.2 chloride 108 bicarb is 12 BUN 24 and creatinine 0.8 patient is being continued on IV hydration. Nothing by mouth. 07/09/2021 Patient underwent left colectomy with end colostomy, partial omentectomy and repair of incisional hernia and mobilization of splenic flexure due to partial colon obstruction.. POD 0 Patient is currently complains of pain and morning. Slight confusion. No complaints of chest pain or shortness breath. Patient has been afebrile. Laboratory data showed WBC 10.0 hemoglobin 9.3 and platelets 320 Sodium 132 potassium 4.0, chloride 103 bicarb improved to 16.7 Calcium 7.3. General surgery is on board. Patient is being continued on IV hydration and continued to be nothing by mouth. Subjective: 07/10/2021 This is a pleasant 85 years old female who presents with fall found to have bowel obstructions status post left colectomy with end colostomy and hernia repair on 07/09. Today is postoperative day #1. Patient lying in bed not in distress, coughing a lot, no distinct while she is at rest. She has little abdominal pain and no vomiting on ice chips only. She has left colostomy back with no bowel movement yet which is expected. She has leukocytosis of 15.5 and chest x-ray showing bilateral infiltrates suspicious for pneumonia versus aspiration pneumonia. She is mildly tachypneic. She is also normal saline 1 25 mL/h. Start the patient on Zosyn and incentive spirometer subjective: I resume the care of the patient today on 07/15/2021: Dr. Glover over the weekend This is a pleasant 85 years old female who presents with bowel obstruction status post colectomy and Simone procedure. She is doing well generally however she still making little watery stool in her back, there for C. diff is ordered although patient has no abdominal pain. Also she started diet today and she ate 50%. Receiver/Laborer consulted for symptomatic pericardial effusion found to have new mi ld cardiomyopathy and elevated troponin. Coronary artery disease, acute has been ruled out by conference producer. Patient was placed on baby aspirin 81 mg and lisinopril 2.5 mg with conference producer recommendation. Objective - Vital Signs Vital signs: Vital Signs Temp 98.0 F 07/15/21 12:00 Pulse 84 07/15/21 14:00 Resp 18 07/15/21 14:00 BP 123/74 07/15/21 12:00 Pulse Ox 96 07/15/21 12:00 Intake & Output 07/14/21 07/15/21 07/15/21 18:59 06:59 18:59 Intake Total 120 480 Output Total 2200 550 800 Balance -2080 -550 -320 Intake: Oral 120 480 Output: Urine 300 300 Stool 1900 250 800 Other: Voiding Method Indwelling Catheter Indwelling Catheter Indwelling Catheter - Exam GENERAL: The patient is alert and oriented x3, not in any acute distress. Well developed, well nourished. HEENT: Pupils are round and equally reacting to light. EOMI. No scleral icterus. No conjunctival pallor. Normocephalic, atraumatic. No pharyngeal erythema. No thyromegaly. CARDIOVASCULAR: S1 and S2 present. No murmurs, rubs, or gallops. Decreased br eath sounds on basal zones bilaterally -PULMONARY: Chest is clear to auscultation, no wheezing or crackles. -ABDOMEN: Soft, nontender, nondistended, normoactive bowel sounds. No palpable organomegaly. Colostomy back is empty MUSCULOSKELETAL: No joint swelling or deformity. EXTREMITIES: No cyanosis, clubbing, or pedal edema. NEUROLOGICAL: Gross neurological examination did not reveal any focal deficits. SKIN: No rashes. no petechiae. - Labs CBC & Chem 7: 07/15/21 08:20 07/15/21 08:20 Labs: Abnormal Lab Results - Last 24 Hours (Table) 07/14/21 07/14/21 07/14/21 Range/Units 14:56 16:16 18:29 Sodium (137-145) mmol/L Potassium 3.4 L (3.5-5.1) mmol/L Glucose (74-99) mg/dL Calcium (8.4-10.2) mg/dL Magnesium 1.4 L (1.6-2.3) mg/dL Troponin I 2.240 H* 1.870 H* (0.000-0.034) ng/mL Total Protein (6.3-8.2) g/dL Albumin (3.5-5.0) g/dL 07/15/21 Range/Units 08:20 Sodium 132 L (137-145) mmol/L Potassium 3.4 L (3.5-5.1) mmol/L Glucose 108 H (74-99) mg/dL Calcium 7.8 L (8.4-10.2) mg/dL Magnesium (1.6-2.3) mg/dL Troponin I (0.000-0.034) ng/mL Total Protein 4.6 L (6.3-8.2) g/dL Albumin 2.1 L (3.5-5.0) g/dL Microbiology - Last 24 Hours (Table) 07/10/21 15:16 Blood Culture - Preliminary Blood No Growth after 96 hours Assessment and Plan Assessment: Bowel obstruction, both small and large bowel status post left colostomy with end colostomy and hernia repair on 07/09 A symptomatic pericardial effusion with a new mild cardiomyopathy Elevated troponin, unrelated to acute coronary syndrome per conference producer Fall at home without losing consciousness Mild hypernatremia, improving Recent history of diverticulitis and perforation status post antibiotic course. seizure disorder. Diagnosed during last admission was started on Vimpat. Plan: This is a pleasant 85 years old female who presents with bowel obstruction status post colostomy and fall and pneumonia. Follow-up biopsy of the colectomy. Continue with advancing diet, patient currently regular diet, monitor output. Check C. diff. Continue with aspirin and lisinopril per conference producer on the case Labs and medication were reviewed.. Continue same treatment. Continue with symptomatic treatment. Resume home medication. Monitor lytes and vitals. DVT and GI prophylaxis. Further recommendations as per clinical course of the patient DVT prophylaxis: Subcutaneous heparin GI Prophylaxis: Ppi Prognosis is guarded
--- NOTE | 2021-07-15 17:07 | P.PN ---
Subjective This is a 85 year old female with a past medical history significant for hypertension, hyperlipidemia, falls, diverticulitis, and seizure disorder. Patient does not follow with a radio presenter. We have been asked to see the patient in consultation for pericardial effusion. patient is admitted to the hospital secondary to partial colonic obstruction. She underwent left colectomy with end colostomy, partial omentectomy, repair of incisional hernia, and mobilization of splenic flexure with Dr. Mccarty on 07/09/2021. Patient examined at the bedside. Patient reports generalized weakness. She denies chest pain or pressure. She denies shortness of breath. Denies dizziness or lightheadedness. Patient had an echocardiogram performed revealing EF 20-25%, severe global hypokinesis of LV, and small generalized pericardial effusion. Cardiomyopathy is new compared to echo completed in June 2021 (see details below). * EKG reveals sinus mechanism with no signs of acute ischemia. Q waves laterally and V1-V2 * Chest xray small right pleural effusion. Correlate for basilar atelectasis versus pneumonia. Pericardial effusion. * Laboratory data: WBC 7.9. Hemoglobin 11.1. Platelet count 236. Sodium 132. Potassium 3.2. BUN 14. Creatinine 0.72. * Current home cardiac medications include atenolol 12.5 mg twice a day, losartan 50 mg at night, atorvastatin 10 mg at night, aspirin 81 mg daily * Most recent echocardiogram obtained in June 2021 revealed ejection fraction 50-55%, mild mitral regurgitation, mild tricuspid regurgitation, * Patient underwent dobutamine stress test in June 2020 which was negative for ischemia. 07/15 Patient seen and examined. Patient denies any chest pain or pressure. Troponins downtrending. Denies any shortness breath. PHYSICAL EXAM: VITAL SIGNS: Reviewed. GENERAL: Well-developed in no acute distress. HEENT: Head is normocephalic. Pupils are equal, round. Sclerae anicteric. Mucous membranes of the mouth are moist. Neck supple. No JVD or thyromegaly LUNGS: Respirations even and unlabored. Lungs essentially clear to auscultation bilaterally. HEART: Regular rate and rhythm. S1 and S2 heard. ABDOMEN: Soft. Nondistended. Nontender. EXTREMITIES: Normal range of motion. No clubbing or cyanosis. Peripheral pulses intact. No lower extremity edema NEUROLOGIC: Awake and alert. Oriented x 3. 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 Small pericardial effusion with no evidence of tamponade. Continue aspirin 81mg daily, metoprolol succinate 25 mg daily, lisinopril 2.5 mg daily May continue with current dose of atorvastatin Consideration of possible type I [place] however also consideration of tech is suitable his cardiomyopathy. Continue with medical therapy at this time and continue to monitor for another 24-48 hours. Objective - Vital Signs Vital signs: Vital Signs Temp 98.0 F 07/15/21 12:00 Pulse 84 07/15/21 14:00 Resp 18 07/15/21 14:00 BP 123/74 07/15/21 12:00 Pulse Ox 96 07/15/21 12:00 Intake & Output 07/14/21 07/15/21 07/15/21 18:59 06:59 18:59 Intake Total 120 480 Output Total 2200 550 1450 Balance -2080 -550 -970 Intake: Oral 120 480 Output: Urine 300 300 350 Uretheral (Torrez) 150 Stool 2930 [id number] Other: Voiding Method Indwelling Catheter Indwelling Catheter Indwelling Catheter - Labs CBC & Chem 7: 07/15/21 08:20 07/15/21 08:20 Labs: Abnormal Lab Results - Last 24 Hours (Table) 07/14/21 07/15/21 Range/Units 18:29 08:20 Sodium 132 L (137-145) mmol/L Potassium 3.4 L (3.5-5.1) mmol/L Glucose 108 H (74-99) mg/dL Calcium 7.8 L (8.4-10.2) mg/dL Troponin I 1.870 H* (0.000-0.034) ng/mL Total Protein 4.6 L (6.3-8.2) g/dL Albumin 2.1 L (3.5-5.0) g/dL Microbiology - Last 24 Hours (Table) 07/10/21 15:16 Blood Culture - Preliminary Blood No Growth after 96 hours
[2021-07-15] MEDS: MAGNESIUM OXIDE 400 MG TAB PO SCH (21:12)
[2021-07-15] MEDS: ATORVASTATIN 10 MG TAB PO SCH (21:12)
[2021-07-16] MEDS: PANTOPRAZOLE 40 MG TABLET PO SCH (05:54)
[2021-07-16] MEDS: PIPERACILLIN-TAZOBACTAM 3.375 GM in SODIUM CHLORIDE 0.9% 100 ML IVPB SCH (05:54)
[2021-07-16 08:01] LABS: Basophils % (A) 0 %; Eosinophils # (A) 0.1 k/uL (0-0.7); Eosinophils % (A) 1 %; HCT 35.1 % (34.0-46.0); HGB 11.6 gm/dL (11.4-16.0); Lymphocytes # (A) 1.4 k/uL (1.0-4.8); Lymphocytes % (A) 14 %; MCH 30.7 pg (25.0-35.0); MCHC 32.9 g/dL (31.0-37.0); MCV 93.2 fL (80.0-100.0); Mean Platelet Volume 7.7; Monocytes # (A) 0.7 k/uL (0-1.0); Monocytes % (A) 6 %; Neutrophils # (A) 7.7 k/uL (1.3-7.7); Neutrophils % (A) 77 %; Platelet Count 228 k/uL (150-450); RBC 3.76 m/uL (3.80-5.40); RDW 13.4 % (11.5-15.5); WBC 10.1 k/uL (3.8-10.6)
[2021-07-16 08:10] LABS: Calcium 7.7 mg/dL (8.4-10.2); Magnesium 1.8 mg/dL (1.6-2.3); Potassium 3.4 mmol/L (3.5-5.1)
[2021-07-16] MEDS: ASPIRIN 81 MG PO SCH (09:07)
[2021-07-16] MEDS: HEPARIN SODIUM,PORCINE/PF 5,000 UNIT/0.5 ML SYRINGE SQ SCH ×3 (09:07→22:55)
[2021-07-16] MEDS: METOPROLOL SUCCINATE (ER) 25 MG TAB.ER.24H PO SCH (09:07)
[2021-07-16] MEDS: LACOSAMIDE 50 MG TABLET PO SCH ×2 (09:07→20:21)
[2021-07-16] MEDS: POTASSIUM CHLORIDE ER 20 MEQ TAB.ER PO SCH (09:41)
[2021-07-16] MEDS: POTASSIUM BICARBONATE/CIT AC 20 MEQ TABLET.EFF PO SCH (10:28)
[2021-07-16] MEDS: DEXTROSE 5%-0.9% NACL 1,000 ML IV SCH (10:28)
--- NOTE | 2021-07-16 10:29 | P.PN ---
Subjective from records Patient is a 85-year-old female with a known history of CVA/TIA, hypertension, GERD, recently diagnosed with seizure disorder, history of right-sided brain aneurysm and recent history of diverticulitis with perforation presents to ER wi th complaints of fall. Patient states that she has been having diarrhea for the past 4 to 5 weeks and went to the bathroom and trying to sit on the commode. Patient states that she miscalculated the distance and fell to the side. Denies any complaints of dizziness or lightheadedness. Denied any loss of consciousness. Patient fell next to the toilet. Patient has been came in from outside and found her and she was unable to stand without assistance. Denied any complaints of chest pain. No shortness of breath. No palpitations. Patient states that he had head injury and injury to the right knee. Denies any fever or chills. Knee x-ray showed no acute fracture or dislocation. Consider crystal deposition arthropathy. Osteoarthritis. CT head and cervical spine showed there is no acute fracture or dislocation evident in the cervical spine. No acute intracranial hemorrhage or midline shift noted. Laboratory data showed WBC 11.6 hemoglobin 13.9 and platelets 369 Sodium 126 potassium 4.5 chloride 96 bicarb is 22 anion gap 8 BUN 34 and creatinine 1.09 albumin 3.2 and calcium 8.6 and urinalysis showed 1+ ketones and negative nitrite and trace leukocyte esterase. Coronavirus PCR not detected. Patient was admitted to the hospital from 05/27/2021 to 05/31/2021 due to acute diverticulitis and possible perforation. Patient was discharged home on antibiotics. Patient was admitted to the hospital from 06/15/2021 to 06/18/2021 due to complaints of diarrhea and discharge neuro: Possible colon obstruction. C. difficile was negative. And also admitted to hospital from 06/24/2021 to 06/27/2021 due to complaints of syncope and possible seizures. Patient was started on antiepileptic medication in the form of impact by neurology. Patient was also seen by cardiology. 2D echocardiogram showed normal ejection fraction and no significant valvular abnormalities noted. 07/07/2021 Patient is currently resting in bed. Still complains of abdominal distention and pain. Repeat. CT of the abdomen pelvis was ordered patient has been afebrile. Currently on liquid diet and changed to nothing by mouth. General surgery has seen the patient. Laboratory showed WBC 10.2 hemoglobin 11.8 and platelets 307 sodium 128 potassium 4.2 chloride 99 bicarb is 30.3 BUN 27.7 creatinine 0.8 and albumin 2.9 Patient was also seen by GI. Currently requiring IV fluids with normal saline. 07/08/2021 Patient is currently resting in bed. Appears in distress. Complains of abdominal pain and requesting pain medications. CT of the abdomen pelvis was done small and large bowel distention down to the left sigmoid colon with possible partial colonic obstruction. Patient feels very bloated and also hav ing increasing abdominal pain and discomfort. Patient is currently nothing by mouth. General surgery is planning for colectomy and colostomy bag placement. Patient has been afebrile. Improving. Denied any chest pain or shortness breath. No cough or sputum production. Laboratory data showed WBC 9.1 hemoglobin 12.8 and platelets 236 Sodium 128 potassium 4.2 chloride 108 bicarb is 12 BUN 24 and creatinine 0.8 patient is being continued on IV hydration. Nothing by mouth. 07/09/2021 Patient underwent left colectomy with end colostomy, partial omentectomy and repair of incisional hernia and mobilization of splenic flexure due to partial colon obstruction.. POD 0 Patient is currently complains of pain and morning. Slight confusion. No complaints of chest pain or shortness breath. Patient has been afebrile. Laboratory data showed WBC 10.0 hemoglobin 9.3 and platelets 320 Sodium 132 potassium 4.0, chloride 103 bicarb improved to 16.7 Calcium 7.3. General surgery is on board. Patient is being continued on IV hydration and continued to be nothing by mouth. Subjective: 07/10/2021 This is a pleasant 85 years old female who presents with fall found to have bowel obstructions status post left colectomy with end colostomy and hernia repair on 07/09. Today is postoperative day #1. Patient lying in bed not in distress, coughing a lot, no distinct while she is at rest. She has little abdominal pain and no vomiting on ice chips only. She has left colostomy back with no bowel movement yet which is expected. She has leukocytosis of 15.5 and chest x-ray showing bilateral infiltrates suspicious for pneumonia versus aspiration pneumonia. She is mildly tachypneic. She is also normal saline 1 25 mL/h. Start the patient on Zosyn and incentive spirometer subjective: I resume the care of the patient today on 07/15/2021: Dr. Glover over the weekend This is a pleasant 85 years old female who presents with bowel obstruction status post colectomy and Simone procedure. She is doing well generally however she still making little watery stool in her back, there for C. diff is ordered although patient has no abdominal pain. Also she started diet today and she ate 50%. Final [employer] consulted for symptomatic pericardial effusion found to have new mild cardiomyopathy and elevated troponin. Coronary artery disease, acute has been ruled out by sales analytics manager. Patient was placed on baby aspirin 81 mg and lisinopril 2.5 mg with sales analytics manager recommendation. 07/15/2021 Patient clinically is the same with awake and alert. Denies chest pain or dyspnea, no other new complaints. However today she has decreased urine output and she has ongoing loose stool through her colostomy bag stool is watery and brown in color,, C. diff was checked and it was negative. Patient with no abdominal pain or fever or leukocytosis. We checked d-dimer and is only moderately elevated at 0.16. Because of this we checked her Zosyn to Augmentin, we place her on gentle hydration for 24 hours with normal saline at 75 mL/h and added Questran for 7 days. Low potassium is been placed. Also she has evidence of cardiomyopathy with ejection fraction of 20-25% with mildly elevated troponin, she is already on aspirin 81 mg and sales analytics manager on the case Colon biopsy showing diverticulitis with diverticular rupture and abscess formation negative for metastatic cancer cells. Objective - Vital Signs Vital signs: Vital Signs Temp 97.8 F 07/16/21 04:00 Pulse 93 07/16/21 04:00 Resp 18 07/16/21 04:00 BP 122/74 07/16/21 04:00 Pulse Ox 97 07/16/21 04:00 Intake & Output 07/15/21 07/16/21 07/16/21 18:59 06:59 18:59 Intake Total 480 180 Output Total 2049 1100 1300 Balance -1570 -1100 -1120 Intake: Oral 480 180 Output: Urine 350 300 300 Straight 300 Uretheral (Torrez) 150 Stool [id number] Other: Voiding Method Indwelling Catheter - Exam GENERAL: The patient is alert and oriented x3, not in any acute distress. Well developed, well nourished. HEENT: Pupils are round and equally reacting to light. EOMI. No scleral icterus. No conjunctival pallor. Normocephalic, atraumatic. No pharyngeal erythema. No thyromegaly. CARDIOVASCULAR: S1 and S2 present. No murmurs, rubs, or gallops. Decreased breath sounds on basal zones bilaterally -PULMONARY: Chest is clear to auscultation, no wheezing or crackles. -ABDOMEN: Soft, nontender, nondistended, normoactive bowel sounds. No palpable organomegaly. Colostomy bag with watery brown stool MUSCULOSKELETAL: No joint swelling or deformity. EXTREMITIES: No cyanosis, clubbing, or pedal edema. NEUROLOGICAL: Gross neurological examination did not reveal any focal deficits. SKIN: No rashes. no petechiae. - Labs CBC & Chem 7: 07/16/21 07:38 07/16/21 07:38 Labs: Abnormal Lab Results - Last 24 Hours (Table) 07/15/21 07/16/21 07/16/21 Range/Units 08:20 07:38 07:38 RBC 3.76 L (3.80-5.40) m/uL Sodium 130 L (137-145) mmol/L Potassium 3.4 L (3.5-5.1) mmol/L Calcium 7.7 L (8.4-10.2) mg/dL Procalcitonin 0.16 H (0.02-0.09) ng/mL Microbiology - Last 24 Hours (Table) 07/10/21 15:16 Blood Culture - Preliminary Blood No Growth after 120 hours Assessment and Plan Assessment: Bowel obstruction, both small and large bowel status post left colostomy with end colostomy and hernia repair on 07/09 Decreased urine output secondary to loose bowel movement related to her recent colostomy. Asymptomatic pericardial effusion with a new cardiomyopathy with ejection fraction 20-25% possible aspiration pneumonia versus intra-abdominal infection or [place], on antibiotic Elevated troponin, unrelated to acute coronary syndrome per sales analytics manager Fall at home without losing consciousness Mild hypernatremia, improving Recent history of diverticulitis and perforation status post antibiotic course. seizure disorder. Diagnosed during last admission was started on Vimpat. Plan: This is a pleasant 85 years old female who presents with bowel obstruction status post colostomy and fall and pneumonia. And diverticulitis Continue with advancing diet, patient currently regular diet, monitor output. Continue with normal saline for 24 hours. Attention Zosyn to Augmentin Continue with aspirin and lisinopril per sales analytics manager on the case Labs and medication were reviewed.. Continue same treatment. Continue with symptomatic treatment. Resume home medication. Monitor lytes and vitals. DVT and GI prophylaxis. Further recommendations as per clinical course of the patient DVT prophylaxis: Subcutaneous heparin GI Prophylaxis: Ppi Prognosis is guarded
[2021-07-16] MEDS: CHOLESTYRAMINE (WITH SUGAR) 4 GM PACKET PO SCH ×2 (10:37→18:08)
--- NOTE | 2021-07-16 11:39 | P.PN ---
Progress Note - Text Progress Note Date: 07/16/21 The patient's resting in bed. She is still complaining about her oral potassium. On exam vital signs are stable. Abdomen soft. Incision is clean dry intact. Colostomy has small amount of function. Status post Simone procedure. Patient will continue supportive care.
--- NOTE | 2021-07-16 15:15 | P.PN ---
Subjective This is a 85 year old female with a past medical history significant for hypertension, hyperlipidemia, falls, diverticulitis, and seizure disorder. 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 We have been asked to see the patient in consultation for pericardial effusion. patient is admitted to the hospital secondary to partial colonic obstruction. She underwent left colectomy with end colostomy, partial omentectomy, repair of incisional hernia, and mobilization of splenic flexure with Dr. Mccarty on 07/09/2021. Patient examined at the bedside. Patient reports generalized weakness. She denies chest pain or pressure. She denies shortness of breath. Denies dizziness or lightheadedness. Patient had an echocardiogram performed revealing EF 20-25%, severe global hypokinesis of LV, and small generalized pericardial effusion. Cardiomyopathy is new compared to echo completed in June 2021 (see details below). * EKG reveals sinus mechanism with no signs of acute ischemia. Q waves laterally and V1-V2 * Chest xray small right pleural effusion. Correlate for basilar atelectasis versus pneumonia. Pericardial effusion. * Laboratory data: WBC 7.9. Hemoglobin 11.1. Platelet count 236. Sodium 132. Potassium 3.2. BUN 14. Creatinine 0.72. * Current home cardiac medications include atenolol 12.5 mg twice a day, losartan 50 mg at night, atorvastatin 10 mg at night, aspirin 81 mg daily * Most recent echocardiogram obtained in June 2021 revealed ejection fraction 50-55%, mild mitral regurgitation, mild tricuspid regurgitation, * Patient underwent dobutamine stress test in June 2020 which was negative for ischemia. 07/15 Patient seen and examined. Patient denies any chest pain or pressure. Troponins downtrending. Denies any shortness breath. 07/16 Patient seen and examined. Patient concerned about potassium supplements. She has been having decreased urine output and therefore D5 normal saline was added. She is concerned that she does not want a Torrez catheter. She denies any actual shortness breath. No chest pain. PHYSICAL EXAM: VITAL SIGNS: Reviewed. GENERAL: Well-developed in no acute distress. HEENT: Head is normocephalic. Pupils are equal, round. Sclerae anicteric. Mucous membranes of the mouth are moist. Neck supple. No JVD or thyromegaly LUNGS: Respirations even and unlabored. Lungs essentially clear to auscultation bilaterally. HEART: Regular rate and rhythm. S1 and S2 heard. ABDOMEN: Soft. Nondistended. Nontender. EXTREMITIES: Normal range of motion. No clubbing or cyanosis. Peripheral pulses intact. No lower extremity edema NEUROLOGIC: Awake and alert. Oriented x 3. ASSESSMENT: Partial colonic obstruction, s/p left colectomy with end colostomy, partial omentectomy, repair of incisional hernia, and mobilization of splenic flexure Pericardial effusion, with no signs of tamponade, improved New-onset cardiomyopathy, etiology unclear Bilateral pneumonia Hypokalemia Hyponatremia Hypertension Hyperlipidemia GERD History of TIA History of right MCA aneurysm measuring 10 mm History of seizure disorder NSTEMI PLAN: 2D echo obtained and reviewed. Small pericardial effusion with no evidence of tamponade. Continue aspirin 81mg daily, metoprolol succinate 25 mg daily, lisinopril 2.5 mg daily May continue with current dose of atorvastatin Consideration of possible type I [place] however also consideration of Takotsubo's cardiomyopathy. Continue with medical therapy at this time We will add spironolactone for heart failure regimen as well as hopefully improve her hypokalemia. Objective - Vital Signs Vital signs: Vital Signs Temp 98.0 F 07/16/21 12:00 Pulse 99 07/16/21 12:00 Resp 18 07/16/21 12:00 BP 137/64 07/16/21 12:00 Pulse Ox 97 07/16/21 12:00 Intake & Output 07/15/21 07/16/21 07/16/21 18:59 06:59 18:59 Intake Total 480 180 Output Total 2049 1100 1300 Balance -1570 -1100 -1120 Intake: Oral 480 180 Output: Urine 350 300 300 Straight 300 Uretheral (Torrez) 150 Stool [phone] Other: Voiding Method Indwelling Catheter External Catheter - Labs CBC & Chem 7: 07/16/21 07:38 07/16/21 07:38 Labs: Abnormal Lab Results - Last 24 Hours (Table) 07/15/21 07/16/21 07/16/21 Range/Units 08:20 07:38 07:38 RBC 3.76 L (3.80-5.40) m/uL Sodium 130 L (137-145) mmol/L Potassium 3.4 L (3.5-5.1) mmol/L Calcium 7.7 L (8.4-10.2) mg/dL Procalcitonin 0.16 H (0.02-0.09) ng/mL Microbiology - Last 24 Hours (Table) 07/10/21 15:16 Blood Culture - Preliminary Blood No Growth after 120 hours
[2021-07-16] MEDS: SPIRONOLACTONE 25 MG TAB PO SCH (16:05)
[2021-07-16] MEDS: ATORVASTATIN 10 MG TAB PO SCH (20:21)
[2021-07-16] MEDS: AMOXIC-POT CLAV 875-125MG 1 EACH TAB PO SCH (20:21)
[2021-07-16] MEDS: MAGNESIUM OXIDE 400 MG TAB PO SCH (20:21)
[2021-07-17] MEDS: DEXTROSE 5%-0.9% NACL 1,000 ML IV SCH ×2 (00:20→09:12)
[2021-07-17] MEDS: PANTOPRAZOLE 40 MG TABLET PO SCH (06:25)
[2021-07-17 08:21] LABS: Basophils % (A) 0 %; Eosinophils # (A) 0.1 k/uL (0-0.7); Eosinophils % (A) 1 %; HCT 32.6 % (34.0-46.0); HGB 10.7 gm/dL (11.4-16.0); Lymphocytes # (A) 1.4 k/uL (1.0-4.8); Lymphocytes % (A) 21 %; MCH 30.9 pg (25.0-35.0); MCHC 32.8 g/dL (31.0-37.0); Mean Platelet Volume 7.7; Monocytes # (A) 0.5 k/uL (0-1.0); Monocytes % (A) 7 %; Neutrophils # (A) 4.7 k/uL (1.3-7.7); Neutrophils % (A) 69 %; Platelet Count 214 k/uL (150-450); RBC 3.47 m/uL (3.80-5.40); RDW 13.4 % (11.5-15.5); WBC 6.8 k/uL (3.8-10.6)
[2021-07-17 08:33] LABS: African American GFR (CKD) >90 (>60 ml/min/1.73 sqM); Anion Gap 3 mmol/L; Blood Urea Nitrogen 11 mg/dL (7-17); Calcium 7.6 mg/dL (8.4-10.2); Carbon Dioxide 22 mmol/L (22-30); Chloride 105 mmol/L (98-107); Glucose 97 mg/dL (74-99); Non-African American GFR(CKD) 83 (>60 ml/min/1.73 sqM); Potassium 3.4 mmol/L (3.5-5.1); Sodium 130 mmol/L (137-145)
[2021-07-17] MEDS: ASPIRIN 81 MG PO SCH (08:50)
[2021-07-17] MEDS: SPIRONOLACTONE 25 MG TAB PO SCH (08:50)
[2021-07-17] MEDS: HEPARIN SODIUM,PORCINE/PF 5,000 UNIT/0.5 ML SYRINGE SQ SCH ×3 (08:51→23:14)
[2021-07-17] MEDS: METOPROLOL SUCCINATE (ER) 25 MG TAB.ER.24H PO SCH (08:51)
[2021-07-17] MEDS: POTASSIUM BICARBONATE/CIT AC 20 MEQ TABLET.EFF PO SCH (08:51)
[2021-07-17] MEDS: AMOXIC-POT CLAV 875-125MG 1 EACH TAB PO SCH ×2 (08:51→20:05)
[2021-07-17] MEDS: LACOSAMIDE 50 MG TABLET PO SCH ×2 (08:51→20:05)
[2021-07-17] MEDS: CHOLESTYRAMINE (WITH SUGAR) 4 GM PACKET PO SCH ×2 (08:51→16:10)
[2021-07-17] MEDS: ACETAMINOPHEN TAB 325 MG TAB PO PRN (08:55)
--- NOTE | 2021-07-17 12:52 | P.PN ---
Subjective This is a 85 year old female with a past medical history significant for hypertension, hyperlipidemia, falls, diverticulitis, and seizure disorder. 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 We have been asked to see the patient in consultation for pericardial effusion. patient is admitted to the hospital secondary to partial colonic obstruction. She underwent left colectomy with end colostomy, partial omentectomy, repair of incisional hernia, and mobilization of splenic flexure with Dr. Mccarty on 07/09/2021. * Patient had an echocardiogram performed revealing EF 20-25%, severe global hypokinesis of LV, and small generalized pericardial effusion. Cardiomyopathy is new compared to echo completed in June 2021 (see details below). * Troponins revealed trend 2.6-->2.2.--1.8 * EKG reveals sinus mechanism with no signs of acute ischemia. Q waves laterally and V1-V2 * Echo obtained in June 2021 revealed ejection fraction 50-55%, mild mitral regurgitation, mild tricuspid regurgitation, * Patient underwent dobutamine stress test in June 2020 which was negative for ischemia. 07/17/2021 Patient seen and examined. She denies any chest pain or shortness of breath. No symptoms of orthopnea or PND. Labs, sodium 130, potassium 3.4, BUN 11, serum creatinine 0.6 Meds, aspirin 81 mg daily, atorvastatin 10 mg nightly, lisinopril 2.5 mg daily, metoprolol succinate 25 mg daily, spironolactone 25 mg daily PHYSICAL EXAM: VITAL SIGNS: Reviewed. GENERAL: Well-developed in no acute distress. HEENT: Neck supple. No JVD LUNGS: Respirations even and unlabored. Lungs essentially clear to auscultation bilaterally. HEART: Regular rate and rhythm. S1 and S2 heard. ABDOMEN: Soft. Nondistended. Nontender. EXTREMITIES: Normal range of motion. No clubbing or cyanosis. Peripheral pulses intact. No lower extremity edema NEUROLOGIC: Awake and alert. Oriented x 3. ASSESSMENT: Partial colonic obstruction, s/p left colectomy with end colostomy, partial omentectomy, repair of incisional hernia, and mobilization of splenic flexure Pericardial effusion, with no signs of tamponade, improved New-onset cardiomyopathy, etiology unclear Bilateral pneumonia Hypokalemia Hyponatremia Hypertension Hyperlipidemia GERD History of TIA History of right MCA aneurysm measuring 10 mm History of seizure disorder NSTEMI PLAN: 2D echo obtained and reviewed. Small pericardial effusion with no evidence of tamponade. Continue aspirin 81mg daily, metoprolol succinate 25 mg daily, lisinopril 2.5 mg daily, spironolactone 25mg daily May continue with current dose of atorvastatin Consideration of possible type I [place] however also may consideration of Takotsubo's cardiomyopathy. Continue with medical therapy at this time Replace potassium per protocol Further recommendations based on clinical course. Objective - Vital Signs Vital signs: Vital Signs Temp 97.9 F 07/17/21 04:00 Pulse 98 07/17/21 12:00 Resp 16 07/17/21 12:00 BP 149/73 07/17/21 12:00 Pulse Ox 96 07/17/21 12:00 Intake & Output 07/16/21 07/17/21 07/17/21 18:59 06:59 18:59 Intake Total 600 Output Total 2200 1000 400 Balance -1600 -1000 -400 Intake: Oral 600 Output: Urine 700 200 Straight 200 200 Stool 1500 800 400 Other: Voiding Method External Catheter External Catheter External Catheter - Labs CBC & Chem 7: 07/17/21 07:22 07/17/21 07:22 Labs: Abnormal Lab Results - Last 24 Hours (Table) 07/17/21 07/17/21 Range/Units 07: 07:22 RBC 3.47 L (3.80-5.40) m/uL Hgb 10.7 L (11.4-16.0) gm/dL Hct 32.6 L (34.0-46.0) % Sodium 130 L (137-145) mmol/L Potassium 3.4 L (3.5-5.1) mmol/L Calcium 7.6 L (8.4-10.2) mg/dL Microbiology - Last 24 Hours (Table) 07/10/21 15:16 Blood Culture - Final Blood No Growth after 144 hours
--- NOTE | 2021-07-17 14:30 | P.PN ---
Subjective Progress Note Date: 07/17/21 Principal diagnosis: Abdominal pain Patient looks stronger than when I saw her on Saturday. No new complaints. She still says she feels weak. She is tolerating her diet. She is still having watery stool through the ostomy. Speaking with the nurse that had her over the weekend apparently Imodium was not being utilized. Objective - Vital Signs Vital signs: Vital Signs Temp 97.9 F 07/17/21 04:00 Pulse 98 07/17/21 12:00 Resp 16 07/17/21 12:00 BP 149/73 07/17/21 12:00 Pulse Ox 96 07/17/21 12:00 Intake & Output 07/16/21 07/17/21 07/17/21 18:59 06:59 18:59 Intake Total 600 Output Total 2200 1000 400 Balance -1600 -1000 -400 Intake: Oral 600 Output: Urine 700 200 Straight 200 200 Stool 1500 800 400 Other: Voiding Method External Catheter External Catheter External Catheter - Exam Abdomen: Soft, nondistended, nontender, incision clean and dry, ostomy with liquid bile - Labs CBC & Chem 7: 07/17/21 07:22 07/17/21 07:22 Labs: Abnormal Lab Results - Last 24 Hours (Table) 07/17/21 07/17/21 Range/Units 07: 07:22 RBC 3.47 L (3.80-5.40) m/uL Hgb 10.7 L (11.4-16.0) gm/dL Hct 32.6 L (34.0-46.0) % Sodium 130 L (137-145) mmol/L Potassium 3.4 L (3.5-5.1) mmol/L Calcium 7.6 L (8.4-10.2) mg/dL Microbiology - Last 24 Hours (Table) 07/10/21 15:16 Blood Culture - Final Blood No Growth after 144 hours Assessment and Plan (1) Abdominal pain Narrative/Plan: Patient with significant diarrhea through ostomy. Continue correction of electrolytes. heel cover softener the Imodium to scheduled 4 times a day dosing. Current Visit: Yes Status: Acute Code(s): R10.9 - UNSPECIFIED ABDOMINAL PAIN SNOMED Code(s): 39028233
[2021-07-17] MEDS ORDERED: Potassium Replacement Protocol 1 EACH MISC MISCELLANE PRN (15:34)
[2021-07-17] MEDS: POTASSIUM CHLORIDE ER 20 MEQ TAB.ER PO SCH ×2 (16:10→16:12)
[2021-07-17] MEDS: LOPERAMIDE 2 MG CAP PO SCH ×3 (16:10→20:05)
[2021-07-17] MEDS: ATORVASTATIN 10 MG TAB PO SCH (20:05)
[2021-07-17] MEDS: MAGNESIUM OXIDE 400 MG TAB PO SCH (20:05)
[2021-07-17] MEDS: HYDROmorphone 1 MG/ML 1 ML SYRINGE IVP PRN (23:13)
--- NOTE | 2021-07-18 01:58 | P.PN ---
Subjective Progress Note Date: 07/17/21 Patient is a 85-year-old female with a known history of CVA/TIA, hypertension, GERD, recently diagnosed with seizure disorder, history of right-sided brain aneurysm and recent history of diverticulitis with perforation presents to ER with complaints of fall. Patient states that she has been having diarrhea for the past 4 to 5 weeks and went to the bathroom and trying to sit on the commode. Patient states that she miscalculated the distance and fell to the side. Denies any complaints of dizziness or lightheadedness. Denied any loss of consciousness. Patient fell next to the toilet. Patient has been came in from outside and found her and she was unable to stand without assistance. Denied an y complaints of chest pain. No shortness of breath. No palpitations. Patient states that he had head injury and injury to the right knee. Denies any fever or chills. Knee x-ray showed no acute fracture or dislocation. Consider crystal deposition arthropathy. Osteoarthritis. CT head and cervical spine showed there is no acute fracture or dislocation evident in the cervical spine. No acute intracranial hemorrhage or midline shift noted. Laboratory data showed WBC 11.6 hemoglobin 13.9 and platelets 369 Sodium 126 potassium 4.5 chloride 96 bicarb is 22 anion gap 8 BUN 34 and creatinine 1.09 albumin 3.2 and calcium 8.6 and urinalysis showed 1+ ketones and negative nitrite and trace leukocyte esterase. Coronavirus PCR not detected. Patient was admitted to the hospital from 05/27/2021 to 05/31/2021 due to acute diverticulitis and possible perforation. Patient was discharged home on ant ibiotics. Patient was admitted to the hospital from 06/15/2021 to 06/18/2021 due to complaints of diarrhea and discharge neuro: Possible colon obstruction. C. difficile was negative. And also admitted to hospital from 06/24/2021 to 06/27/2021 due to complaints of syncope and possible seizures. Patient was started on antiepileptic medication in the form of impact by neurology. Patient was also seen by cardiology. 2D echocardiogram showed normal ejection fraction and no significant valvular abnormalities noted. 07/07/2021 Patient is currently resting in bed. Still complains of abdominal distention and pain. Repeat. CT of the abdomen pelvis was ordered patient has been afebrile. Currently on liquid diet and changed to nothing by mouth. General surgery has seen the patient. Laboratory showed WBC 10.2 hemoglobin 11.8 and platelets 307 sodium 128 potassium 4.2 chloride 99 bicarb is 30.3 BUN 27.7 creatinine 0.8 and albumin 2.9 Patient was also seen by GI. Currently requiring IV fluids with normal saline. 07/08/2021 Patient is currently resting in bed. Appears in distress. Complains of abdominal pain and requesting pain medications. CT of the abdomen pelvis was done small and large bowel distention down to the left sigmoid colon with possible partial colonic obstruction. Patient feels very bloated and also having increasing abdominal pain and discomfort. Patient is currently nothing by mouth. General surgery is planning for colectomy and colostomy bag placement. Patient has been afebrile. Improving. Denied any chest pain or shortness breath. No cough or sputum production. Laboratory data showed WBC 9.1 hemoglobin 12.8 and platelets 236 Sodium 128 potassium 4.2 chloride 108 bicarb is 12 BUN 24 and creatinine 0.8 patient is being continued on IV hydration. Nothing by mouth. 07/09/2021 Patient underwent left colectomy with end colostomy, partial omentectomy and rep air of incisional hernia and mobilization of splenic flexure due to partial colon obstruction.. POD 0 Patient is currently complains of pain and morning. Slight confusion. No complaints of chest pain or shortness breath. Patient has been afebrile. Laboratory data showed WBC 10.0 hemoglobin 9.3 and platelets 320 Sodium 132 potassium 4.0, chloride 103 bicarb improved to 16.7 Calcium 7.3. General surgery is on board. Patient is being continued on IV hydration and continued to be nothing by mouth. Subjective: 07/10/2021 This is a pleasant 85 years old female who presents with fall found to have bowel obstructions status post left colectomy with end colostomy and hernia repair on 07/09. Today is postoperative day #1. Patient lying in bed not in distress, coughing a lot, no distinct while she is at rest. She has little abdominal pain and no vomiting on ice chips only. She has left colostomy back with no bowel movement yet which is expected. She has leukocytosis of 15.5 and chest x-ray showing bilateral infiltrates suspicious for pneumonia versus aspiration pneumonia. She is mildly tachypneic. She is also normal saline 1 25 mL/h. Start the patient on Zosyn and incentive spirometer subjective: I resume the care of the patient today on 07/15/2021: Dr. Glover over the weekend This is a pleasant 85 years old female who presents with bowel obstruction status post colectomy and Simone procedure. She is doing well generally however she still making little watery stool in her back, there for C. diff is ordered although patient has no abdominal pain. Also she started diet today and she ate 50%. Transit [employer] consulted for symptomatic pericardial effusion found to have new mild cardiomyopathy and elevated troponin. Coronary artery disease, acute has been ruled out by senior speech pathologist. Patient was placed on baby aspirin 81 mg and lisinopril 2.5 mg with senior speech pathologist recommendation. 07/16/2021 Patient clinically is the same with awake and alert. Denies chest pain or dyspnea, no other new complaints. However today she has decreased urine output and she has ongoing loose stool through her colostomy bag stool is watery and brown in color,, C. diff was checked and it was negative. Patient with no abdominal pain or fever or leukocytosis. We checked d-dimer and is only moderately elevated at 0.16. Because of this we checked her Zosyn to Augmentin, we place her on gentle hydration for 24 hours with normal saline at 75 mL/h and added Questran for 7 days. Low potassium is been placed. Also she has evidence of cardiomyopathy with ejection fraction of 20-25% with mildly elevated troponin, she is already on aspirin 81 mg and senior speech pathologist on the case Colon biopsy showing diverticulitis with diverticular rupture and abscess formation negative for metastatic cancer cells. 07/17/2021 Patient is seen this morning and being closely monitored by multiple medical consultations. Patient with continued watery loose stools noted in the ostomy and surgery following and changed imodium to scheduled instead of prn. Patient tolerating diet with no reports of nausea or vomiting noted. Electrolytes potassium low and will replace per protocol. PT/OT following along with cardiology. Repeat 2D echo ordered for am. Active Medications Acetaminophen (Acetaminophen Tab 325 Mg Tab) 650 mg PO Q6HR PRN PRN Reason: Mild Pain or Fever > 100.5 Last Admin: 07/17/21 08:55 Dose: 650 mg Documented by: Amoxicillin/Clavulanate Potassium (Amoxic-Pot Clav 875-125mg 1 Each Tab) 1 each PO Q12HR SUSAN Last Admin: 07/17/21 20:05 Dose: 1 each Documented by: Aspirin (Aspirin 81 Mg) 81 mg PO DAILY [facility] Last Admin: 07/17/21 08:50 Dose: 81 mg Documented by: Atorvastatin Calcium (Atorvastatin 10 Mg Tab) 10 mg PO HS [facility] Last Admin: 07/17/21 20:05 Dose: 10 mg Documented by: Cholestyramine Resin (Cholestyramine (With Sugar) 4 Gm Packet) 4 gm PO BID@1000,1800 [facility] Stop: 07/23/21 10:23 Last Admin: 07/17/21 16:10 Dose: 4 gm Documented by: Heparin Sodium (Porcine) (Heparin Sodium,Porcine/Pf 5,000 Unit/0.5 Ml Syringe) 5,000 unit SQ Q8HR [facility] Last Admin: 07/17/21 23:14 Dose: 5,000 unit Documented by: Hydromorphone HCl (Hydromorphone 1 Mg/Ml 1 Ml Syringe) 1 mg IVP Q3HR PRN PRN Reason: Pain Last Admin: 07/17/21 23:13 Dose: 1 mg Documented by: Hydromorphone HCl (Hydromorphone 0.5 Mg/0.5 Ml Syringe) 0.5 mg IVP Q5M PRN PRN Reason: Phase I - Pain Control Stop: 08/08/21 12:25 Lacosamide (Lacosamide 50 Mg Tablet) 50 mg PO BID [facility] Last Admin: 07/17/21 20:05 Dose: 50 mg Documented by: Lisinopril (Lisinopril 2.5 Mg Tab) 2.5 mg PO DAILY [facility] Last Admin: 07/17/21 08:50 Dose: 2.5 mg Documented by: Loperamide HCl (Loperamide 2 Mg Cap) 2 mg PO QID [facility] Last Admin: 07/17/21 20:05 Dose: 2 mg Documented by: Magnesium Oxide (Magnesium Oxide 400 Mg Tab) 400 mg PO HS [facility] Last Admin: 07/17/21 20:05 Dose: 400 mg Documented by: Metoprolol Succinate (Metoprolol Succinate (Er) 25 Mg Tab.Er.24h) 25 mg PO DAILY [facility] Last Admin: 07/17/21 08:51 Dose: 25 mg Documented by: Miscellaneous Information (Magnesium Replacement Protocol 1 Each Misc) 1 each MISCELLANE DAILY PRN; Protocol PRN Reason: Per Protocol Miscellaneous Information (Potassium Replacement Protocol 1 Each Misc) 1 each MISCELLANE DAILY PRN; Protocol PRN Reason: Per Protocol Miscellaneous Information (Potassium Replacement Protocol 1 Each Misc) 1 each MISCELLANE DAILY PRN; Protocol PRN Reason: Per Protocol Naloxone HCl (Naloxone 0.4 Mg/Ml 1 Ml Vial) 0.2 mg IV Q2M PRN PRN Reason: Opioid Reversal Nystatin (Nystatin 100,000 Unit/Gm Powd 15 Gm) 1 applic TOPICAL BID PRN; Protocol PRN Reason: Skin Irritation Ondansetron HCl (Ondansetron 4 Mg/2 Ml Vial) 4 mg IVP Q6HR PRN PRN Reason: Nausea And Vomiting Last Admin: 07/08/21 21:07 Dose: 4 mg Documented by: Ondansetron HCl (Ondansetron 4 Mg/2 Ml Vial) 4 mg IVP ONCE PRN PRN Reason: Phase I - Nausea And Vomiting Stop: 08/08/21 12:25 Pantoprazole Sodium (Pantoprazole 40 Mg Tablet) 40 mg PO AC-BRKFST [facility] Last Admin: 07/17/21 06:25 Dose: 40 mg Documented by: Potassium Bicarbonate (Potassium Bicarbonate/Cit Ac 20 Meq Tablet.Eff) 20 meq PO DAILY [facility] Last Admin: 07/17/21 08:51 Dose: 20 meq Documented by: Spironolactone (Spironolactone 25 Mg Tab) 25 mg PO DAILY [facility] Last Admin: 07/17/21 08:50 Dose: 25 mg Documented by: Physical Exam: GENERAL: The patient is alert and oriented x3, not in any acute distress. Well developed, well nourished. HEENT: Pupils are round and equally reacting to light. EOMI. No scleral icterus. No conjunctival pallor. Normocephalic, atraumatic. No pharyngeal erythema. No thyromegaly. CARDIOVASCULAR: S1 and S2 present. No murmurs, rubs, or gallops. PULMONARY: Decreased breath sounds on basal zones bilaterally, no wheezing or crackles. ABDOMEN: Soft, nontender, nondistended, normoactive bowel sounds. No palpable organomegaly. Colostomy bag with watery brown stool MUSCULOSKELETAL: No joint swelling or deformity. EXTREMITIES: No cyanosis, clubbing, or pedal edema. NEUROLOGICAL: Gross neurological examination did not reveal any focal deficits. SKIN: No rashes. no petechiae. Assessment: Bowel obstruction, both small and large bowel status post left colostomy with end colostomy and hernia repair on 07/09 Decreased urine output secondary to loose bowel movement related to her recent colostomy. Asymptomatic pericardial effusion with a new cardiomyopathy with ejection fraction 20-25% possible aspiration pneumonia versus intra-abdominal infection or Both, on antibiotic Elevated troponin, unrelated to acute coronary syndrome per senior speech pathologist Fall at home without losing consciousness Mild hypernatremia, improving hypokalemia Recent history of diverticulitis and perforation status post antibiotic course. seizure disorder. Diagnosed during last admission was started on Vimpat. GI prophylaxis DVT prophylaxis full code Plan: Patient with bowel obstruction status post colostomy and fall and pneumonia. Multiple medical consultations following. Patient continues to be weak and PT/OT to evaluate. Patient continues with urinary retention and having to straight cath x2 and ordered indwelling gonzales. Reordered urinalysis with culture as this was not done previously. Patient with continued loose stools noted in the ostomy and imodium has been changed to scheduled and will monitor output. Recommend correcting electrolytes and repeat orders for am labs placed. Continue with advancing diet, patient currently regular diet, monitor output. Cardiology also following and repeat 2D echo ordered for am. Due to multiple complex medical issues, prognosis is guarded. Objective - Vital Signs Vital signs: Vital Signs Temp 97.9 F 07/17/21 04:00 Pulse 99 07/17/21 08:49 Resp 16 07/17/21 08:49 BP 135/78 07/17/21 08:49 Pulse Ox 97 07/17/21 08:49 Intake & Output 07/16/21 07/17/21 07/17/21 18:59 06:59 18:59 Intake Total 600 Output Total 2200 1000 100 Balance -1600 -1000 -100 Intake: Oral 600 Output: Urine 700 200 Straight 200 200 Stool 1500 800 100 Other: Voiding Method External Catheter External Catheter - Labs CBC & Chem 7: 07/17/21 07:22 07/17/21 07:22 Labs: Abnormal Lab Results - Last 24 Hours (Table) 07/17/21 07/17/21 Range/Units 07:22 07:22 RBC 3.47 L (3.80-5.40) m/uL Hgb 10.7 L (11.4-16.0) gm/dL Hct 32.6 L (34.0-46.0) % Sodium 130 L (137-145) mmol/L Potassium 3.4 L (3.5-5.1) mmol/L Calcium 7.6 L (8.4-10.2) mg/dL Microbiology - Last 24 Hours (Table) 07/10/21 15:16 Blood Culture - Final Blood No Growth after 144 hours
[2021-07-18 04:49] VITALS: RESP 18
[2021-07-18 05:34] LABS: Appearance,Urine Clear (Clear); Bacteria,Urine Rare /hpf; Bilirubin,Urine Negative (Negative); Blood,Urine Small (Negative); Color,Urine Yellow; Glucose,Urine (UA) Negative (Negative); Hyaline Casts,Urine 7 /lpf (0-2); Ketones,Urine Negative (Negative); Leukocyte Esterase,Urine Negative (Negative); Mucus,Urine Few /hpf; Nitrite,Urine Negative (Negative); PH, Urine 5.5 (5.0-8.0); Protein,Urine 1+ (Negative); RBC,Urine 4 /hpf (0-5); Specific Gravity,Urine 1.025 (1.001-1.035); WBC,Urine 4 /hpf (0-5)
[2021-07-18] MEDS: PANTOPRAZOLE 40 MG TABLET PO SCH (06:10)
[2021-07-18 07:39] LABS: Basophils % (A) 0 %; Eosinophils # (A) 0.1 k/uL (0-0.7); Eosinophils % (A) 1 %; HCT 32.3 % (34.0-46.0); HGB 10.7 gm/dL (11.4-16.0); Lymphocytes # (A) 1.6 k/uL (1.0-4.8); Lymphocytes % (A) 22 %; MCH 30.8 pg (25.0-35.0); MCHC 33.1 g/dL (31.0-37.0); MCV 93.2 fL (80.0-100.0); Mean Platelet Volume 7.7; Monocytes # (A) 0.4 k/uL (0-1.0); Monocytes % (A) 6 %; Neutrophils % (A) 69 %; Platelet Count 231 k/uL (150-450); RBC 3.46 m/uL (3.80-5.40); RDW 14.1 % (11.5-15.5); WBC 7.3 k/uL (3.8-10.6)
[2021-07-18 08:03] LABS: Calcium 8.1 mg/dL (8.4-10.2); Potassium 3.9 mmol/L (3.5-5.1)
[2021-07-18] MEDS: ASPIRIN 81 MG PO SCH (09:45)
[2021-07-18] MEDS: LOPERAMIDE 2 MG CAP PO SCH ×4 (09:45→21:01)
[2021-07-18] MEDS: LACOSAMIDE 50 MG TABLET PO SCH ×2 (09:45→21:01)
[2021-07-18] MEDS: AMOXIC-POT CLAV 875-125MG 1 EACH TAB PO SCH ×2 (09:45→21:01)
[2021-07-18] MEDS: CHOLESTYRAMINE (WITH SUGAR) 4 GM PACKET PO SCH ×2 (09:45→18:16)
[2021-07-18] MEDS: METOPROLOL SUCCINATE (ER) 25 MG TAB.ER.24H PO SCH (09:45)
[2021-07-18] MEDS: SPIRONOLACTONE 25 MG TAB PO SCH (09:45)
[2021-07-18] MEDS: HEPARIN SODIUM,PORCINE/PF 5,000 UNIT/0.5 ML SYRINGE SQ SCH ×2 (09:45→18:16)
[2021-07-18] MEDS: POTASSIUM BICARBONATE/CIT AC 20 MEQ TABLET.EFF PO SCH (09:46)
[2021-07-18] MEDS ORDERED: METOPROLOL SUCCINATE (ER) 25 MG TAB.ER.24H PO STA (11:58)
--- NOTE | 2021-07-18 12:02 | ECHOF ---
Referral Reason:repeat evaluate LV function MEASUREMENTS -------- HEIGHT: 162.6 cm WEIGHT: 76.2 kg BP: 130/79 RVIDd: 2.9 cm (< 3.3) RAP: 5.00 mmHg RVSP: 42.58 mmHg FINDINGS -------- Sinus rhythm. Resting tachycardia (HR>100bpm). Limited Study Overall left ventricular systolic function is moderately impaired with, an EF between 35 - 40 %. Mi d anterior LV wall motion is hypokinetic. Mid inferoseptal LV wall motion is hypokinetic. Apica l anterior LV wall motion is hypokinetic. Apical lateral LV wall motion is hypokinetic. Apical inferior LV wall motion is hypokinetic. Apical septum LV wall motion is hypokinetic. Mild tricuspid regurgitation present. There is mild pulmonary hypertension. The right ventricular systolic pressure, as measured by Doppler, is 42.58mmHg. There is a moderate, generalized pericardial effusion present. CONCLUSIONS -------- 1. Overall left ventricular systolic function is moderately impaired with, an EF between 35 - 40 %. 2. Mid anterior LV wall motion is hypokinetic. 3. Mid inferoseptal LV wall motion is hypokinetic. 4. Apical anterior LV wall motion is hypokinetic. 5. Apical lateral LV wall motion is hypokinetic. 6. Apical inferior LV wall motion is hypokinetic. 7. Apical septum LV wall motion is hypokinetic. 8. Mild tricuspid regurgitation present. 9. There is mild pulmonary hypertension. 10. The right ventricular systolic pressure, as measured by Doppler, is 42.58mmHg. 11. There is a moderate, generalized pericardial effusion present. COPIER REPAIR TECHNICIAN: Helen Lo RDCS
--- NOTE | 2021-07-18 12:50 | P.PN ---
<Ole, - Last Filed: 07/18/21 12:40> Subjective Progress Note Date: 07/18/21 Principal diagnosis: Diarrhea secondary to Partial colonic obstruction Patient is a 85-year-old female that presented to the ER after falling while trying to go to the bathroom. She reports falling on her bottom, no injury to head or loss of consciousness. She also reports having diarrhea for the past 4-5 weeks as well as dizziness and weakness. CT of the head and cervical spine showed no acute fracture or dislocation. Right knee x-ray was negative for fracture or dislocation, positive for osteoarthritis. She had mild leukocytosis 11.6, sodium was 126, bun 34, creatinine 1.09. She was recently admitted in the hospital in May and June with diarrhea secondary to acute diverticulitis and possible perforation. She was discharged home on antibiotics but was continuing to have diarrhea and increased weakness both times. reported that the patient has not been doing well at home and may require rehab. Patient has medical history of CVA, GERD, hypertension, C. diff 2015, right side brain aneurysm, surgical history of cholecystectomy and hysterectomy. Patient was followed by hospitalists 07/06/21-07/10/21. GI and Surgical services consulted for diarrhea and partial colonic obstruction. 07/11/21 Patient was seen and examined at bedside. She is sitting in the chair drinking water. Reports feeling weak and tired. She is status post op left colectomy with end colostomy and hernia repair on 07/09/21. Today is postop day 2. She reports tenderness at surgical site. Stool is present in colostomy. reports walking in the hallway with physical therapy today. Is agreeable to rehab services at discharge. 07/12/21 Patient is resting comfortably in bed. States she is very tired and weak today. Denies shortness of breath, chest pain, palpitations or abdominal pain. Diet was increased to full liquids and she reports tolerating a pudding well. Potassium, magnesium, sodium and white blood count levels have improved. Patient is still agreeable to subacute rehab. 07/13/21 Patient sitting up in bed. Reports generalized weakness and soreness at incision site. Denies dyspnea, chest pain, and abdominal pain. Diet maintained at full liquids, tolerating well. Potassium this morning was 3.2, replaced and daily dose added. Repeat chest xray shows small right pleural effusion, continue iv zosyn and encouraged IS use. Plan to discharge to subacute rehab. 07/14/2021 Patient is sitting up in chair, in no acute distress. Continues to feel weak, denies abdominal pain, dyspnea, chest pain or dizziness. Diet was increased to regular, tolerating well. Potassium was 3.0, replaced in addition to daily dose. Echocardiogram ordered by cardiology shows severe global hypokinesis of left ventricle and an ejection fraction of 20-25%, previous echocardiogram and Isamar showed an EF of 50-55%. We'll continue to follow cardiology recommendations. Continue to encourage patient to use incentive spirometry and work with physical therapy. Hospitalist coverage to 07/15/21 through 07/17/21 07/18/2021 Patient seen and examined at bedside. She is in no acute distress sitting up in bed. Reports continued weakness, denies abdominal pain, chest pain, shortness of breath. Patient is tolerating regular diet well. Potassium and magnesium stable today, we will recheck tomorrow. Repeat echocardiogram shows overall left ventricular systolic function moderately impaired with EF between 35 and 40%. This is an improvement from previous echo showing EF of 20-25%. Will await cardiology recommendations. We'll plan to discharge to subacute rehab once cleared by surgery and cardiology. Objective - Vital Signs Vital signs: Vital Signs Temp 96.6 F L 07/18/21 08:00 Pulse 99 07/18/21 08:00 Resp 18 07/18/21 08:00 BP 128/67 07/18/21 08:00 Pulse Ox 97 07/18/21 08:00 Intake & Output 07/17/21 07/18/21 07/18/21 18:59 06:59 18:59 Intake Total 250 Output Total 1225 850 Balance -1225 -600 Weight 76.204 kg Intake: Oral 250 Output: Urine 275 150 Stool 950 700 Other: Voiding Method External Catheter Indwelling Catheter Indwelling Catheter - Constitutional General appearance: Present: average body habitus, no acute distress - EENT Eyes: Present: EOMI, PERRLA ENT: Present: normal oropharynx Ears: bilateral: normal - Neck Neck: Present: normal ROM Carotids: bilateral: upstroke normal Thyroid: bilateral: normal size - Respiratory Respiratory: bilateral: diminished - Cardiovascular Heart rate: 90 Rhythm: regular Heart sounds: normal: S1, S2 - Peripheral edema leg Peripheral Edema: bilateral: 1+ - Peripheral pulses radial pulse Peripheral Pulses: bilateral: Normal - Gastrointestinal Gastrointestinal Comment(s): Left colostomy present, stoma is beefy red, brown liquid stool draining into bag Surgical incision well approximated, no signs of infection General gastrointestinal: Present: normal bowel sounds, soft - Integumentary Integumentary: Present: normal - Neurologic Neurologic: Present: CNII-XII intact - Musculoskeletal Musculoskeletal: Present: generalized weakness - Psychiatric Psychiatric: Present: A&O x's 3, appropriate affect, intact judgment & insight - Allied health notes Allied health notes reviewed: nursing - Labs CBC & Chem 7: 07/18/21 07:08 07/18/21 07:08 Labs: Abnormal Lab Results - Last 24 Hours (Table) 07/18/21 07/18/21 07/18/21 Range/Units 05:20 07:08 07:08 RBC 3.46 L (3.80-5.40) m/uL Hgb 10.7 L (11.4-16.0) gm/dL Hct 32.3 L (34.0-46.0) % Sodium 130 L (137-145) mmol/L Calcium 8.1 L (8.4-10.2) mg/dL Urine Protein 1+ H (Negative) Urine Blood Small H (Negative) Urine Bacteria Rare H (None) /hpf Hyaline Casts 7 H (0-2) /lpf Urine Mucus Few H (None) /hpf Assessment and Plan Assessment: Partial colonic obstruction, status post left colectomy with end colostomy and hernia repair on 07/09/21 New-onset cardiomyopathy, etiology unclear per radiology Pericardial effusion Bilateral aspiration pneumonia Hypokalemia Hyponatremia Hypertension Falls at home Recent history of diverticulitis and possible perforation Seizure disorder Plan: Continue with surgical recommendations for diet, tolerating regular diet well Continue treatment for pneumonia, Zosyn and incentive spirometry Potassium and magnesium improved, monitor daily Continue following cardiology recommendations for new onset cardiomyopathy Cardiac monitoring Encourage IS use and increase in activity Continue current treatment regimen Continue monitoring vital signs Further recommendations based on patient's clinical course Plan to discharge to acute rehab facility Time with Patient: Greater than 30 <Oli Glover - Last Filed: 07/27/21 19:46> Subjective I have personally seen and examined the patient, reviewed the documentation and agree with the assessment and plan as written. Number of minutes spent on the visit: Greater than 15. Objective - Vital Signs Vital signs: Vital Signs Temp 97.9 F 07/19/21 08:00 Pulse 92 07/19/21 14:00 Resp 18 07/19/21 14:00 BP 111/74 07/19/21 08:00 Pulse Ox 96 07/19/21 08:00 - Labs CBC & Chem 7: 07/19/21 08:09 07/19/21 08:09
--- NOTE | 2021-07-18 13:38 | P.PN ---
Subjective This is a 85 year old female with a past medical history significant for hypertension, hyperlipidemia, falls, diverticulitis, and seizure disorder. 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 We have been asked to see the patient in consultation for pericardial effusion. patient is admitted to the hospital secondary to partial colonic obstruction. She underwent left colectomy with end colostomy, partial omentectomy, repair of incisional hernia, and mobilization of splenic flexure with Dr. Mccarty on 07/09/2021. * Patient had an echocardiogram performed revealing EF 20-25%, severe global hypokinesis of LV, and small generalized pericardial effusion. Cardiomyopathy is new compared to echo completed in June 2021 (see details below). * Troponins revealed trend 2.6-->2.2.--1.8 * Echo obtained in June 2021 revealed ejection fraction 50-55%, mild mitral regurgitation, mild tricuspid regurgitation, 07/18/2021 Patient seen and examined. She denies any chest pain or shortness of breath. No symptoms of orthopnea or PND. She overall is feeling well. Repeat Limited echo revealed improvement in EF 35-40% with apical LV wall hypokinesis, moderate generalized pericardial effusion. (improvement from EF 20- 25%). Telemetry reviewed patient sinus mechanism with heart rates in the 90s-low 100s Labs: sodium 130, potassium 3.9, BUN 10, serum creatinine 0.7, magnesium 1.7 Meds: aspirin 81 mg daily, atorvastatin 10 mg nightly, lisinopril 2.5 mg daily, metoprolol succinate 25 mg daily, spironolactone 25 mg daily PHYSICAL EXAM: VITAL SIGNS: Reviewed. GENERAL: Well-developed in no acute distress. HEENT: Neck supple. No JVD LUNGS: Respirations even and unlabored. Lungs essentially clear to auscultation bilaterally. HEART: Regular rate and rhythm. S1 and S2 heard. ABDOMEN: Soft. Nondistended. Nontender. EXTREMITIES: Normal range of motion. No clubbing or cyanosis. Peripheral pulses intact. No lower extremity edema NEUROLOGIC: Awake and alert. Oriented x 3. ASSESSMENT: Partial colonic obstruction, s/p left colectomy with end colostomy, partial omentectomy, repair of incisional hernia, and mobilization of splenic flexure Pericardial effusion, with no signs of tamponade New-onset cardiomyopathy, etiology unclear Bilateral pneumonia Hypokalemia Hyponatremia Hypertension Hyperlipidemia GERD History of TIA History of right MCA aneurysm measuring 10 mm History of seizure disorder NSTEMI PLAN: From a cardiology perspective, patient remains stable. Limited Echo today revealed EF 35-40% with apical LV wall hypokinesis, moderate generalized pericardial effusion with no signs of tamponade Increase metoprolol succinate 50mg daily Continue aspirin 81mg daily, lisinopril 2.5 mg daily, spironolactone 25mg daily May continue with current dose of atorvastatin Pericardial effusion present with no signs of tamponade Continue with medical therapy at this time Follow up with Dr. Chen outpatient Objective - Vital Signs Vital signs: Vital Signs Temp 96.6 F L 07/18/21 08:00 Pulse 99 07/18/21 08:00 Resp 18 07/18/21 08:00 BP 128/67 07/18/21 08:00 Pulse Ox 97 07/18/21 08:00 Intake & Output 07/17/21 07/18/21 07/18/21 18:59 06:59 18:59 Intake Total 250 Output Total 1225 850 Balance -1225 -600 Weight 76.204 kg Intake: Oral 250 Output: Urine 275 150 Stool 950 700 Other: Voiding Method External Catheter Indwelling Catheter Indwelling Catheter - Labs CBC & Chem 7: 07/18/21 07:08 07/18/21 07:08 Labs: Abnormal Lab Results - Last 24 Hours (Table) 07/18/21 07/18/21 07/18/21 Range/Units 05:20 07:08 07:08 RBC 3.46 L (3.80-5.40) m/uL Hgb 10.7 L (11.4-16.0) gm/dL Hct 32.3 L (34.0-46.0) % Sodium 130 L (137-145) mmol/L Calcium 8.1 L (8.4-10.2) mg/dL Urine Protein 1+ H (Negative) Urine Blood Small H (Negative) Urine Bacteria Rare H (None) /hpf Hyaline Casts 7 H (0-2) /lpf Urine Mucus Few H (None) /hpf
--- NOTE | 2021-07-18 18:17 | P.PN ---
Subjective Progress Note Date: 07/18/21 Principal diagnosis: Abdominal pain Patient doing better today. She is sitting up in a chair. She has more energy. Denies pain. Stools are getting slightly more firm. Objective - Vital Signs Vital signs: Vital Signs Temp 96.6 F L 07/18/21 08:00 Pulse 99 07/18/21 14:00 Resp 18 07/18/21 14:00 BP 128/67 07/18/21 08:00 Pulse Ox 97 07/18/21 08:00 Intake & Output 07/17/21 07/18/21 07/18/21 18:59 06:59 18:59 Intake Total 250 100 Output Total 1225 850 125 Balance -1225 -600 -25 Weight 76.204 kg Intake: Oral 250 100 Output: Urine 275 150 Stool 950 700 125 Other: Voiding Method External Catheter Indwelling Catheter Indwelling Catheter - Exam Abdomen: Soft, nontender, nondistended, incision clean and dry - Labs CBC & Chem 7: 07/18/21 07:08 07/18/21 07:08 Labs: Abnormal Lab Results - Last 24 Hours (Table) 07/18/21 07/18/21 07/18/21 Range/Units 05:20 07:08 07:08 RBC 3.46 L (3.80-5.40) m/uL Hgb 10.7 L (11.4-16.0) gm/dL Hct 32.3 L (34.0-46.0) % Sodium 130 L (137-145) mmol/L Calcium 8.1 L (8.4-10.2) mg/dL Urine Protein 1+ H (Negative) Urine Blood Small H (Negative) Urine Bacteria Rare H (None) /hpf Hyaline Casts 7 H (0-2) /lpf Urine Mucus Few H (None) /hpf Assessment and Plan (1) Abdominal pain Narrative/Plan: Patient doing better today. Increase Imodium to 4 mg per dose. Continue inc reasing activity. Possible discharge tomorrow. Current Visit: Yes Status: Acute Code(s): R10.9 - UNSPECIFIED ABDOMINAL PAIN SNOMED Code(s): 17969525
[2021-07-18] MEDS: ATORVASTATIN 10 MG TAB PO SCH (21:01)
[2021-07-18] MEDS: MAGNESIUM OXIDE 400 MG TAB PO SCH (21:01)
[2021-07-18] MEDS: HYDROmorphone 1 MG/ML 1 ML SYRINGE IVP PRN (21:04)
[2021-07-19 03:24] VITALS: TEMP 97.9
[2021-07-19] MEDS: PANTOPRAZOLE 40 MG TABLET PO SCH (06:27)
[2021-07-19 08:39] LABS: HCT 31.7 % (34.0-46.0); HGB 10.6 gm/dL (11.4-16.0); MCH 31.3 pg (25.0-35.0); MCHC 33.3 g/dL (31.0-37.0); Platelet Count 247 k/uL (150-450); RBC 3.37 m/uL (3.80-5.40); RDW 13.7 % (11.5-15.5); WBC 8.3 k/uL (3.8-10.6)
[2021-07-19 08:45] LABS: African American GFR (CKD) >90 (>60 ml/min/1.73 sqM); Anion Gap 2 mmol/L; Blood Urea Nitrogen 10 mg/dL (7-17); Carbon Dioxide 26 mmol/L (22-30); Chloride 101 mmol/L (98-107); Glucose 96 mg/dL (74-99); Magnesium 1.5 mg/dL (1.6-2.3); Non-African American GFR(CKD) 80 (>60 ml/min/1.73 sqM); Sodium 129 mmol/L (137-145)
[2021-07-19] MEDS ORDERED: METOPROLOL SUCCINATE (ER) 50 MG TAB.ER.24H PO SCH (09:00)
[2021-07-19] MEDS: AMOXIC-POT CLAV 875-125MG 1 EACH TAB PO SCH (09:20)
[2021-07-19] MEDS: ASPIRIN 81 MG PO SCH (09:20)
[2021-07-19] MEDS: LACOSAMIDE 50 MG TABLET PO SCH (09:20)
[2021-07-19] MEDS: LOPERAMIDE 2 MG CAP PO SCH ×2 (09:20→13:29)
[2021-07-19] MEDS: SPIRONOLACTONE 25 MG TAB PO SCH (09:20)
[2021-07-19] MEDS: CHOLESTYRAMINE (WITH SUGAR) 4 GM PACKET PO SCH (09:20)
[2021-07-19] MEDS: HEPARIN SODIUM,PORCINE/PF 5,000 UNIT/0.5 ML SYRINGE SQ SCH ×2 (09:20)
[2021-07-19] MEDS: POTASSIUM BICARBONATE/CIT AC 20 MEQ TABLET.EFF PO SCH (09:21)
[2021-07-19 11:12] VITALS: BP 111/74
--- NOTE | 2021-07-19 12:11 | P.PN ---
Subjective Progress Note Date: 07/19/21 Principal diagnosis: Abdominal pain Patient doing well today. She did have a small amount of serosanguineous drainage from her incision. That was temporary. No pain. Tolerating diet. Stool getting more firm. Objective - Vital Signs Vital signs: Vital Signs Temp 97.9 F 07/19/21 08:00 Pulse 102 H 07/19/21 08:00 Resp 18 07/19/21 08:00 BP 111/74 07/19/21 08:00 Pulse Ox 96 07/19/21 08:00 Intake & Output 07/18/21 07/19/21 07/19/21 18:59 06:59 18:59 Intake Total 100 220 Output Total 125 500 Balance -25 -500 220 Intake: Oral 100 220 Output: Urine 300 Stool 125 200 Other: Voiding Method Indwelling Catheter Indwelling Catheter Indwelling Catheter - Exam Abdomen: Soft, nondistended, incision clean and dry presently, ostomy function - Labs CBC & Chem 7: 07/19/21 08:09 07/19/21 08:09 Labs: Abnormal Lab Results - Last 24 Hours (Table) 07/19/21 07/19/21 Range/Units 08:09 08:09 RBC 3.37 L (3.80-5.40) m/uL Hgb 10.6 L (11.4-16.0) gm/dL Hct 31.7 L (34.0-46.0) % Sodium 129 L (137-145) mmol/L Calcium 8.0 L (8.4-10.2) mg/dL Magnesium 1.5 L (1.6-2.3) mg/dL Assessment and Plan (1) Abdominal pain Narrative/Plan: Patient doing well at this time. May discharge. Follow-up one week. Current Visit: Yes Status: Acute Code(s): R10.9 - UNSPECIFIED ABDOMINAL PAIN SNOMED Code(s): 30094283
--- NOTE | 2021-07-19 12:40 | P.DS ---
<Ole, - Last Filed: 07/19/21 12:21> Providers Expected date of discharge: 07/19/21 Hospital Course: Diarrhea secondary to Partial colonic obstruction Patient is a 85-year-old female that presented to the ER after falling while trying to go to the bathroom. She reports falling on her bottom, no injury to head or loss of consciousness. She also reports having diarrhea for the past 4-5 weeks as well as dizziness and weakness. CT of the head and cervical spine showed no acute fracture or dislocation. Right knee x-ray was negative for fracture or dislocation, positive for osteoarthritis. She had mild leukocytosis 11.6, sodium was 126, bun 34, creatinine 1.09. She was recently admitted in the hospital in May and June with diarrhea secondary to acute diverticulitis and possible perforation. She was discharged home on antibiotics but was continuing to have diarrhea and increased weakness both times. reported that the patient has not been doing well at home and may require rehab. Patient has medical history of CVA, GERD, hypertension, C. diff 2015, right side brain aneurysm, surgical history of cholecystectomy and hysterectomy. Patient was followed by hospitalists 07/06/21-07/10/21. GI and Surgical services consulted for diarrhea and partial colonic obstruction. 07/11/21 Patient was seen and examined at bedside. She is sitting in the chair drinking water. Reports feeling weak and tired. She is status post op left colectomy with end colostomy and hernia repair on 07/09/21. Today is postop day 2. She reports tenderness at surgical site. Stool is present in colostomy. reports walking in the hallway with physical therapy today. Is agreeable to rehab services at discharge. 07/12/21 Patient is resting comfortably in bed. States she is very tired and weak today. Denies shortness of breath, chest pain, palpitations or abdominal pain. Diet was increased to full liquids and she reports tolerating a pudding well. Potassium, magnesium, sodium and white blood count levels have improved. Patient is still agreeable to subacute rehab. 07/13/21 Patient sitting up in bed. Reports generalized weakness and soreness at incision site. Denies dyspnea, chest pain, and abdominal pain. Diet maintained at full liquids, tolerating well. Potassium this morning was 3.2, replaced and daily dose added. Repeat chest xray shows small right pleural effusion, continue iv zosyn and encouraged IS use. Plan to discharge to subacute rehab. 07/14/2021 Patient is sitting up in chair, in no acute distress. Continues to feel weak, denies abdominal pain, dyspnea, chest pain or dizziness. Diet was increased to regular, tolerating well. Potassium was 3.0, replaced in addition to daily dose. Echocardiogram ordered by cardiology shows severe global hypokinesis of left ventricle and an ejection fraction of 20-25%, previous echocardiogram and [facility] showed an EF of 50-55%. We'll continue to follow cardiology recommendations. Continue to encourage patient to use incentive spirometry and work with physical therapy. Hospitalist coverage to 07/15/21 through 07/17/21 07/18/2021 Patient seen and examined at bedside. She is in no acute distress sitting up in bed. Reports continued weakness, denies abdominal pain, chest pain, shortness of breath. Patient is tolerating regular diet well. Potassium and magnesium stable today, we will recheck tomorrow. Repeat echocardiogram shows overall left ventricular systolic function moderately impaired with EF between 35 and 40%. This is an improvement from previous echo showing EF of 20-25%. Will await cardiology recommendations. We'll plan to discharge to subacute rehab once cleared by surgery and cardiology. 07/19/2021 Patient was seen and examined at bedside. Sitting up in the chair in no acute distress. Continues to have weakness. Denies abdominal pain, chest pain, shortness of breath. Tolerating diet well. Magnesium was 1.5 today, will be replaced. Cleared by cardiology and surgery to be discharged to subacute rehab. Assessment: Partial colonic obstruction, status post left colectomy with end colostomy and hernia repair on 07/09/21 New-onset cardiomyopathy, etiology unclear per radiology Pericardial effusion Bilateral aspiration pneumonia Hypokalemia Hyponatremia hypomagnesium Hypertension Falls at home Recent history of diverticulitis and possible perforation Seizure disorder Health Concerns: Multiple comorbidities Pertinent Studies: Knee x-ray in ER, no fracture or dislocation Abdominal x-ray on 07/06/2021 found dilated small bowel increase compared to last exam and suggestive of significant ileus or partial mechanical small bowel obstruction 07/07/[address] found dilated large and small bowel with fluid levels extending down to the rectum and consistent with a generalized ileus, sigmoid di verticulosis without diverticulitis Chest x-ray on 07/12/2021 found small right pleural effusion, pericardial effusion Echocardiogram on 07/13/2021 found severe global hypokinesis of left ventricle, EF 5% Repeat echocardiogram on 07/18/2021 showed improvement of left ventricle function EF 35-40% Procedures: 07/09/2021 patient underwent left colectomy with end colostomy, partial omentectomy, repair incisional hernia, mobilization splenic flexure with Dr. Mccarty, see operative note Patient Condition at Discharge: Stable Plan - Discharge Summary Discharge Rx Participant: No New Discharge Prescriptions: New Spironolactone [Aldactone] 25 mg PO DAILY #1 tablet Metoprolol Succinate (ER) [Toprol XL] 50 mg PO DAILY #1 tab Lisinopril [Zestril] 2.5 mg PO DAILY #1 tab Pantoprazole [Protonix] 40 mg PO AC-BRKFST #1 tab Lacosamide [Vimpat] 50 mg PO BID 3 Days #6 tab Continue Aspirin 81 mg PO DAILY Nystatin 100,000 Unit/gm Powd [Mycostatin Powder] 1 applic TOPICAL BID PRN PRN Reason: Skin Irritation Atorvastatin [Lipitor] 10 mg PO HS #30 tab Lacosamide [Vimpat] 50 mg PO BID 30 Days #60 tablet Loperamide [Imodium] 2 mg PO QID PRN #20 cap PRN Reason: Diarrhea Acetaminophen Tab [Tylenol] 325 - 650 mg PO Q6HR PRN PRN Reason: Mild Pain Or Fever > 100.5 Magnesium Oxide [Mag-Ox] 400 mg PO HS #1 tab Discontinued Pantoprazole [Protonix] 40 mg PO AC-BRKFST 30 Days #30 tab Losartan Potassium [Cozaar] 50 mg PO HS Stop-Pain 1 applic TOPICAL DAILY PRN PRN Reason: knee pain Cholestyramine (with Sugar) [Questran Packet] 4 gm PO BID@1000,1800 #60 packet atenoloL [Tenormin] 12.5 mg PO BID #30 tab Discharge Medication List Aspirin 81 mg PO DAILY 07/11/20 [History] Nystatin 100,000 Unit/gm Powd [Mycostatin Powder] 1 applic TOPICAL BID PRN 12/03/20 [History] Atorvastatin [Lipitor] 10 mg PO HS #30 tab 06/27/21 [Rx] Lacosamide [Vimpat] 50 mg PO BID 30 Days #60 tablet 06/27/21 [Rx] Loperamide [Imodium] 2 mg PO QID PRN #20 cap 06/27/21 [Rx] Acetaminophen Tab [Tylenol] 325 - 650 mg PO Q6HR PRN 07/06/21 [History] Lacosamide [Vimpat] 50 mg PO BID 3 Days #6 tab 07/19/21 [Rx] Lisinopril [Zestril] 2.5 mg PO DAILY #1 tab 07/19/21 [Rx] Magnesium Oxide [Mag-Ox] 400 mg PO HS #1 tab 07/19/21 [Rx] Metoprolol Succinate (ER) [Toprol XL] 50 mg PO DAILY #1 tab 07/19/21 [Rx] Pantoprazole [Protonix] 40 mg PO AC-BRKFST #1 tab 07/19/21 [Rx] Spironolactone [Aldactone] 25 mg PO DAILY #1 tablet 07/19/21 [Rx] Follow up Appointment(s)/Referral(s): Yobany Mccarty MD [Medical Doctor] - 1 Week Oli Glover MD [Primary Care Provider] - 1-2 days David Chen MD [STAFF PHYSICIAN] - 2 Weeks Leida Santana MD [STAFF PHYSICIAN] - 2 Weeks Activity/Diet/Wound Care/Special Instructions: Colostomy Care Instructions for Transition to Rehab Facility LAst pouching system change: 07.17.2021\ Mrs Maldonado will have the following Colostomy care Supplies for transition from [facility]: Convatec cut to fit one piece with filter pouching system #[id number] (3) No sting prep pads (10) Yoana seals (2) Not currently utilized but if needed pt will have Ostomy Powder (1) Mrs Maldonado is to change the entire pouching system every 3-5 days The pouch is to be emptied when it is 1/2 to 1/3 full in the bathroom Rehab please assist to arrange for disposable pouching pre cut system in 3 weeks Regular Diet [place] can be removed 14 days after surgery, no dressing needed Discharge Disposition: TRANSFER TO SNF/ECF <Oli Glover - Last Filed: 07/27/21 19:43> Providers Date of admission: 07/06/21 13:52 Attending physician: Oli Glover Consults: 07/06/21 22:00 Consult Physician Routine Consulting Provider: Leida Santana Consult Reason/Comments: chronic Diarrhea Do you want consulting provider notified?: Yes, Notify in am 07/07/21 09:29 Consult Physician Routine Consulting Provider: Yobany Mccarty Consult Reason/Comments: abdominal pain, recent diverticulitis Do you want consulting provider notified?: Already Contacted 07/13/21 12:52 Consult Physician Routine Consulting Provider: Sam Olguin Consult Reason/Comments: pericardial effusion Do you want consulting provider notified?: Yes Primary care physician: Oli Glover I have personally seen and examined the patient, reviewed the documentation and agree with the assessment and plan as written. Number of minutes spent on the visit: Greater than 15.
--- NOTE | 2021-07-19 13:06 | CDI ---
Documentation Clarification Form Please refer to Dr. Olguin, progress note from [address] [facility] Date: 07/19/2021 12:42:37 PM From: Yeni Fernandez RN CCDS Admit Date: 07/06/2021 01:52:00 PM Patient Name: Roxanne Maldonado Visit Number: [id number] Discharge Date: ATTENTION: The Clinical Documentation Specialists (CDI) and [facility] Coding Staff appreciate your assistance in clarifying documentation. Please respond to the clarification below the line at the bottom and electronically sign. The CDI & [facility] Coding staff will review the response and follow-up if needed. Please note: Queries are made part of the Legal Health Record. If you have any questions, please contact the author of this message via ITS. Dr. Gema Mares Your patient has the documented diagnosis of unspecified Heart failure 07/16, Cardiology note. Additional information regarding the Heart failure is requested. History/Risk Factors: 85-year-old female presents to the ED abdominal pain. The patient underwent left colectomy with end colostomy, partial omentectomy, repair of incisional hernia and mobilization of splenic flexure on 07/09. Cardiology was consulted for pericardial effusion. Medical history: HTN, HLD and TIA. 07/14, Cardiology consult. Clinical Indicators: VS/Pulse OX: 07/14 B/P 121/66; HR 90; Temp 97.6 Oral; RR 16; SpO2 96% ra BNP: 07/14 [id number] EK/11, Cardiology consult reveals sinus mechanism with no signs of acute ischemia. Q waves laterally and V1-V2 Echocardiogram Results: 07/13 Moderate concentric left ventricular hypertrophy. Severe global hypokinesis of LV. Overall ventricular systolic function is severely impaired with, an EF between 20-25%. Small, generalized pericardial effusion present. Echocardiogram Results: 07/18 EF 35-40%; Mid anterior LV wall motion is hypokinetic; Mid inferoseptal LV wall motion is hypokinetic; Apical anterior LV wall motion is hypokinetic. Apical lateral LV wall motion hypokinetic; Apical inferior LV wall motion is hypokinetic; Apical septum LV wall motion is hypokinetic. Mild tricuspid regurgitation present. Mild pulmonary hypertension. Right ventricular systolic pressure, as measured by Doppler is 42.58mmHg. Moderate, generalized pericardial effusion present. Chest X Ray: 07/12 Small right pleural effusion, correlate for basilar atelectasis. Pericardial effusion. Treatment: 07/13 Lasix 20mg IV x 1; 07/15 current Lisinopril 2.5mg PO Daily; 07/14 07/18 Toprol XL 25mg PO Daily; 07/18 Toprol XL 25mg PO x 1; 07/19 to current Toprol XL 50mg PO Daily; 07/16 to current Aldactone 25mg PO Daily. In your professional opinion, can you please clarify the acuity and type of CHF if known? [ ] Acute Systolic Heart Failure (reduced EF) [ ] Acute Systolic Diastolic Heart Failure [ ] Other, please specify [ ] Unable to determine (Template Last Revised: July 2020) MTDD
--- NOTE | 2021-07-19 13:14 | P.PN ---
Subjective This is a 85 year old female with a past medical history significant for hypertension, hyperlipidemia, falls, diverticulitis, and seizure disorder. 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 We have been asked to see the patient in consultation for pericardial effusion. patient is admitted to the hospital secondary to partial colonic obstruction. She underwent left colectomy with end colostomy, partial omentectomy, repair of incisional hernia, and mobilization of splenic flexure with Dr. Mccarty on 07/09/2021. * Patient had an echocardiogram performed revealing EF 20-25%, severe global hypokinesis of LV, and small generalized pericardial effusion. Cardiomyopathy is new compared to echo completed in June 2021 (see details below). * Troponins revealed trend 2.6-->2.2.--1.8 * Echo obtained in June 2021 revealed ejection fraction 50-55%, mild mitral regurgitation, mild tricuspid regurgitation, 07/19/2021 Patient seen and examined. She denies any chest pain or shortness of breath. No symptoms of orthopnea or PND. She overall is feeling well. Repeat Limited echo revealed improvement in EF 35-40% with apical LV wall hypokinesis, moderate generalized pericardial effusion. (improvement from EF 20- 25%). Telemetry reviewed patient sinus mechanism with heart rates in the 90s- Labs: sodium 129, potassium 4.0, BUN 10, serum creatinine 0.6, magnesium 1.5, currently being replaced Meds: aspirin 81 mg daily, atorvastatin 10 mg nightly, lisinopril 2.5 mg daily, metoprolol succinate 50 mg daily, spironolactone 25 mg daily PHYSICAL EXAM: VITAL SIGNS: Reviewed. GENERAL: Well-developed in no acute distress. HEENT: Neck supple. No JVD LUNGS: Respirations even and unlabored. Lungs essentially clear to auscultation bilaterally. HEART: Regular rate and rhythm. S1 and S2 heard. ABDOMEN: Soft. Nondistended. Nontender. EXTREMITIES: Normal range of motion. No clubbing or cyanosis. Peripheral pulses intact. No lower extremity edema NEUROLOGIC: Awake and alert. Oriented x 3. ASSESSMENT: Partial colonic obstruction, s/p left colectomy with end colostomy, partial omentectomy, repair of incisional hernia, and mobilization of splenic flexure Pericardial effusion, with no signs of tamponade New-onset cardiomyopathy, etiology unclear Bilateral pneumonia Hypokalemia Hyponatremia Hypertension Hyperlipidemia GERD History of TIA History of right MCA aneurysm measuring 10 mm History of seizure disorder NSTEMI PLAN: From a cardiology perspective, patient remains stable. Limited Echo today revealed EF 35-40% with apical LV wall hypokinesis, moderate generalized pericardial effusion with no signs of tamponade Continue metoprolol succinate 50mg daily Continue aspirin 81mg daily, lisinopril 2.5 mg daily, spironolactone 25mg daily May continue with current dose of atorvastatin Pericardial effusion present with no signs of tamponade Continue with medical therapy at this time Follow up with Dr. Chen outpatient Objective - Vital Signs Vital signs: Vital Signs Temp 97.9 F 07/19/21 08:00 Pulse 102 H 07/19/21 08:00 Resp 18 07/19/21 08:00 BP 111/74 07/19/21 08:00 Pulse Ox 96 07/19/21 08:00 Intake & Output 07/18/21 07/19/21 07/19/21 18:59 06:59 18:59 Intake Total 100 220 Output Total 125 500 Balance -25 -500 220 Intake: Oral 100 220 Output: Urine 300 Stool 125 200 Other: Voiding Method Indwelling Catheter Indwelling Catheter Indwelling Catheter - Labs CBC & Chem 7: 07/19/21 08:09 07/19/21 08:09 Labs: Abnormal Lab Results - Last 24 Hours (Table) 07/19/21 07/19/21 Range/Units 08:09 08:09 RBC 3.37 L (3.80-5.40) m/uL Hgb 10.6 L (11.4-16.0) gm/dL Hct 31.7 L (34.0-46.0) % Sodium 129 L (137-145) mmol/L Calcium 8.0 L (8.4-10.2) mg/dL Magnesium 1.5 L (1.6-2.3) mg/dL
--- NOTE | 2021-07-19 13:23 | CDI ---
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 Please respond to the clarification below the line at the bottom and electronically sign. The CDI & [facility] Coding staff will review the response and follow-up if needed. Please note: Queries are made part of the Legal Health Record. If you have any questions, please contact the author of this message via ITS. Dr. Gema Mares NSTEMI is documented 07/16 07/18, Cardiology progress notes. Additional clarification regarding the type of SC is requested. History/Risk Factors: 85-year-old female presents to the ED abdominal pain. The patient underwent left colectomy with end colostomy, partial omentectomy, repair of incisional hernia and mobilization of splenic flexure on 07/09. Cardiology was consulted for pericardial effusion. Medical history: HTN, HLD and TIA. 07/14, Cardiology consult. Clinical Indicators: Troponin: 07/14 2.650; 2.240; 1.870 EK/11, Cardiology consult reveals sinus mechanism with no signs of acute ischemia. Q waves laterally and V1-V2 07/14, Cardiology consult: Will hold off on IV heparin at this time. Continue with conversative management. Transfer patient to for closer monitoring. 07/16, Cardiology progress note: Consideration of possible type I SC however also consideration of Takotsubos cardiomyopathy. Treatment: 07/13 Lasix 20mg IV x 1; 07/15 current Lisinopril 2.5mg PO Daily; 07/14 07/18 Toprol XL 25mg PO Daily; 07/18 Toprol XL 25mg PO x 1; 07/19 to current Toprol XL 50mg PO Daily; 07/16 to current Aldactone 25mg PO Daily; 07/14 - current Aspirin 81mg PO Daily. Please clarify the type of SC, if known: [ ] NSTEMI (type 1) [ ] Type II SC due to (please specify etiology) [ ] Unable to determine [ ] Other Condition, please specify (Template Last Revised: August 2020) MTDD
[2021-07-19] MEDS: MAGNESIUM SULFATE-D5W PMX 1 GM in DEXTROSE/WATER 1 100ML.BAG IVPB SCH ×2 (13:28→14:33)
[2021-07-19] MEDS: ACETAMINOPHEN TAB 325 MG TAB PO PRN (13:28)
[2021-07-19] MEDS ORDERED: MAGNESIUM OXIDE 400 MG TAB PO STA (14:34)
[2021-07-19 16:13] VITALS: PULSE 92
--- NOTE | 2021-07-28 13:34 | CDI ---
Documentation Clarification Form Date: 07/28/2021 01:30:05 PM From: Yeni Fernandez RN CCDS Admit Date: 07/06/2021 01:52:00 PM Patient Name: Roxanne Maldonado Visit Number: [id number] Discharge Date: 07/19/2021 04:10:00 PM ATTENTION: The Clinical Documentation Specialists (CDI) and [facility] Coding Staff appreciate your assistance in clarifying documentation. Please respond to the clarification below the line at the bottom and electronically sign. The CDI & [facility] Coding staff will review the response and follow-up if needed. Please note: Queries are made part of the Legal Health Record. If you have any questions, please contact the author of this message via ITS. Dr. Sam Olguin Your patient has the documented diagnosis of unspecified Heart failure 07/16, Cardiology note. Additional information regarding the Heart failure is requested. History/Risk Factors: 85-year-old female presents to the ED abdominal pain. The patient underwent left colectomy with end colostomy, partial omentectomy, repair of incisional hernia and mobilization of splenic flexure on 07/09. Cardiology was consulted for pericardial effusion. Medical history: HTN, HLD and TIA. 07/14, Cardiology consult. Clinical Indicators: VS/Pulse OX: 07/14 B/P 121/66; HR 90; Temp 97.6 Oral; RR 16; SpO2 96% ra BNP: 07/14 [id number] EK/11, Cardiology consult reveals sinus mechanism with no signs of acute ischemia. Q waves laterally and V1-V2 Echocardiogram Results: 07/13 Moderate concentric left ventricular hypertrophy. Severe global hypokinesis of LV. Overall ventricular systolic function is severely impaired with, an EF between 20-25%. Small, generalized pericardial effusion present. Echocardiogram Results: 07/18 EF 35-40%; Mid anterior LV wall motion is hypokinetic; Mid inferoseptal LV wall motion is hypokinetic; Apical anterior LV wall motion is hypokinetic. Apical lateral LV wall motion hypokinetic; Apical inferior LV wall motion is hypokinetic; Apical septum LV wall motion is hypokinetic. Mild tricuspid regurgitation present. Mild pulmonary hypertension. Right ventricular systolic pressure, as measured by Doppler is 42.58mmHg. Moderate, generalized pericardial effusion present. Chest X Ray: 07/12 Small right pleural effusion, correlate for basilar atelectasis. Pericardial effusion. Treatment: 07/13 Lasix 20mg IV x 1; 07/15 current Lisinopril 2.5mg PO Daily; 07/14 07/18 Toprol XL 25mg PO Daily; 07/18 Toprol XL 25mg PO x 1; 07/19 to current Toprol XL 50mg PO Daily; 07/16 to current Aldactone 25mg PO Daily. In your professional opinion, can you please clarify the acuity and type of CHF if known? [ X ] Acute Systolic Heart Failure (reduced EF) [ ] Acute Systolic Diastolic Heart Failure [ ] Other, please specify [ ] Unable to determine (Template Last Revised: July 2020) MTDD
== END 2021-07-19 16:10 | DRG 329 ==
LOC: EC 09:50 → 5NMEDONC 13:52 → 3SCARD 07-14 15:41
PROVIDERS: ADMIT Family Medicine; ATTEND Family Medicine
PROC: 0D1E0Z4 Bypass Large Intestine to Cutaneous, Open Approach (ICD-10-PCS; 2021-07-09)
PROC: 0DBU0ZZ Excision of Omentum, Open Approach (ICD-10-PCS; principal; 2021-07-09 07:03)
PROC: 0DTG0ZZ Resection of Left Large Intestine, Open Approach (ICD-10-PCS; 2021-07-09 07:03)
PROC: 0WQF0ZZ Repair Abdominal Wall, Open Approach (ICD-10-PCS; 2021-07-09 07:03)
DX: K57.20 Diverticulitis of large intestine with perforation and abscess without bleeding (principal); J69.0 Pneumonitis due to inhalation of food and vomit; I50.21 Acute systolic (congestive) heart failure; N17.9 Acute kidney failure, unspecified; E87.1 Hypo-osmolality and hyponatremia; E87.0 Hyperosmolality and hypernatremia; I31.3 Pericardial effusion (noninflammatory); I42.9 Cardiomyopathy, unspecified; K56.609 Unspecified intestinal obstruction, unspecified as to partial versus complete obstruction; E78.5 Hyperlipidemia, unspecified; Z86.73 Personal history of transient ischemic attack (TIA), and cerebral infarction without residual deficits; K21.9 Gastro-esophageal reflux disease without esophagitis; M19.90 Unspecified osteoarthritis, unspecified site; Z20.822 Contact with and (suspected) exposure to COVID-19; E86.1 Hypovolemia; D72.829 Elevated white blood cell count, unspecified; R19.7 Diarrhea, unspecified; K52.9 Noninfective gastroenteritis and colitis, unspecified; Z87.19 Personal history of other diseases of the digestive system; E83.42 Hypomagnesemia; E87.6 Hypokalemia; F40.240 Claustrophobia; G40.909 Epilepsy, unspecified, not intractable, without status epilepticus; K43.2 Incisional hernia without obstruction or gangrene; R29.6 Repeated falls; S09.90XA Unspecified injury of head, initial encounter; W18.11XA Fall from or off toilet without subsequent striking against object, initial encounter; Y92.009 Unspecified place in unspecified non-institutional (private) residence as the place of occurrence of the external cause; Z79.82 Long term (current) use of aspirin; Z79.899 Other long term (current) drug therapy; Z82.49 Family history of ischemic heart disease and other diseases of the circulatory system; Z86.19 Personal history of other infectious and parasitic diseases; Z90.710 Acquired absence of both cervix and uterus; I11.0 Hypertensive heart disease with heart failure
CPT/HCPCS: 36415; 70450; 71045; 71046; 72125; 74018; 74176; 80048; 80053; 81001; 82272; 83630; 83735; 83880; 84132; 84145; 84484; 85025; 85027; 87040; 87045; 87046; 87324; 87635; 88307; 93005; 93306; 93308; 94760; 99285

== ENCOUNTER 2023-02-16 11:06 | Emergency (ER) | payer MEDICARE, BC ==
[2023-02-16 11:18] VITALS: RESP 18; TEMP 97.9
[2023-02-16] MEDS ORDERED: KETOROLAC 15 MG/ML 1 ML VIAL IM STA (11:55)
[2023-02-16] MEDS ORDERED: MORPHINE SULFATE 4 MG/ML SYRINGE IM STA (11:55)
[2023-02-16] MEDS ORDERED: LIDOCAINE 5% PATCH TOPICAL ONE (11:55)
--- NOTE | 2023-02-16 12:45 | ED ---
Back Pain HPI - General Chief Complaint: Back Pain/Injury Stated Complaint: fall Time Seen by Provider: 02/16/23 11:39 Source: patient, RN notes reviewed Mode of arrival: wheelchair Limitations: no limitations - History of Present Illness Initial Comments: This is an 87-year-old female who presents to the emergency department for a fall. Patient was on a step stool last night, when it gave out from underneath her and she fell backwards. Reports hitting her head and injuring her lower back. She did not sustain any loss of consciousness. She is not on any blood thinners. Reports a history of brain surgery for aneurysms and has coils in her head, and is concerned about causing problems from hitting her head. She tried taking Tylenol last night with no relief in symptoms. Denies any loss of bowel/bladder control or saddle anesthesia. Denies any fevers, chills, sore throat, cough, dyspnea, chest pain, palpitations, abdominal pain, nausea, vomiting, or diarrhea. MD Complaint: back pain, back injury, fall - Related Data Home Medications Medication Instructions Recorded Confirmed Aspirin 81 mg PO DAILY 07/11/20 10/04/22 Acetaminophen Tab [Tylenol] 325 - 650 mg PO Q6HR PRN 07/06/21 10/04/22 Cefdinir [Omnicef] 300 mg PO BID 10/04/22 10/04/22 Losartan Potassium [Cozaar] 100 mg PO HS 10/04/22 10/04/22 atenoloL [Tenormin] 25 mg PO HS 10/04/22 10/04/22 Previous Rx's Medication Instructions Recorded HYDROcodone/APAP 5-325MG [Oscoda 1 tab PO Q6HR PRN 3 Days #12 tab 02/16/23 5-325] Lidocaine 5% Patch [Lidoderm 5% 1 patch TOPICAL DAILY PRN #30 patch 02/16/23 Patch] Naproxen Sodium [Naproxen Sodium 500 mg PO BID PRN #30 tab 02/16/23 ER] Allergies Allergy/AdvReac Type Severity Reaction Status Date / Time aluminum Allergy Unknown Verified 02/16/23 11:16 benzalkonium chloride Allergy Unknown Verified 02/16/23 11:16 [From Bactine (with alcohol)] codeine Allergy Unknown Verified 02/16/23 11:16 lidocaine Allergy Unknown Verified 02/16/23 11:16 [From Bactine (with alcohol)] metronidazole [From Flagyl] Allergy Unknown Verified 02/16/23 11:16 sulfamethoxazole Allergy Unknown Verified 02/16/23 11:16 [From Bactrim] trimethoprim [From Bactrim] Allergy Unknown Verified 02/16/23 11:16 amlodipine AdvReac Nausea & Verified 02/16/23 11:16 Vomiting cephalexin [From Keflex] AdvReac Nausea & Verified 02/16/23 11:16 Vomiting chlorthalidone AdvReac Nausea & Verified 02/16/23 11:16 Vomiting Iodinated Contrast Media AdvReac Nausea & Verified 02/16/23 11:16 Vomiting levofloxacin [From Levaquin] AdvReac Nausea & Verified 02/16/23 11:16 Vomiting lisinopril AdvReac Nausea & Verified 02/16/23 11:16 Vomiting Review of Systems ROS Statement: Those systems with pertinent positive or pertinent negative responses have been documented in the HPI. ROS Other: All systems not noted in ROS Statement are negative. Past Medical History Past Medical History: CVA/TIA, GERD/Reflux, Hypertension Additional Past Medical History / Comment(s): past back pain, c-diff 2015, rt side brain anuerysm (TIA); small perforation in bowels History of Any Multi-Drug Resistant Organisms: C-DIFF Date of last positivie culture/infection: 2005 MDRO Source:: stool Past Surgical History: Cholecystectomy, Hysterectomy, Tonsillectomy Additional Past Surgical History / Comment(s): colonoscopy, eye sx(tear ducts) brain surgery aneursym repair with coil 07/01/20 Past Anesthesia/Blood Transfusion Reactions: Motion Sickness Additional Past Anesthesia/Blood Transfusion Reaction / Comment(s): claustrophobia Past Psychological History: Anxiety Smoking Status: Never smoker Past Alcohol Use History: None Reported Past Drug Use History: None Reported - Past Family History Father Family Medical History: Hypertension Additional Family Medical History / Comment(s): Father at the age of 63 yrs. He was an alcoholic and a smoker. Mother Family Medical History: Hypertension Additional Family Medical History / Comment(s): Mother at the age of 88yrs. General Exam Limitations: no limitations General appearance: alert, in no apparent distress Head exam: Present: atraumatic, normocephalic, normal inspection Eye exam: Present: normal appearance, PERRL, EOMI. Absent: scleral icterus, conjunctival injection, periorbital swelling Respiratory exam: Present: normal lung sounds bilaterally. Absent: respiratory distress, wheezes, rales, rhonchi, stridor Cardiovascular Exam: Present: regular rate, normal rhythm, normal heart sounds. Absent: systolic murmur, diastolic murmur, rubs, gallop, clicks Back exam: Present: normal inspection, full ROM, tenderness (lumbar spine) Neurological exam: Present: alert, oriented X3, CN II-XII intact Psychiatric exam: Present: normal affect, normal mood Skin exam: Present: warm, dry, intact, normal color. Absent: rash Course Vital Signs 02/16/23 02/16/23 11:14 13:44 Temperature 97.9 F Pulse Rate 63 58 L Respiratory 18 18 Rate Blood Pressure 184/76 162/63 O2 Sat by Pulse 96 97 Oximetry Medical Decision Making - Medical Decision Making This is an 87-year-old female who presents to the emergency department for lower back pain after fall. Was pt. sent in by a medical professional or institution? @ -No Did you speak to anyone other than the patient for history? @ -No Did you review nursing and triage notes? @ -Yes, and I agree, it is accurate with regards to the patient's symptoms. Were old charts reviewed? @ -No Differential Diagnosis? @ -Differential Back Pain: Strain, zoster, cauda equina syndrome, epidural abscess, vertebral osteomyelitis, discitis, fracture, subluxation, disc herniation, DJD, spinal stenosis, dissection, AAA, pancreatitis, peptic ulcer disease, pyelonephritis, kidney stone, this is not meant to be an all-inclusive list. EKG interpreted by me (3pts min.)? @ -Not obtained X-rays interpreted by me (1pt min.)? @ -X-ray of the lumbar, coccyx, and sacrum obtained. My interpretation identifies a questionable L1 fracture. CT interpreted by me (1pt min.)? @ -Computed tomography scan of the brain and c-spine obtained. My interpretation identifies no evidence of an acute intracranial hemorrhage, skull fracture, or cervical spine fracture. U/S interpreted by me (1pt. min.)? @ -Not obtained What testing was considered but not performed? (CT, X-rays, U/S, labs)? Why? @ -None What meds were considered but not given? Why? @ -None Did you discuss the management of the patient with other professionals? @ -No Did you reconcile home meds? @ -No Was smoking cessation discussed for >3mins.? @ -No Was critical care preformed (if so, how long)? @ -No Were there social determinants of health that impacted care today? How? (Homelessness, low income, unemployed, alcoholism, drug addiction, transportation, low edu. Level, literacy, decrease access to med. care, correction, rehab)? @ -No Was there de-escalation of care discussed even if they declined? (Discuss DNR or withdrawal of care, Hospice)? @ -No What co-morbidities impacted this encounter? (DM, HTN, Smoking, COPD, CAD, Cancer, CVA, Hep., AIDS, mental health diagnosis, sleep apnea, morbid obesity)? @ -None Was patient admitted / discharged? @ -Discharged. X-ray of the lumbar spine, sacrum, and coccyx obtained revealing a possible L1 fracture. Computed tomography scan of the brain obtained as well revealing no acute process. Her pain was controlled in the emergency department. Given the L1 fracture, I was willing to give her a prescription for a 3 day course of Oscoda. Prescription for naproxen and lidocaine patches provided as well with dosing instructions reviewed. She is advised to avoid any other anti-inflammatories such as ibuprofen with the naproxen and to take the Oscoda very sparingly when her pain is the most severe. She will otherwise follow up with orthopedics for the possible L1 fracture. Undiagnosed new problem with uncertain prognosis? @ -None Drug Therapy requiring intensive monitoring for toxicity (Heparin, Nitro, Insulin, Cardizem)? @ -None Were any procedures done? @ -None Diagnosis/symptom? @ -Fall, L1 vertebral fracture Acute, or Chronic, or Acute on Chronic? @ -Acute Uncomplicated (without systemic symptoms) or Complicated (systemic symptoms)? @ -Uncomplicated Side effects of treatment? @ -None Exacerbation, Progression, or Severe Exacerbation] @ -Not applicable Poses a threat to life or bodily function? @ -No Return precautions reviewed in depth, the patient is instructed to return to the emergency department with any new, worsening, or concerning symptoms. Patient verbalized understanding. This case was discussed in detail with the attending ED physician, Dr. Lobo. Presentation, findings, and treatment plan discussed in detail as well. - Radiology Data Radiology results: report reviewed, image reviewed Disposition Clinical Impression: Fall, L1 vertebral fracture Disposition: HOME SELF-CARE Instructions (If sedation given, give patient instructions): Thoracolumbar Fracture (ED) Additional Instructions: Return to the emergency department with any new, worsening, or concerning symptoms. Take the naproxen with Tylenol as needed for pain relief. If you choose to take the naproxen, do not take any other anti-inflammatories such as ibuprofen, take one or the other. You can apply the lidocaine patches daily as well. Take the Oscoda sparingly when your pain is the most severe. Contact orthopedics as listed below for a follow up appointment regarding the L1 fracture. Follow up with your primary care provider in 1-2 days. Prescriptions: Lidocaine 5% Patch [Lidoderm 5% Patch] 1 patch TOPICAL DAILY PRN #30 patch PRN Reason: Pain Naproxen Sodium [Naproxen Sodium ER] 500 mg PO BID PRN #30 tab PRN Reason: Pain HYDROcodone/APAP 5-325MG [Oscoda 5-325] 1 tab PO Q6HR PRN 3 Days #12 tab PRN Reason: Pain Is patient prescribed a controlled substance at d/c from ED?: Yes When asked, does pt state using other controlled substances?: No If prescribed controlled substance>3 days was MAPS reviewed?: Prescribed <3 Days Referrals: Oli Glover MD [Primary Care Provider] - 1-2 days Elba Blanton DO [Doctor of Osteopathic Medicine] - 1-2 days
--- NOTE | 2023-02-16 12:51 | CT ---
EXAMINATION TYPE: CT brain cspine wo con DATE OF EXAM: 02/16/2023 COMPARISON: Prior CT July 06, 2021 HISTORY: Fall, Head injury CT DLP: 1604.9 mGycm. Automated Exposure Control for Dose Reduction was Utilized. TECHNIQUE: CT scan of the head and cervical spine are performed without contrast. FINDINGS: There is no acute intracranial hemorrhage or midline shift identified. Mild to moderate v entricular and sulcal prominence redemonstrated. Old right-sided infarcts again seen. The calvarium i s intact. Globes are intact and visualized paranasal sinuses are clear. Cervical spine is visualized in its entirety from C1 through upper thoracic levels and demonstrates s table and satisfactory alignment without evidence of acute fracture or dislocation. Prevertebral sof t tissue appears within normal limits. The C1-C2 articulation is within normal limits on the coronal images. Vertebral body heights are maintained. Mild to moderate disc space narrowing at C5-C6 level redemonstrated. Spinal canal is grossly preserved. Review of axial images redemonstrates some multil evel uncovertebral facet degenerative changes bilaterally. Thyroid gland is heterogeneous and slightl y enlarged in size. Lung apices show no pneumothorax. IMPRESSION: 1. There is no acute fracture or dislocation evident in the cervical spine. 2. No acute intracranial hemorrhage or midline shift is seen. No significant change from most recent trauma CT.
--- NOTE | 2023-02-16 12:54 | XR ---
EXAMINATION TYPE: XR lumbar spine 2 or 3V, XR sacrum coccyx DATE OF EXAM: 02/16/2023 CLINICAL HISTORY: Pain after fall TECHNIQUE: Frontal and lateral images of the lumbar spine are obtained. 2 views of sacrum and coccyx. COMPARISON: CT abdomen and pelvis October 04, 2022 FINDINGS: Osseous structures are demineralized which is noted to lower radiographic sensitivity. The re are 5 lumbar type vertebral bodies redemonstrated. There is persistent grade 1 anterolisthesis L4 on L5. Mild anterior wedging L1 level new from prior. Mild disc space narrowing L3-L4 and L4-L5 level s. Prominent facet arthropathy in the lower lumbar spine. Overlying cholecystectomy clips are redemon strated. No acute displaced sacral or coccygeal fracture. Sacroiliac joints remain grossly within normal limit s. A few overlying pelvic phleboliths are seen. IMPRESSION: As above. Cannot exclude acute fracture of the L1 vertebra. Correlate with point tenderne ss at this level advised.
[2023-02-16 13:45] VITALS: BP 162/63; PULSE 58
== END 2023-02-16 13:44 | disposition home or self-care (01) ==
LOC: EC 11:06
DX: S32.019A Unspecified fracture of first lumbar vertebra, initial encounter for closed fracture (principal); I10 Essential (primary) hypertension; F41.9 Anxiety disorder, unspecified; Z86.73 Personal history of transient ischemic attack (TIA), and cerebral infarction without residual deficits; Z79.899 Other long term (current) drug therapy; Z79.82 Long term (current) use of aspirin; Z88.6 Allergy status to analgesic agent; Z88.2 Allergy status to sulfonamides; Z88.5 Allergy status to narcotic agent; Z88.1 Allergy status to other antibiotic agents; Z88.8 Allergy status to other drugs, medicaments and biological substances
CPT/HCPCS: 72100; 72220; 72125; 70450; 99284; 96372 ×2; J2270; J1885

== ENCOUNTER 2023-09-22 12:23 | Inpatient (IN) | payer MEDICARE, BC ==
[2023-09-22 13:29] LABS: Basophils % (A) 1 %; Eosinophils # (A) 0.2 k/uL (0-0.7); Eosinophils % (A) 3 %; HCT 36.4 % (34.0-46.0); HGB 11.9 gm/dL (11.4-16.0); Lymphocytes # (A) 1.6 k/uL (1.0-4.8); Lymphocytes % (A) 23 %; MCH 30.7 pg (25.0-35.0); MCHC 32.6 g/dL (31.0-37.0); Mean Platelet Volume 7.4; Monocytes # (A) 0.5 k/uL (0-1.0); Monocytes % (A) 7 %; Neutrophils # (A) 4.6 k/uL (1.3-7.7); Neutrophils % (A) 66 %; Platelet Count 229 k/uL (150-450); RBC 3.88 m/uL (3.80-5.40); RDW 13.3 % (11.5-15.5)
[2023-09-22] MEDS: SODIUM CHLORIDE 0.9% 1,000 ML IV STA (13:31)
--- NOTE | 2023-09-22 13:31 | CT ---
EXAMINATION TYPE: CT brain miguel garrett con DATE OF EXAM: 09/22/2023 COMPARISON: 02/16/2023 HISTORY: 87-year-old female fall, hit back of head, no LOC CT DLP: 1452.6 mGycm Automated exposure control for dose reduction was used. Technique: Examination of the head was done in axial plane without intravenous contrast. Coronal and sagittal reconstructions performed. CT of the cervical spine was obtained in axial plane without intravenous injection of contrast mater ial. Coronal and sagittal reformatted images were obtained from the axial views for evaluation of f ractures, spinal alignment and canal. FINDINGS: Head: Right posterior scalp contusion. No underlying calvarial fracture. Old encephalomalacia right tempora l parietal region. There is a stent noted within the right MCA. Mild ventricular prominence is unchanged likely central cerebral atrophy. Moderate white matter hypod ensities suggesting changes of chronic small vessel ischemic disease. There is no evidence of acute intracranial hemorrhage, acute ischemic changes, mass, mass-effect, or extra-axial fluid collection. There is no effacement of cerebral sulci or basal subarachnoid cister ns. There is no midline shift. Patrick-white matter distinction is preserved. Rightward nasal septum deviation. Mild mucosal thickening left maxillary sinus. Left-sided bushra bul losa. Orbits and globes are intact. Mastoid air cells well pneumatized. Cervical spine: No craniocervical junction, predental space widening, or prevertebral soft tissue swelling. Facet and uncovertebral joint arthropathy greater towards the left side. Mild multilevel degenerative disc disease. Body habitus and patient's shoulders limits detailed assessment of the spinal canal. T here may be mild spinal canal stenosis due to disc bulge and ligamentum flavum thickening at C5-C6. No acute fracture of the cervical spine. Variable mild to moderate neural foraminal stenosis. Sagittal and coronal reformatted images confirm above findings. COMBINED IMPRESSION: 1. Right posterior scalp contusion. No acute intracranial abnormality seen. 2. 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 Stent noted in the ri ght MCA. 3. No acute fracture or malalignment of the cervical spine. Mild spondylotic change.
[2023-09-22 13:34] LABS: Prothrombin Time 10.6 sec (10.0-12.5)
[2023-09-22 13:35] LABS: Appearance,Urine Clear (Clear); Bacteria,Urine Rare /hpf; Bilirubin,Urine Negative (Negative); Blood,Urine Moderate (Negative); Color,Urine Colorless; Glucose,Urine (UA) Negative (Negative); Ketones,Urine Negative (Negative); Leukocyte Esterase,Urine Large (Negative); Mucus,Urine Rare /hpf; Nitrite,Urine Negative (Negative); Protein,Urine Negative (Negative); RBC,Urine 16 /hpf (0-5); Specific Gravity,Urine 1.009 (1.001-1.035); Squamous Epithelial Cell,Urine <1 /hpf (0-4); Urobilinogen,Urine <2.0 mg/dL (<2.0); WBC,Urine 60 /hpf (0-5)
[2023-09-22 13:39] LABS: ALT 15 U/L (4-34); AST 28 U/L (14-36); African American GFR (CKD) 83 (>60 ml/min/1.73 sqM); Albumin 3.8 g/dL (3.5-5.0); Alkaline Phosphatase 55 U/L (38-126); Anion Gap 4 mmol/L; Blood Urea Nitrogen 16 mg/dL (7-17); Calcium 8.7 mg/dL (8.4-10.2); Carbon Dioxide 27 mmol/L (22-30); Chloride 106 mmol/L (98-107); Glucose 96 mg/dL (74-99); Magnesium 1.8 mg/dL (1.6-2.3); Non-African American GFR(CKD) 72 (>60 ml/min/1.73 sqM); Potassium 4.3 mmol/L (3.5-5.1); Sodium 137 mmol/L (137-145); Total Bilirubin 0.5 mg/dL (0.2-1.3); Total Protein 6.7 g/dL (6.3-8.2)
--- NOTE | 2023-09-22 13:56 | ED ---
Fall HPI - General Chief Complaint: Fall Stated Complaint: Fall on thinner-head injury Time Seen by Provider: 09/22/23 12:27 Source: patient, EMS, RN notes reviewed Mode of arrival: EMS Limitations: no limitations - History of Present Illness Initial Comments: This is an 87-year-old female who presents to the emergency department for a fall. Patient was standing in her kitchen cooking, when she started to feel dizzy and fell, hitting the back of her head. She is not taking any blood thinners and denies any loss of consciousness. She did have 2 alcoholic beverages today, rum and punch, and wonders if that may have made her dizzy. However, she has never had this problem with alcohol before. She does also note increasing intermittent dizzy spells throughout the day as well when not consuming alcohol. Denies any chest pain or shortness of breath. Denies sustaining any other injuries from the fall. MD Complaint: fall - Related Data Home Medications Medication Instructions Recorded Confirmed Losartan Potassium [Cozaar] 100 mg PO DAILY@159910/04/22 09/22/23 atenoloL [Tenormin] 12.5 mg PO DAILY@1600 10/04/22 09/22/23 ALPRAZolam [Xanax] 0.25 mg PO DAILY PRN 09/22/23 09/22/23 Alendronate Sodium [Fosamax] 70 mg PO TU 09/22/23 09/22/23 Cranberry Fruit Concentrate [Azo 250 mg PO DAILY 09/22/23 09/22/23 Cranberry] Erythromycin Ophth Oint (1 gm) 1 applic BOTH EYES HS 09/22/23 09/22/23 [Ilotycin Ophth Oint (1 gm)] HYDROcodone/APAP 5-325MG [[place] 0.5 tab PO HS PRN 09/22/23 09/22/23 5-325] Menthol-Zinc Oxide Oint 1 applic TOPICAL BID 09/22/23 09/22/23 [Calmoseptine Ointment] Multivit with Calcium,Iron,Min 1 tab PO DAILY 09/22/23 09/22/23 [Women's Multivitamin] Triamcinolone 0.1% Cream [Kenalog 1 applic TOPICAL BID 09/22/23 09/22/23 0.1% Cream] Vitamin C/Biotin [Hair, Skin and 1 tab PO DAILY 09/22/23 09/22/23 Nails Chew] Allergies Allergy/AdvReac Type Severity Reaction Status Date / Time aluminum Allergy Unknown Verified 09/22/23 17:17 benzalkonium chloride Allergy Unknown Verified 09/22/23 17:17 [From Bactine (with alcohol)] codeine Allergy Unknown Verified 09/22/23 17:17 lidocaine Allergy Unknown Verified 09/22/23 17:17 [From Bactine (with alcohol)] metronidazole [From Flagyl] Allergy Unknown Verified 09/22/23 17:17 sulfamethoxazole Allergy Unknown Verified 09/22/23 17:17 [From Bactrim] trimethoprim [From Bactrim] Allergy Unknown Verified 09/22/23 17:17 amlodipine AdvReac Nausea & Verified 09/22/23 17:17 Vomiting cephalexin [From Keflex] AdvReac Nausea & Verified 09/22/23 17:17 Vomiting chlorthalidone AdvReac Nausea & Verified 09/22/23 17:17 Vomiting Iodinated Contrast Media AdvReac Nausea & Verified 09/22/23 17:17 Vomiting levofloxacin [From Levaquin] AdvReac Nausea & Verified 09/22/23 17:17 Vomiting lisinopril AdvReac Nausea & Verified 09/22/23 17:17 Vomiting Review of Systems ROS Statement: Those systems with pertinent positive or pertinent negative responses have been documented in the HPI. ROS Other: All systems not noted in ROS Statement are negative. Past Medical History Past Medical History: CVA/TIA, GERD/Reflux, Hypertension Additional Past Medical History / Comment(s): past back pain, c-diff 2015, rt side brain anuerysm (TIA); small perforation in bowels History of Any Multi-Drug Resistant Organisms: C-DIFF Date of last positivie culture/infection: 2005 MDRO Source:: stool Past Surgical History: Cholecystectomy, Hysterectomy, Tonsillectomy Additional Past Surgical History / Comment(s): colonoscopy, eye sx(tear ducts) brain surgery aneursym repair with coil 07/01/20 Past Anesthesia/Blood Transfusion Reactions: Motion Sickness Additional Past Anesthesia/Blood Transfusion Reaction / Comment(s): claustrophobia Past Psychological History: Anxiety Smoking Status: Never smoker Past Alcohol Use History: None Reported Past Drug Use History: None Reported - Past Family History Father Family Medical History: Hypertension Additional Family Medical History / Comment(s): Father at the age of 63 yrs. He was an alcoholic and a smoker. Mother Family Medical History: Hypertension Additional Family Medical History / Comment(s): Mother at the age of 88yrs. General Exam Limitations: no limitations General appearance: alert, in no apparent distress Eye exam: Present: normal appearance, PERRL, EOMI. Absent: scleral icterus, conjunctival injection, periorbital swelling Respiratory exam: Present: normal lung sounds bilaterally. Absent: respiratory distress, wheezes, rales, rhonchi, stridor Cardiovascular Exam: Present: regular rate, normal rhythm, normal heart sounds. Absent: systolic murmur, diastolic murmur, rubs, gallop, clicks Neurological exam: Present: alert, oriented X3, CN II-XII intact Psychiatric exam: Present: normal affect, normal mood Skin exam: Present: warm, dry, intact, normal color. Absent: rash Course Vital Signs 09/22/23 09/22/23 09/22/23 12:25 13:34 15:00 Temperature 98.6 F Pulse Rate 63 60 66 Respiratory 18 18 18 Rate Blood Pressure 199/83 186/99 203/98 O2 Sat by Pulse 96 96 Oximetry 09/22/23 09/22/23 16:00 16:42 Temperature Pulse Rate 72 67 Respiratory 18 18 Rate Blood Pressure 193/91 207/93 O2 Sat by Pulse Oximetry Medical Decision Making - Medical Decision Making This is an 87 year old female who presents to the emergency department for a fall. Was pt. sent in by a medical professional or institution? @ -No Did you speak to anyone other than the patient for history? @ -No Did you review nursing and triage notes? @ -Yes, and I agree, it is accurate with regards to the patient's symptoms. Were old charts reviewed? @ -No Differential Diagnosis? @ -Differential Diagnosis Head Injury: Contusion, hematoma, intracranial hemorrhage, skull fracture, whiplash, concussion, this is not meant to be an all-inclusive list. EKG interpreted by me (3pts min.)? @ -EKG interpreted by me demonstrating the following: Sinus rhythm. Ventri cular rate 61 bpm, NV interval 168 ms, QRS duration 125 ms. X-rays interpreted by me (1pt min.)? @ -[none] CT interpreted by me (1pt min.)? @ -Computed tomography scan of the brain and c-spine obtained. My interpretation identifies no evidence of an acute intracranial hemorrhage, skull fracture, or cervical spine fracture. U/S interpreted by me (1pt. min.)? @ -Not obtained What testing was considered but not performed? (CT, X-rays, U/S, labs)? Why? @ -None What meds were considered but not given? Why? @ -None Did you discuss the management of the patient with other professionals? @ -Yes, Nancie Santiago with [facility] who accepts the patient for admission. Did you reconcile home meds? @ -Yes Was smoking cessation discussed for >3mins.? @ -No Was critical care preformed (if so, how long)? @ -No Were there social determinants of health that impacted care today? How? (Homelessness, low income, unemployed, alcoholism, drug addiction, transportation, low edu. Level, literacy, decrease access to med. care, senior living, rehab)? @ -No Was there de-escalation of care discussed even if they declined? (Discuss DNR or withdrawal of care, Hospice)? @ -No What co-morbidities impacted this encounter? (DM, HTN, Smoking, COPD, CAD, Cancer, CVA, Hep., AIDS, mental health diagnosis, sleep apnea, morbid obesity)? @ -HTN Was patient admitted / discharged? @ -Admitted. Lab work demonstrates a BNP of 1720 and alcohol level of 116. CT scan of the brain and C-spine obtained demonstrating a right posterior scalp contusion without any other acute process. Chest x-ray demonstrates cardiomegaly and interstitial density. They advise correlation with CHF for pulmonary vascular congestion. Urinalysis potentially suggestive of infection and urine was sent for culture. Patient was very hypertensive in the emergency department with blood pressures ranging from the 180s to 200s systolically. Given her age with the dizziness and hypertension, she was admitted to medicine for further management. Blood and urine cultures were obtained and she was given ceftriaxone for possible UTI. Serial troponins ordered as well to rule out ACS. Undiagnosed new problem with uncertain prognosis? @ -None Drug Therapy requiring intensive monitoring for toxicity (Heparin, Nitro, Insulin, Cardizem)? @ -None Were any procedures done? @ -None Diagnosis/symptom? @ -Dizziness, fall Acute, or Chronic, or Acute on Chronic? @ -Acute Uncomplicated (without systemic symptoms) or Complicated (systemic symptoms)? @ -Uncomplicated Side effects of treatment? @ -None Exacerbation, Progression, or Severe Exacerbation] @ -Not applicable Poses a threat to life or bodily function? @ -No This case was discussed in detail with the attending ED physician, Dr. Nelson. Presentation, findings, and treatment plan discussed in detail as well. - Lab Data Result diagrams: 09/22/23 13:13 09/22/23 13:13 Lab Results 09/22/23 09/22/23 09/22/23 Range/Units 13:13 13:13 13:13 WBC 7.0 (3.8-10.6) k/uL RBC 3.88 (3.80-5.40) m/uL Hgb 11.9 (11.4-16.0) gm/dL Hct 36.4 (34.0-46.0) % MCV 94.0 (80.0-100.0) fL MCH 30.7 (25.0-35.0) pg MCHC 32.6 (31.0-37.0) g/dL RDW 13.3 (11.5-15.5) % Plt Count 229 (150-450) k/uL MPV 7.4 Neutrophils % 66 % Lymphocytes % 23 % Monocytes % 7 % Eosinophils % 3 % Basophils % 1 % Neutrophils # 4.6 (1.3-7.7) k/uL Lymphocytes # 1.6 (1.0-4.8) k/uL Monocytes # 0.5 (0-1.0) k/uL Eosinophils # 0.2 (0-0.7) k/uL Basophils # 0.0 (0-0.2) k/uL PT 10.6 (10.0-12.5) sec INR 1.0 (<1.2) Sodium (137-145) mmol/L Potassium (3.5-5.1) mmol/L Chloride (98-107) mmol/L Carbon Dioxide (22-30) mmol/L Anion Gap mmol/L BUN (7-17) mg/dL Creatinine (0.52-1.04) mg/dL Est GFR (CKD-EPI)AfAm (>60 ml/min/1.73 sqM) Est GFR (CKD-EPI)NonAf (>60 ml/min/1.73 sqM) Glucose (74-99) mg/dL Calcium (8.4-10.2) mg/dL Magnesium (1.6-2.3) mg/dL Total Bilirubin (0.2-1.3) mg/dL AST (14-36) U/L ALT (4-34) U/L Alkaline Phosphatase (38-126) U/L Troponin I (0.000-0.034) ng/mL NT-Pro-B Natriuret Pep pg/mL Total Protein (6.3-8.2) g/dL Albumin (3.5-5.0) g/dL Urine Color Colorless Urine Appearance Clear (Clear) Urine pH 5.0 (5.0-8.0) Ur Specific [place] 1.009 (1.001-1.035) Urine Protein Negative (Negative) Urine Glucose (UA) Negative (Negative) Urine Ketones Negative (Negative) Urine Blood Moderate H (Negative) Urine Nitrite Negative (Negative) Urine Bilirubin Negative (Negative) Urine Urobilinogen <2.0 (<2.0) mg/dL Ur Leukocyte Esterase Large H (Negative) Urine RBC 16 H (0-5) /hpf Urine WBC 60 H (0-5) /hpf Urine WBC Clumps Few H (None) /hpf Ur Squamous Epith Cells <1 (0-4) /hpf Urine Bacteria Rare H (None) /hpf Urine Mucus Rare H (None) /hpf Serum Alcohol mg/dL 09/22/23 09/22/23 09/22/23 Range/Units 13:13 13:13 14:42 WBC (3.8-10.6) k/uL RBC (3.80-5.40) m/uL Hgb (11.4-16.0) gm/dL Hct (34.0-46.0) % MCV (80.0-100.0) fL MCH (25.0-35.0) pg MCHC (31.0-37.0) g/dL RDW (11.5-15.5) % Plt Count (150-450) k/uL MPV Neutrophils % % Lymphocytes % % Monocytes % % Eosinophils % % Basophils % % Neutrophils # (1.3-7.7) k/uL Lymphocytes # (1.0-4.8) k/uL Monocytes # (0-1.0) k/uL Eosinophils # (0-0.7) k/uL Basophils # (0-0.2) k/uL PT (10.0-12.5) sec INR (<1.2) Sodium 137 (137-145) mmol/L Potassium 4.3 (3.5-5.1) mmol/L Chloride 106 (98-107) mmol/L Carbon Dioxide 27 (22-30) mmol/L Anion Gap 4 mmol/L BUN 16 (7-17) mg/dL Creatinine 0.76 (0.52-1.04) mg/dL Est GFR (CKD-EPI)AfAm 83 (>60 ml/min/1.73 sqM) Est GFR (CKD-EPI)NonAf 72 (>60 ml/min/1.73 sqM) Glucose 96 (74-99) mg/dL Calcium 8.7 (8.4-10.2) mg/dL Magnesium 1.8 (1.6-2.3) mg/dL Total Bilirubin 0.5 (0.2-1.3) mg/dL AST 28 (14-36) U/L ALT 15 (4-34) U/L Alkaline Phosphatase 55 (38-126) U/L Troponin I <0.012 (0.000-0.034) ng/mL NT-Pro-B Natriuret Pep 1720 pg/mL Total Protein 6.7 (6.3-8.2) g/dL Albumin 3.8 (3.5-5.0) g/dL Urine Color Urine Appearance (Clear) Urine pH (5.0-8.0) Ur Specific [place] (1.001-1.035) Urine Protein (Negative) Urine Glucose (UA) (Negative) Urine Ketones (Negative) Urine Blood (Negative) Urine Nitrite (Negative) Urine Bilirubin (Negative) Urine Urobilinogen (<2.0) mg/dL Ur Leukocyte Esterase (Negative) Urine RBC (0-5) /hpf Urine WBC (0-5) /hpf Urine WBC Clumps (None) /hpf Ur Squamous Epith Cells (0-4) /hpf Urine Bacteria (None) /hpf Urine Mucus (None) /hpf Serum Alcohol 116 mg/dL - Radiology Data Radiology results: report reviewed, image reviewed Disposition Clinical Impression: Dizziness, Pre-syncope, Hypertension, UTI (urinary tract infection) Disposition: ADMITTED IP TO THIS [facility] Time of Disposition: 17:57
--- NOTE | 2023-09-22 14:11 | XR ---
EXAMINATION TYPE: XR chest 2V DATE OF EXAM: 09/22/2023 COMPARISON: 07/12/2021 HISTORY: 87-year-old female with dizziness, fall TECHNIQUE: AP and lateral views FINDINGS: Enlargement of the cardiac/pericardiac silhouette. Interstitial densities are also present. No sizabl e pleural effusion. IMPRESSION: Cardiomegaly and interstitial density. Correlate for CHF with pulmonary vascular congestion.
[2023-09-22] MEDS: ACETAMINOPHEN TAB 500 MG TAB PO STA (14:22)
[2023-09-22] MEDS: KETOROLAC 15 MG/ML 1 ML VIAL IVP STA (14:25)
[2023-09-22 15:28] LABS: NT-Pro-B-Type Natriuretic Pept 1720 pg/mL
[2023-09-22 15:34] LABS: Alcohol 116 mg/dL
[2023-09-22] MEDS: cefTRIAXone IN SWFI 1,000 MG/10 ML SYRINGE IVP STA (16:39)
[2023-09-22] MEDS: hydrALAZINE HCL 20 MG/ML 1 ML VIAL IVP STA ×2 (17:05→18:06)
[2023-09-22] MEDS ORDERED: NALOXONE 0.4 MG/ML 1 ML VIAL IV PRN (17:58)
[2023-09-22] MEDS ORDERED: HYDROcodone/APAP 5-325MG 1 EACH TAB PO PRN (17:59)
[2023-09-22] MEDS: cloNIDine HCL 0.1 MG TAB PO STA (18:06)
[2023-09-22] MEDS: LABETALOL 5 MG/ML VIAL MDV IVP STA (18:23)
[2023-09-22] MEDS: ONDANSETRON 4 MG/2 ML VIAL IVP PRN (19:37)
[2023-09-22] MEDS: HYDROcodone/APAP 5-325MG 1 EACH TAB PO PRN (19:40)
[2023-09-22] MEDS: TRIAMCINOLONE 0.1% CREAM 80 GM TUBE TOPICAL SCH (23:41)
[2023-09-22] MEDS: MENTHOL-ZINC OXIDE OINT 113 GM TUBE TOPICAL SCH (23:42)
[2023-09-22] MEDS: ERYTHROMYCIN 5 MG/GM OPHTH OINT 1 GM TUBE BOTH EYES SCH (23:45)
[2023-09-22] MEDS: ALPRAZolam 0.25 MG TAB PO PRN (23:45)
[2023-09-23] MEDS: PANTOPRAZOLE 40 MG/10 ML VIAL IV SCH (08:59)
[2023-09-23] MEDS ORDERED: NON FORMULARY DRUG (Cranberry Fruit Concentrate [Azo Cranberry] 250 MG Tab.Chew) PO SCH (09:00)
[2023-09-23] MEDS ORDERED: NON FORMULARY DRUG (Vitamin C/Biotin [Hair, Skin And Nails Chew] 1 EACH Tab.Chew) PO SCH (09:00)
[2023-09-23] MEDS: MULTIVITAMINS, THERA 1 EACH TAB PO SCH (09:00)
--- NOTE | 2023-09-23 12:34 | P.HPIM ---
History of Present Illness 87-year-old pleasant female no you can come in after a fall. Patient felt slightly dizzy before fall patient patient fell backwards hit her head. Patient denies any syncopal episode patient blood pressure is labile it goes up and down uses 100 mg of losartan for congestive heart failure EF of around 25% patient denies any orthopnea proximal dyspnea shortness of breath BNP is only 1600 chest x-ray is read as pulmonary edema. Patient states she did drink a little alcohol before this episode patient also complaining of back pain lower back pain head and cervical spine CTs did not show any significant fractures. Patient is quite weak and required 2 nurses to help her out of bed, although basic labs chemistry and CBC are within normal limits. REVIEW OF SYSTEMS: CONSTITUTIONAL: No fever, no malaise, no fatigue. HEENT: No recent visual problems or hearing problems. Denied any sore throat. CARDIOVASCULAR: No chest pain, orthopnea, PND, no palpitations, no syncope. PULMONARY: No shortness of breath, no cough, no hemoptysis. GASTROINTESTINAL: No diarrhea, no nausea, no vomiting, no abdominal pain. NEUROLOGICAL: No headaches, no weakness, no numbness. HEMATOLOGICAL: Denies any bleeding or petechiae. GENITOURINARY: Denies any burning micturition, frequency, or urgency. MUSCULOSKELETAL/RHEUMATOLOGICAL: Denies any joint pain, swelling, or any muscle pain. ENDOCRINE: Denies any polyuria or polydipsia. The rest of the 14-point review of systems is negative. PHYSICAL EXAMINATION: GENERAL: The patient is alert and oriented x3, not in any acute distress. Well developed, well nourished. HEENT: Pupils are round and equally reacting to light. EOMI. No scleral icterus. No conjunctival pallor. Normocephalic, atraumatic. No pharyngeal erythema. No thyromegaly. CARDIOVASCULAR: S1 and S2 present. No murmurs, rubs, or gallops. PULMONARY: Chest is clear to auscultation, no wheezing or crackles. ABDOMEN: Soft, nontender, nondistended, normoactive bowel sounds. No palpable organomegaly. MUSCULOSKELETAL: No joint swelling or deformity. EXTREMITIES: No cyanosis, clubbing, or pedal edema. NEUROLOGICAL: Gross neurological examination did not reveal any focal deficits. SKIN: No rashes. Assessment and plan -Fall: Mainly generalized weakness patient did not have a syncopal episode but was slightly dizzy. Patient is quite weak will get physical therapy occupational therapy evaluation. SHE is within normal limits no evidence of infection at this time. Will get PT and OT to evaluate the patient generalized weakness is probably related to age -Mild dizziness patient blood pressure goes up and down patient is usually dizzy at nighttime because of which she only takes half a pill of losartan occas ionally. Patient blood pressure here is up-and-down although there are instances where her diastolics are lower than 60 which can lead to falls. Will continue with present dose of losartan and other home medications monitor her here. Cardiology will be consulted - congestive heart failure patient clinically appears to be euvolemic patient does not take any Lasix at home we will start her on 20 mg of Lasix here patient has chronic systolic dysfunction, without any acute exacerbation at this time -Back pain after a fall will obtain a lumbar spinal x-ray to rule out any compression fractures or any other fractures-CVA/TIA in the past -GI gastroesophageal reflux disease -Hypertension -Anxiety disorder DVT prophylaxis: Lovenox Past Medical History Past Medical History: CVA/TIA, GERD/Reflux, Hypertension Additional Past Medical History / Comment(s): past back pain, c-diff 2016, rt side brain anuerysm (TIA); small perforation in bowels History of Any Multi-Drug Resistant Organisms: C-DIFF Date of last positivie culture/infection: 2005 MDRO Source:: stool Past Surgical History: Cholecystectomy, Hysterectomy, Tonsillectomy Additional Past Surgical History / Comment(s): colonoscopy, eye sx(tear ducts) brain surgery aneursym repair with coil 07/01/20 Past Anesthesia/Blood Transfusion Reactions: Motion Sickness Additional Past Anesthesia/Blood Transfusion Reaction / Comment(s): claustrophobia Past Psychological History: Anxiety Smoking Status: Never smoker Past Alcohol Use History: None Reported Past Drug Use History: None Reported - Past Family History Father Family Medical History: Hypertension Additional Family Medical History / Comment(s): Father at the age of 63 yrs. He was an alcoholic and a smoker. Mother Family Medical History: Hypertension Additional Family Medical History / Comment(s): Mother at the age of 88yrs. Medications and Allergies Home Medications Medication Instructions Recorded Confirmed Type Losartan Potassium [Cozaar] 100 mg PO DAILY@1600 10/04/22 09/22/23 History atenoloL [Tenormin] 12.5 mg PO DAILY@1600 10/04/22 09/22/23 History ALPRAZolam [Xanax] 0.25 mg PO DAILY PRN 09/22/23 09/22/23 History Alendronate Sodium [Fosamax] 70 mg PO TU 09/22/23 09/22/23 History Cranberry Fruit Concentrate [Azo 250 mg PO DAILY 09/22/23 09/22/23 History Cranberry] Erythromycin Ophth Oint (1 gm) 1 applic BOTH EYES HS 09/22/23 09/22/23 History [Ilotycin Ophth Oint (1 gm)] HYDROcodone/APAP 5-325MG [[place] 0.5 tab PO HS PRN 09/22/23 09/22/23 History 5-325] Menthol-Zinc Oxide Oint 1 applic TOPICAL BID 09/22/23 09/22/23 History [Calmoseptine Ointment] Multivit with Calcium,Iron,Min 1 tab PO DAILY 09/22/23 09/22/23 History [Women's Multivitamin] Triamcinolone 0.1% Cream [Kenalog 1 applic TOPICAL BID 09/22/23 09/22/23 History 0.1% Cream] Vitamin C/Biotin [Hair, Skin and 1 tab PO DAILY 09/22/23 09/22/23 History Nails Chew] Allergies Allergy/AdvReac Type Severity Reaction Status Date / Time aluminum Allergy Unknown Verified 09/22/23 17:17 benzalkonium chloride Allergy Unknown Verified 09/22/23 17:17 [From Bactine (with alcohol)] codeine Allergy Unknown Verified 09/22/23 17:17 lidocaine Allergy Unknown Verified 09/22/23 17:17 [From Bactine (with alcohol)] metronidazole [From Flagyl] Allergy Unknown Verified 09/22/23 17:17 sulfamethoxazole Allergy Unknown Verified 09/22/23 17:17 [From Bactrim] trimethoprim [From Bactrim] Allergy Unknown Verified 09/22/23 17:17 amlodipine AdvReac Nausea & Verified 09/22/23 17:17 Vomiting cephalexin [From Keflex] AdvReac Nausea & Verified 09/22/23 17:17 Vomiting chlorthalidone AdvReac Nausea & Verified 09/22/23 17:17 Vomiting Iodinated Contrast Media AdvReac Nausea & Verified 09/22/23 17:17 Vomiting levofloxacin [From Levaquin] AdvReac Nausea & Verified 09/22/23 17:17 Vomiting lisinopril AdvReac Nausea & Verified 09/22/23 17:17 Vomiting Physical Exam Vitals: Vital Signs Temp Pulse Resp BP Pulse Ox 09/23/23 12:22 85 14 171/80 97 09/23/23 11:00 76 20 194/76 100 09/23/23 10:00 75 22 166/73 09/23/23 08:05 78 16 166/73 95 09/23/23 06:00 76 22 171/64 96 09/23/23 04:16 80 22 171/64 99 09/23/23 00:48 81 18 151/58 09/22/23 22:24 78 18 140/51 97 09/22/23 21:05 68 18 100/56 94 L 09/22/23 19:34 97.9 F 73 18 137/63 96 09/22/23 19:00 77 22 185/82 97 09/22/23 18:00 77 17 181/86 95 09/22/23 16:42 67 18 207/93 09/22/23 16:00 72 18 193/91 09/22/23 15:00 66 18 203/98 09/22/23 13:34 60 18 186/99 96 Results CBC & Chem 7: 09/22/23 13:13 09/22/23 13:13 Labs: Abnormal Lab Results - Last 24 Hours (Table) 09/22/23 Range/Units 13:13 Urine Blood Moderate H (Negative) Ur Leukocyte Esterase Large H (Negative) Urine RBC 16 H (0-5) /hpf Urine WBC 60 H (0-5) /hpf Urine WBC Clumps Few H (None) /hpf Urine Bacteria Rare H (None) /hpf Urine Mucus Rare H (None) /hpf
[2023-09-23] MEDS: ENOXAPARIN 40 MG/0.4 ML SYRINGE SQ SCH (13:51)
[2023-09-23] MEDS: FUROSEMIDE 20 MG TAB PO SCH (13:51)
--- NOTE | 2023-09-23 14:14 | XR ---
EXAMINATION TYPE: XR lumbar spine 2 or 3V DATE OF EXAM: 09/23/2023 1:45 PM CLINICAL INDICATION:Female, 87 years old with history of Vertebral fractures; [facility] COMPARISON: 02/16/2023 TECHNIQUE: XR lumbar spine 2 or 3V - Frontal, lateral and coned in L5-S1 lateral views of the spine. 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 Mild anterolisthesis L4 on L5 is reidentified and similar to prior exam No significant degeneration changes throughout the spine. IMPRESSION: 1. Progression of L1 vertebral body fracture since the prior exam from February 16, 2023
[2023-09-23] MEDS: LOSARTAN 50 MG TAB PO SCH (15:43)
[2023-09-24] MEDS: SPIRONOLACTONE 25 MG TAB PO SCH (11:51)
--- NOTE | 2023-09-24 13:27 | P.PN ---
Subjective 87-year-old pleasant female no you can come in after a fall. Patient felt slightly dizzy before fall patient patient fell backwards hit her head. Patient denies any syncopal episode patient blood pressure is labile it goes up and down uses 100 mg of losartan for congestive heart failure EF of around 25% patient denies any orthopnea proximal dyspnea shortness of breath BNP is only 1600 chest x-ray is read as pulmonary edema. Patient states she did drink a little alcohol before this episode patient also complaining of back pain lower back pain head and cervical spine CTs did not show any significant fractures. Patient is quite weak and required 2 nurses to help her out of bed, although basic labs chemistry and CBC are within normal limits. September 24, 2023 Patient had to be evaluated by physical therapy will need placement, lumbar compression fracture has worsened since last hospitalization May need a brace orthopedic surgery will be consulted. Constitutional: Denied any fatigue denied any fever. Cardio vascular: denied any chest pain, palpitations Gastrointestinal denied any nausea vomiting Pulmonary: Denied any shortness of breath cough Neurologic denied any new focal deficits All inpatient medications were reviewed and appropriate changes in these medications as dictated in the interval history and assessment and plan. PHYSICAL EXAMINATION: GENERAL: The patient is alert and oriented x3, not in any acute distress. Well developed, well nourished. HEENT: Pupils are round and equally reacting to light. EOMI. No scleral icterus. No conjunctival pallor. Normocephalic, atraumatic. No pharyngeal erythema. No thyromegaly. CARDIOVASCULAR: S1 and S2 present. No murmurs, rubs, or gallops. PULMONARY: Chest is clear to auscultation, no wheezing or crackles. ABDOMEN: Soft, nontender, nondistended, normoactive bowel sounds. No palpable organomegaly. MUSCULOSKELETAL: No joint swelling or deformity. EXTREMITIES: No cyanosis, clubbing, or pedal edema. NEUROLOGICAL: Gross neurological examination did not reveal any focal deficits. SKIN: No rashes. Assessment and plan -Fall: Mainly generalized weakness patient did not have a syncopal episode but was slightly dizzy. Patient is quite weak will get physical therapy o ccupational therapy evaluation. Cardiology is recommending echocardiogram. -Mild dizziness patient blood pressure goes up and down patient is usually dizzy at nighttime because of which she only takes half a pill of losartan occasionally. Patient blood pressure here is up-and-down although there are instances where her diastolics are lower than 60 which can lead to falls. Will continue with present dose of losartan and other home medications monitor her here. Cardiology will be consulted - congestive heart failure patient clinically appears to be euvolemic patient does not take any Lasix at home we will start her on 20 mg of Lasix here patient has chronic systolic dysfunction, without any acute exacerbation at this time -Back pain after a fall will obtain a lumbar spinal x-ray showed worsening compression fractures, physical therapy occupational therapy evaluation and placement in subacute rehabilitation -CVA/TIA in the past -GI gastroesophageal reflux disease -Hypertension -Anxiety disorder DVT prophylaxis: Lovenox Objective - Vital Signs Vital signs: Vital Signs Temp 98.7 F 09/24/23 08:00 Pulse 73 09/24/23 12:00 Resp 18 09/24/23 12:00 BP 169/75 09/24/23 12:00 Pulse Ox 95 09/24/23 12:00 FiO2 Intake & Output 09/23/23 09/24/23 09/24/23 18:59 06:59 18:59 Intake Total 480 890 Output Total 300 750 450 Balance 180 -750 440 Weight 86.183 kg 87.5 kg Intake: Oral 480 890 Output: Urine 300 750 450 Other: Voiding Method Bedside Commode External Catheter External Catheter External Catheter # Voids 1 3 1 - Labs CBC & Chem 7: 09/22/23 13:13 09/22/23 13:13 Labs: Microbiology - Last 24 Hours (Table) 09/22/23 16:00 Blood Culture - Preliminary Blood 09/22/23 16:15 Blood Culture - Preliminary Blood 09/22/23 13:13 Urine Culture - Preliminary Urine,Clean Catch Gram Neg Bacilli
--- NOTE | 2023-09-24 13:36 | P.CRDCN ---
History of Present Illness Consult date: 09/24/23 Consult reason: congestive heart failure (dizziness) History of present illness: History of present illness: This is an 87-year-old female patient with past medical history of CVA, brain aneurysm, hypertension, gastroesophageal reflux disease, C. difficile history, history of dilated cardiomyopathy and chronic systolic heart failure. Patient had a documented EF previously of 20% and last obtained. We have been asked to evaluate the patient for CHF and dizziness. Patient was in her kitchen felt dizzy and fell backwards hitting the back of her head. No loss of consciousness. She did have 2 alcoholic beverages. She was having increasing intermittent dizzy spells prior to the alcohol as well. No shortness of breath. No chest pain. She states she is feeling fine now. EKG sinus rhythm with left anterior fascicular block. Chest x-ray: Cardiomegaly and interstitial density. Lumbar spine x-rays reveal progression of L1 vertebral body fracture since a prior exam and February. CT of the brain and cervical spine revealed right posterior scalp contusion. No acute intracranial abnormality. Old encephalomalacia of right temporoparietal region related to prior infarct. Stent noted in the right MCA. No acute fracture or malalignment of the cervical spine. Mild spondylotic change. CBC INR CMP unremarkable. proBNP 1720. Troponin negative x 3. Urinalysis leukoesterase large, RBC 16, WBCs 60. Serum alcohol level 116. Home cardiac medications: Atenolol 12.5 mg daily, losartan 100 mg daily at 1600. Echocardiogram performed 07/13/2021 revealed EF of 20 to 25%. Review Of Systems: At the time of my exam: CONSTITUTIONAL: Denies fever or chills. HEENT: Denies blurred vision, vision changes, or eye pain. Denies hemoptysis CARDIOVASCULAR: Denies chest pain. Denies orthopnea. Denies PND. Denies palpitations RESPIRATORY: Denies shortness of breath. GASTROINTESTINAL: Denies abdominal pain. Denies nausea or vomiting. HEMATOLOGIC: Denies bleeding disorders. GENITOURINARY: Denies any blood in urine. SKIN: Denies pruitis. Denies rash. Physical examination: Gen: This is an 87-year-old female in no acute distress VS: reviewed blood pressure 169/70, heart rate 78, pulse ox 93% on room air. HEENT: Head is atraumatic, normocephalic. Pupils equal, round. Sclerae is anicteric. NECK: Supple. No JVD. LUNGS: Clear to auscultation. No wheezes or rhonchi. No intercostal retractions. HEART: Regular rate and rhythm. No murmur. ABDOMEN: Soft No tenderness. EXTREMITIES: No pedal edema. No calf tenderness. NEUROLOGICAL: Patient is awake, alert and oriented x3. Assessment: Dizziness and fall Scalp contusion History of cardiomyopathy history of CVA History of brain aneurysm Hypertension Gastroesophageal reflux disease Plan: Resume patient's home cardiac medications Orthostatic vital signs Obtain 2-D echocardiogram and Doppler study to assess cardiac structure and function Patient is cleared for discharge if echocardiogram is unremarkable for her. 2-week event monitor to be ordered prior to discharge Start patient on Aldactone 25 mg daily Thank you kindly for this consultation. Nurse practitioner note has been reviewed, I agree with documented findings and plan of care. Patient was seen and examined. Past Medical History Past Medical History: CVA/TIA, GERD/Reflux, Hypertension Additional Past Medical History / Comment(s): past back pain, c-diff 2015, rt side brain anuerysm (TIA); small perforation in bowels, shingles History of Any Multi-Drug Resistant Organisms: C-DIFF Date of last positivie culture/infection: 2005 MDRO Source:: stool Past Surgical History: Cholecystectomy, Hysterectomy, Tonsillectomy Additional Past Surgical History / Comment(s): colonoscopy, eye sx(tear ducts) brain surgery aneursym repair with coil 07/01/20 Past Anesthesia/Blood Transfusion Reactions: Motion Sickness Additional Past Anesthesia/Blood Transfusion Reaction / Comment(s): c laustrophobia Past Psychological History: Anxiety Additional Psychological History / Comment(s): Pt resides with her spouse. She is independent. uses a walker at home. Smoking Status: Never smoker Past Alcohol Use History: Occasional Additional Past Alcohol Use History / Comment(s): has a drink on sundays Past Drug Use History: None Reported - Past Family History Father Family Medical History: Hypertension Additional Family Medical History / Comment(s): Father at the age of 63 yrs. He was an alcoholic and a smoker. Mother Family Medical History: Hypertension Additional Family Medical History / Comment(s): Mother at the age of 88yrs. Medications and Allergies Home Medications Medication Instructions Recorded Confirmed Type Losartan Potassium [Cozaar] 100 mg PO DAILY@1600 10/04/22 09/22/23 History atenoloL [Tenormin] 12.5 mg PO DAILY@1600 10/04/22 09/22/23 History ALPRAZolam [Xanax] 0.25 mg PO DAILY PRN 09/22/23 09/22/23 History Alendronate Sodium [Fosamax] 70 mg PO TU 09/22/23 09/22/23 History Cranberry Fruit Concentrate [Azo 250 mg PO DAILY 09/22/23 09/22/23 History Cranberry] Erythromycin Ophth Oint (1 gm) 1 applic BOTH EYES HS 09/22/23 09/22/23 History [Ilotycin Ophth Oint (1 gm)] HYDROcodone/APAP 5-325MG [Kittery 0.5 tab PO HS PRN 09/22/23 09/22/23 History 5-325] Menthol-Zinc Oxide Oint 1 applic TOPICAL BID 09/22/23 09/22/23 History [Calmoseptine Ointment] Multivit with Calcium,Iron,Min 1 tab PO DAILY 09/22/23 09/22/23 History [Women's Multivitamin] Triamcinolone 0.1% Cream [Kenalog 1 applic TOPICAL BID 09/22/23 09/22/23 History 0.1% Cream] Vitamin C/Biotin [Hair, Skin and 1 tab PO DAILY 09/22/23 09/22/23 History Nails Chew] Allergies Allergy/AdvReac Type Severity Reaction Status Date / Time aluminum Allergy Unknown Verified 09/22/23 17:17 benzalkonium chloride Allergy Unknown Verified 09/22/23 17:17 [From Bactine (with alcohol)] codeine Allergy Unknown Verified 09/22/23 17:17 lidocaine Allergy Unknown Verified 09/22/23 17:17 [From Bactine (with alcohol)] metronidazole [From Flagyl] Allergy Unknown Verified 09/22/23 17:17 sulfamethoxazole Allergy Unknown Verified 09/22/23 17:17 [From Bactrim] trimethoprim [From Bactrim] Allergy Unknown Verified 09/22/23 17:17 amlodipine AdvReac Nausea & Verified 09/22/23 17:17 Vomiting cephalexin [From Keflex] AdvReac Nausea & Verified 09/22/23 17:17 Vomiting chlorthalidone AdvReac Nausea & Verified 09/22/23 17:17 Vomiting Iodinated Contrast Media AdvReac Nausea & Verified 09/22/23 17:17 Vomiting levofloxacin [From Levaquin] AdvReac Nausea & Verified 09/22/23 17:17 Vomiting lisinopril AdvReac Nausea & Verified 09/22/23 17:17 Vomiting Physical Exam Vitals: Vital Signs Temp Pulse Pulse Resp BP BP Pulse Ox 09/24/23 04:00 97.4 F L 78 18 169/70 93 L 09/23/23 23:59 99.1 F 67 20 167/70 94 L 09/23/23 20:42 99 F 68 20 181/74 95 09/23/23 16:00 98.5 F 88 18 161/73 97 09/23/23 14:42 98.6 F 86 14 158/66 96 09/23/23 13:57 84 16 182/49 98 09/23/23 12:22 85 14 171/80 97 09/23/23 11:00 76 20 194/76 100 09/23/23 10:00 75 22 166/73 Intake and Output 09/23/23 09/24/23 09/24/23 22:59 06:59 14:59 Intake Total 480 Output Total 300 750 Balance 180 -750 Intake: Oral 480 Output: Urine 300 750 Other: Voiding Method External Catheter External Catheter # Voids 1 3 Weight 86.183 kg 87.5 kg Results 09/22/23 13:13 09/22/23 13:13 Current Medications Generic Name Dose Route Start Last Admin Trade Name Freq PRN Reason Stop Dose Admin Acetaminophen 650 mg 09/22/23 17:58 Acetaminophen Tab 325 Mg Tab PO Q6HR PRN Mild Pain or Fever > 100.5 Hydrocodone Bitart/Acetaminophen 1 each 09/22/23 17:58 09/22/23 19:40 Hydrocodone/Apap 5-325mg 1 Each Tab PO 0.5 each Q4HR PRN Administration Moderate Pain (Scale 4 to 6) Hydrocodone Bitart/Acetaminophen 0.5 each 09/22/23 17:59 Hydrocodone/Apap 5-325mg 1 Each Tab PO HS PRN Pain Alprazolam 0.25 mg 09/22/23 17:59 09/23/23 23:57 Alprazolam 0.25 Mg Tab PO 0.25 mg DAILY PRN Administration Anxiety Atenolol 12.5 mg 09/23/23 16:00 09/23/23 15:43 Atenolol 12.5 Mg Tab PO 12.5 mg DAILY@1600 SUSAN Administration Calamine/Phenol 1 applic 09/22/23 21:00 09/24/23 08:45 Menthol-Zinc Oxide Oint 113 Gm Tube TOPICAL 1 applic BID SUSAN Administration Protocol Enoxaparin Sodium 40 mg 09/23/23 12:45 09/24/23 08:45 Enoxaparin 40 Mg/0.4 Ml Syringe SQ 40 mg DAILY SUSAN Administration Erythromycin 1 applic 09/22/23 21:00 09/23/23 20:47 Erythromycin 5 Mg/Gm Ophth Oint 1 Gm Tube BOTH EYES 1 applic HS SUSAN Administration Furosemide 20 mg 09/23/23 12:45 09/24/23 08:45 Furosemide 20 Mg Tab PO 20 mg DAILY SUSAN Administration Losartan Potassium 100 mg 09/23/23 16:00 09/23/23 15:43 Losartan 50 Mg Tab PO 100 mg DAILY@1600 SUSAN Administration Multivitamins 1 each 09/23/23 09:00 09/24/23 08:45 Multivitamins, Thera 1 Each Tab PO 1 each DAILY SUSAN Administration Naloxone HCl 0.2 mg 09/22/23 17:58 Naloxone 0.4 Mg/Ml 1 Ml Vial IV Q2M PRN Opioid Reversal Ondansetron HCl 4 mg 09/22/23 17:58 09/22/23 19:37 Ondansetron 4 Mg/2 Ml Vial IVP 4 mg Q8HR PRN Administration Nausea And Vomiting Pantoprazole Sodium 40 mg 09/23/23 09:00 09/24/23 08:45 Pantoprazole 40 Mg/10 Ml Vial IV 40 mg DAILY SUSAN Administration Triamcinolone Acetonide 1 applic 09/22/23 21:00 09/24/23 08:45 Triamcinolone 0.1% Cream 80 Gm Tube TOPICAL 1 applic BID SUSAN Administration Protocol Intake and Output 09/23/23 09/24/23 09/24/23 22:59 06:59 14:59 Intake Total 480 Output Total 300 750 Balance 180 -750 Intake: Oral 480 Output: Urine 300 750 Other: Voiding Method External Catheter External Catheter # Voids 1 3 Weight 86.183 kg 87.5 kg 09/22/23 13:13 09/22/23 13:13
[2023-09-24] MEDS: DOCUSATE 100 MG CAP PO SCH (13:57)
[2023-09-24] MEDS ORDERED: NON FORMULARY DRUG (Alendronate Sodium [Fosamax] 70 MG Tablet) PO SCH (17:59)
--- NOTE | 2023-09-24 19:11 | CA ---
Transthoracic Echo Report Name: Roxanne Maldonado Age: 87 Gender: F : 1935 Exam Date: 09/24/2023 14:09 Exam Location: [facility] Ht (in): 62 Wt (lb): 192 Ordering Physician: Sofi Amador Attending/Referring Phys: [id number], Marjorie Bindery Leadperson Luli Nolasco RDCS Procedure CPT: Indications: LVF Cardiac Hx: Pt. refused [place] Technical Quality: Technically difficult study Contrast 1: Total Dose (mL): Contrast 2: Total Dose (mL): MEASUREMENTS (Male / Female) Normal Values 2D ECHO LV Diastolic Diameter PLAX 5.5 cm 4.2 - 5.9 / 3.9 - 5.3 cm LV Systolic Diameter PLAX 4.1 cm IVS Diastolic Thickness 1.5 cm 0.6 - 1.0 / 0.6 - 0.9 cm LVPW Diastolic Thickness 1.6 cm 0.6 - 1.0 / 0.6 - 0.9 cm LV Relative Wall Thickness 0.6 RV Internal Dim ED PLAX 2.4 cm LA Systolic Diameter LX 4.9 cm 3.0 - 4.0 / 2.7 - 3.8 cm M-MODE Aortic Root Diameter MM 3.3 cm LA Systolic Diameter MM 4.5 cm LA Ao Ratio MM 1.4 AV Cusp Separation MM 1.8 cm DOPPLER AV Peak Velocity 123.1 cm/s AV Peak Gradient 6.1 mmHg MV Area PHT 3.0 cm??? Mitral E Point Velocity 54.5 cm/s Mitral A Point Velocity 81.0 cm/s Mitral E to A Ratio 0.7 MV Deceleration Time 255.7 ms TR Peak Velocity 228.7 cm/s TR Peak Gradient 20.9 mmHg FINDINGS Left Ventricle Left ventricular ejection fraction is estimated at 50-55% from Parasternal window. Moderately increased septal wall thickness. Severely increased posterior wall thickness. Mildly increased left ventricular diastolic diameter. Right Ventricle Right ventricular systolic pressure within normal limits. Severe right ventricular dilatation. Severely increased right ventricular wall thickness. Right Atrium Right atrium not well visualized. Left Atrium Severely increased left atrial diameter. Mildly increased left atrial area. Mitral Valve Mitral valve not well visualized. Trace mitral regurgitation. Aortic Valve Trileaflet aortic valve. No aortic valve stenosis or regurgitation. Tricuspid Valve Trace to mild tricuspid regurgitation. Structurally normal tricuspid valve. Pulmonic Valve Structurally normal pulmonic valve. Pericardium Pericardial effusion located anteriorly. Prominent epicardial fat. Aorta Normal size aortic root and proximal ascending aorta. CONCLUSIONS LVH with preserved systolic function RV enlargement Previewed by: Dr. Trevon Bazzi MD (Electronically Signed) Final Date: 24 September 2023 19:09
[2023-09-24 21:28] LABS: African American GFR (CKD) 61 (>60 ml/min/1.73 sqM); Anion Gap 6 mmol/L; Blood Urea Nitrogen 21 mg/dL (7-17); Calcium 7.9 mg/dL (8.4-10.2); Carbon Dioxide 27 mmol/L (22-30); Chloride 98 mmol/L (98-107); Glucose 109 mg/dL (74-99); Magnesium 1.6 mg/dL (1.6-2.3); Non-African American GFR(CKD) 53 (>60 ml/min/1.73 sqM); Potassium 3.7 mmol/L (3.5-5.1); Sodium 131 mmol/L (137-145)
[2023-09-24] MEDS: MAGNESIUM SULFATE-D5W PMX 1 GM in DEXTROSE/WATER 1 100ML.BAG IVPB SCH (21:44)
[2023-09-25] MEDS: ACETAMINOPHEN TAB 325 MG TAB PO PRN (02:48)
[2023-09-25] MEDS ORDERED: Magnesium Replacement Protocol 1 EACH MISC MISCELLANE PRN (09:33)
[2023-09-25] MEDS: MAGNESIUM SULFATE-D5W PMX 1 GM in DEXTROSE/WATER 1 100ML.BAG IVPB SCH (13:04)
--- NOTE | 2023-09-25 15:04 | P.DS ---
Providers Date of admission: 09/22/23 18:14 Attending physician: Jack Rosas Consults: 09/23/23 12:26 Consult Physician Routine Consulting Provider: Trevon Bazzi Consult Reason/Comments: CHF, dizziness Do you want consulting provider notified?: Yes 09/24/23 13:27 Consult Physician Routine Consulting Provider: Valentin Sanches Consult Reason/Comments: L1 fracture Do you want consulting provider notified?: Yes Primary care physician: Oli Glover Hospital Course: Final Diagnosis -Dizziness and fall with generalized weakness -Scalp contusion -L1 vertebral body compression fracture progressed on imaging obtained this admission -Asymptomatic bacteriuria with urine culture showing gram-negative bacilli patient is not having any urinary symptoms her white blood cell count is normal and there is no indication for infection. -History of cardiomyopathy with chronic systolic dysfunction no acute exacerbation -history of CVA/TIA -History of brain aneurysm -Hypertension -Gastroesophageal reflux disease Full Code Discharge Disposition Patient is stable for discharge to subacute rehab. Patient to continue with event monitor for the next 2 weeks once complete she should follow up with Dr. [facility]. Patient to repeat a BMP in 2 to 3 days. Has been started on aldactone and lasix. Orthopedics is recommending conservative management of the compression fracture and felt patient would benefit from subacute rehab. Patient is refusing rehab at this time. Hospital Course This is an 87-year-old female patient with past medical history of CVA, brain aneurysm, hypertension, gastroesophageal reflux disease, C. difficile history, history of dilated cardiomyopathy and chronic systolic heart failure. Patient had a documented EF previously of 20% and last obtained. Comes into the hospital after a fall. Patient felt slightly dizzy before she fell backwards and hit her head. No loss of consciousness. She did have 2 alcoholic beverages. She was having increasing intermittent dizzy spells prior to the alcohol as well. No shortness of breath. No chest pain. Patient also does report lower back pain had a cervical spine CT which did not show any significant fractures. There is a progression of the L1 vertebral body compression fracture which is progressed from February 16, 2023. Patient was weak and did require 2 nurses to help her out of bed when she initially came into the ER. Is not complaining of any dysuria urgency or frequency. He has not been having any fever or chills. Is not having abdominal pain she is not having any nausea vomiting or diarrhea. She states she is feeling fine now. She has been up ambulating without any more episodes of dizziness. Echocardiogram comes back showing left ventricular hypertrophy with an EF of 50 to 55%, there is right ventricular enlargement. Patient was monitored closely she was started on Aldactone and also Lasix. She was cleared by cardiology. She will be discharged today initially she was refusing subacute rehab however she is now agreeable and is being considered for [facility]. Please see medication reconciliation for a list of current medications. Thank you for allowing us to participate in the care of this patient. The impression and plan of care has been dictated by Terese Osman Nurse Practitioner as directed. Dr. Lisa MD I have performed a history and physical examination and medical decision making of this patient, discussed the same with the dictator, and agree with the dictators assessment and plan as written, documented as a scribe. Based on total visit time, I have performed more than 50% of this visit. Patient Condition at Discharge: Fair Plan - Discharge Summary Discharge Rx Participant: No New Discharge Prescriptions: New Spironolactone [Aldactone] 25 mg PO DAILY #30 tab Furosemide [Lasix] 20 mg PO DAILY #30 tab Continue Losartan Potassium [Cozaar] 100 mg PO DAILY@1600 ALPRAZolam [Xanax] 0.25 mg PO DAILY PRN PRN Reason: Anxiety HYDROcodone/APAP 5-325MG [[place] 5-325] 0.5 tab PO HS PRN PRN Reason: Pain atenoloL [Tenormin] 12.5 mg PO DAILY@1600 Alendronate Sodium [Fosamax] 70 mg PO TU Cranberry Fruit Concentrate [Azo Cranberry] 250 mg PO DAILY Erythromycin Ophth Oint (1 gm) [Ilotycin Ophth Oint (1 gm)] 1 applic BOTH EYES HS Menthol-Zinc Oxide Oint [Calmoseptine Ointment] 1 applic TOPICAL BID Multivit with Calcium,Iron,Min [Women's Multivitamin] 1 tab PO DAILY Triamcinolone 0.1% Cream [Kenalog 0.1% Cream] 1 applic TOPICAL BID Vitamin C/Biotin [Hair, Skin and Nails Chew] 1 tab PO DAILY Discharge Medication List Losartan Potassium [Cozaar] 100 mg PO DAILY@1600 10/04/22 [History] atenoloL [Tenormin] 12.5 mg PO DAILY@1600 10/04/22 [History] ALPRAZolam [Xanax] 0.25 mg PO DAILY PRN 09/22/23 [History] Alendronate Sodium [Fosamax] 70 mg PO TU 09/22/23 [History] Cranberry Fruit Concentrate [Azo Cranberry] 250 mg PO DAILY 09/22/23 [History] Erythromycin Ophth Oint (1 gm) [Ilotycin Ophth Oint (1 gm)] 1 applic BOTH EYES HS 09/22/23 [History] HYDROcodone/APAP 5-325MG [Otoe 5-325] 0.5 tab PO HS PRN 09/22/23 [History] Menthol-Zinc Oxide Oint [Calmoseptine Ointment] 1 applic TOPICAL BID 09/22/23 [History] Multivit with Calcium,Iron,Min [Women's Multivitamin] 1 tab PO DAILY 09/22/23 [History] Triamcinolone 0.1% Cream [Kenalog 0.1% Cream] 1 applic TOPICAL BID 09/22/23 [History] Vitamin C/Biotin [Hair, Skin and Nails Chew] 1 tab PO DAILY 09/22/23 [History] Furosemide [Lasix] 20 mg PO DAILY #30 tab 09/25/23 [Rx] Spironolactone [Aldactone] 25 mg PO DAILY #30 tab 09/25/23 [Rx] Follow up Appointment(s)/Referral(s): Oli Glover MD [Primary Care Provider] - 3 Days Kaushal Razo MD [Medical Doctor] - 1 Week [facility] [NON-STAFF] - Ambulatory/Diagnostic Orders: Basic Metabolic Panel [LAB.AMB] Time Frame: 3 Days, Location: None Selected Activity/Diet/Wound Care/Special Instructions: [facility] at [facility] on discharge. Wear event monitor for 2 weeks as ordered Discharge Disposition: HOME WITH HOME HEALTH SERVICES
--- NOTE | 2023-09-25 15:29 | P.PN ---
Subjective Progress Note Date: 09/25/23 Consult reason: congestive heart failure (dizziness) History of present illness: History of present illness: This is an 87-year-old female patient with past medical history of CVA, brain aneurysm, hypertension, gastroesophageal reflux disease, C. difficile history, history of dilated cardiomyopathy and chronic systolic heart failure. Patient had a documented EF previously of 20% and last obtained. We have been asked to evaluate the patient for CHF and dizziness. Patient was in her kitchen felt dizzy and fell backwards hitting the back of her head. No loss of consciousness. She did have 2 alcoholic beverages. She was having increasing intermittent dizzy spells prior to the alcohol as well. No shortness of breath. No chest pain. She states she is feeling fine now. EKG sinus rhythm with left anterior fascicular block. Chest x-ray: Cardiomegaly and interstitial density. Lumbar spine x-rays reveal progression of L1 vertebral body fracture since a prior exam and February. CT of the brain and cervical spine revealed right posterior scalp contusion. No acute intracranial abnormality. Old encephalomalacia of right temporoparietal region related to prior infarct. Stent noted in the right MCA. No acute fracture or malalignment of the cervical spine. Mild spondylotic change. CBC INR CMP unremarkable. proBNP 1720. Troponin negative x 3. Urinalysis leukoesterase large, RBC 16, WBCs 60. Serum alcohol level 116. Home cardiac medications: Atenolol 12.5 mg daily, losartan 100 mg daily at 1600. Echocardiogram performed 07/13/2021 revealed EF of 20 to 25%. 09/24 Patient is seen today in follow-up. Echocardiogram reveals LVH with preserved systolic function. RV enlargement. EF was 50 to 55%. Patient denies having any chest pain, no dizziness no palpitations. 2-week event monitor has been applied to the patient. Blood pressure 128/69, heart rate 63, pulse ox 96% on room air. Physical examination: Gen: This is an 87-year-old female in no acute distress VS: reviewed HEENT: Head is atraumatic, normocephalic. Pupils equal, round. Sclerae is anicteric. NECK: Supple. No JVD. LUNGS: Clear to auscultation. No wheezes or rhonchi. No intercostal retractions. HEART: Regular rate and rhythm. No murmur. ABDOMEN: Soft No tenderness. EXTREMITIES: No pedal edema. No calf tenderness. NEUROLOGICAL: Patient is awake, alert and oriented x3. Assessment: Dizziness and fall Scalp contusion History of cardiomyopathy history of CVA History of brain aneurysm Hypertension Gastroesophageal reflux disease Plan: Continue current cardiac medications Orthostatic vital signs Patient is cleared for discharge from cardiology May follow-up in 3 weeks. Nurse practitioner note has been reviewed, I agree with documented findings and plan of care. Patient was seen and examined. Objective - Vital Signs Vital signs: Vital Signs Temp 98.3 F 09/25/23 04:00 Pulse 63 09/25/23 12:00 Resp 16 09/25/23 12:00 BP 128/69 09/25/23 12:00 Pulse Ox 96 09/25/23 12:00 FiO2 Intake & Output 09/24/23 09/25/23 09/25/23 18:59 06:59 18:59 Intake Total 1130 200 220 Output Total 750 850 Balance 380 -650 220 Intake: Intake, IV Titration 200 Amount Magnesium Sulfate-D5w Pmx 200 1 gm In Dextrose/Water 1 100ml.bag @ 100 mls/hr IVPB Q1H [facility] Rx#: [id number] Oral 1130 220 Output: Urine 750 850 Other: Voiding Method External Catheter External Catheter External Catheter # Voids 1 1 # Bowel Movements 1 - Labs CBC & Chem 7: 09/22/23 13:13 09/24/23 20:51 Labs: Abnormal Lab Results - Last 24 Hours (Table) 09/24/23 Range/Units 20:51 Sodium 131 L (137-145) mmol/L BUN 21 H (7-17) mg/dL Glucose 109 H (74-99) mg/dL Calcium 7.9 L (8.4-10.2) mg/dL Microbiology - Last 24 Hours (Table) 09/22/23 16:00 Blood Culture - Preliminary Blood 09/22/23 16:15 Blood Culture - Preliminary Blood
[2023-09-25] MEDS: hydrALAZINE HCL 20 MG/ML 1 ML VIAL IVP STA (22:02)
[2023-09-26 08:41] VITALS: BP 138/72; PULSE 59; RESP 18; TEMP 98.3
== END 2023-09-26 13:21 | DRG 149 ==
LOC: EC 12:23 → 3SCARD 18:14 → 4SSUR 09-25 20:29
PROVIDERS: ADMIT Hospitalist; ATTEND Hospitalist
DX: R42 Dizziness and giddiness (principal); I42.0 Dilated cardiomyopathy; I50.22 Chronic systolic (congestive) heart failure; M48.56XA Collapsed vertebra, not elsewhere classified, lumbar region, initial encounter for fracture; S00.03XA Contusion of scalp, initial encounter; W19.XXXA Unspecified fall, initial encounter; F40.240 Claustrophobia; I11.0 Hypertensive heart disease with heart failure; I44.4 Left anterior fascicular block; Z86.69 Personal history of other diseases of the nervous system and sense organs; Z86.19 Personal history of other infectious and parasitic diseases; Z86.79 Personal history of other diseases of the circulatory system; Z79.899 Other long term (current) drug therapy; Z79.83 Long term (current) use of bisphosphonates; Y92.000 Kitchen of unspecified non-institutional (private) residence as the place of occurrence of the external cause; Y90.5 Blood alcohol level of 100-119 mg/100 ml; K21.9 Gastro-esophageal reflux disease without esophagitis; R82.71 Bacteriuria; G93.89 Other specified disorders of brain; Z86.73 Personal history of transient ischemic attack (TIA), and cerebral infarction without residual deficits; F41.9 Anxiety disorder, unspecified; Z88.4 Allergy status to anesthetic agent; Z88.1 Allergy status to other antibiotic agents; Z88.5 Allergy status to narcotic agent; Z88.2 Allergy status to sulfonamides; Z88.8 Allergy status to other drugs, medicaments and biological substances
CPT/HCPCS: 36415; 70450; 71046; 72100; 72125; 80048; 80053; 80320; 81001; 83735; 83880; 84484; 85025; 85610; 87040; 87077; 87086; 87186; 93005; 93270; 93306; 96361; 96372; 96374; 96375; 99285

== ENCOUNTER → 2024-03-10 | Outpatient (CLI) | payer MEDICARE, BC ==
--- NOTE | 2024-03-10 19:30 | US ---
EXAMINATION TYPE: US kidneys/renal and bladder DATE OF EXAM: 03/10/2024 COMPARISON: CT 2022, US 2019 CLINICAL INDICATION: Female, 88 years old with history of R31.92 OTHER MICROSCOPIC HEMATURIA; TECHNIQUE: Grayscale and color Doppler imaging of the bilateral kidneys and urinary bladder: FINDINGS: EXAM MEASUREMENTS: Right Kidney: 8.4 x 4.0 x 4.1 cm Left Kidney: 9.2 x 4.7 x 4.3 cm Difficult and limited study due to patient body habitus Right Kidney: No hydronephrosis or masses seen Left Kidney: No hydronephrosis or masses seen Bladder: wnl Bilateral Jets seen: No There is no evidence for hydronephrosis at this point in time. Cortical medullary differentiation noah ears maintained. No nephrolithiasis is seen. No masses are identified. The urinary bladder is anech oic. Bilateral ureteral jets are not seen. IMPRESSION: Limited examination without gross evidence for hydronephrosis or nephrolithiasis. [facility], , 03/10/2024 7:28 PM
== END | disposition home or self-care (01) ==
LOC: RADUSWWP 14:39
PROVIDERS: ATTEND Family Medicine
DX: R31.29 Other microscopic hematuria (principal)
CPT/HCPCS: 76770